=== PATIENT | male | born 1940 | race Two or more races ===

== ENCOUNTER 2022-03-15 07:52 | Inpatient (IN) | payer OTHER ==
[~2022-03-15] VITALS: Ht 165.1 cm; Wt 76.0 kg
[2022-03-15] MEDS ORDERED: LACTATED RINGER'S 2,100 ML IV ONE (08:15)
[2022-03-15] MEDS ORDERED: AZITHROMYCIN 500MG/ 250ML 250 ML IV ONE (08:15)
[2022-03-15] MEDS ORDERED: ACETAMINOPHEN 325 MG TAB PO ONE (08:15)
[2022-03-15] MEDS ORDERED: cefTRIAXone 1GM/50ML D5W 50 ML IV ONE (08:15)
[2022-03-15 08:40] LABS: Basophils # (auto) 0.1 10 ^3/uL (0-0.2); Basophils % (auto) 0.3 % (0.0-2.0); Eosinophils # (auto) 0.1 10 ^3/uL (0-0.8); Eosinophils % (auto) 0.3 % (0.0-7.0); Hematocrit 39.2 % (41.0-53.0); Hemoglobin 13.2 g/dL (13.5-17.5); Lymphocytes # (auto) 0.5 10 ^3/uL (0.4-5.4); Lymphocytes % (auto) 2.7 % (10.0-50.0); Mean Corpuscular Hemoglobin 31.3 pg (28.0-32.0); Mean Corpuscular Hgb Conc. 33.7 g/dL (32.0-36.0); Mean Corpuscular Volume 92.8 fL (80.0-100.0); Monocytes # (auto) 1.5 10 ^3/uL (0-1.3); Monocytes % (auto) 8.2 % (0.0-12.0); Neutrophils # (auto) 16.4 10 ^3/uL (1.6-8.6); Neutrophils % (auto) 88.5 % (37.0-80.0); Red Blood Cells 4.22 10^6/uL (4.5-5.90); White Blood Cell 18.5 10^3/uL (4.4-10.8)
[2022-03-15 08:54] LABS: Albumin 3.2 g/dL (3.4-5.0); Calcium 8.6 mg/dL (8.5-10.1); Magnesium 2.2 mg/dL (1.6-2.6); Potassium 4.6 mmol/L (3.5-5.1)
[2022-03-15 08:57] LABS: BUN/Creatinine Ratio 23.4; Total Protein 6.4 g/dL (6.4-8.2)
[2022-03-15] MEDS ORDERED: SODIUM CHLORIDE 0.9% 2,450 ML IV ONE (09:00)
[2022-03-15] MEDS ORDERED: ASPirin 325 MG TAB PO ONE (09:15)
[2022-03-15] MEDS ORDERED: MORPHINE SULFATE INJ 2 MG/ml SYRG IV PRN (11:30)
[2022-03-15] MEDS ORDERED: ALBUMIN 25% 100 ML IV ONE (11:30)
[2022-03-15] MEDS ORDERED: FUROSEMIDE 20 MG/2 ML VIAL IV ONE (11:30)
[2022-03-15] MEDS ORDERED: NTG 0.1MG/HR TOPICAL PATCH TD ONE (11:30)
[2022-03-15] MEDS ORDERED: HEPARIN SODIUM (PORCINE) 5000 UNITS/ML 1ML VIAL SC ONE (11:30)
[2022-03-15] MEDS ORDERED: NITROGLYCERIN 0.4 MG SL TAB SL PRN (11:30)
[2022-03-15 11:55] LABS: Urine Bacteria FEW /hpf (None Seen); Urine Blood 1+ /uL (Negative); Urine Specific Gravity 1.016 (1.001-1.035); Urine WBC 120 /hpf (0 - 3)
[2022-03-15 11:58] LABS: Cholesterol 135 mg/dL (< 200)
[2022-03-15 12:01] LABS: HDL Cholesterol 48 mg/dL (40-59); LDL Cholesterol 76 mg/dL (< 100); Triglycerides 93 mg/dL (< 150)
[2022-03-15] MEDS ORDERED: VANCOMYCIN PER PHARMACY 0 MG IV SCH (12:15)
[2022-03-15 12:46] LABS: INR 1.17 (0.9-1.15); Partial Thromboplastin Time 34.3 sec (24.6-33.4)
[2022-03-15] MEDS: NOREPINEPHRINE 8 MG/250ML KIT 250 ML IV SCH (12:46)
[2022-03-15] MEDS ORDERED: HEPARIN DRIP/D5W 100UNITS/ML 250 ML IV SCH ×2 (14:00→21:45)
[2022-03-15] MEDS: PIPERACILLIN-TAZOB 2.25GM 50 ML IV SCH ×2 (14:06→20:05)
[2022-03-15] MEDS: VANCOMYCIN 1GM/250ML 250 ML IV SCH (16:42)
[2022-03-15] MEDS: MORPHINE SULFATE INJ 2 MG/ml SYRG IV PRN ×2 (17:03→23:14)
[2022-03-15] MEDS: FUROSEMIDE 20 MG/2 ML VIAL IV SCH (18:19)
[2022-03-15] MEDS ORDERED: CLOPIDOGREL 300 MG TAB PO ONE (20:30)
[2022-03-15 20:41] LABS: INR 1.21 (0.9-1.15); Partial Thromboplastin Time 47.7 sec (24.6-33.4)
[2022-03-15] MEDS ORDERED: HYDROcodone-ACET 7.5/325MG TAB PO ONE (21:00)
[2022-03-16] VITALS (44 sets, daily range): BP systolic 39–117; BP diastolic 25–79
[2022-03-16] MEDS ORDERED: fentaNYL CITRATE 100 MCG/2 ML VL IV ONE (00:15)
[2022-03-16] MEDS ORDERED: IOHEXOL 350 MG/ML 100ML IJ ONE (01:07)
[2022-03-16] MEDS: PIPERACILLIN-TAZOB 2.25GM 50 ML IV SCH ×2 (02:37→10:34)
[2022-03-16 03:48] LABS: INR 1.24 (0.9-1.15); Partial Thromboplastin Time 66.4 sec (24.6-33.4)
[2022-03-16 06:02] LABS: Basophils # (auto) 0.1 10 ^3/uL (0-0.2); Basophils % (auto) 0.3 % (0.0-2.0); Eosinophils # (auto) 0 10 ^3/uL (0-0.8); Hematocrit 36.4 % (41.0-53.0); Hemoglobin 12.1 g/dL (13.5-17.5); Lymphocytes # (auto) 0.7 10 ^3/uL (0.4-5.4); Lymphocytes % (auto) 3.3 % (10.0-50.0); Mean Corpuscular Hemoglobin 31.5 pg (28.0-32.0); Mean Corpuscular Hgb Conc. 33.4 g/dL (32.0-36.0); Mean Corpuscular Volume 94.5 fL (80.0-100.0); Monocytes # (auto) 1.7 10 ^3/uL (0-1.3); Monocytes % (auto) 8.5 % (0.0-12.0); Neutrophils % (auto) 87.9 % (37.0-80.0); Red Blood Cells 3.85 10^6/uL (4.5-5.90); Red Cell Distribution Width 14.3 % (11.8-14.3); White Blood Cell 20.5 10^3/uL (4.4-10.8)
[2022-03-16 06:20] LABS: Potassium 4.8 mmol/L (3.5-5.1)
[2022-03-16 06:26] LABS: BUN/Creatinine Ratio 21.8; Calcium 7.5 mg/dL (8.5-10.1); Total Protein 5.7 g/dL (6.4-8.2)
[2022-03-16] MEDS: FUROSEMIDE 20 MG/2 ML VIAL IV SCH ×2 (07:54→18:55)
[2022-03-16] MEDS ORDERED: IODIXANOL 320MG/ML 100ML BTL IV ONE ×5 (10:14→11:37)
[2022-03-16] MEDS ORDERED: LIDOCAINE 2%HCL (LOCAL ANESTH.) INJ 10ml MDV ONE ×2 (10:16→10:46)
[2022-03-16] MEDS ORDERED: fentaNYL CITRATE 100 MCG/2 ML VL ONE (10:28)
[2022-03-16] MEDS ORDERED: ANGIOMAX 250 MG VIAL IV ONE (10:28)
[2022-03-16] MEDS ORDERED: VERAPAMIL 2.5MG/ML INJ 2ML VIAL IV ONE (10:28)
[2022-03-16] MEDS ORDERED: HEPARIN SODIUM (PORCINE) 5000 UNITS/ML 1ML VIAL ONE (10:28)
[2022-03-16] MEDS ORDERED: MIDAZOLAM HCL 2MG/2ML 2ml VIAL (1mg/ml) ONE (10:29)
[2022-03-16] MEDS ORDERED: SODIUM CHL 0.9% 0 ML ONE (10:29)
[2022-03-16] MEDS ORDERED: HEPARIN DRIP/D5W 100UNITS/ML 250 ML IV ONE (10:59)
[2022-03-16] MEDS ORDERED: KETOROLAC TROMETH 30 MG/ML 1ML VIAL ONE (11:25)
[2022-03-16] MEDS ORDERED: KETOROLAC TROMETH 30 MG/ML 1ML VIAL IV ONE (11:30)
[2022-03-16] MEDS ORDERED: CLOPIDOGREL 300 MG TAB ONE ×2 (11:55→11:56)
[2022-03-16] MEDS ORDERED: ASPirin 325 MG TAB ONE (11:55)
[2022-03-16] MEDS ORDERED: DOPamine 1600MCG/ML D5W 0 ML IV ONE (11:59)
[2022-03-16] MEDS ORDERED: FUROSEMIDE 20 MG/2 ML VIAL ONE (11:59)
[2022-03-16] MEDS ORDERED: PHENYLEPHRINE IV 250 ML IV ONE (12:12)
[2022-03-16] MEDS ORDERED: ASPirin 325 MG TAB PO ONE (12:15)
[2022-03-16] MEDS: PHENYLEPHRINE IV 250 ML IV SCH ×2 (12:15→20:43)
[2022-03-16] MEDS ORDERED: CLOPIDOGREL BISULFATE 75 MG TAB PO ONE (12:15)
[2022-03-16] MEDS: ASPirin 81 mg TAB PO SCH (12:30)
[2022-03-16] MEDS ORDERED: DOXYCYCLINE 100MG/250ML 250 ML IV ONE (15:00)
[2022-03-16] MEDS: MEROPENEM 1GM IVPB 100 ML IV SCH (15:30)
[2022-03-16] MEDS ORDERED: SODIUM CHLORIDE 0.9% 1,000 ML IV ONE (15:45)
[2022-03-16] MEDS ORDERED: ACETYLCYSTEINE ORAL for CIN 20%(200MG/ML) 4ML PO ONE (15:45)
[2022-03-16] MEDS: VANCOMYCIN 1GM/250ML 250 ML IV SCH (16:24)
[2022-03-16 18:36] LABS: Urine Bacteria NONE SEEN /hpf (None Seen); Urine Blood 1+ /uL (Negative); Urine WBC 9 /hpf (0 - 3)
[2022-03-16 18:47] LABS: Protein, Urine 34.1 mg/dL (0.0-11.9)
[2022-03-16] MEDS: NOREPINEPHRINE 8 MG/250ML KIT 250 ML IV SCH (20:37)
[2022-03-16] MEDS ORDERED: FUROSEMIDE 40 MG/4 ML VIAL IV ONE (21:15)
[2022-03-16] MEDS: SODIUM CHLORIDE 0.9% 1,000 ML IV SCH (21:51)
[2022-03-16] MEDS: ATORVASTATIN 20 MG TAB PO SCH (21:51)
[2022-03-16] MEDS: ACETYLCYSTEINE ORAL for CIN 20%(200MG/ML) 4ML PO SCH (22:00)
[2022-03-16] MEDS ORDERED: LOSA-69 PO (22:00)
[2022-03-17] VITALS (93 sets, daily range): BP systolic 35–121; BP diastolic 16–74
[2022-03-17] MEDS: PHENYLEPHRINE IV 250 ML IV SCH ×3 (02:09→19:40)
[2022-03-17] MEDS: DOXYCYCLINE 100MG/250ML 250 ML IV SCH ×2 (02:34→15:00)
[2022-03-17 04:10] LABS: Basophils # (auto) 0 10 ^3/uL (0-0.2); Basophils % (auto) 0.1 % (0.0-2.0); Eosinophils # (auto) 0 10 ^3/uL (0-0.8); Eosinophils % (auto) 0.2 % (0.0-7.0); Hematocrit 35.8 % (41.0-53.0); Hemoglobin 11.9 g/dL (13.5-17.5); Lymphocytes # (auto) 0.6 10 ^3/uL (0.4-5.4); Lymphocytes % (auto) 2.9 % (10.0-50.0); Mean Corpuscular Hemoglobin 31.3 pg (28.0-32.0); Mean Corpuscular Hgb Conc. 33.3 g/dL (32.0-36.0); Monocytes # (auto) 1.8 10 ^3/uL (0-1.3); Monocytes % (auto) 9.5 % (0.0-12.0); Neutrophils # (auto) 17.1 10 ^3/uL (1.6-8.6); Neutrophils % (auto) 87.3 % (37.0-80.0); Red Cell Distribution Width 14.2 % (11.8-14.3); White Blood Cell 19.5 10^3/uL (4.4-10.8)
[2022-03-17 04:18] LABS: Albumin 2.4 g/dL (3.4-5.0); Magnesium 2.3 mg/dL (1.6-2.6)
[2022-03-17 04:20] LABS: BUN/Creatinine Ratio 21.3
[2022-03-17 04:23] LABS: Bilirubin, Total 0.8 mg/dL (0.2-1.0); Phosphorus 5.2 mg/dL (2.5-4.90)
[2022-03-17] MEDS: MEROPENEM 1GM IVPB 100 ML IV SCH (04:49)
[2022-03-17] MEDS ORDERED: FUROSEMIDE 40 MG/4 ML VIAL IV ONE (06:15)
[2022-03-17] MEDS: FUROSEMIDE 20 MG/2 ML VIAL IV SCH ×2 (06:15→17:57)
[2022-03-17] MEDS ORDERED: PANTOPRAZOLE 40 MG/10 ML VIAL INJ IV ONE (10:45)
[2022-03-17] MEDS: ASPirin 81 mg TAB PO SCH (10:47)
[2022-03-17] MEDS: CLOPIDOGREL BISULFATE 75 MG TAB PO SCH (10:47)
[2022-03-17] MEDS: NOREPINEPHRINE 8 MG/250ML KIT 250 ML IV SCH (11:30)
[2022-03-17] MEDS: ACETYLCYSTEINE ORAL for CIN 20%(200MG/ML) 4ML PO SCH ×2 (13:01→21:45)
[2022-03-17] MEDS: SODIUM CHLORIDE 0.9% 1,000 ML IV SCH (13:55)
[2022-03-17] MEDS: ERGOCALCIFEROL 50,000 UNIT(1.25MG) CAP PO SCH (14:30)
[2022-03-17] MEDS ORDERED: CEFTRIAXONE SODIUM 2 GM in D5W 5% 50 ML IV ONE (14:45)
[2022-03-17] MEDS: DOBUTamine 1000MCG/ML 250 ML IV SCH (15:43)
[2022-03-17] MEDS: ALPRAZolam 0.5 MG TAB PO PRN (16:47)
[2022-03-17] MEDS ORDERED: FINA5TAB4 PO (17:54)
[2022-03-17] MEDS ORDERED: ATOR20TA PO (17:55)
[2022-03-17] MEDS: ATORVASTATIN 20 MG TAB PO SCH (21:45)
[2022-03-18] VITALS (96 sets, daily range): BP systolic 22–132; BP diastolic 0–72
[2022-03-18] MEDS: PHENYLEPHRINE IV 250 ML IV SCH ×2 (00:09→07:11)
[2022-03-18] MEDS: DOXYCYCLINE 100MG/250ML 250 ML IV SCH ×2 (03:09→14:20)
[2022-03-18 04:08] LABS: Basophils # (auto) 0 10 ^3/uL (0-0.2); Basophils % (auto) 0.1 % (0.0-2.0); Eosinophils # (auto) 0.1 10 ^3/uL (0-0.8); Eosinophils % (auto) 0.6 % (0.0-7.0); Hematocrit 34.1 % (41.0-53.0); Hemoglobin 11.4 g/dL (13.5-17.5); Lymphocytes # (auto) 0.6 10 ^3/uL (0.4-5.4); Lymphocytes % (auto) 3.8 % (10.0-50.0); Mean Corpuscular Hgb Conc. 33.5 g/dL (32.0-36.0); Mean Corpuscular Volume 95.7 fL (80.0-100.0); Monocytes # (auto) 1.4 10 ^3/uL (0-1.3); Monocytes % (auto) 8.7 % (0.0-12.0); Neutrophils # (auto) 13.7 10 ^3/uL (1.6-8.6); Neutrophils % (auto) 86.8 % (37.0-80.0); Red Blood Cells 3.56 10^6/uL (4.5-5.90); Red Cell Distribution Width 14.5 % (11.8-14.3); White Blood Cell 15.8 10^3/uL (4.4-10.8)
[2022-03-18 04:22] LABS: BUN/Creatinine Ratio 23.1; Calcium 7.6 mg/dL (8.5-10.1); Potassium 3.8 mmol/L (3.5-5.1)
[2022-03-18] MEDS: FUROSEMIDE 20 MG/2 ML VIAL IV SCH ×2 (05:48→18:39)
[2022-03-18] MEDS ORDERED: PHENYLEPHRINE INJ 80 MG in SODIUM CHL 0.9% 242 ML IV SCH (08:15)
[2022-03-18] MEDS: cefTRIAXone 1GM/50ML D5W 50 ML IV SCH (09:15)
[2022-03-18] MEDS: PANTOPRAZOLE 40 MG/10 ML VIAL INJ IV SCH (09:15)
[2022-03-18] MEDS: CLOPIDOGREL BISULFATE 75 MG TAB PO SCH (09:15)
[2022-03-18] MEDS: PHENYLEPHRINE INJ 80 MG in SODIUM CHL 0.9% 242 ML IV SCH (09:15)
[2022-03-18] MEDS: ASPirin 81 mg TAB PO SCH (09:16)
[2022-03-18] MEDS: NOREPINEPHRINE 8 MG/250ML KIT 250 ML IV SCH (11:30)
[2022-03-18] MEDS: DOBUTamine 1000MCG/ML 250 ML IV SCH (11:46)
[2022-03-18] MEDS ORDERED: FUROSEMIDE 40 MG/4 ML VIAL IV ONE (12:30)
[2022-03-18] MEDS: SENNA 8.6 MG TAB PO SCH (14:46)
[2022-03-18] MEDS: ATORVASTATIN 20 MG TAB PO SCH (21:55)
[2022-03-19] VITALS (93 sets, daily range): BP systolic 15–126; BP diastolic -1–71
[2022-03-19] MEDS: DOXYCYCLINE 100MG/250ML 250 ML IV SCH ×2 (02:41→15:00)
[2022-03-19 04:35] LABS: Basophils # (auto) 0 10 ^3/uL (0-0.2); Basophils % (auto) 0.2 % (0.0-2.0); Eosinophils # (auto) 0.2 10 ^3/uL (0-0.8); Eosinophils % (auto) 1.1 % (0.0-7.0); Hematocrit 34.9 % (41.0-53.0); Hemoglobin 11.5 g/dL (13.5-17.5); Lymphocytes # (auto) 0.5 10 ^3/uL (0.4-5.4); Lymphocytes % (auto) 3.5 % (10.0-50.0); Mean Corpuscular Hemoglobin 30.7 pg (28.0-32.0); Mean Corpuscular Hgb Conc. 32.8 g/dL (32.0-36.0); Mean Corpuscular Volume 93.6 fL (80.0-100.0); Monocytes # (auto) 1.1 10 ^3/uL (0-1.3); Neutrophils # (auto) 11.7 10 ^3/uL (1.6-8.6); Neutrophils % (auto) 87.2 % (37.0-80.0); Red Blood Cells 3.73 10^6/uL (4.5-5.90); Red Cell Distribution Width 14.3 % (11.8-14.3); White Blood Cell 13.4 10^3/uL (4.4-10.8)
[2022-03-19 05:20] LABS: Potassium 3.8 mmol/L (3.5-5.1)
[2022-03-19] MEDS: FUROSEMIDE 20 MG/2 ML VIAL IV SCH ×2 (05:43→18:32)
[2022-03-19] MEDS: DOBUTamine 1000MCG/ML 250 ML IV SCH (06:55)
[2022-03-19] MEDS: cefTRIAXone 1GM/50ML D5W 50 ML IV SCH (09:00)
[2022-03-19] MEDS: PHENYLEPHRINE INJ 80 MG in SODIUM CHL 0.9% 242 ML IV SCH (09:15)
[2022-03-19] MEDS: SENNA 8.6 MG TAB PO SCH (10:18)
[2022-03-19] MEDS: CLOPIDOGREL BISULFATE 75 MG TAB PO SCH (10:19)
[2022-03-19] MEDS: ASPirin 81 mg TAB PO SCH (10:20)
[2022-03-19] MEDS: PANTOPRAZOLE 40 MG/10 ML VIAL INJ IV SCH (10:20)
[2022-03-19] MEDS ORDERED: POTASSIUM EFFERVESENT TAB 25 MEQ PO ONE (11:00)
[2022-03-19] MEDS ORDERED: FUROSEMIDE 40 MG/4 ML VIAL IV ONE (11:00)
[2022-03-19] MEDS: NOREPINEPHRINE 8 MG/250ML KIT 250 ML IV SCH (11:30)
[2022-03-19] MEDS: Ensure HIGH Protein Chocolate 8oz Bottle PO SCH ×2 (14:33→18:32)
[2022-03-19] MEDS: ATORVASTATIN 20 MG TAB PO SCH (21:43)
[2022-03-20] VITALS (96 sets, daily range): BP systolic 79–147; BP diastolic 32–73
[2022-03-20] MEDS: PHENYLEPHRINE INJ 80 MG in SODIUM CHL 0.9% 242 ML IV SCH (02:05)
[2022-03-20] MEDS: DOXYCYCLINE 100MG/250ML 250 ML IV SCH ×2 (03:47→15:00)
[2022-03-20 04:00] LABS: Basophils # (auto) 0.1 10 ^3/uL (0-0.2); Basophils % (auto) 0.4 % (0.0-2.0); Eosinophils # (auto) 0.7 10 ^3/uL (0-0.8); Eosinophils % (auto) 4.6 % (0.0-7.0); Hematocrit 38.8 % (41.0-53.0); Hemoglobin 12.4 g/dL (13.5-17.5); Lymphocytes # (auto) 0.9 10 ^3/uL (0.4-5.4); Lymphocytes % (auto) 6.2 % (10.0-50.0); Mean Corpuscular Hemoglobin 30.1 pg (28.0-32.0); Mean Corpuscular Hgb Conc. 31.8 g/dL (32.0-36.0); Mean Corpuscular Volume 94.5 fL (80.0-100.0); Monocytes # (auto) 1.3 10 ^3/uL (0-1.3); Monocytes % (auto) 8.9 % (0.0-12.0); Neutrophils # (auto) 11.8 10 ^3/uL (1.6-8.6); Neutrophils % (auto) 79.9 % (37.0-80.0); Nucleated Red Blood Cells % 0.1 %; Red Blood Cells 4.11 10^6/uL (4.5-5.90); Red Cell Distribution Width 14.3 % (11.8-14.3); White Blood Cell 14.8 10^3/uL (4.4-10.8)
[2022-03-20 04:22] LABS: Calcium 8.4 mg/dL (8.5-10.1); Potassium 3.9 mmol/L (3.5-5.1)
[2022-03-20 04:24] LABS: BUN/Creatinine Ratio 39.3
[2022-03-20 04:27] LABS: Bilirubin, Total 0.8 mg/dL (0.2-1.0); Total Protein 5.3 g/dL (6.4-8.2)
[2022-03-20] MEDS: FUROSEMIDE 20 MG/2 ML VIAL IV SCH ×2 (06:08→18:47)
[2022-03-20] MEDS: DOBUTamine 1000MCG/ML 250 ML IV SCH (06:18)
[2022-03-20] MEDS: Ensure HIGH Protein Chocolate 8oz Bottle PO SCH ×3 (08:58→19:55)
[2022-03-20] MEDS: PANTOPRAZOLE 40 MG/10 ML VIAL INJ IV SCH (09:40)
[2022-03-20] MEDS: cefTRIAXone 1GM/50ML D5W 50 ML IV SCH (09:43)
[2022-03-20] MEDS: ASPirin 81 mg TAB PO SCH (09:44)
[2022-03-20] MEDS: SENNA 8.6 MG TAB PO SCH (09:45)
[2022-03-20] MEDS: CLOPIDOGREL BISULFATE 75 MG TAB PO SCH (09:45)
[2022-03-20] MEDS: NOREPINEPHRINE 8 MG/250ML KIT 250 ML IV SCH (11:30)
[2022-03-20] MEDS: ACETAMINOPHEN 500 MG TAB PO PRN ×2 (16:28→22:18)
[2022-03-20] MEDS: ATORVASTATIN 20 MG TAB PO SCH (22:13)
[2022-03-21] VITALS (63 sets, daily range): BP systolic 80–142; BP diastolic 29–72
[2022-03-21] MEDS: ALPRAZolam 0.5 MG TAB PO PRN (02:03)
[2022-03-21] MEDS: DOXYCYCLINE 100MG/250ML 250 ML IV SCH (03:27)
[2022-03-21] MEDS: DOBUTamine 1000MCG/ML 250 ML IV SCH ×2 (03:34→14:35)
[2022-03-21 03:59] LABS: Basophils # (auto) 0 10 ^3/uL (0-0.2); Basophils % (auto) 0.4 % (0.0-2.0); Eosinophils # (auto) 0.6 10 ^3/uL (0-0.8); Eosinophils % (auto) 5.3 % (0.0-7.0); Hematocrit 37.6 % (41.0-53.0); Hemoglobin 12.2 g/dL (13.5-17.5); Lymphocytes # (auto) 0.7 10 ^3/uL (0.4-5.4); Lymphocytes % (auto) 6.2 % (10.0-50.0); Mean Corpuscular Hemoglobin 30.1 pg (28.0-32.0); Mean Corpuscular Hgb Conc. 32.4 g/dL (32.0-36.0); Mean Corpuscular Volume 92.9 fL (80.0-100.0); Monocytes # (auto) 0.9 10 ^3/uL (0-1.3); Monocytes % (auto) 7.7 % (0.0-12.0); Neutrophils # (auto) 9.1 10 ^3/uL (1.6-8.6); Neutrophils % (auto) 80.4 % (37.0-80.0); Red Blood Cells 4.05 10^6/uL (4.5-5.90); Red Cell Distribution Width 14.5 % (11.8-14.3); White Blood Cell 11.3 10^3/uL (4.4-10.8)
[2022-03-21 04:17] LABS: Albumin 2.1 g/dL (3.4-5.0); BUN/Creatinine Ratio 49.7; Calcium 8.5 mg/dL (8.5-10.1); Potassium 3.8 mmol/L (3.5-5.1)
[2022-03-21 04:20] LABS: Bilirubin, Total 0.6 mg/dL (0.2-1.0); INR 1.25 (0.9-1.15); Total Protein 5.4 g/dL (6.4-8.2)
[2022-03-21] MEDS: ACETAMINOPHEN 500 MG TAB PO PRN (04:32)
[2022-03-21] MEDS: FUROSEMIDE 20 MG/2 ML VIAL IV SCH (05:46)
[2022-03-21] MEDS: Ensure HIGH Protein Chocolate 8oz Bottle PO SCH ×3 (08:00→18:13)
[2022-03-21] MEDS: PHENYLEPHRINE INJ 80 MG in SODIUM CHL 0.9% 242 ML IV SCH (09:15)
[2022-03-21] MEDS: CLOPIDOGREL BISULFATE 75 MG TAB PO SCH (11:27)
[2022-03-21] MEDS: SENNA 8.6 MG TAB PO SCH (11:27)
[2022-03-21] MEDS: PANTOPRAZOLE 40 MG/10 ML VIAL INJ IV SCH (11:28)
[2022-03-21] MEDS: HYDROcodone-ACET 5/325MG TAB PO PRN ×2 (11:28→19:30)
[2022-03-21] MEDS: cefTRIAXone 1GM/50ML D5W 50 ML IV SCH (11:28)
[2022-03-21] MEDS: ASPirin 81 mg TAB PO SCH (11:28)
[2022-03-21] MEDS: NOREPINEPHRINE 8 MG/250ML KIT 250 ML IV SCH (11:30)
[2022-03-21] MEDS: ATORVASTATIN 20 MG TAB PO SCH (22:00)
[2022-03-21] MEDS: PHENYLEPHRINE IV 250 ML IV SCH (22:24)
[2022-03-22] VITALS (90 sets, daily range): BP systolic 89–164; BP diastolic 37–72
[2022-03-22 04:17] LABS: Potassium 3.8 mmol/L (3.5-5.1)
[2022-03-22 04:23] LABS: BUN/Creatinine Ratio 48.4
[2022-03-22] MEDS: PHENYLEPHRINE IV 250 ML IV SCH ×3 (06:35→23:15)
[2022-03-22] MEDS: DOBUTamine 1000MCG/ML 250 ML IV SCH (08:53)
[2022-03-22] MEDS: cefTRIAXone 1GM/50ML D5W 50 ML IV SCH (08:53)
[2022-03-22] MEDS: Ensure HIGH Protein Chocolate 8oz Bottle PO SCH ×3 (08:54→18:00)
[2022-03-22] MEDS: ASPirin 81 mg TAB PO SCH (09:37)
[2022-03-22] MEDS: SENNA 8.6 MG TAB PO SCH (09:37)
[2022-03-22] MEDS: PANTOPRAZOLE 40 MG TAB PO SCH (09:38)
[2022-03-22] MEDS: CLOPIDOGREL BISULFATE 75 MG TAB PO SCH (09:38)
[2022-03-22] MEDS: ACETAMINOPHEN 500 MG TAB PO PRN (13:41)
[2022-03-22] MEDS: ATORVASTATIN 20 MG TAB PO SCH (22:12)
[2022-03-23] VITALS (85 sets, daily range): BP systolic 117–166; BP diastolic 41–79
[2022-03-23] MEDS: ACETAMINOPHEN 500 MG TAB PO PRN ×2 (02:35→17:50)
[2022-03-23 04:21] LABS: Calcium 8.5 mg/dL (8.5-10.1); Potassium 4.2 mmol/L (3.5-5.1)
[2022-03-23 04:23] LABS: BUN/Creatinine Ratio 46.9
[2022-03-23] MEDS: DOBUTamine 1000MCG/ML 250 ML IV SCH (05:59)
[2022-03-23] MEDS: PHENYLEPHRINE IV 250 ML IV SCH ×2 (07:35→15:55)
[2022-03-23] MEDS: cefTRIAXone 1GM/50ML D5W 50 ML IV SCH (09:18)
[2022-03-23] MEDS: CLOPIDOGREL BISULFATE 75 MG TAB PO SCH (09:19)
[2022-03-23] MEDS: SENNA 8.6 MG TAB PO SCH (09:19)
[2022-03-23] MEDS: ASPirin 81 mg TAB PO SCH (09:19)
[2022-03-23] MEDS: PANTOPRAZOLE 40 MG TAB PO SCH (09:19)
[2022-03-23] MEDS: Ensure HIGH Protein Chocolate 8oz Bottle PO SCH ×2 (09:20→12:00)
[2022-03-23] MEDS: ATORVASTATIN 20 MG TAB PO SCH (21:48)
[2022-03-24] VITALS (43 sets, daily range): BP systolic 92–161; BP diastolic 23–89
[2022-03-24] MEDS: PHENYLEPHRINE IV 250 ML IV SCH ×3 (00:15→16:55)
[2022-03-24] MEDS: DOBUTamine 1000MCG/ML 250 ML IV SCH (02:32)
[2022-03-24 03:40] LABS: Basophils # (auto) 0 10 ^3/uL (0-0.2); Basophils % (auto) 0.4 % (0.0-2.0); Eosinophils # (auto) 0.5 10 ^3/uL (0-0.8); Eosinophils % (auto) 4.3 % (0.0-7.0); Hematocrit 37.8 % (41.0-53.0); Hemoglobin 12.4 g/dL (13.5-17.5); Lymphocytes # (auto) 0.8 10 ^3/uL (0.4-5.4); Lymphocytes % (auto) 6.6 % (10.0-50.0); Mean Corpuscular Hemoglobin 30.5 pg (28.0-32.0); Mean Corpuscular Hgb Conc. 32.9 g/dL (32.0-36.0); Mean Corpuscular Volume 92.8 fL (80.0-100.0); Monocytes # (auto) 1.1 10 ^3/uL (0-1.3); Monocytes % (auto) 9.5 % (0.0-12.0); Neutrophils # (auto) 9.3 10 ^3/uL (1.6-8.6); Neutrophils % (auto) 79.2 % (37.0-80.0); Nucleated Red Blood Cells % 0.1 %; Red Blood Cells 4.08 10^6/uL (4.5-5.90); Red Cell Distribution Width 14.4 % (11.8-14.3); White Blood Cell 11.8 10^3/uL (4.4-10.8)
[2022-03-24 03:57] LABS: Magnesium 2.6 mg/dL (1.6-2.6)
[2022-03-24] MEDS: PANTOPRAZOLE 40 MG TAB PO SCH (09:33)
[2022-03-24] MEDS: ASPirin 81 mg TAB PO SCH (09:33)
[2022-03-24] MEDS: cefTRIAXone 1GM/50ML D5W 50 ML IV SCH (09:33)
[2022-03-24] MEDS: CLOPIDOGREL BISULFATE 75 MG TAB PO SCH (09:33)
[2022-03-24] MEDS: SENNA 8.6 MG TAB PO SCH (09:33)
[2022-03-24] MEDS: ENOXAPARIN SOD 30 MG/0.3 ML SYRINGE SC SCH (09:34)
[2022-03-24] MEDS: Ensure HIGH Protein Chocolate 8oz Bottle PO SCH ×4 (09:35→18:37)
[2022-03-24] MEDS: ACETYLCYSTEINE 10 %(100MG/ML) SOL 4ML NEB SCH ×2 (10:15→22:16)
[2022-03-24] MEDS ORDERED: SACUBITRIL-VALSARTAN 24mg/26mg TAB PO SCH (10:15)
[2022-03-24] MEDS ORDERED: IPRATROPIUM BROM 0.5 MG/2.5ML INH SOL NEB ONE (10:15)
[2022-03-24] MEDS ORDERED: ALBUTEROL SULF 2.5 MG/0.5ML(0.5%) NEB SOLN NEB ONE (10:15)
[2022-03-24] MEDS ORDERED: ALBUTEROL MEDNEB 2.5 mg/3ml NEB ONE ×2 (10:22→14:36)
[2022-03-24] MEDS ORDERED: CARVEDILOL 3.125 MG TAB PO ONE (12:00)
[2022-03-24] MEDS ORDERED: metOLazone 5 MG TAB PO ONE (12:00)
[2022-03-24] MEDS ORDERED: BUMETANIDE 1 MG TAB PO ONE (12:00)
[2022-03-24] MEDS: IPRATROPIUM BROM 0.5 MG/2.5ML INH SOL NEB SCH ×3 (14:00→22:15)
[2022-03-24] MEDS: ALBUTEROL SULF 2.5 MG/0.5ML(0.5%) NEB SOLN NEB SCH ×3 (14:00→22:15)
[2022-03-24] MEDS: ACETAMINOPHEN 500 MG TAB PO PRN (14:09)
[2022-03-24] MEDS: ALPRAZolam 0.5 MG TAB PO PRN (14:21)
[2022-03-24] MEDS: BUMETANIDE 1 MG TAB PO SCH (18:35)
[2022-03-24] MEDS: ERGOCALCIFEROL 50,000 UNIT(1.25MG) CAP PO SCH (18:35)
[2022-03-24] MEDS: CARVEDILOL 3.125 MG TAB PO SCH (21:46)
[2022-03-24] MEDS: ATORVASTATIN 20 MG TAB PO SCH (21:46)
[2022-03-25] VITALS (23 sets, daily range): BP systolic 97–147; BP diastolic 33–65
[2022-03-25] MEDS: PHENYLEPHRINE IV 250 ML IV SCH ×4 (01:15→21:49)
[2022-03-25] MEDS: ALBUTEROL SULF 2.5 MG/0.5ML(0.5%) NEB SOLN NEB SCH ×6 (02:15→22:56)
[2022-03-25] MEDS: ALPRAZolam 0.5 MG TAB PO PRN (02:26)
[2022-03-25 04:07] LABS: Basophils # (auto) 0.1 10 ^3/uL (0-0.2); Basophils % (auto) 0.4 % (0.0-2.0); Eosinophils # (auto) 0.6 10 ^3/uL (0-0.8); Eosinophils % (auto) 4.9 % (0.0-7.0); Hematocrit 43.8 % (41.0-53.0); Hemoglobin 13.7 g/dL (13.5-17.5); Lymphocytes # (auto) 0.9 10 ^3/uL (0.4-5.4); Lymphocytes % (auto) 8.2 % (10.0-50.0); Mean Corpuscular Hemoglobin 30.5 pg (28.0-32.0); Mean Corpuscular Hgb Conc. 31.1 g/dL (32.0-36.0); Mean Corpuscular Volume 97.8 fL (80.0-100.0); Monocytes # (auto) 1.2 10 ^3/uL (0-1.3); Monocytes % (auto) 10.3 % (0.0-12.0); Neutrophils # (auto) 8.7 10 ^3/uL (1.6-8.6); Neutrophils % (auto) 76.2 % (37.0-80.0); Nucleated Red Blood Cells % 0.1 %; Red Blood Cells 4.48 10^6/uL (4.5-5.90); Red Cell Distribution Width 14.9 % (11.8-14.3); White Blood Cell 11.4 10^3/uL (4.4-10.8)
[2022-03-25 04:25] LABS: BUN/Creatinine Ratio 41.1; Calcium 9.2 mg/dL (8.5-10.1); Magnesium 2.6 mg/dL (1.6-2.6); Phosphorus 4.3 mg/dL (2.5-4.90); Potassium 4.1 mmol/L (3.5-5.1)
[2022-03-25] MEDS: BUMETANIDE 1 MG TAB PO SCH ×2 (06:00→18:21)
[2022-03-25] MEDS ORDERED: ALBUTEROL MEDNEB 2.5 mg/3ml NEB ONE ×5 (06:22→21:43)
[2022-03-25] MEDS: ACETYLCYSTEINE 10 %(100MG/ML) SOL 4ML NEB SCH ×3 (06:23→22:57)
[2022-03-25] MEDS: IPRATROPIUM BROM 0.5 MG/2.5ML INH SOL NEB SCH ×5 (06:23→22:57)
[2022-03-25] MEDS: Ensure HIGH Protein Chocolate 8oz Bottle PO SCH ×3 (08:18→21:55)
[2022-03-25] MEDS: cefTRIAXone 1GM/50ML D5W 50 ML IV SCH (08:19)
[2022-03-25] MEDS: CLOPIDOGREL BISULFATE 75 MG TAB PO SCH (08:20)
[2022-03-25] MEDS: ASPirin 81 mg TAB PO SCH (08:20)
[2022-03-25] MEDS: PANTOPRAZOLE 40 MG TAB PO SCH (08:21)
[2022-03-25] MEDS: SENNA 8.6 MG TAB PO SCH (08:21)
[2022-03-25] MEDS: metOLazone 5 MG TAB PO SCH (08:22)
[2022-03-25] MEDS: ENOXAPARIN SOD 30 MG/0.3 ML SYRINGE SC SCH (08:22)
[2022-03-25] MEDS ORDERED: LOS25T PO (08:53)
[2022-03-25] MEDS ORDERED: ERGO1CAP23 PO (08:53)
[2022-03-25] MEDS ORDERED: CLOP75TA70 PO (08:53)
[2022-03-25] MEDS ORDERED: BUM1T PO (08:53)
[2022-03-25] MEDS ORDERED: ASPI-325 PO (08:53)
[2022-03-25] MEDS ORDERED: ATOR20TA50 PO (08:53)
[2022-03-25] MEDS ORDERED: CAR3125T PO (08:53)
[2022-03-25] MEDS: LOSARTAN POTASSIUM 25 MG TAB PO SCH (10:00)
[2022-03-25] MEDS: CARVEDILOL 3.125 MG TAB PO SCH ×2 (10:00→21:47)
[2022-03-25] MEDS: ATORVASTATIN 20 MG TAB PO SCH (21:54)
[2022-03-26] MEDS: ALBUTEROL SULF 2.5 MG/0.5ML(0.5%) NEB SOLN NEB SCH ×3 (03:00→10:33)
[2022-03-26 04:53] VITALS: BP 99/60
[2022-03-26] MEDS: BUMETANIDE 1 MG TAB PO SCH (05:56)
[2022-03-26] MEDS ORDERED: ALBUTEROL MEDNEB 2.5 mg/3ml NEB ONE ×2 (05:59→14:27)
[2022-03-26] MEDS: ACETYLCYSTEINE 10 %(100MG/ML) SOL 4ML NEB SCH (06:08)
[2022-03-26] MEDS: IPRATROPIUM BROM 0.5 MG/2.5ML INH SOL NEB SCH ×2 (06:09→10:33)
[2022-03-26 08:00] VITALS: BP 115/49
[2022-03-26] MEDS: metOLazone 5 MG TAB PO SCH (10:00)
[2022-03-26] MEDS: LOSARTAN POTASSIUM 25 MG TAB PO SCH (10:00)
[2022-03-26] MEDS: ASPirin 81 mg TAB PO SCH (10:08)
[2022-03-26] MEDS: CARVEDILOL 3.125 MG TAB PO SCH (10:09)
[2022-03-26] MEDS: PANTOPRAZOLE 40 MG TAB PO SCH (10:10)
[2022-03-26] MEDS: CLOPIDOGREL BISULFATE 75 MG TAB PO SCH (10:10)
[2022-03-26] MEDS: SENNA 8.6 MG TAB PO SCH (10:10)
[2022-03-26] MEDS: ENOXAPARIN SOD 30 MG/0.3 ML SYRINGE SC SCH (10:11)
[2022-03-26] MEDS: Ensure HIGH Protein Chocolate 8oz Bottle PO SCH ×2 (10:12→12:00)
[2022-03-26 11:16] VITALS: BP 99/63
[2022-03-26 12:00] VITALS: BP 103/65
[2022-03-26] MEDS ORDERED: ALBU0.084 NEB (12:07)
== END 2022-03-26 12:51 | disposition home or self-care (01) | DRG 853 ==
LOC: ER 07:52 → TELE 11:38 → ICU WEST 03-16 19:43 → TELE-CENTR 03-25 21:11
PROVIDERS: ADMIT Registered Nurse; ATTEND Internal Medicine
PROC: 027135Z Dilation of Coronary Artery, Two Arteries with Two Drug-eluting Intraluminal Devices, Percutaneous Approach (ICD-10-PCS; principal; 2022-03-16)
PROC: 4A023N6 Measurement of Cardiac Sampling and Pressure, Right Heart, Percutaneous Approach (ICD-10-PCS; 2022-03-16)
PROC: B211YZZ Fluoroscopy of Multiple Coronary Arteries using Other Contrast (ICD-10-PCS; 2022-03-16)
DX: A41.9 Sepsis, unspecified organism (principal); I21.A1 Myocardial infarction type 2; I50.23 Acute on chronic systolic (congestive) heart failure; J18.9 Pneumonia, unspecified organism; J96.00 Acute respiratory failure, unspecified whether with hypoxia or hypercapnia; N17.0 Acute kidney failure with tubular necrosis; R65.21 Severe sepsis with septic shock; I13.0 Hypertensive heart and chronic kidney disease with heart failure and stage 1 through stage 4 chronic kidney disease, or unspecified chronic kidney disease; N39.0 Urinary tract infection, site not specified; Z20.822 Contact with and (suspected) exposure to COVID-19; Z66 Do not resuscitate; E78.5 Hyperlipidemia, unspecified; E66.9 Obesity, unspecified; F17.200 Nicotine dependence, unspecified, uncomplicated; G93.89 Other specified disorders of brain; I25.10 Atherosclerotic heart disease of native coronary artery without angina pectoris; I25.82 Chronic total occlusion of coronary artery; N18.31 Chronic kidney disease, stage 3a; R73.03 Prediabetes; I25.5 Ischemic cardiomyopathy
CPT/HCPCS: 36415; 36600; 70450; 71045; 71046; 71250; 71275; 80048; 80053; 80061; 80202; 81001; 82306; 82570; 82805; 83036; 83605; 83690; 83735; 83880; 83935; 84100; 84156; 84300; 84443; 84484; 85025; 85610; 85730; 87040; 87070; 87077; 87081; 87086; 87088; 87186; 87205; 87426; 87804; 92928; 93005; 93306; 93456; 93886; 93970; 94640; 96365; 96367; 97110; 97116; 97163; 97530; 99152; 99153; 99291; C1751; C1874; C1887; C9113; G0378; J0696; J1885; J2001; J2185; J2250; J2543; J3490; J7060; P9047; Q9967

== ENCOUNTER → 2022-04-14 | Outpatient (CLI) | payer OTHER ==
[~2022-04-14] VITALS: Ht 162.6 cm; Wt 67.6 kg
[~2022-04-14] MED LIST: ADENOSINE 57 MG in GIVE UN-DILUTED 0 ML IV ONE; ADENOSINE 90 MG/30 ML INJ IV ONE; ALBU0.084 NEB; ASPI-325 PO; ATOR20TA50 PO; BUM1T PO; CAR3125T PO; CLOP75TA70 PO; ERGO1CAP23 PO; LOS25T PO
[2022-04-14 11:30] LABS: Basophils # (auto) 0.1 10 ^3/uL (0-0.2); Basophils % (auto) 0.5 % (0.0-2.0); Eosinophils # (auto) 0.4 10 ^3/uL (0-0.8); Eosinophils % (auto) 4.3 % (0.0-7.0); Hematocrit 29.4 % (41.0-53.0); Hemoglobin 9.9 g/dL (13.5-17.5); Lymphocytes # (auto) 2.1 10 ^3/uL (0.4-5.4); Lymphocytes % (auto) 21.4 % (10.0-50.0); Mean Corpuscular Hemoglobin 31.4 pg (28.0-32.0); Mean Corpuscular Hgb Conc. 33.7 g/dL (32.0-36.0); Mean Corpuscular Volume 93.2 fL (80.0-100.0); Monocytes # (auto) 1.2 10 ^3/uL (0-1.3); Monocytes % (auto) 12.3 % (0.0-12.0); Neutrophils # (auto) 6.1 10 ^3/uL (1.6-8.6); Neutrophils % (auto) 61.5 % (37.0-80.0); Red Blood Cells 3.16 10^6/uL (4.5-5.90); Red Cell Distribution Width 15.9 % (11.8-14.3)
[2022-04-14 11:46] LABS: Albumin 2.9 g/dL (3.4-5.0); Calcium 8.7 mg/dL (8.5-10.1); Potassium 3.9 mmol/L (3.5-5.1); Urine Blood Negative /uL (Negative); Urine Specific Gravity 1.017 (1.001-1.035)
[2022-04-14 11:50] LABS: BUN/Creatinine Ratio 19.7; Bilirubin, Total 0.7 mg/dL (0.2-1.0); Total Protein 7.1 g/dL (6.4-8.2); Uric Acid 7.6 mg/dL (3.5-7.2)
[2022-04-14 12:00] LABS: Free T4 (Free Thyroxine) 1.19 ng/dL (0.89-1.76); Prostate Specific Antigen 0.52 ng/mL (0.0-4.0)
== END | disposition home or self-care (01) ==
LOC: Rad HDHVI 08:16
PROVIDERS: ATTEND Internal Medicine Cardiovascular Disease
DX: D51.3 Other dietary vitamin B12 deficiency anemia (principal); E55.9 Vitamin D deficiency, unspecified; I50.23 Acute on chronic systolic (congestive) heart failure
CPT/HCPCS: 36415; 78452; 80053; 80061; 81003; 82306; 82607; 83036; 83880; 84153; 84403; 84439; 84443; 84550; 85025; 93005; 96374; 96375; J0153

== ENCOUNTER → 2022-04-15 | Outpatient (CLI) | payer OTHER ==
[~2022-04-15] MED LIST changes: -ADENOSINE 57 MG in GIVE UN-DILUTED 0 ML IV ONE; -ADENOSINE 90 MG/30 ML INJ IV ONE
== END | disposition home or self-care (01) ==
LOC: Rad HDHVI 07:55
PROVIDERS: ATTEND Internal Medicine Cardiovascular Disease
DX: R07.89 Other chest pain (principal)
CPT/HCPCS: 93306

== ENCOUNTER 2022-05-26 09:37 | Day surgery (SDC) | payer OTHER ==
[2022-05-25 10:20] LABS: Basophils # (auto) 0.1 10 ^3/uL (0-0.2); Basophils % (auto) 0.7 % (0.0-2.0); Eosinophils # (auto) 0.3 10 ^3/uL (0-0.8); Eosinophils % (auto) 3.3 % (0.0-7.0); Hematocrit 35.7 % (41.0-53.0); Hemoglobin 12.1 g/dL (13.5-17.5); Lymphocytes # (auto) 2.4 10 ^3/uL (0.4-5.4); Lymphocytes % (auto) 26.7 % (10.0-50.0); Mean Corpuscular Hemoglobin 31.3 pg (28.0-32.0); Mean Corpuscular Hgb Conc. 33.8 g/dL (32.0-36.0); Mean Corpuscular Volume 92.7 fL (80.0-100.0); Monocytes # (auto) 1.1 10 ^3/uL (0-1.3); Monocytes % (auto) 11.6 % (0.0-12.0); Neutrophils # (auto) 5.3 10 ^3/uL (1.6-8.6); Neutrophils % (auto) 57.7 % (37.0-80.0); Red Blood Cells 3.86 10^6/uL (4.5-5.90); Red Cell Distribution Width 15.8 % (11.8-14.3); White Blood Cell 9.1 10^3/uL (4.4-10.8)
[2022-05-25 10:33] LABS: INR 1.04 (0.9-1.15); Partial Thromboplastin Time 25.8 sec (24.6-33.4)
[2022-05-25 11:29] LABS: BUN/Creatinine Ratio 23.5 (10.0-20.0); Calcium 9.3 mg/dL (8.5-10.1)
[2022-05-25 11:36] LABS: Potassium 4.5 mmol/L (3.5-5.1)
[2022-05-26] VITALS (9 sets, daily range): BP systolic 129–147; BP diastolic 65–106
[~2022-05-26] VITALS: Ht 165.1 cm; Wt 68.0 kg
[2022-05-26] MEDS ORDERED: LIDOCAINE 2%HCL (LOCAL ANESTH.) INJ 20ML MDV ONE (14:58)
[2022-05-26] MEDS ORDERED: ANGIOMAX 250 MG VIAL IV ONE (15:03)
[2022-05-26] MEDS ORDERED: fentaNYL CITRATE 100 MCG/2 ML VL ONE (15:03)
[2022-05-26] MEDS ORDERED: IODIXANOL 320MG/ML 100ML BTL IV ONE ×2 (15:04→15:46)
[2022-05-26] MEDS ORDERED: SODIUM CHL 0.9% 50 ML ONE (15:04)
[2022-05-26] MEDS ORDERED: MIDAZOLAM HCL 2MG/2ML 2ml VIAL (1mg/ml) ONE (15:04)
[2022-05-26] MEDS ORDERED: CLOPIDOGREL 300 MG TAB ONE (15:34)
== END 2022-05-26 18:28 | disposition home or self-care (01) ==
LOC: CATH 09:37
PROVIDERS: ATTEND Internal Medicine Cardiovascular Disease
DX: I25.10 Atherosclerotic heart disease of native coronary artery without angina pectoris (principal); I50.23 Acute on chronic systolic (congestive) heart failure; I50.1 Left ventricular failure, unspecified; R79.1 Abnormal coagulation profile; J44.9 Chronic obstructive pulmonary disease, unspecified; I25.5 Ischemic cardiomyopathy; Z72.89 Other problems related to lifestyle; Z79.82 Long term (current) use of aspirin; Z88.6 Allergy status to analgesic agent; Z79.899 Other long term (current) drug therapy; Z20.822 Contact with and (suspected) exposure to COVID-19
CPT/HCPCS: 36415; 80048; 85025; 85610; 85730; 93460; 93571; C1769; C1874; C1887; C1894; C9600; J0583; J1644; J2250; J3010; J7030; Q9967; U0003; 99152; 99153

== ENCOUNTER → 2022-06-06 | Outpatient (CLI) | payer OTHER ==
[2022-06-06 16:19] LABS: Urine Bacteria NONE SEEN /hpf (None Seen); Urine Blood Negative /uL (Negative); Urine Specific Gravity 1.014 (1.001-1.035); Urine WBC <1 /hpf (0 - 3)
== END | disposition home or self-care (01) ==
LOC: LAB 15:50
PROVIDERS: ATTEND Urology
DX: N39.0 Urinary tract infection, site not specified (principal)
CPT/HCPCS: 81001; 87086

== ENCOUNTER → 2022-07-04 | Outpatient (CLI) | payer OTHER | END | disposition home or self-care (01) | LOC: Rad HDHVI 10:50 | PROVIDERS: ATTEND Internal Medicine Cardiovascular Disease | DX: I08.3 Combined rheumatic disorders of mitral, aortic and tricuspid valves (principal); I10 Essential (primary) hypertension | CPT/HCPCS: 93306 ==

== ENCOUNTER 2022-08-07 12:27 | Inpatient (IN) | payer OTHER ==
[~2022-08-07] VITALS: Ht 165.1 cm; Wt 69.8 kg
[2022-08-07 12:56] LABS: Urine WBC None Seen /hpf (0 - 3)
[2022-08-07 13:07] LABS: Basophils # (auto) 0 10 ^3/uL (0-0.2); Basophils % (auto) 0.2 % (0.0-2.0); Eosinophils # (auto) 0.4 10 ^3/uL (0-0.8); Eosinophils % (auto) 3.3 % (0.0-7.0); Hemoglobin 13.4 g/dL (13.5-17.5); Lymphocytes # (auto) 0.6 10 ^3/uL (0.4-5.4); Lymphocytes % (auto) 4.9 % (10.0-50.0); Mean Corpuscular Hemoglobin 29.5 pg (28.0-32.0); Mean Corpuscular Hgb Conc. 32.8 g/dL (32.0-36.0); Mean Corpuscular Volume 90.2 fL (80.0-100.0); Monocytes # (auto) 1.1 10 ^3/uL (0-1.3); Monocytes % (auto) 9.6 % (0.0-12.0); Neutrophils # (auto) 9.7 10 ^3/uL (1.6-8.6); Red Blood Cells 4.54 10^6/uL (4.5-5.90); Red Cell Distribution Width 16.3 % (11.8-14.3); White Blood Cell 11.9 10^3/uL (4.4-10.8)
[2022-08-07 13:12] LABS: Urine Bacteria FEW /hpf (None Seen); Urine Blood Negative /uL (Negative); Urine Specific Gravity 1.016 (1.001-1.035)
[2022-08-07 13:30] LABS: Albumin 3.7 g/dL (3.4-5.0); Calcium 8.6 mg/dL (8.5-10.1); Potassium 4.6 mmol/L (3.5-5.1)
[2022-08-07] MEDS ORDERED: MORPHINE SULFATE 4 MG/ML SYR/VIAL IV ONE (13:30)
[2022-08-07] MEDS ORDERED: ONDANSETRON HCL 4 MG/2 ML VIAL IV ONE ×2 (13:30)
[2022-08-07] MEDS ORDERED: ASPirin 81 mg TAB PO ONE (13:30)
[2022-08-07 13:33] LABS: BUN/Creatinine Ratio 22.2 (10.0-20.0); Bilirubin, Total 0.8 mg/dL (0.2-1.0); Total Protein 7.2 g/dL (6.4-8.2)
[2022-08-07 13:55] LABS: INR 1.08 (0.9-1.15); Partial Thromboplastin Time 25.1 sec (24.6-33.4)
[2022-08-07] MEDS ORDERED: ASPirin 325 MG TAB PO ONE (14:00)
[2022-08-07] MEDS ORDERED: HEPARIN SODIUM (PORCINE) 5000 UNITS/ML 1ML VIAL IV ONE ×2 (14:30)
[2022-08-07] MEDS ORDERED: SODIUM CHLORIDE 0.9% 250 ML IV ONE ×2 (14:30)
[2022-08-07] MEDS ORDERED: NITROGLYCERIN 0.4 MG SL TAB SL ONE (14:45)
[2022-08-07] MEDS ORDERED: NITROGLYCERIN 0.2MG/HR TOPICAL PATCH TD ONE (16:45)
[2022-08-07] MEDS ORDERED: ENOXAPARIN SOD 40 MG/0.4 ML SYRINGE SC SCH (16:45)
[2022-08-07] MEDS ORDERED: NITROGLYCERIN 0.4 MG SL TAB SL PRN (16:45)
[2022-08-07] MEDS ORDERED: HYDROcodone-ACET 5/325MG TAB PO PRN (16:45)
[2022-08-07] MEDS ORDERED: MORPHINE SULFATE INJ 2 MG/ml SYRG IV PRN (16:45)
[2022-08-07] MEDS ORDERED: ONDANSETRON HCL 4 MG/2 ML VIAL IV PRN (16:45)
[2022-08-07] MEDS ORDERED: ERGOCALCIFEROL 50,000 UNIT(1.25MG) CAP PO SCH (17:00)
[2022-08-07] MEDS: BUMETANIDE 1 MG TAB PO SCH (18:10)
[2022-08-07] MEDS: CARVEDILOL 3.125 MG TAB PO SCH (22:00)
[2022-08-07] MEDS: ATORVASTATIN 20 MG TAB PO SCH (22:24)
[2022-08-08 05:50] LABS: Basophils # (auto) 0 10 ^3/uL (0-0.2); Basophils % (auto) 0.1 % (0.0-2.0); Eosinophils # (auto) 0 10 ^3/uL (0-0.8); Eosinophils % (auto) 0.1 % (0.0-7.0); Hemoglobin 11.8 g/dL (13.5-17.5); Lymphocytes # (auto) 0.7 10 ^3/uL (0.4-5.4); Lymphocytes % (auto) 7.6 % (10.0-50.0); Mean Corpuscular Hemoglobin 29.8 pg (28.0-32.0); Mean Corpuscular Hgb Conc. 32.9 g/dL (32.0-36.0); Mean Corpuscular Volume 90.4 fL (80.0-100.0); Monocytes # (auto) 0.9 10 ^3/uL (0-1.3); Monocytes % (auto) 10.3 % (0.0-12.0); Neutrophils # (auto) 7.3 10 ^3/uL (1.6-8.6); Neutrophils % (auto) 81.9 % (37.0-80.0); Nucleated Red Blood Cells % 0.2 %; Red Blood Cells 3.98 10^6/uL (4.5-5.90); Red Cell Distribution Width 16.2 % (11.8-14.3); White Blood Cell 8.9 10^3/uL (4.4-10.8)
[2022-08-08 06:16] LABS: Potassium 4.3 mmol/L (3.5-5.1)
[2022-08-08] MEDS: BUMETANIDE 1 MG TAB PO SCH ×2 (06:20→18:23)
[2022-08-08 06:24] LABS: BUN/Creatinine Ratio 25.4 (10.0-20.0); Bilirubin, Total 0.6 mg/dL (0.2-1.0); Total Protein 6.3 g/dL (6.4-8.2)
[2022-08-08] MEDS: PANTOPRAZOLE 40 MG/10 ML VIAL INJ IV SCH (09:56)
[2022-08-08] MEDS: ASPirin-EC 81 mg tab PO SCH (09:57)
[2022-08-08] MEDS: CARVEDILOL 3.125 MG TAB PO SCH ×2 (09:57→21:43)
[2022-08-08] MEDS: ENOXAPARIN SOD 40 MG/0.4 ML SYRINGE SC SCH (09:58)
[2022-08-08] MEDS ORDERED: NITROGLYCERIN 0.4 MG SL TAB SL ONE (10:00)
[2022-08-08 12:45] VITALS: BP 118/66
[2022-08-08] MEDS: CLOPIDOGREL BISULFATE 75 MG TAB PO SCH (15:58)
[2022-08-08 20:00] VITALS: BP 87/51
[2022-08-08] MEDS: DOBUTamine 1000MCG/ML 250 ML IV SCH (21:17)
[2022-08-08] MEDS: ATORVASTATIN 20 MG TAB PO SCH (21:42)
[2022-08-08 22:00] VITALS: BP 87/51
[2022-08-08] MEDS: VERQUVO 2.5 MG PO SCH (22:00)
[2022-08-09 05:00] VITALS: BP 112/55
[2022-08-09] MEDS: BUMETANIDE 1 MG TAB PO SCH (06:40)
[2022-08-09] MEDS: EMPAGLIFLOZIN 10 MG TAB PO SCH (06:40)
[2022-08-09] MEDS: VERQUVO 2.5 MG PO SCH ×2 (08:27→22:00)
[2022-08-09] MEDS: CARVEDILOL 3.125 MG TAB PO SCH (08:30)
[2022-08-09] MEDS: ASPirin-EC 81 mg tab PO SCH (08:33)
[2022-08-09] MEDS: ENOXAPARIN SOD 40 MG/0.4 ML SYRINGE SC SCH (08:33)
[2022-08-09] MEDS: CLOPIDOGREL BISULFATE 75 MG TAB PO SCH (08:33)
[2022-08-09] MEDS: PANTOPRAZOLE 40 MG/10 ML VIAL INJ IV SCH (08:33)
[2022-08-09 13:00] VITALS: BP 113/42
[2022-08-09 17:00] VITALS: BP 109/65
[2022-08-09] MEDS: DOBUTamine 1000MCG/ML 250 ML IV SCH (17:36)
[2022-08-09 20:00] VITALS: BP 100/71
[2022-08-09 22:00] VITALS: BP 100/71
[2022-08-09] MEDS: ATORVASTATIN 20 MG TAB PO SCH (22:22)
[2022-08-10 05:00] VITALS: BP 97/51
[2022-08-10 06:14] LABS: Basophils # (auto) 0 10 ^3/uL (0-0.2); Basophils % (auto) 0.4 % (0.0-2.0); Eosinophils # (auto) 0.3 10 ^3/uL (0-0.8); Eosinophils % (auto) 3.9 % (0.0-7.0); Hematocrit 37.4 % (41.0-53.0); Hemoglobin 12.4 g/dL (13.5-17.5); Lymphocytes # (auto) 1.8 10 ^3/uL (0.4-5.4); Lymphocytes % (auto) 21.1 % (10.0-50.0); Mean Corpuscular Hemoglobin 30.4 pg (28.0-32.0); Mean Corpuscular Hgb Conc. 33.2 g/dL (32.0-36.0); Mean Corpuscular Volume 91.6 fL (80.0-100.0); Monocytes # (auto) 1.1 10 ^3/uL (0-1.3); Neutrophils # (auto) 5.4 10 ^3/uL (1.6-8.6); Neutrophils % (auto) 61.6 % (37.0-80.0); Nucleated Red Blood Cells % 0.2 %; Red Blood Cells 4.08 10^6/uL (4.5-5.90); White Blood Cell 8.7 10^3/uL (4.4-10.8)
[2022-08-10 06:23] LABS: Calcium 8.6 mg/dL (8.5-10.1); Potassium 3.7 mmol/L (3.5-5.1)
[2022-08-10 06:25] LABS: BUN/Creatinine Ratio 26.8 (10.0-20.0)
[2022-08-10] MEDS: EMPAGLIFLOZIN 10 MG TAB PO SCH (06:59)
[2022-08-10 09:00] VITALS: BP 105/61
[2022-08-10] MEDS: PANTOPRAZOLE 40 MG/10 ML VIAL INJ IV SCH (09:41)
[2022-08-10] MEDS: BUMETANIDE 1 MG TAB PO SCH (09:43)
[2022-08-10] MEDS: ASPirin-EC 81 mg tab PO SCH (09:49)
[2022-08-10] MEDS: CLOPIDOGREL BISULFATE 75 MG TAB PO SCH (09:49)
[2022-08-10] MEDS: ENOXAPARIN SOD 40 MG/0.4 ML SYRINGE SC SCH (09:50)
[2022-08-10] MEDS: VERQUVO 2.5 MG PO SCH ×2 (09:50→21:42)
[2022-08-10 13:02] VITALS: BP 125/64
[2022-08-10] MEDS: DOBUTamine 1000MCG/ML 250 ML IV SCH (16:49)
[2022-08-10 17:00] VITALS: BP 106/65
[2022-08-10 21:41] VITALS: BP 105/60
[2022-08-10] MEDS: ATORVASTATIN 20 MG TAB PO SCH (21:42)
[2022-08-11] VITALS (8 sets, daily range): BP systolic 102–128; BP diastolic 52–68
[2022-08-11 06:46] LABS: Albumin 3.2 g/dL (3.4-5.0); Calcium 8.4 mg/dL (8.5-10.1); Potassium 3.4 mmol/L (3.5-5.1)
[2022-08-11 06:50] LABS: Bilirubin, Total 0.4 mg/dL (0.2-1.0); Total Protein 6.6 g/dL (6.4-8.2)
[2022-08-11 06:52] LABS: INR 0.96 (0.9-1.15); Partial Thromboplastin Time 27.8 sec (24.6-33.4)
[2022-08-11] MEDS: EMPAGLIFLOZIN 10 MG TAB PO SCH (07:08)
[2022-08-11] MEDS: PANTOPRAZOLE 40 MG/10 ML VIAL INJ IV SCH (09:34)
[2022-08-11] MEDS: BUMETANIDE 1 MG TAB PO SCH (09:34)
[2022-08-11] MEDS: ASPirin-EC 81 mg tab PO SCH (10:00)
[2022-08-11] MEDS: CLOPIDOGREL BISULFATE 75 MG TAB PO SCH (10:00)
[2022-08-11] MEDS: VERQUVO 2.5 MG PO SCH ×2 (10:00→22:00)
[2022-08-11] MEDS ORDERED: DOBUTamine 1000MCG/ML 250 ML IV ONE (13:42)
[2022-08-11] MEDS: DOBUTamine 1000MCG/ML 250 ML IV SCH (13:47)
[2022-08-11] MEDS ORDERED: VANCOMYCIN 1GM/250ML 250 ML IV ONE (13:58)
[2022-08-11] MEDS ORDERED: fentaNYL CITRATE 100 MCG/2 ML VL ONE (15:57)
[2022-08-11] MEDS ORDERED: LIDOCAINE 2%HCL (LOCAL ANESTH.) INJ 20ML MDV ONE (15:57)
[2022-08-11] MEDS ORDERED: MIDAZOLAM HCL 2MG/2ML 2ml VIAL (1mg/ml) ONE (15:57)
[2022-08-11] MEDS ORDERED: VANCOMYCIN HCL 1000 MG VL ONE (16:02)
[2022-08-11] MEDS ORDERED: HYDROmorphone HCL 2 MG/ML VL/or syr ONE (16:27)
[2022-08-11] MEDS: ATORVASTATIN 20 MG TAB PO SCH (20:55)
[2022-08-12] MEDS: ACETAMINOPHEN 325 MG TAB PO PRN ×2 (01:12→09:52)
[2022-08-12 05:00] VITALS: BP 103/57
[2022-08-12 06:10] LABS: Calcium 8.4 mg/dL (8.5-10.1); Potassium 3.9 mmol/L (3.5-5.1)
[2022-08-12 06:12] LABS: BUN/Creatinine Ratio 19.8 (10.0-20.0)
[2022-08-12 06:21] LABS: Basophils # (auto) 0 10 ^3/uL (0-0.2); Basophils % (auto) 0.4 % (0.0-2.0); Eosinophils # (auto) 0.3 10 ^3/uL (0-0.8); Eosinophils % (auto) 2.5 % (0.0-7.0); Hematocrit 37.1 % (41.0-53.0); Hemoglobin 12.5 g/dL (13.5-17.5); Lymphocytes # (auto) 1.5 10 ^3/uL (0.4-5.4); Lymphocytes % (auto) 14.1 % (10.0-50.0); Mean Corpuscular Hemoglobin 29.9 pg (28.0-32.0); Mean Corpuscular Hgb Conc. 33.5 g/dL (32.0-36.0); Mean Corpuscular Volume 89.2 fL (80.0-100.0); Monocytes # (auto) 1.6 10 ^3/uL (0-1.3); Monocytes % (auto) 15.2 % (0.0-12.0); Neutrophils # (auto) 7.2 10 ^3/uL (1.6-8.6); Neutrophils % (auto) 67.8 % (37.0-80.0); Nucleated Red Blood Cells % 0.1 %; Red Blood Cells 4.17 10^6/uL (4.5-5.90); Red Cell Distribution Width 15.7 % (11.8-14.3); White Blood Cell 10.6 10^3/uL (4.4-10.8)
[2022-08-12] MEDS: EMPAGLIFLOZIN 10 MG TAB PO SCH (06:23)
[2022-08-12 09:00] VITALS: BP 119/70
[2022-08-12] MEDS: ASPirin-EC 81 mg tab PO SCH (09:49)
[2022-08-12] MEDS: PANTOPRAZOLE 40 MG/10 ML VIAL INJ IV SCH (09:51)
[2022-08-12] MEDS: BUMETANIDE 1 MG TAB PO SCH (09:51)
[2022-08-12] MEDS: VERQUVO 2.5 MG PO SCH (09:55)
[2022-08-12 13:00] VITALS: BP 101/68
[2022-08-12] MEDS ORDERED: LACTULOSE 20Gm/30ML SOLN PO ONE (13:30)
[2022-08-12] MEDS ORDERED: DOXY-346 PO ×2 (13:36)
[2022-08-12] MEDS ORDERED: HYDR-4902 PO ×3 (13:36→19:43)
[2022-08-12] MEDS ORDERED: LACTULOSE 20Gm/30ML SOLN PO PRN (18:30)
[2022-08-12] MEDS ORDERED: DOXY-448 PO (19:43)
== END 2022-08-12 18:17 | disposition home or self-care (01) | DRG 226 ==
LOC: ER 12:27 → TELE 16:43 → TELE-WESTW 08-08 14:50
PROVIDERS: ADMIT Registered Nurse; ATTEND Nurse Practitioner Acute Care
PROC: 0JH609Z Insertion of Cardiac Resynchronization Defibrillator Pulse Generator into Chest Subcutaneous Tissue and Fascia, Open Approach (ICD-10-PCS; principal; 2022-08-11)
PROC: 02HK3KZ Insertion of Defibrillator Lead into Right Ventricle, Percutaneous Approach (ICD-10-PCS; 2022-08-11)
PROC: 02HL3KZ Insertion of Defibrillator Lead into Left Ventricle, Percutaneous Approach (ICD-10-PCS; 2022-08-11)
PROC: 02H63KZ Insertion of Defibrillator Lead into Right Atrium, Percutaneous Approach (ICD-10-PCS; 2022-08-11)
DX: I42.0 Dilated cardiomyopathy (principal); I50.23 Acute on chronic systolic (congestive) heart failure; J96.01 Acute respiratory failure with hypoxia; I13.0 Hypertensive heart and chronic kidney disease with heart failure and stage 1 through stage 4 chronic kidney disease, or unspecified chronic kidney disease; J98.11 Atelectasis; N17.9 Acute kidney failure, unspecified; M54.9 Dorsalgia, unspecified; D72.829 Elevated white blood cell count, unspecified; E78.5 Hyperlipidemia, unspecified; I25.10 Atherosclerotic heart disease of native coronary artery without angina pectoris; I25.5 Ischemic cardiomyopathy; N18.32 Chronic kidney disease, stage 3b; N40.0 Benign prostatic hyperplasia without lower urinary tract symptoms; I25.2 Old myocardial infarction; Z95.5 Presence of coronary angioplasty implant and graft; Z88.6 Allergy status to analgesic agent
CPT/HCPCS: 33225; 33249; 36415; 71045; 78582; 80048; 80053; 81001; 83735; 83880; 84484; 85025; 85379; 85610; 85730; 93005; 96361; 96374; 96375; C9113; G0378; J2250; J2405

== ENCOUNTER 2022-08-29 16:40 | Inpatient (IN) | payer OTHER ==
[~2022-08-29] VITALS: Ht 165.1 cm; Wt 72.4 kg
[~2022-08-29 16:40] MED LIST changes: +DOXY-448 PO; +HYDR-4902 PO
[2022-08-29] MEDS ORDERED: NITROGLYCERIN 2.5 MG CAP PO ONE (17:30)
[2022-08-29 18:30] LABS: Basophils # (auto) 0 10 ^3/uL (0-0.2); Basophils % (auto) 0.6 % (0.0-2.0); Eosinophils # (auto) 0.4 10 ^3/uL (0-0.8); Eosinophils % (auto) 6.5 % (0.0-7.0); Hematocrit 35.7 % (41.0-53.0); Hemoglobin 11.9 g/dL (13.5-17.5); Lymphocytes # (auto) 1.9 10 ^3/uL (0.4-5.4); Lymphocytes % (auto) 28.8 % (10.0-50.0); Mean Corpuscular Hemoglobin 29.7 pg (28.0-32.0); Mean Corpuscular Hgb Conc. 33.2 g/dL (32.0-36.0); Mean Corpuscular Volume 89.5 fL (80.0-100.0); Monocytes # (auto) 0.9 10 ^3/uL (0-1.3); Neutrophils # (auto) 3.4 10 ^3/uL (1.6-8.6); Neutrophils % (auto) 51.1 % (37.0-80.0); Nucleated Red Blood Cells % 0.1 %; Red Blood Cells 3.99 10^6/uL (4.5-5.90); Red Cell Distribution Width 16.9 % (11.8-14.3); White Blood Cell 6.6 10^3/uL (4.4-10.8)
[2022-08-29 18:51] LABS: Albumin 3.4 g/dL (3.4-5.0); Calcium 8.1 mg/dL (8.5-10.1); Potassium 3.9 mmol/L (3.5-5.1)
[2022-08-29 18:56] LABS: BUN/Creatinine Ratio 19.2 (10.0-20.0); Bilirubin, Total 0.4 mg/dL (0.2-1.0); Total Protein 6.6 g/dL (6.4-8.2)
[2022-08-29] MEDS ORDERED: NITROGLYCERIN 0.4 MG SL TAB SL PRN (22:00)
[2022-08-29] MEDS ORDERED: ACETAMINOPHEN 325 MG TAB PO PRN (22:00)
[2022-08-29] MEDS ORDERED: MORPHINE SULFATE INJ 2 MG/ml SYRG IV PRN (22:00)
[2022-08-29] MEDS ORDERED: DOCUSATE SOD 100 MG CAP PO PRN (22:00)
[2022-08-29] MEDS: HYDROcodone-ACET 5/325MG TAB PO PRN (23:12)
[2022-08-29] MEDS: CARVEDILOL 3.125 MG TAB PO SCH (23:12)
[2022-08-29] MEDS: SODIUM CHLOR 0.9% PF (SALINE LOCK) 10ML VIAL/SYR IV SCH (23:12)
[2022-08-29] MEDS: ATORVASTATIN 20 MG TAB PO SCH (23:12)
[2022-08-29] MEDS ORDERED: SODIUM CHLORIDE 0.9% 1,000 ML IV SCH (23:15)
[2022-08-30] MEDS ORDERED: BUMETANIDE 1 MG TAB PO SCH (06:00)
[2022-08-30] MEDS: SODIUM CHLOR 0.9% PF (SALINE LOCK) 10ML VIAL/SYR IV SCH ×3 (06:00→22:18)
[2022-08-30 07:17] LABS: Basophils # (auto) 0.1 10 ^3/uL (0-0.2); Basophils % (auto) 0.8 % (0.0-2.0); Eosinophils # (auto) 0.5 10 ^3/uL (0-0.8); Hematocrit 36.1 % (41.0-53.0); Lymphocytes # (auto) 1.9 10 ^3/uL (0.4-5.4); Lymphocytes % (auto) 30.2 % (10.0-50.0); Mean Corpuscular Hgb Conc. 33.3 g/dL (32.0-36.0); Monocytes # (auto) 0.8 10 ^3/uL (0-1.3); Monocytes % (auto) 13.1 % (0.0-12.0); Neutrophils % (auto) 47.9 % (37.0-80.0); Nucleated Red Blood Cells % 0.1 %; Red Blood Cells 4.01 10^6/uL (4.5-5.90); Red Cell Distribution Width 16.5 % (11.8-14.3); White Blood Cell 6.4 10^3/uL (4.4-10.8)
[2022-08-30 07:21] LABS: Albumin 3.3 g/dL (3.4-5.0); Calcium 8.4 mg/dL (8.5-10.1); Potassium 3.7 mmol/L (3.5-5.1)
[2022-08-30 07:26] LABS: BUN/Creatinine Ratio 20.6 (10.0-20.0); Bilirubin, Total 0.4 mg/dL (0.2-1.0); Total Protein 6.5 g/dL (6.4-8.2)
[2022-08-30] MEDS: ASPirin-EC 81 mg tab PO SCH (10:25)
[2022-08-30] MEDS: CLOPIDOGREL BISULFATE 75 MG TAB PO SCH (10:26)
[2022-08-30] MEDS: LOSARTAN POTASSIUM 25 MG TAB PO SCH (10:26)
[2022-08-30] MEDS: CARVEDILOL 3.125 MG TAB PO SCH ×2 (10:27→22:00)
[2022-08-30] MEDS: HYDROcodone-ACET 5/325MG TAB PO PRN (15:41)
[2022-08-30] MEDS: BUMETANIDE 2.5mg/10ml (0.25 mg/ml) INJ IV SCH (17:36)
[2022-08-30] MEDS: ATORVASTATIN 20 MG TAB PO SCH (22:19)
[2022-08-31] MEDS: SODIUM CHLOR 0.9% PF (SALINE LOCK) 10ML VIAL/SYR IV SCH ×2 (06:11→14:11)
[2022-08-31] MEDS: BUMETANIDE 2.5mg/10ml (0.25 mg/ml) INJ IV SCH (06:26)
[2022-08-31 06:31] LABS: Basophils # (auto) 0.1 10 ^3/uL (0-0.2); Basophils % (auto) 0.8 % (0.0-2.0); Eosinophils # (auto) 0.4 10 ^3/uL (0-0.8); Eosinophils % (auto) 5.8 % (0.0-7.0); Hematocrit 36.7 % (41.0-53.0); Hemoglobin 12.2 g/dL (13.5-17.5); Lymphocytes # (auto) 1.7 10 ^3/uL (0.4-5.4); Lymphocytes % (auto) 26.4 % (10.0-50.0); Mean Corpuscular Hemoglobin 29.9 pg (28.0-32.0); Mean Corpuscular Hgb Conc. 33.3 g/dL (32.0-36.0); Mean Corpuscular Volume 89.8 fL (80.0-100.0); Monocytes # (auto) 0.9 10 ^3/uL (0-1.3); Monocytes % (auto) 13.4 % (0.0-12.0); Neutrophils # (auto) 3.5 10 ^3/uL (1.6-8.6); Neutrophils % (auto) 53.6 % (37.0-80.0); Red Blood Cells 4.09 10^6/uL (4.5-5.90); Red Cell Distribution Width 16.2 % (11.8-14.3); White Blood Cell 6.6 10^3/uL (4.4-10.8)
[2022-08-31 06:45] LABS: Calcium 8.9 mg/dL (8.5-10.1); Magnesium 2.5 mg/dL (1.6-2.6); Potassium 3.7 mmol/L (3.5-5.1)
[2022-08-31 06:48] LABS: BUN/Creatinine Ratio 19.3 (10.0-20.0)
[2022-08-31] MEDS ORDERED: ADENOSINE 61 MG in GIVE UN-DILUTED 0 ML IV ONE (07:45)
[2022-08-31 10:30] VITALS: BP 131/72
[2022-08-31] MEDS: CARVEDILOL 3.125 MG TAB PO SCH (12:21)
[2022-08-31] MEDS: ASPirin-EC 81 mg tab PO SCH (12:23)
[2022-08-31] MEDS: CLOPIDOGREL BISULFATE 75 MG TAB PO SCH (12:23)
[2022-08-31] MEDS: LOSARTAN POTASSIUM 25 MG TAB PO SCH (12:23)
[2022-08-31 13:00] VITALS: BP 131/72
[2022-08-31] MEDS: HYDROcodone-ACET 5/325MG TAB PO PRN (13:15)
[2022-08-31 15:28] VITALS: BP 105/64
[2022-08-31 16:30] VITALS: BP 112/58
== END 2022-08-31 16:39 | disposition home or self-care (01) | DRG 302 ==
LOC: ER 16:40 → EDBD 16:40 → TELE 22:04 → TELE-WESTW 08-31 10:30
PROVIDERS: ADMIT Nurse Practitioner Family; ATTEND Internal Medicine
DX: I25.110 Atherosclerotic heart disease of native coronary artery with unstable angina pectoris (principal); I50.21 Acute systolic (congestive) heart failure; N17.9 Acute kidney failure, unspecified; I13.0 Hypertensive heart and chronic kidney disease with heart failure and stage 1 through stage 4 chronic kidney disease, or unspecified chronic kidney disease; N18.32 Chronic kidney disease, stage 3b; I25.5 Ischemic cardiomyopathy; Z95.5 Presence of coronary angioplasty implant and graft; I25.2 Old myocardial infarction
CPT/HCPCS: 36415; 71045; 78452; 80048; 80053; 83036; 83735; 83880; 84484; 85025; 93005; 93017; G0378; J0153

== ENCOUNTER → 2022-09-05 | Outpatient (CLI) | payer OTHER ==
[~2022-09-05] MED LIST changes: -DOXY-448 PO
== END | disposition home or self-care (01) ==
LOC: LAB 13:30
PROVIDERS: ATTEND Family Medicine
DX: Z12.11 Encounter for screening for malignant neoplasm of colon (principal)
CPT/HCPCS: 82270

== ENCOUNTER → 2022-09-13 | Outpatient (CLI) | payer OTHER ==
[2022-09-13 10:31] LABS: Urine WBC None Seen /hpf (0 - 3)
[2022-09-13 10:52] LABS: Basophils # (auto) 0 10 ^3/uL (0-0.2); Basophils % (auto) 0.2 % (0.0-2.0); Eosinophils # (auto) 0 10 ^3/uL (0-0.8); Hematocrit 37.6 % (41.0-53.0); Hemoglobin 12.5 g/dL (13.5-17.5); Lymphocytes # (auto) 1.4 10 ^3/uL (0.4-5.4); Lymphocytes % (auto) 13.5 % (10.0-50.0); Mean Corpuscular Hemoglobin 29.8 pg (28.0-32.0); Mean Corpuscular Hgb Conc. 33.1 g/dL (32.0-36.0); Mean Corpuscular Volume 89.9 fL (80.0-100.0); Monocytes # (auto) 0.6 10 ^3/uL (0-1.3); Monocytes % (auto) 5.9 % (0.0-12.0); Neutrophils # (auto) 8.6 10 ^3/uL (1.6-8.6); Neutrophils % (auto) 80.4 % (37.0-80.0); Nucleated Red Blood Cells % 0.2 %; Red Blood Cells 4.19 10^6/uL (4.5-5.90); Red Cell Distribution Width 16.1 % (11.8-14.3); White Blood Cell 10.7 10^3/uL (4.4-10.8)
[2022-09-13 10:55] LABS: Urine Bacteria NONE SEEN /hpf (None Seen); Urine Blood Negative /uL (Negative); Urine Mucus FEW (None Seen); Urine Specific Gravity 1.021 (1.001-1.035)
[2022-09-13 12:26] LABS: Potassium 4.3 mmol/L (3.5-5.1)
[2022-09-13 12:39] LABS: Albumin 3.4 g/dL (3.4-5.0); BUN/Creatinine Ratio 19.6 (10.0-20.0); Bilirubin, Total 0.6 mg/dL (0.2-1.0); Calcium 9.1 mg/dL (8.5-10.1); Total Protein 7.3 g/dL (6.4-8.2)
== END | disposition home or self-care (01) ==
LOC: LAB 10:09
PROVIDERS: ATTEND Family Medicine
DX: Z00.01 Encounter for general adult medical examination with abnormal findings (principal); I50.9 Heart failure, unspecified
CPT/HCPCS: 36415; 80053; 80061; 81001; 83036; 83880; 84153; 84443; 85025

== ENCOUNTER → 2022-09-27 | Outpatient (CLI) | payer OTHER | END | disposition home or self-care (01) | LOC: Rad HDHVI 15:49 | PROVIDERS: ATTEND Internal Medicine Cardiovascular Disease | DX: I08.0 Rheumatic disorders of both mitral and aortic valves (principal); R06.02 Shortness of breath | CPT/HCPCS: 93306 ==

== ENCOUNTER 2022-10-27 14:33 | Emergency (ER) | payer OTHER ==
[~2022-10-27] VITALS: Ht 165.1 cm; Wt 72.4 kg
[2022-10-27 14:55] VITALS: BP 134/66; PULSE 62; RESP 16; O2SAT 97
[2022-10-27 15:52] LABS: Urine Bacteria NONE SEEN /hpf (None Seen); Urine Blood Negative /uL (Negative); Urine Clarity Clear (Clear); Urine Color Colorless (Yellow); Urine Protein, UAD Negative (Negative); Urine Specific Gravity 1.009 (1.001-1.035); Urine Urobilinogen Normal (Negative); Urine WBC <1 /hpf (0 - 3); Urine pH 6.5 (5.0-8.0)
[2022-10-27 16:23] LABS: Basophils # (auto) 0 10 ^3/uL (0-0.2); Basophils % (auto) 0.6 % (0.0-2.0); Eosinophils # (auto) 0.3 10 ^3/uL (0-0.8); Eosinophils % (auto) 3.7 % (0.0-7.0); Hematocrit 40.1 % (41.0-53.0); Hemoglobin 13.2 g/dL (13.5-17.5); Lymphocytes % (auto) 25.2 % (10.0-50.0); Mean Corpuscular Hemoglobin 30.7 pg (28.0-32.0); Mean Corpuscular Hgb Conc. 32.9 g/dL (32.0-36.0); Mean Corpuscular Volume 93.1 fL (80.0-100.0); Monocytes # (auto) 0.9 10 ^3/uL (0-1.3); Neutrophils # (auto) 4.7 10 ^3/uL (1.6-8.6); Neutrophils % (auto) 59.5 % (37.0-80.0); Nucleated Red Blood Cells % 0.1 %; Red Blood Cells 4.31 10^6/uL (4.5-5.90)
[2022-10-27 16:45] LABS: Alanine Aminotransferase 16 U/L (7-40); Albumin 4.1 g/dL (3.2-4.8); Alkaline Phosphatase 104 U/L (46-116); Anion Gap 7.9 (5-15); Aspartate Aminotransferase 13 U/L (13-40); BUN/Creatinine Ratio 18.5 (10.0-20.0); Blood Urea Nitrogen 30 mg/dL (9-23); Calcium 9.1 mg/dL (8.7-10.4); Carbon Dioxide 25.1 mmol/L (20-30); Chloride 108 mmol/L (98-107); Glucose 121 mg/dL (74-106); Potassium 4.1 mmol/L (3.5-5.1); Sodium 141 mmol/L (136-145)
[2022-10-27 16:46] LABS: Bilirubin, Total 0.6 mg/dL (0.2-1.0); Total Protein 6.6 g/dL (5.7-8.2)
[2022-10-27] MEDS ORDERED: CYCL-837 PO (17:04)
== END 2022-10-27 21:43 | disposition home or self-care (01) ==
LOC: ER 14:33
DX: M54.59 Other low back pain (principal); M54.16 Radiculopathy, lumbar region; I10 Essential (primary) hypertension; I25.10 Atherosclerotic heart disease of native coronary artery without angina pectoris; Z88.5 Allergy status to narcotic agent; Z79.899 Other long term (current) drug therapy; Z79.82 Long term (current) use of aspirin; Z98.890 Other specified postprocedural states
CPT/HCPCS: 36415; 74176; 80053; 81001; 85025

== ENCOUNTER → 2023-03-03 | Outpatient (CLI) | payer OTHER ==
[~2023-03-03] MED LIST changes: +CYCL-837 PO
[2023-03-03 09:45] LABS: Basophils # (auto) 0.1 10 ^3/uL (0-0.2); Basophils % (auto) 0.9 % (0.0-2.0); Eosinophils # (auto) 0.4 10 ^3/uL (0-0.8); Eosinophils % (auto) 4.6 % (0.0-7.0); Hematocrit 42.4 % (41.0-53.0); Hemoglobin 14.1 g/dL (13.5-17.5); Lymphocytes # (auto) 1.6 10 ^3/uL (0.4-5.4); Lymphocytes % (auto) 20.3 % (10.0-50.0); Mean Corpuscular Hemoglobin 32.5 pg (28.0-32.0); Mean Corpuscular Hgb Conc. 33.2 g/dL (32.0-36.0); Mean Corpuscular Volume 97.8 fL (80.0-100.0); Monocytes # (auto) 0.9 10 ^3/uL (0-1.3); Monocytes % (auto) 12.2 % (0.0-12.0); Neutrophils # (auto) 4.8 10 ^3/uL (1.6-8.6); Red Blood Cells 4.33 10^6/uL (4.5-5.90); Red Cell Distribution Width 13.6 % (11.8-14.3); White Blood Cell 7.7 10^3/uL (4.4-10.8)
[2023-03-03 09:49] LABS: Urine Blood Negative /uL (Negative); Urine Clarity Clear (Clear); Urine Protein, UAD Negative (Negative); Urine Specific Gravity 1.015 (1.001-1.035); Urine Urobilinogen Normal (Negative)
[2023-03-03 09:58] LABS: Urine Color STRAW (Yellow)
[2023-03-03 11:04] LABS: Alanine Aminotransferase 11 U/L (7-40); Albumin 4.2 g/dL (3.2-4.8); Alkaline Phosphatase 98 U/L (46-116); Anion Gap 10 (5-15); BUN/Creatinine Ratio 20.9 (10.0-20.0); Blood Urea Nitrogen 32 mg/dL (9-23); Calcium 9.2 mg/dL (8.5-10.1); Carbon Dioxide 22 mmol/L (20-30); Chloride 109 mmol/L (98-107); Glucose 95 mg/dL (74-106); LDL Cholesterol 57 mg/dL (< 100); Potassium 4.2 mmol/L (3.5-5.1); Sodium 141 mmol/L (136-145); Triglycerides 63 mg/dL (< 150)
[2023-03-03 11:05] LABS: Aspartate Aminotransferase 14 U/L (13-40); Bilirubin, Total 0.7 mg/dL (0.2-1.0); Cholesterol 115 mg/dL (< 200); HDL Cholesterol 49 mg/dL (40-59); Total Protein 6.7 g/dL (5.7-8.2)
[2023-03-03 11:11] LABS: Prostate Specific Antigen 0.06 ng/mL (0.0-4.0)
[2023-03-03 11:15] LABS: Free T4 (Free Thyroxine) 0.94 ng/dL (0.89-1.76)
== END | disposition home or self-care (01) ==
LOC: LAB 09:18
PROVIDERS: ATTEND Internal Medicine Cardiovascular Disease
DX: E11.9 Type 2 diabetes mellitus without complications (principal); I10 Essential (primary) hypertension; D64.9 Anemia, unspecified; E29.1 Testicular hypofunction; E03.9 Hypothyroidism, unspecified
CPT/HCPCS: 36415; 80053; 80061; 81003; 82306; 82607; 83036; 84153; 84403; 84439; 84443; 85025

== ENCOUNTER → 2023-04-12 | Outpatient (CLI) | payer OTHER | END | disposition home or self-care (01) | LOC: Rad HDHVI 15:48 | PROVIDERS: ATTEND Internal Medicine Cardiovascular Disease | DX: I08.0 Rheumatic disorders of both mitral and aortic valves (principal); R07.89 Other chest pain; R06.02 Shortness of breath | CPT/HCPCS: 93306 ==

== ENCOUNTER → 2023-04-17 | Outpatient (CLI) | payer OTHER ==
[~2023-04-17] VITALS: Ht 165.1 cm; Wt 71.7 kg
[~2023-04-17] MED LIST changes: +ADENOSINE 60 MG in GIVE UN-DILUTED 0 ML IV ONE; +ADENOSINE 90 MG/30 ML INJ IV ONE
== END | disposition home or self-care (01) ==
LOC: Rad HDHVI 07:57
PROVIDERS: ATTEND Internal Medicine Cardiovascular Disease
DX: I11.0 Hypertensive heart disease with heart failure (principal); I50.43 Acute on chronic combined systolic (congestive) and diastolic (congestive) heart failure; I42.0 Dilated cardiomyopathy; I34.0 Nonrheumatic mitral (valve) insufficiency; R00.2 Palpitations; R07.89 Other chest pain; I25.2 Old myocardial infarction; I25.10 Atherosclerotic heart disease of native coronary artery without angina pectoris; E78.00 Pure hypercholesterolemia, unspecified; R06.02 Shortness of breath; Z95.0 Presence of cardiac pacemaker; Z82.49 Family history of ischemic heart disease and other diseases of the circulatory system
CPT/HCPCS: 78452; 93005; 96374; 96375; A9500; J0153

== ENCOUNTER 2023-05-08 21:02 | Emergency (ER) | payer OTHER ==
[~2023-05-08] VITALS: Ht 165.1 cm; Wt 71.8 kg
[~2023-05-08 21:02] MED LIST changes: -ADENOSINE 60 MG in GIVE UN-DILUTED 0 ML IV ONE; -ADENOSINE 90 MG/30 ML INJ IV ONE
[2023-05-08 23:16] LABS: Urine Bacteria NONE SEEN /hpf (None Seen); Urine Blood 3+ /uL (Negative); Urine Clarity HAZY (Clear); Urine Mucus FEW (None Seen); Urine Protein, UAD 2+ (Negative); Urine Specific Gravity 1.021 (1.001-1.035); Urine Urobilinogen Normal (Negative); Urine WBC 88 /hpf (0 - 3); Urine WBC Clumps PRESENT /hpf (None Seen)
[2023-05-08 23:17] LABS: Urine Color Red (Yellow)
[2023-05-08] MEDS ORDERED: CEPH500C PO (23:27)
[2023-05-09 00:07] VITALS: BP 137/73; PULSE 67; RESP 18; TEMP 98.2; O2SAT 95
[2023-05-10] MEDS ORDERED: TRAM50TA2 PO (01:58)
[2023-05-10] MEDS ORDERED: FINA5TAB4 PO (01:58)
[2023-05-10] MEDS ORDERED: LOSA50TA46 PO (02:01)
== END 2023-05-09 00:09 | disposition home or self-care (01) ==
LOC: ER 21:02
DX: N40.1 Benign prostatic hyperplasia with lower urinary tract symptoms (principal); N39.0 Urinary tract infection, site not specified; R31.9 Hematuria, unspecified; I10 Essential (primary) hypertension; I25.2 Old myocardial infarction; I25.10 Atherosclerotic heart disease of native coronary artery without angina pectoris; Z98.890 Other specified postprocedural states; Z88.5 Allergy status to narcotic agent; Z79.899 Other long term (current) drug therapy
CPT/HCPCS: 81001

== ENCOUNTER 2023-05-09 10:22 | Inpatient (IN) | payer OTHER ==
[~2023-05-09] VITALS: Ht 162.6 cm; Wt 71.7 kg
[~2023-05-09 10:22] MED LIST changes: +CEPH500C PO
[2023-05-09] MEDS: SODIUM CHLORIDE 0.9% 1,000 ML IV ONE (11:35)
[2023-05-09 11:38] LABS: Basophils # (auto) 0.1 10 ^3/uL (0-0.2); Basophils % (auto) 0.8 % (0.0-2.0); Eosinophils # (auto) 0.4 10 ^3/uL (0-0.8); Eosinophils % (auto) 4.2 % (0.0-7.0); Hematocrit 41.5 % (41.0-53.0); Lymphocytes % (auto) 20.4 % (10.0-50.0); Mean Corpuscular Hemoglobin 32.7 pg (28.0-32.0); Mean Corpuscular Hgb Conc. 33.7 g/dL (32.0-36.0); Mean Corpuscular Volume 97.2 fL (80.0-100.0); Monocytes # (auto) 1.1 10 ^3/uL (0-1.3); Monocytes % (auto) 11.9 % (0.0-12.0); Neutrophils % (auto) 62.7 % (37.0-80.0); Red Blood Cells 4.27 10^6/uL (4.5-5.90); Red Cell Distribution Width 13.2 % (11.8-14.3); White Blood Cell 9.6 10^3/uL (4.4-10.8)
[2023-05-09 11:56] LABS: Alanine Aminotransferase 15 U/L (7-40); Albumin 4.2 g/dL (3.2-4.8); Alkaline Phosphatase 112 U/L (46-116); Anion Gap 5 (5-15); Aspartate Aminotransferase 17 U/L (13-40); BUN/Creatinine Ratio 18.4 (10.0-20.0); Blood Urea Nitrogen 23 mg/dL (9-23); Calcium 9.3 mg/dL (8.7-10.4); Carbon Dioxide 25 mmol/L (20-30); Chloride 113 mmol/L (98-107); Glucose 105 mg/dL (74-106); Lipase 58 U/L (12-53); Magnesium 2.3 mg/dL (1.6-2.6); Potassium 4.3 mmol/L (3.5-5.1); Sodium 143 mmol/L (136-145); Total Protein 6.8 g/dL (5.7-8.2)
[2023-05-09 12:05] LABS: INR 1.11 (0.9-1.15); Partial Thromboplastin Time 30.8 SEC (24.5-34.5); Prothrombin Time 11.6 sec (9.3-11.8)
[2023-05-09] MEDS ORDERED: ONDANSETRON HCL 4 MG/2 ML VIAL IV PRN (15:00)
[2023-05-09] MEDS: HYDROcodone-ACET 5/325MG TAB PO ONE (15:06)
[2023-05-09 16:18] LABS: Urine Bacteria NONE SEEN /hpf (None Seen); Urine Blood 3+ /uL (Negative); Urine Clarity Clear (Clear); Urine Color Yellow (Yellow); Urine Hyaline Cast FEW /lpf (0 - 2); Urine Protein, UAD 1+ (Negative); Urine Specific Gravity 1.019 (1.001-1.035); Urine Urobilinogen Normal (Negative); Urine WBC 12 /hpf (0 - 3); Urine pH 6.5 (5.0-8.0)
[2023-05-09] MEDS: FUROSEMIDE 20 MG/2 ML VIAL IV ONE (16:24)
[2023-05-09] MEDS: fentaNYL CITRATE 100 MCG/2 ML VL IV ONE (16:25)
[2023-05-09] MEDS: BUMETANIDE 1 MG TAB PO SCH (19:01)
[2023-05-09 21:17] VITALS: PULSE 68; RESP 16; O2SAT 98
[2023-05-09] MEDS: ATORVASTATIN 20 MG TAB PO SCH (21:40)
[2023-05-09] MEDS: CARVEDILOL 3.125 MG TAB PO SCH (21:40)
[2023-05-10] VITALS (8 sets, daily range): BP systolic 90–150; BP diastolic 42–69; PULSE 59–67; RESP 15–18; TEMP 97.7–98.6; O2SAT 94–100
[2023-05-10] MEDS: ACETAMINOPHEN 325 MG TAB PO PRN (01:08)
[2023-05-10] MEDS ORDERED: FINA5TAB4 PO (01:58)
[2023-05-10] MEDS ORDERED: TRAM50TA2 PO (01:58)
[2023-05-10] MEDS ORDERED: LOSA50TA46 PO (02:01)
[2023-05-10 06:18] LABS: Basophils # (auto) 0.1 10 ^3/uL (0-0.2); Basophils % (auto) 0.8 % (0.0-2.0); Eosinophils # (auto) 0.4 10 ^3/uL (0-0.8); Eosinophils % (auto) 4.2 % (0.0-7.0); Hematocrit 39.1 % (41.0-53.0); Hemoglobin 13.4 g/dL (13.5-17.5); Lymphocytes # (auto) 1.8 10 ^3/uL (0.4-5.4); Lymphocytes % (auto) 17.8 % (10.0-50.0); Mean Corpuscular Hemoglobin 32.9 pg (28.0-32.0); Mean Corpuscular Hgb Conc. 34.2 g/dL (32.0-36.0); Mean Corpuscular Volume 96.3 fL (80.0-100.0); Monocytes # (auto) 1.3 10 ^3/uL (0-1.3); Monocytes % (auto) 13.1 % (0.0-12.0); Neutrophils # (auto) 6.4 10 ^3/uL (1.6-8.6); Neutrophils % (auto) 64.1 % (37.0-80.0); Red Blood Cells 4.06 10^6/uL (4.5-5.90); Red Cell Distribution Width 13.3 % (11.8-14.3)
[2023-05-10 06:31] LABS: Alanine Aminotransferase 10 U/L (7-40); Albumin 3.9 g/dL (3.2-4.8); Alkaline Phosphatase 96 U/L (46-116); Anion Gap 7 (5-15); Aspartate Aminotransferase 15 U/L (13-40); BUN/Creatinine Ratio 16.2 (10.0-20.0); Blood Urea Nitrogen 23 mg/dL (9-23); Calcium 9.1 mg/dL (8.5-10.1); Carbon Dioxide 24 mmol/L (20-30); Chloride 109 mmol/L (98-107); Glucose 100 mg/dL (74-106); Potassium 3.8 mmol/L (3.5-5.1); Sodium 140 mmol/L (136-145)
[2023-05-10 06:32] LABS: Bilirubin, Total 0.9 mg/dL (0.2-1.0); Total Protein 6.1 g/dL (5.7-8.2)
[2023-05-10 08:06] LABS: PSA Free <0.02 ng/mL; Prostate Specific Antigen <0.1 ng/mL (0.0-4.0)
[2023-05-10] MEDS: DOCUSATE SOD 100 MG CAP PO PRN (10:26)
[2023-05-10] MEDS: LOSARTAN POTASSIUM 25 MG TAB PO SCH (10:26)
[2023-05-10] MEDS: HYDROcodone-ACET 5/325MG TAB PO PRN (12:19)
[2023-05-10] MEDS: cefTRIAXone 2GM/50ML D5W 50 ML IV ONE (12:44)
[2023-05-10] MEDS: HYDROmorphone HCL 2 MG/ML VL/or syr IV PRN (13:58)
[2023-05-11 05:00] VITALS: BP 95/50; PULSE 66; RESP 16; TEMP 98.5; O2SAT 95
[2023-05-11 06:19] LABS: Basophils # (auto) 0.1 10 ^3/uL (0-0.2); Basophils % (auto) 0.8 % (0.0-2.0); Eosinophils # (auto) 0.5 10 ^3/uL (0-0.8); Eosinophils % (auto) 5.8 % (0.0-7.0); Hematocrit 38.9 % (41.0-53.0); Hemoglobin 13.3 g/dL (13.5-17.5); Lymphocytes % (auto) 11.6 % (10.0-50.0); Mean Corpuscular Hgb Conc. 34.2 g/dL (32.0-36.0); Mean Corpuscular Volume 96.4 fL (80.0-100.0); Monocytes # (auto) 1.1 10 ^3/uL (0-1.3); Monocytes % (auto) 12.9 % (0.0-12.0); Neutrophils # (auto) 5.9 10 ^3/uL (1.6-8.6); Neutrophils % (auto) 68.9 % (37.0-80.0); Red Blood Cells 4.03 10^6/uL (4.5-5.90); Red Cell Distribution Width 13.4 % (11.8-14.3); White Blood Cell 8.6 10^3/uL (4.4-10.8)
[2023-05-11 06:25] LABS: Chloride 107 mmol/L (98-107); Potassium 3.9 mmol/L (3.5-5.1); Sodium 139 mmol/L (136-145)
[2023-05-11 06:26] LABS: Anion Gap 6 (5-15); Calcium 9.1 mg/dL (8.5-10.1); Carbon Dioxide 26 mmol/L (20-30)
[2023-05-11 06:31] LABS: BUN/Creatinine Ratio 18.5 (10.0-20.0); Blood Urea Nitrogen 27 mg/dL (9-23); Glucose 104 mg/dL (74-106)
[2023-05-11 08:00] VITALS: PULSE 74; PULSE 82; RESP 18; O2SAT 99
[2023-05-11] MEDS: SODIUM CHLORIDE 0.9% 250 ML IV ONE (08:43)
[2023-05-11 09:00] VITALS: BP 116/52; PULSE 78; RESP 18; TEMP 98.1; O2SAT 99
[2023-05-11 13:00] VITALS: BP 106/61; PULSE 68; RESP 18; TEMP 98.3; O2SAT 98
[2023-05-11] MEDS: IOHEXOL 300 MG/ML 100ML BOTTLE IJ ONE (14:45)
[2023-05-11 17:00] VITALS: BP 123/63; PULSE 69; RESP 18; TEMP 98.2; O2SAT 97
[2023-05-11] MEDS: PIPERACILLIN-TAZOB 3.375GM 100 ML IV ONE (18:58)
[2023-05-11 22:00] VITALS: BP 119/64; PULSE 71; RESP 20; TEMP 98.1; O2SAT 96
[2023-05-12] VITALS (7 sets, daily range): BP systolic 105–139; BP diastolic 54–78; PULSE 60–98; RESP 17–21; TEMP 97.9–98.4; O2SAT 96–100
[2023-05-12] MEDS: PIPERACILLIN-TAZOB 3.375GM 100 ML IV SCH (04:02)
[2023-05-12 07:16] LABS: Basophils # (auto) 0.1 10 ^3/uL (0-0.2); Basophils % (auto) 0.6 % (0.0-2.0); Eosinophils # (auto) 0.6 10 ^3/uL (0-0.8); Eosinophils % (auto) 7.5 % (0.0-7.0); Hematocrit 38.2 % (41.0-53.0); Lymphocytes # (auto) 1.2 10 ^3/uL (0.4-5.4); Lymphocytes % (auto) 14.3 % (10.0-50.0); Mean Corpuscular Hemoglobin 32.7 pg (28.0-32.0); Mean Corpuscular Volume 96.1 fL (80.0-100.0); Monocytes # (auto) 1.1 10 ^3/uL (0-1.3); Monocytes % (auto) 12.8 % (0.0-12.0); Neutrophils # (auto) 5.4 10 ^3/uL (1.6-8.6); Neutrophils % (auto) 64.8 % (37.0-80.0); Red Blood Cells 3.97 10^6/uL (4.5-5.90); Red Cell Distribution Width 13.1 % (11.8-14.3); White Blood Cell 8.3 10^3/uL (4.4-10.8)
[2023-05-12 07:25] LABS: Anion Gap 7 (5-15); Carbon Dioxide 25 mmol/L (20-30); Chloride 108 mmol/L (98-107); Potassium 3.9 mmol/L (3.5-5.1); Sodium 140 mmol/L (136-145)
[2023-05-12 07:27] LABS: Calcium 8.8 mg/dL (8.5-10.1)
[2023-05-12 07:31] LABS: BUN/Creatinine Ratio 17.4 (10.0-20.0); Blood Urea Nitrogen 27 mg/dL (9-23); Glucose 108 mg/dL (74-106)
[2023-05-12] MEDS: POLYETHYLENE GLYCOL 17 GM PWDR PO PRN (12:56)
[2023-05-13] VITALS (7 sets, daily range): BP systolic 104–136; BP diastolic 54–66; PULSE 61–77; RESP 17–21; TEMP 97.8–98.2; O2SAT 97–100
[2023-05-13] MEDS: FLEET ENEMA(ADULT) 135 ML PR ONE (15:00)
[2023-05-14 05:00] VITALS: BP 118/58; PULSE 67; RESP 20; TEMP 97.9; O2SAT 96
[2023-05-14 09:00] VITALS: BP 112/62; PULSE 66; RESP 18; TEMP 97.3; O2SAT 98
[2023-05-14 13:00] VITALS: BP 126/68; PULSE 69; RESP 18; TEMP 97.3; O2SAT 98
[2023-05-14 17:00] VITALS: BP 128/61; PULSE 56; RESP 18; TEMP 97.8; O2SAT 99
[2023-05-14 20:00] VITALS: PULSE 64; RESP 16; O2SAT 97
[2023-05-14 22:00] VITALS: BP 111/59; PULSE 64; RESP 16; TEMP 98.2; O2SAT 97
[2023-05-15] VITALS (7 sets, daily range): BP systolic 109–146; BP diastolic 55–67; PULSE 57–74; RESP 11–18; TEMP 97.4–98.5; O2SAT 95–100
[2023-05-15 06:16] LABS: INR 1.04 (0.9-1.15); Partial Thromboplastin Time 31.6 SEC (24.5-34.5); Prothrombin Time 10.9 sec (9.3-11.8)
[2023-05-15 09:02] LABS: Basophils # (auto) 0.1 10 ^3/uL (0-0.2); Basophils % (auto) 0.8 % (0.0-2.0); Eosinophils # (auto) 0.6 10 ^3/uL (0-0.8); Eosinophils % (auto) 7.2 % (0.0-7.0); Hematocrit 40.3 % (41.0-53.0); Hemoglobin 13.3 g/dL (13.5-17.5); Lymphocytes # (auto) 1.9 10 ^3/uL (0.4-5.4); Mean Corpuscular Hemoglobin 32.4 pg (28.0-32.0); Mean Corpuscular Hgb Conc. 33.1 g/dL (32.0-36.0); Mean Corpuscular Volume 97.9 fL (80.0-100.0); Monocytes # (auto) 1.1 10 ^3/uL (0-1.3); Monocytes % (auto) 12.7 % (0.0-12.0); Neutrophils # (auto) 4.9 10 ^3/uL (1.6-8.6); Neutrophils % (auto) 57.3 % (37.0-80.0); Red Blood Cells 4.11 10^6/uL (4.5-5.90); Red Cell Distribution Width 13.2 % (11.8-14.3); White Blood Cell 8.6 10^3/uL (4.4-10.8)
[2023-05-15 09:19] LABS: Chloride 109 mmol/L (98-107); Sodium 140 mmol/L (136-145)
[2023-05-15 09:20] LABS: Anion Gap 7 (5-15); Calcium 8.9 mg/dL (8.5-10.1); Carbon Dioxide 24 mmol/L (20-30)
[2023-05-15 09:25] LABS: BUN/Creatinine Ratio 10.8 (10.0-20.0); Blood Urea Nitrogen 18 mg/dL (9-23); Glucose 86 mg/dL (74-106)
[2023-05-15] MEDS ORDERED: fentaNYL CITRATE 100 MCG/2 ML VL ONE (10:02)
[2023-05-15] MEDS: CIPROFLOXACIN 400MG/200ML 200 ML IV ONE (10:08)
[2023-05-15] MEDS ORDERED: MIDAZOLAM HCL 2MG/2ML 2ml VIAL (1mg/ml) ONE (10:42)
[2023-05-15] MEDS ORDERED: PROPOFOL 10 MG/ML 20 ML IV ONE (10:44)
[2023-05-15] MEDS ORDERED: ONDANSETRON HCL 4 MG/2 ML VIAL IV PRN (12:00)
[2023-05-16 04:55] VITALS: BP 136/66; PULSE 67; RESP 17; TEMP 98.6; O2SAT 99
[2023-05-16 07:24] LABS: Basophils # (auto) 0.1 10 ^3/uL (0-0.2); Basophils % (auto) 0.8 % (0.0-2.0); Eosinophils # (auto) 0.4 10 ^3/uL (0-0.8); Eosinophils % (auto) 3.4 % (0.0-7.0); Hematocrit 37.3 % (41.0-53.0); Hemoglobin 12.6 g/dL (13.5-17.5); Lymphocytes # (auto) 1.7 10 ^3/uL (0.4-5.4); Lymphocytes % (auto) 16.9 % (10.0-50.0); Mean Corpuscular Hemoglobin 32.8 pg (28.0-32.0); Mean Corpuscular Hgb Conc. 33.9 g/dL (32.0-36.0); Mean Corpuscular Volume 96.6 fL (80.0-100.0); Monocytes # (auto) 1.4 10 ^3/uL (0-1.3); Monocytes % (auto) 13.9 % (0.0-12.0); Neutrophils # (auto) 6.6 10 ^3/uL (1.6-8.6); Red Blood Cells 3.86 10^6/uL (4.5-5.90); Red Cell Distribution Width 12.9 % (11.8-14.3); White Blood Cell 10.2 10^3/uL (4.4-10.8)
[2023-05-16 07:35] LABS: Chloride 110 mmol/L (98-107); Potassium 4.1 mmol/L (3.5-5.1); Sodium 140 mmol/L (136-145)
[2023-05-16 07:36] LABS: Anion Gap 5 (5-15); Calcium 8.6 mg/dL (8.5-10.1); Carbon Dioxide 25 mmol/L (20-30)
[2023-05-16 07:41] LABS: BUN/Creatinine Ratio 11.2 (10.0-20.0); Blood Urea Nitrogen 16 mg/dL (9-23); Glucose 96 mg/dL (74-106)
[2023-05-16 09:00] VITALS: BP 132/69; PULSE 74; RESP 22; TEMP 97.9; O2SAT 96
[2023-05-16 13:00] VITALS: BP 112/53; PULSE 66; RESP 17; TEMP 97.8; O2SAT 99
[2023-05-16 17:00] VITALS: BP 141/60; PULSE 70; RESP 16; TEMP 98.4; O2SAT 98
[2023-05-16 20:00] VITALS: PULSE 79; RESP 16; O2SAT 98
[2023-05-16 22:00] VITALS: BP 135/70; PULSE 79; RESP 16; TEMP 98.2; O2SAT 98
[2023-05-17 05:00] VITALS: BP 112/54; PULSE 60; RESP 16; TEMP 98.2; O2SAT 95
[2023-05-17 09:00] VITALS: BP 115/70; PULSE 60; RESP 16; TEMP 97.7; O2SAT 96
[2023-05-17] MEDS: OXYCODONE W/ ACETAMINOPHEN 5/325MG TABLET PO PRN (12:25)
[2023-05-17 13:00] VITALS: BP 125/73; PULSE 86; RESP 20; TEMP 98.6; O2SAT 97
[2023-05-17 17:00] VITALS: BP 112/61; PULSE 72; RESP 18; TEMP 97.9; O2SAT 97
[2023-05-17 20:00] VITALS: PULSE 73; RESP 18; O2SAT 100
[2023-05-17 22:00] VITALS: BP 138/65; PULSE 73; RESP 18; TEMP 98.3; O2SAT 100
[2023-05-18] VITALS (7 sets, daily range): BP systolic 105–128; BP diastolic 54–65; PULSE 20–69; RESP 14–18; TEMP 97.7–98; O2SAT 95–100
[2023-05-18 05:34] LABS: Basophils # (auto) 0.1 10 ^3/uL (0-0.2); Basophils % (auto) 0.6 % (0.0-2.0); Eosinophils # (auto) 0.5 10 ^3/uL (0-0.8); Eosinophils % (auto) 4.2 % (0.0-7.0); Hemoglobin 11.9 g/dL (13.5-17.5); Lymphocytes # (auto) 2.1 10 ^3/uL (0.4-5.4); Lymphocytes % (auto) 16.5 % (10.0-50.0); Mean Corpuscular Hemoglobin 32.2 pg (28.0-32.0); Mean Corpuscular Hgb Conc. 33.8 g/dL (32.0-36.0); Mean Corpuscular Volume 95.3 fL (80.0-100.0); Monocytes # (auto) 1.6 10 ^3/uL (0-1.3); Monocytes % (auto) 12.6 % (0.0-12.0); Neutrophils # (auto) 8.3 10 ^3/uL (1.6-8.6); Neutrophils % (auto) 66.1 % (37.0-80.0); Red Blood Cells 3.68 10^6/uL (4.5-5.90); Red Cell Distribution Width 13.1 % (11.8-14.3); White Blood Cell 12.5 10^3/uL (4.4-10.8)
[2023-05-18 05:48] LABS: Albumin 3.4 g/dL (3.2-4.8); Alkaline Phosphatase 74 U/L (46-116); Anion Gap 7 (5-15); Aspartate Aminotransferase 15 U/L (13-40); BUN/Creatinine Ratio 11.6 (10.0-20.0); Blood Urea Nitrogen 17 mg/dL (9-23); Calcium 8.3 mg/dL (8.5-10.1); Carbon Dioxide 23 mmol/L (20-30); Chloride 111 mmol/L (98-107); Glucose 94 mg/dL (74-106); Potassium 4.2 mmol/L (3.5-5.1); Sodium 141 mmol/L (136-145)
[2023-05-18 05:49] LABS: Bilirubin, Total 0.6 mg/dL (0.2-1.0); Total Protein 5.6 g/dL (5.7-8.2)
[2023-05-18 05:56] LABS: Alanine Aminotransferase < 9 U/L (7-40)
[2023-05-19 01:00] VITALS: BP 114/57; PULSE 75; RESP 18; TEMP 98; O2SAT 98
[2023-05-19 05:00] VITALS: BP 117/57; PULSE 60; RESP 18; TEMP 98; O2SAT 97
[2023-05-19 06:36] LABS: Basophils # (auto) 0.1 10 ^3/uL (0-0.2); Eosinophils # (auto) 0.5 10 ^3/uL (0-0.8); Eosinophils % (auto) 5.6 % (0.0-7.0); Hematocrit 33.4 % (41.0-53.0); Hemoglobin 11.3 g/dL (13.5-17.5); Lymphocytes # (auto) 1.5 10 ^3/uL (0.4-5.4); Lymphocytes % (auto) 15.5 % (10.0-50.0); Mean Corpuscular Hemoglobin 32.3 pg (28.0-32.0); Mean Corpuscular Hgb Conc. 33.8 g/dL (32.0-36.0); Mean Corpuscular Volume 95.5 fL (80.0-100.0); Monocytes % (auto) 10.8 % (0.0-12.0); Neutrophils # (auto) 6.3 10 ^3/uL (1.6-8.6); Neutrophils % (auto) 67.1 % (37.0-80.0); Red Cell Distribution Width 13.3 % (11.8-14.3); White Blood Cell 9.3 10^3/uL (4.4-10.8)
[2023-05-19 07:01] LABS: Albumin 3.3 g/dL (3.2-4.8); Alkaline Phosphatase 70 U/L (46-116); Anion Gap 6 (5-15); Aspartate Aminotransferase 15 U/L (13-40); BUN/Creatinine Ratio 11.3 (10.0-20.0); Bilirubin, Total 0.4 mg/dL (0.2-1.0); Blood Urea Nitrogen 17 mg/dL (9-23); Calcium 8.3 mg/dL (8.5-10.1); Carbon Dioxide 23 mmol/L (20-30); Chloride 110 mmol/L (98-107); Glucose 133 mg/dL (74-106); Potassium 3.8 mmol/L (3.5-5.1); Sodium 139 mmol/L (136-145); Total Protein 5.2 g/dL (5.7-8.2)
[2023-05-19 07:21] LABS: Alanine Aminotransferase < 9 U/L (7-40)
[2023-05-19 10:06] VITALS: BP 103/57; PULSE 56; RESP 12; TEMP 98.1; O2SAT 93
[2023-05-19] MEDS ORDERED: AUG875T PO (11:11)
[2023-05-19] MEDS ORDERED: PERCOT PO (11:31)
[2023-05-19 12:23] VITALS: BP 95/50; PULSE 60; TEMP 36.7
[2023-05-19 14:59] VITALS: BP 112/58; PULSE 60; RESP 18; TEMP 98.3; O2SAT 98
== END 2023-05-19 14:00 | disposition home or self-care (01) | DRG 713 ==
LOC: ER 10:22 → OVERFLOW 14:55 → EAST 23:46
PROVIDERS: ADMIT Nurse Practitioner Family; ATTEND Internal Medicine
PROC: 0VT08ZZ Resection of Prostate, Via Natural or Artificial Opening Endoscopic (ICD-10-PCS; principal; 2023-05-15 10:30)
DX: N41.2 Abscess of prostate (principal); I50.43 Acute on chronic combined systolic (congestive) and diastolic (congestive) heart failure; N40.1 Benign prostatic hyperplasia with lower urinary tract symptoms; N32.0 Bladder-neck obstruction; K40.20 Bilateral inguinal hernia, without obstruction or gangrene, not specified as recurrent; I11.0 Hypertensive heart disease with heart failure; I25.10 Atherosclerotic heart disease of native coronary artery without angina pectoris; Z88.5 Allergy status to narcotic agent; Z79.899 Other long term (current) drug therapy; Z82.49 Family history of ischemic heart disease and other diseases of the circulatory system; Z90.79 Acquired absence of other genital organ(s)
CPT/HCPCS: 36415; 51702; 71045; 72170; 74176; 74177; 76775; 76856; 80048; 80053; 81001; 83605; 83690; 83735; 83880; 84154; 84484; 85025; 85610; 85730; 86850; 86900; 86901; 87081; 87086; 93005; G0378; J2250; J2405; J2543; J2704

== ENCOUNTER 2024-02-05 16:21 | Inpatient (IN) | payer OTHER ==
[~2024-02-05] VITALS: Ht 162.6 cm; Wt 67.1 kg
[~2024-02-05 16:21] MED LIST changes: +ATOR20TA PO; +DICL2SOL EX
--- NOTE | 2024-02-05 17:00 | ECG ---
[facility] Test Date: 2024-02-05 Test Time: 16:50:52 Pat Name: EDER HALL Department: ER Room: 0274T Gender: M Garment Turner: DENNISE : 1940 Requested By: RANJANA QUARLES Order Number: [id number] Reading MD: Ricardo Pineda Measurements Intervals [place] Rate: 68 P: 49 [place]: 202 QRS: 115 QRSD: 138 T: -31 QT: 414 QTc: 441 Interpretive Statements Sinus rhythm Consider left ventricular hypertrophy Repol abnrm suggests ischemia, diffuse leads Electronically Signed On 02-07-2024 16:15:49 PST by Ricardo Pineda Please click the below link to view image of tracing.
--- NOTE | 2024-02-05 17:51 | ED.PDOC ---
SOB-HPI HPI Comments 83 yo m with CHF who is on lasix, but takes it occasionally only when legs are swollen, presents to the ED with increasing SOB, orthopnea, PND and reduced exercise capacity. Saw his pcp today and he sent him to the ED for evaluation. 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 Denies f/chill. Coughing with whitish sputum. Chief Complaint: Shortness of Breath Time Seen by MD: 16:25 Primary Care Provider: YANIRA Reviewed notes: Nurses Notes, Medications, Allergies Information Source: Patient, Relative Mode of Arrival: Ambulatory Severity: Moderate Timing: Days Context: At Rest History of: CHF Past Medical History PAST MEDICAL HISTORY: CAD, HTN, MA Surgical History: PTCA Family History Family History: Reviewed,noncontributory to illness Social History Smoker: Non-Smoker Alcohol: Rarely Drugs: Denies Drug Use Lives In: Home All Other Systems: Reviewed and Negative Physical Exam General Appearance: No Apparent Distress, Normal HEENT: Normal ENT Inspection, Pharynx Normal, TMs Normal Neck: Full Range of Motion, Non-Tender, Normal, Normal Inspection Respiratory: Crackles, No Accessory Muscle Use, Respiratory Distress Cardiovascular: No Edema, No JVD, No Murmur, No Gallop, Normal Peripheral Pulses, Regular Rate/Rhythm Breast Exam: Deferred Gastrointestinal: No Organomegaly, Non Tender, No Pulsatile Mass, Normal Bowel Sounds, Soft Genitalia: Deferred Pelvic: Other Rectal: None Extremities: Other (wearing compression dressing, mild pitting edema vidal. 1+) Neurologic: Alert, roadside mechanic II-XII nml as Tested, No Motor Deficits, Normal Affect, Normal Mood, No Sensory Deficits, Other (using FWW) Cerebellar Function: Normal Reflexes: NOT DONE Skin: Dry, Normal Color, Warm Lymphatic: NOT DONE Was a procedure done? Was a procedure done?: No Differential Dx Differential Diagnosis: Anxiety, Asthma, Bronchitis, CHF, COPD, Pneumonia, Pulmonary Embolism, Respiratory Distress X-Ray, Labs, Meds, VS Vital Signs Date Time Temp Pulse Resp B/P (MAP) Pulse Ox O2 Delivery O2 Flow Rate FiO2 02/05/24 16:51 98.0 71 20 133/88 (103) 96 02/05/24 16:50 68 Time of 1ST Reevaluation: 17:50 Reevaluation 1ST: Unchanged Patient Education/Counseling: Diagnosis Family Education/Counseling: Diagnosis, Treatment Comments Seen and evaluated. Workup initiated. Or a six given. Requested the patient be placed in bed. At the end of my shift, I discussed the case with and care was turned over to the oncoming physician at 6:00 p.m.. Change of Shift?: Yes Departure 1 Departure Time of Disposition: 18:00 Impression: Primary Impression: CHF (congestive heart failure), NYHA class III Disposition: 30 STILL A PATIENT Admit to: Tele Condition: Guarded Critical Care Note Critical Care Time?: Yes (35 min-critical care time only) Critical care comment: pt is in acute CHF exacerbation with AVILA at rest. Acute CHF is a life threatening condition and I took steps to mitigate the risk. This time does not include time spent by any other physicians or any separately billable procedures Stability Stability form required: No Heart Score Heart Score: Heart Score Response (Comments) Value History N/A 0 EKG N/A 0 Age N/A 0 Risk Factors N/A 0 Troponin N/A 0 Total 0 RANJANA QUARLES MD Feb 05, 2024 17:50
[2024-02-05] MEDS: IPRATROPIUM BROM 0.5 MG/2.5ML INH SOL HHN ONE (17:54)
--- NOTE | 2024-02-05 18:35 | DVH ---
EXAM: XR Chest, 1 View CLINICAL INDICATION: sob TECHNIQUE: Frontal view of the chest. COMPARISON: XY CHEST XRAY 1 VIEW on DOS: 05/15/23, XY CHEST PORTABLE on DOS: 05/10/23, XY CHEST XRAY 1 VIEW on DOS: 08/29/22 FINDINGS: LUNGS AND PLEURAL SPACES: Pulmonary congestion and edema. Pneumonia cannot be excluded. No pneumoth orax. HEART: Left cardiac. No cardiomegaly. MEDIASTINUM: Unremarkable. Normal mediastinal contour. BONES/JOINTS: Unremarkable. No acute fracture. OTHER FINDINGS: . . IMPRESSION: Pulmonary congestion and edema. Pneumonia cannot be excluded. HS:Y
[2024-02-05 18:52] VITALS: PULSE 68; RESP 22; O2SAT 94
[2024-02-05 19:13] LABS: Hematocrit 40.2 % (41.0-53.0); Hemoglobin 13.6 g/dL (13.5-17.5); Mean Corpuscular Hgb Conc. 33.8 g/dL (32.0-36.0); Mean Corpuscular Volume 91.4 fL (80.0-100.0); Platelet Count (auto) 262 10^3/uL (140-450); Red Cell Distribution Width 14.9 % (11.8-14.3); White Blood Cell 15.2 10^3/uL (4.4-10.8)
[2024-02-05 19:15] LABS: Basophils % (manual) 0 (0.0-2.0); Blast Cells 0; Metamyelocytes % 0; Myelocytes % 0; Promyelocytes % 0; Reactive Lymphocytes 0
[2024-02-05 19:48] LABS: Anisocytosis Slight; Band Neutrophils % (manual) 2; Eosinophils % (manual) 1 (0-7); Large Platelets FEW; Lymphocytes % (manual) 5 (10.0-50.0); Monocytes % (manual) 15 (0-12); Platelet Estimate Adequate
[2024-02-05 20:00] VITALS: PULSE 67; RESP 15; O2SAT 96
[2024-02-05] MEDS ORDERED: HEPARIN SODIUM (PORCINE) 5000 UNITS/ML 1ML VIAL IV ONE (20:00)
--- NOTE | 2024-02-05 20:07 | ED.PDOC ---
Differential Dx Considerations may include: Differential diagnoses considered include acute ischemic coronary syndrome, aortic dissection, cardiac tamponade, mediastinitis, pulmonary embolus, pneumothorax, tension pneumothorax, esophageal rupture, coronary artery vasospasm, myocarditis, pericarditis, pneumonia, pulmonary edema, esophageal tear, pancreatitis, aortic stenosis, dilated cardiomyopathy, hypertrophic cardiomyopathy, mitral valve prolapse, malignancy, pleuritis, pneumomediastinum, primary pulmonary hypertension, cholecystitis, esophageal spasm, esophagus, gastritis, GERD, peptic ulcer disease, costochondritis, fibromyalgia, rib fracture, herpes zoster, radicular syndromes, thoracic outlet syndrome, somatization. X-Ray, Labs, Meds, VS Vital Signs Date Time Temp Pulse Resp B/P (MAP) Pulse Ox O2 Delivery O2 Flow Rate FiO2 02/05/24 18:52 68 22 94 Room Air* 0 21 02/05/24 18:50 98.4 68 22 124/57 (79) 94 98.4 02/05/24 17:54 18 95 Room Air* 0 21 02/05/24 16:51 98.0 71 20 133/88 (103) 96 02/05/24 16:50 68 Lab Test 02/05/24 18:46 Range/Units White Blood Count 15.2 H 4.4-10.8 10^3/uL Red Blood Count 4.40 L 4.5-5.90 10^6/uL Hemoglobin 13.6 13.5-17.5 g/dL Hematocrit 40.2 L 41.0-53.0 % Mean Corpuscular Volume 91.4 80.0-100.0 fL Mean Corpuscular Hemoglobin 31.0 28.0-32.0 pg Mean Corpuscular Hemoglobin Concent 33.8 32.0-36.0 g/dL Red Cell Distribution Width 14.9 H 11.8-14.3 % Platelet Count 262 140-450 10^3/uL Mean Platelet Volume 8.6 6.9-10.8 fL Neutrophils (%) (Auto) 37.0-80.0 % Lymphocytes (%) (Auto) 10.0-50.0 % Monocytes (%) (Auto) 0.0-12.0 % Basophils (%) (Auto) 0.0-2.0 % Neutrophils # (Auto) 1.6-8.6 10 ^3/uL Lymphocytes # (Auto) 0.4-5.4 10 ^3/uL Monocytes # (Auto) 0-1.3 10 ^3/uL Differential Total Cells Counted 100.0 100 Neutrophils % (Manual) 77 37.0-80.0 Band Neutrophils % (Manual) 2 Lymphocytes % (Manual) 5 L 10.0-50.0 Monocytes % (Manual) 15 H 0-12 Eosinophils % (Manual) 1 0-7 Basophils % (Manual) 0 0.0-2.0 Metamyelocytes % (manual) 0 Myelocytes % (Manual) 0 Promyelocytes % (Manual) 0 Blast Cells % (Manual) 0 Reactive Lymphocytes 0 Platelet Estimate Adequate Large Platelets Few Anisocytosis (manual) Slight Sodium Level Pending Potassium Level Pending Chloride Level Pending Carbon Dioxide Level Pending Anion Gap Pending Blood Urea Nitrogen Pending Creatinine Pending Glomerular Filtration Rate Calc Pending BUN/Creatinine Ratio Pending Serum Glucose Pending Calcium Level Pending Total Bilirubin Pending Aspartate Amino Transferase (AST) Pending Alanine Aminotransferase (ALT) Pending Alkaline Phosphatase Pending Troponin I High Sensitivity 3791 *H </=54 ng/L B-Type Natriuretic Peptide 857.66 0-100 pg/mL Total Protein Pending Albumin Pending Current Medications Medications (Trade) Dose Ordered Sig/David Route Start Time Stop Time Status Last Admin Ipratropium [place] (Atrovent Medneb) 1 mg ONCE ONCE HHN 02/05/24 17:30 02/05/24 17:31 DC 02/05/24 17:54 Time of 1ST Reevaluation: 18:00 Reevaluation 1ST: Unchanged Patient Education/Counseling: Diagnosis, Treatment, Prognosis Family Education/Counseling: Diagnosis, Treatment, Prognosis Departure 1 Departure Time of Disposition: 18:00 Impression: Primary Impression: CHF (congestive heart failure), NYHA class III Additional Impression: NSTEMI (non-ST elevated myocardial infarction) Disposition: ADMITTED INPATIENT Admit to: Tele Condition: Guarded Critical Care Note Critical Care Time?: No Stability Stability form required: No Misceleneous Note Note Note Sign-out received from What he had. 83-year-old male with history of CHF presents with shortness of breath, upper back pain symptoms similar to previous ACS presentation. Labs and imaging pending. Labs reviewed, troponin significantly elevated. Repeat EKG shows no ST elevations or ischemic changes. Heparin drip initiated. Patient admitted for further treatment, evaluation and monitoring. LONI GOMEZ MD Feb 05, 2024 20:07
[2024-02-05] MEDS: ASPirin 81 mg TAB PO ONE (20:34)
[2024-02-05 20:35] LABS: INR 1.14 (0.9-1.15); Partial Thromboplastin Time 29.9 SEC (24.5-34.5)
[2024-02-05] MEDS: HEPARIN SODIUM (PORCINE) 5000 UNITS/ML 1ML VIAL IV ONE (20:38)
[2024-02-05] MEDS: HEPARIN DRIP/D5W 100UNITS/ML 250 ML IV SCH (20:42)
[2024-02-05 21:07] LABS: Urine Bacteria None Seen /hpf (None Seen)
[2024-02-05 21:24] LABS: Urine Blood Negative /uL (Negative); Urine Clarity Clear (Clear); Urine Color Yellow (Yellow); Urine Mucus FEW (None Seen); Urine Protein, UAD TRACE (Negative); Urine Urobilinogen 3 mg/dL (Negative); Urine WBC 5 /hpf (0 - 3)
[2024-02-05 21:26] LABS: Alanine Aminotransferase 15 U/L (7-40); Albumin 3.6 g/dL (3.2-4.8); Alkaline Phosphatase 74 U/L (46-116); Anion Gap 11 (5-15); Aspartate Aminotransferase 34 U/L (13-40); BUN/Creatinine Ratio 23.4 (10.0-20.0); Bilirubin, Total 0.5 mg/dL (0.2-1.0); Blood Urea Nitrogen 33 mg/dL (9-23); Calcium 8.8 mg/dL (8.7-10.4); Carbon Dioxide 18 mmol/L (20-31); Chloride 110 mmol/L (98-107); Glucose 105 mg/dL (74-106); Potassium 5.3 mmol/L (3.5-5.1); Sodium 139 mmol/L (136-145); Total Protein 6.7 g/dL (5.7-8.2)
[2024-02-05] MEDS ORDERED: MORPHINE SULFATE INJ 2 MG/ml SYRG IV PRN (21:30)
[2024-02-05] MEDS ORDERED: NITROGLYCERIN 0.4 MG SL TAB SL PRN (21:30)
[2024-02-05] MEDS: ACETAMINOPHEN 500 MG TAB PO ONE (21:32)
[2024-02-05] MEDS: ATORVASTATIN 20 MG TAB PO ONE (23:05)
[2024-02-05] MEDS: CALCIUM GLUC 1,000mg/50ml-NS 50 ML IV ONE (23:17)
[2024-02-05] MEDS: DEXTROSE (50%) 50ML SYRG IV ONE (23:17)
[2024-02-05] MEDS: InsuLIN REG 1unit/0.01ml Soln (100units/ml) IV ONE (23:18)
[2024-02-05] MEDS: FUROSEMIDE 20 MG/2 ML VIAL IV ONE (23:22)
[2024-02-05] MEDS: SODIUM ZIRCONIUM CYCL 10 GM PAK PO ONE (23:23)
[2024-02-05] MEDS: LIDOCAINE 5% TOPICAL PATCH TOP ONE (23:23)
--- NOTE | 2024-02-05 23:30 | DVHHPRES ---
History of Present Illness Resident Creating Document: LILLY GALVAN RESIDENT History of Present Illness Mr. Breen, a 81-year-old , limited Mauritian-speaking patient with a history of hypertension, hyperlipidemia, rheumatoid arthritis, chronic low back pain, benign prostate hypertrophy (s/p TURP), bilateral inguinal hernia, coronary artery disease (PTCA angioplasty of the circumflex, stent placement x3 in the left anterior descending artery), COPD, chronic kidney disease (stage IIIB), myocardial infarction, ischemic cardiomyopathy, and chronic systolic heart failure (EF <20%) with residual ischemia of the inferior territory on Biotronik AICD, presents with chest pain. The patient reports intermittent and exertional chest pain, currently experiencing left-sided chest pain radiating to the left shoulder and scapular posterior area, with local tenderness that increases with movement, described as a dull, pressure-like pain without radiation. Additional complaints include PND, orthopnea, increased fatigue, intermittent palpitations, electric-like sensations from the AICD, Chills and increased sputum production. The patient, who has been compliant with medications including Plavix and aspirin, was interviewed at the bedside with presence of daughter Jenna. Patient is admitted in the telemetry for further evaluation and treatment. Cardiovascular: CAD, CHF, HTN, hyperipidemia Pulmonary: COPD Heme/Onc: Anemia NOS Musculoskeletal: Chronic low back pain, Osteoarthritis Rheumatologic: Rheumatoid arthritis Renal/: Chronic renal insuff, Acute renal failure Past Surgical History: TURP Past Surgical History (PTCA angioplasty of the circumflex, stent placement x3 in the left anterior descending artery), AICD, TURP Family History: CAD, Hyperlipidemia, Hypertension Family History Mostly in the father's side. Smoke: Quit (Prior smoking history for 20 pack-year almost.) ALCOHOL: none (Previous history of heavy alcohol use in youth but presumably not on alcohol.) Drugs: None (Denies lifetime history of any drug abuse.) Lives: with Family Domestic Violence: Neg Review of Systems Constitutional: Yes: Chills, Malaise Eyes: No: Pain, Vision change, Conjunctivae inflammation, Eyelid inflammation, Other, Redness ENT: No: Ear pain, Ear discharge, Nose pain, Nose discharge, Nose congestion, Mouth pain, Mouth swelling, Throat pain, Throat swelling, Other Respiratory: Cough, Dry, SOB with excertion Cardiovascular: Chest Pain, Palpitations, Orthopnea, Paroxysmal Noc. Dyspnea, Other (AICD side healthy.) Gastrointestinal: No: Nausea, Vomiting, Abdominal Pain, Diarrhea, Constipation, Melena, Hematochezia, Other Genitourinary: No Dysuria, No Frequency, No Incontinence, No Hematuria, No Retention, No Other Musculoskeletal: No: other, neck pain, shoulder pain, arm pain, back pain, hand pain, leg pain, foot pain Skin: No: Rash, Lesions, Jaundice, Bruising, Other Neurological: No: Weakness, Numbness, Incoordination, Change in speech, Confusion, Seizures, Other Allergies: Coded Allergies: Morphine (Verified Adverse Reaction, Intermediate, 08/29/22) AGITATION,RESTLESSNESS,SEVERE PAIN Medications Current Medications Medications Dose Ordered Sig/David Route Start Time Stop Time Status Last Admin Dose Admin Heparin Sodium/ Dextrose 250 ml @ 8 mls/hr Q24H IV 02/05/24 20:30 02/05/24 20:42 8 MLS/HR Nitroglycerin 0.4 mg Q5MINP PRN SL 02/05/24 21:30 Morphine Sulfate 2 mg Q30M PRN IV 02/05/24 21:30 Ceftriaxone Sodium 50 ml @ 100 mls/hr Q24H IV 02/05/24 23:00 Exam Vital Signs Vital Signs Date Time Temp Pulse Resp B/P (MAP) Pulse Ox O2 Delivery O2 Flow Rate FiO2 02/05/24 23:22 113/61 02/05/24 21:48 68 02/05/24 21:32 99.1 02/05/24 20:00 20 94 02/05/24 18:52 Room Air* 0 21 General Appearance: Alert, Oriented X3, Cooperative, mild distress HEENT: Atraumatic, PERRLA, EOMI, Mucous membr. moist/pink Respiratory: Clear to auscultation Cardiovascular: Regular rate, Normal S1, Normal S2, No murmurs, Gallops Abdominal: Normal bowel sounds, Soft, No tenderness, No hepatospenomegaly, No masses Extremities: No clubbing, No cyanosis, No edema, Normal pulses, No tenderness/swelling Skin: No rashes, No breakdown, No significant lesion Neuro: Normal gait, Normal speech, Strength at 5/5 X4 ext, Normal tone, Sensation intact, Cranial nerves 3-12 NL, Reflexes 2+ Psych/Mental Status: Mental status NL, Mood NL Labs/Xrays Labs Test 02/05/24 21:44 02/05/24 20:30 02/05/24 20:17 02/05/24 18:46 Range/Units Magnesium Level 2.3 1.6-2.6 mg/dL Troponin I High Sensitivity 4209 *H </=54 ng/L Thyroid Stimulating Hormone (TSH) 1.60 0.55-4.78 uIU/mL Urine Color Yellow Yellow Urine Clarity Clear Clear Urine pH 6.0 5.0-9.0 Urine Specific [place] 1.020 1.001-1.035 Urine Protein Trace H Negative Urine Ketones Negative Negative Urine Blood Negative Negative /uL Urine Nitrite Negative Negative Urine Bilirubin Negative Negative Urine Urobilinogen 3 H Negative mg/dL Urine Leukocyte Esterase Negative Negative /uL Urine RBC <1 0 - 3 /hpf Urine WBC 5 0 - 3 /hpf Urine Squamous Epithelial Cells None seen <5 /hpf Urine Bacteria None seen None Seen /hpf Urine Mucus Few None Seen Urine Glucose Normal Normal mg/dL Sodium Level 139 136-145 mmol/L Potassium Level 5.3 H 3.5-5.1 mmol/L Chloride Level 110 H 98-107 mmol/L Carbon Dioxide Level 18 L 20-31 mmol/L Anion Gap 11 5-15 Blood Urea Nitrogen 33 H 9-23 mg/dL Creatinine 1.41 H 0.700-1.30 mg/dL Glomerular Filtration Rate Calc 49 >90 mL/min BUN/Creatinine Ratio 23.4 H 10.0-20.0 Serum Glucose 105 74-106 mg/dL Calcium Level 8.8 8.7-10.4 mg/dL Total Bilirubin 0.5 0.2-1.0 mg/dL Aspartate Amino Transferase (AST) 34 13-40 U/L Alanine Aminotransferase (ALT) 15 7-40 U/L Alkaline Phosphatase 74 46-116 U/L Total Protein 6.7 5.7-8.2 g/dL Albumin 3.6 3.2-4.8 g/dL White Blood Count 15.2 H 4.4-10.8 10^3/uL Red Blood Count 4.40 L 4.5-5.90 10^6/uL Hemoglobin 13.6 13.5-17.5 g/dL Hematocrit 40.2 L 41.0-53.0 % Mean Corpuscular Volume 91.4 80.0-100.0 fL Mean Corpuscular Hemoglobin 31.0 28.0-32.0 pg Mean Corpuscular Hemoglobin Concent 33.8 32.0-36.0 g/dL Red Cell Distribution Width 14.9 H 11.8-14.3 % Platelet Count 262 140-450 10^3/uL Mean Platelet Volume 8.6 6.9-10.8 fL Neutrophils (%) (Auto) 37.0-80.0 % Lymphocytes (%) (Auto) 10.0-50.0 % Monocytes (%) (Auto) 0.0-12.0 % Basophils (%) (Auto) 0.0-2.0 % Neutrophils # (Auto) 1.6-8.6 10 ^3/uL Lymphocytes # (Auto) 0.4-5.4 10 ^3/uL Monocytes # (Auto) 0-1.3 10 ^3/uL Differential Total Cells Counted 100.0 100 Neutrophils % (Manual) 77 37.0-80.0 Band Neutrophils % (Manual) 2 Lymphocytes % (Manual) 5 L 10.0-50.0 Monocytes % (Manual) 15 H 0-12 Eosinophils % (Manual) 1 0-7 Basophils % (Manual) 0 0.0-2.0 Metamyelocytes % (manual) 0 Myelocytes % (Manual) 0 Promyelocytes % (Manual) 0 Blast Cells % (Manual) 0 Reactive Lymphocytes 0 Platelet Estimate Adequate Large Platelets Few Anisocytosis (manual) Slight Prothrombin Time 12.0 H 9.3-11.8 sec Prothrombin Time INR 1.14 0.9-1.15 Activated Partial Thromboplast Time 29.9 24.5-34.5 SEC B-Type Natriuretic Peptide 857.66 0-100 pg/mL [place] [id number] Ph: [phone] DIAGNOSTIC IMAGING Diagnostic Imaging Report : [id number] Signed PATIENT: EDER BREEN ACCT: [id number] UNIT: [id number] : 1940 LOC: ER ROOM / BED: / AGE / SEX: 83 / M ADM STATUS: REG ER SERVICE [id number] ORDERING PHYSICIAN: RANJANA QUARLES MD PROCEDURE(s): CXRP - CHEST PORTABLE REASON: sob ORDER NUMBER(s): [id number], ACCESSION NUMBER(s): [id number] EXAM: XR Chest, 1 View CLINICAL INDICATION: sob TECHNIQUE: Frontal view of the chest. COMPARISON: XY CHEST XRAY 1 VIEW on DOS: 05/15/23, XY CHEST PORTABLE on DOS: 05/10/23, XY CHEST XRAY 1 VIEW on DOS: 08/29/22 FINDINGS: LUNGS AND PLEURAL SPACES: Pulmonary congestion and edema. Pneumonia cannot be excluded. No pneumothorax. HEART: Left cardiac. No cardiomegaly. MEDIASTINUM: Unremarkable. Normal mediastinal contour. BONES/JOINTS: Unremarkable. No acute fracture. OTHER FINDINGS: . . IMPRESSION: Pulmonary congestion and edema. Pneumonia cannot be excluded. HS:Y ATED BY: LAZARA URIAS MD DICTATED DATE/TIME: 02/05/241832 SIGNED BY: LAZARA URIAS MD SIGNED DATE/TIME: 02/05/241832 CC: Assessment/Plan Assessment/Plan Assessment: 83-year-old gentleman with previous history of complicated CAD, recurrent chest pain, residual disease on AICD came with another episode of chest pain with shoulder pain likely along with community-acquired pneumonia Needing further evaluation and AICD check with the primary biomedical equipment specialist. Patient is admitted in hospital at telemetry floor. Plan: #1 chest pain likely due to NSTEMI with high RUSSELL score 6+: elevated troponin 4000, known coronary artery disease with multiple stents PTCA and residual CAD. Patient was on dual antiplatelets. Continue aspirin, atorvastatin, IV heparin drip. Likely patient will need intervention/ coronary catheterization, NPO car diology consulted with Dr. Richter, primary biomedical equipment specialist. #2 likely community-acquired pneumonia with Gram-positive/g negatives: Sputum culture, blood culture pending, continue IV ceftriaxone and azithromycin for now. Rule out COVID and influenza. #3 Mild normocytic anemia: Hemoglobin around 13 -12, around baseline, no known bleeding. Transfusion threshold 8 as patient had CAD/CHF. Daily CBC. On daily PPI. #4 Essential hypertension: target blood pressure 140/ 90 or below we will try to control blood pressure probably close to 120/80. At home losartan 50 mg daily. Blood pressure on the normal side, we will hold the antihypertensives for now. #5 no known history of pulmonary hypertension: Previous Right heart catheterization showed capillary wedge pressure of 12. LVEDP of 12 as well. #6 prediabetic with HbA1c of 5.8: Continue diet control and lifestyle modification. #7 Left ventricular hypertrophy: known previous uncontrolled hypertension likely cause. Reviewed EKG. #8 AICD, Probable lead displacement: complains of intermittent shock-like episodes,patient has Biotronik AICD device, device check ordered, keep the patient on telemetry, as per family primary biomedical equipment specialist Dr. Richter is aware of the complication and waiting for insurance approval for further intervention. Sw consult for insurance support. #9 reported Known allergy to morphine: which makes him Groggy, might not be a real allergic reaction but we will avoid as per patient request. #10 History of rheumatoid arthritis: patient is not on any medication as needed pain medication specially for lower back. #11 Known dyslipidemia: on atorvastatin 20 mg. Increase to high-dose Statin for now, lipid panel pending. #12 Chronic low back pain: Likely due to history of RA / osteoarthritis, age- related. At home on tramadol 50 mg p.o. b.i.d. and Percocet 5/325 t.i.d. p.r.n.. , cyclobenzaprine 5 mg t.i.d. p.r.n.. follows Dr. Leong with diclofenac sodium local alf, Gabapentin 100 mg cap t.i.d.. #13 History of BPH status post TURP: Previous TURP By Dr. Painting, Patient denies any Urinary symptoms /UA unremarkable. #14 Known history of ischemic cardiomyopathy: Keep the patient on telemetry, keep magnesium above 2, potassium above 4. #15 ? acute on chronic congestive heart failure: Mildly elevated BNP in 800s, with known heart failure, recent food indiscretion and discontinuation of home bumetanide for past few days mild fluid retention with pulmonary edema we will give IV Lasix 20 mg b.i.d. for gentle diuresis, 2 g salt restriction, 1500 cc per 24 hour of fluid restriction. #16 Known heart failure with reduced ejection fraction, EF 20%: Continue GDM T as tolerated, IV Lasix 20 given, at home takes Bumex. At home Coreg 3.125 q.12 hour. With bumetanide 1 mg p.o. b.i.d.. digoxin 125 mcg daily. #17 Coronary artery disease: Previous history of SC, PTCA angioplasty of the circumflex, stent placement x3 of left anterior descending artery. #18 COPD: Likely due to previous smoking history, As needed albuterol and ipratropium. #19 chronic kidney disease likely stage IIIB. #20 RUTHANN due to VMN: Could be due to multifactorial, prerenal/ although cardiorenal could be a major factor. Close input output check and daily renal function check. #21 Residual ischemia of in inferior territory: could also be contributors to the recurrent chest pain, as needed nitroglycerin might consider Imdur at discharge. We will look for Cardiology input. #22 acute hypoxic respiratory failure: Wean as tolerated, On 2 L of nasal cannula oxygen, we will try to keep the SpO2 between 88-92. Given previous kno wn COPD. PUD prophylaxis: protonix 40mg Daily. DVT prophylaxis: patient on heparin drip. Barriers to discharge: Medical diagnosis and management in progress. Patient lives with family with adequate support. Independent+person support for ADL. PT and SW consult as needed. PCP: Dr. Richter Brine Well Operator: Dr. Richter Case discussed with Dr. Pineda. Code Status: Full Code. Previously at a previous hospitalization the patient was DNR/DNI. Discussion needed total 29 minutes bedside reveals full code. Patient on AICD. The patient was interviewed with the presence of a motor vehicle parts interpreter. Plan discussed with: Patient, Daughter, Other (Primary team, RN.) My Orders Orders - LILLY GALVAN RESIDENT Procedure Category Date Status Time Nitroglycerin PHA 02/05/24 In Process Sublingual (Ntrostat 21:30 Morphine Sulfate PHA 02/05/24 In Process Injection 21:30 Oxygen By Nasal RT 02/05/24 Transmitted Cannula 21:30 Stat Ekg For Chest JALYN 02/05/24 In Process Pain 21:30 Notify Md Of Changes JALYN 02/05/24 In Process From Base 21:30 Emergency Dysrhythmia JALYN 02/05/24 In Process Protocol 21:30 Rhythm Strips Once JALYN 02/05/24 In Process Every Shift 21:30 Aspirin Tablet PHA 02/06/24 In Process 10:00 Transfer Orders XFER 02/05/24 Transmitted 21:45 Azithromycin 500mg/ PHA 02/05/24 In Process 250ml (Zithromax 50 23:30 Ceftriaxone 1gm/50ml PHA 02/05/24 In Process D5w (Rocephin) 23:00 Admit ADMIT 02/05/24 Transmitted 21:51 Complete Blood Count LAB 02/06/24 Verified 04:00 Comprehensive LAB 02/06/24 Verified Metabolic Panel 04:00 Echo 2d Mode Cardiac US 02/05/24 Logged DOP 21:58 * Cardiology Consult CONS 02/05/24 Transmitted 22:00 Blood Culture TG 02/05/24 Logged 23:04 Date of Service: Feb 05, 2024 Billing Provider: REINALDO PINEDA MD Common Visit Codes: 61047-[id number] INP/OBS CARE (HIGH) Secondary Visit Codes: [id number] CARE PLAN 30 MINUTES LILLY GALVAN RESIDENT Feb 05, 2024 23:30 REINALDO PINEDA MD Feb 06, 2024 21:34
[2024-02-06] VITALS (10 sets, daily range): BP systolic 94–115; BP diastolic 42–64; PULSE 54–78; RESP 16–20; TEMP 97.2–98.2; O2SAT 92–100
[2024-02-06] MEDS: cefTRIAXone 1GM/50ML D5W 50 ML IV SCH (00:06)
[2024-02-06] MEDS: AZITHROMYCIN 500MG/ 250ML 250 ML IV ONE (01:04)
[2024-02-06 03:05] LABS: Basophils # (auto) 0 10 ^3/uL (0-0.2); Basophils % (auto) 0.1 % (0.0-2.0); Eosinophils # (auto) 0 10 ^3/uL (0-0.8); Eosinophils % (auto) 0.2 % (0.0-7.0); Hematocrit 35.6 % (41.0-53.0); Lymphocytes # (auto) 1.2 10 ^3/uL (0.4-5.4); Lymphocytes % (auto) 7.8 % (10.0-50.0); Mean Corpuscular Hemoglobin 30.4 pg (28.0-32.0); Mean Corpuscular Hgb Conc. 33.5 g/dL (32.0-36.0); Mean Corpuscular Volume 90.6 fL (80.0-100.0); Monocytes # (auto) 2.1 10 ^3/uL (0-1.3); Monocytes % (auto) 14.1 % (0.0-12.0); Neutrophils # (auto) 11.5 10 ^3/uL (1.6-8.6); Neutrophils % (auto) 77.8 % (37.0-80.0); Platelet Count (auto) 233 10^3/uL (140-450); Red Blood Cells 3.93 10^6/uL (4.5-5.90); Red Cell Distribution Width 15.2 % (11.8-14.3); White Blood Cell 14.8 10^3/uL (4.4-10.8)
[2024-02-06 03:14] LABS: Alanine Aminotransferase 14 U/L (7-40); Albumin 3.3 g/dL (3.2-4.8); Alkaline Phosphatase 77 U/L (46-116); Anion Gap 11 (5-15); Aspartate Aminotransferase 28 U/L (13-40); BUN/Creatinine Ratio 23.2 (10.0-20.0); Bilirubin, Total 0.5 mg/dL (0.2-1.0); Blood Urea Nitrogen 36 mg/dL (9-23); Calcium 8.7 mg/dL (8.7-10.4); Carbon Dioxide 19 mmol/L (20-31); Chloride 108 mmol/L (98-107); Glucose 117 mg/dL (74-106); Potassium 4.4 mmol/L (3.5-5.1); Sodium 138 mmol/L (136-145); Total Protein 6.3 g/dL (5.7-8.2)
[2024-02-06] MEDS: FUROSEMIDE 20 MG/2 ML VIAL IV SCH (07:05)
[2024-02-06 09:04] LABS: INR 1.22 (0.9-1.15); Partial Thromboplastin Time 29.7 SEC (24.5-34.5); Prothrombin Time 12.7 sec (9.3-11.8)
[2024-02-06] MEDS: CARVEDILOL 3.125 MG TAB PO SCH (10:00)
[2024-02-06] MEDS: ASPirin 81 mg TAB PO ONE (10:27)
[2024-02-06] MEDS: traMADol HCL 50 MG TAB PO PRN (11:30)
--- NOTE | 2024-02-06 13:12 | DVHPN2 ---
Progress Note - Dictate Date Seen: Feb 06, 2024 Medical Necessity Reason Pt with a Central, PICC or Fol: No Subjective PT WITH ISCHEMIC CM EF <30% AICD S/P LHC S/P PTCA STENT RCA S/P PTCA STENT CX NOW WITH CP ELEVATED TROPONIN vital signs Vital Sign Date Time Temp Pulse Resp B/P (MAP) Pulse Ox O2 Delivery O2 Flow Rate FiO2 02/06/24 12:00 95 20 112/59 (76) 95 02/06/24 08:30 97.9 97.9 02/06/24 08:30 Nasal Cannula* 3 32 Total Intake and Output 02/05/24 02/05/24 02/06/24 15:00 23:00 07:00 Intake Total 16 ml 422 ml Balance 16 ml 422 ml medications Current Medications Medications Dose Ordered Sig/David Route Start Time Stop Time Status Last Admin Dose Admin Heparin Sodium/ Dextrose 250 ml @ 8 mls/hr Q24H IV 02/05/24 20:30 02/05/24 20:42 8 MLS/HR Nitroglycerin 0.4 mg Q5MINP PRN SL 02/05/24 21:30 Ceftriaxone Sodium 50 ml @ 100 mls/hr Q24H IV 02/05/24 23:00 02/06/24 00:06 100 MLS/HR Carvedilol 3.125 mg Q12HR PO 02/06/24 10:00 Furosemide 20 mg BIDD IV 02/06/24 06:00 02/06/24 07:05 20 MG Tramadol HCl 50 mg Q8HPRN PRN PO 02/06/24 11:15 02/06/24 11:30 50 MG laboratory and microbiology Laboratory Tests 02/06/24 02:47 Test 02/06/24 02:47 Range/Units Serum Glucose 117 H 74-106 mg/dL Problem List ISCHEMIC CM EF <30% AICD S/P LHC S/P PTCA STENT RCA S/P PTCA STENT CX NOW WITH CP ELEVATED TROPONIN RENAL INSUFF ANEMIA LEUKOCYTOSIS Assessment/Plan [facility] PROT[facility]OL [facility] Plan discussed with: Patient Critical Care Time(min): 35 YANIRA CHRISTIANSEN MD Feb 06, 2024 13:12
[2024-02-06] MEDS: HEPARIN IN NS 1000Units/500mL 1,500 ML ONE (14:25)
[2024-02-06] MEDS: IODIXANOL 320MG/ML 100ML BTL IV ONE (14:25)
--- NOTE | 2024-02-06 14:44 | DVHSR ---
APPROVED REPORT EXAM: Two-dimensional and M-mode echocardiogram with Doppler and color Doppler. Blood Pressure: 113/46 mmHg INDICATION NSTEMI RISK FACTORS Height: 5'5, Weight: 139 DIMENSIONS LVDd5.8 (3.8-5.7cm)LA (2D)3.3 (1.9-4.0cm)Aortic Root2.3 (2.0-3.7cm) LVDs5.2 (2.5-4.0cm)LA (MM) (1.9-4.0cm)Aortic Cusp Exc0.9 (1.5-2.0cm) EF (%) 18.0 (55-70%)Rt. Atrium2.6 (1.9-4.0cm)Asc. Aorta cm IVSd1.0 (0.7-1.1cm)RV (D) (1.8-2.4cm) PWd0.7 (0.7-1.1cm) Mitral Valve MitralMitral Stenosis E wave0.50m/sMV Mean GR.3mmHg A wave1.26m/sMV Peak GR.97mmHg E/A ratio0.42D MVAcm2 DECEL [id number] 1/2 Timems Aortic Valve Aortic ValveAortic Stenosis V10.94m/Sandrine Mean GR.21mmHg V22.87m/Sandrine Peak GR.33mmHg LVOT Diameter1.9 (1.8-2.4cm)Doppler AVA0.93cm2 AI P 1/2 Xgma853.30ms Other Information Quality : LimitedRhythm : Technically limited study due to Pt coughing and moving Conclusion EF <20% MOD MR MOD AI MILD MAC SEVERE LVE
--- NOTE | 2024-02-06 14:53 | ECG ---
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
[2024-02-06] MEDS: ANGIOMAX 250 MG VIAL IV ONE (14:55)
[2024-02-06] MEDS: LIDOCAINE 2%HCL (LOCAL ANESTH.) INJ 20ML MDV ONE (14:56)
[2024-02-06] MEDS: fentaNYL CITRATE 100 MCG/2 ML VL ONE (14:56)
[2024-02-06] MEDS: MIDAZOLAM HCL 2MG/2ML 2ml VIAL (1mg/ml) ONE (14:56)
[2024-02-06] MEDS: SODIUM CHL 0.9% 50 ML ONE (14:56)
[2024-02-06] MEDS: CLOPIDOGREL BISULFATE 75 MG TAB ONE (15:32)
--- NOTE | 2024-02-06 16:04 | DVHPN2 ---
Subjective Seen and examined at bedside in the ED. Patient is on Heparin Drip. For LHC. Changes from previous H/P or p: No Changes Eyes: No Pain, No Vision change, No Conjunctivae inflammation, No Eyelid inflammation, No Other, No Redness ENT: No Ear pain, No Ear discharge, No Nose pain, No Nose discharge, No Nose congestion, No Mouth pain, No Mouth swelling, No Throat pain, No Throat swelling, No Other Cardiovascular: No Chest Pain, No Palpitations, No Orthopnea, No Paroxysmal Noc. Dyspnea, No Edema, No Lt Headedness, No Other Respiratory: Cough, Dry, SOB with excertion Gastrointestinal: No Nausea, No Vomiting, No Abdominal Pain, No Diarrhea, No Constipation, No Melena, No Hematochezia, No Other Genitourinary: No Dysuria, No Frequency, No Incontinence, No Hematuria, No Retention, No Other Musculoskeletal: No other, No neck pain, No shoulder pain, No arm pain, No back pain, No hand pain, No leg pain, No foot pain Skin: No Rash, No Lesions, No Jaundice, No Bruising, No Other Objective Vitals Vital Signs Date Time Temp Pulse Resp B/P (MAP) Pulse Ox O2 Delivery O2 Flow Rate FiO2 02/06/24 12:00 95 20 112/59 (76) 95 02/06/24 08:30 97.9 97.9 02/06/24 08:30 Nasal Cannula* 3 32 Intake/Output Intake and Output 02/06/24 07:00 Intake Total 438 ml Balance 438 ml Intake IV Total 438 ml Exam Gen: in bed NAD Cvs: N S1/S2, RRR Resp: Creps Abd: Soft, NT, BS+ 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 4 Medications Current Medications Medications Dose Ordered Sig/David Route Start Time Stop Time Status Last Admin Dose Admin Heparin Sodium/ Dextrose 250 ml @ 8 mls/hr Q24H IV 02/05/24 20:30 02/05/24 20:42 8 MLS/HR Nitroglycerin 0.4 mg Q5MINP PRN SL 02/05/24 21:30 Ceftriaxone Sodium 50 ml @ 100 mls/hr Q24H IV 02/05/24 23:00 02/06/24 00:06 100 MLS/HR Carvedilol 3.125 mg Q12HR PO 02/06/24 10:00 Furosemide 20 mg BIDD IV 02/06/24 06:00 02/06/24 07:05 20 MG Tramadol HCl 50 mg Q8HPRN PRN PO 02/06/24 11:15 02/06/24 11:30 50 MG Laboratory Results Laboratory Tests 02/06/24 02:47 Chemistry Test 02/05/24 20:17 02/05/24 21:44 02/06/24 02:47 Albumin 3.6 g/dL (3.2-4.8) 3.3 g/dL (3.2-4.8) Calcium Level 8.8 mg/dL (8.7-10.4) 8.7 mg/dL (8.7-10.4) Total Protein 6.7 g/dL (5.7-8.2) 6.3 g/dL (5.7-8.2) Magnesium Level 2.3 mg/dL (1.6-2.6) Coagulation Test 02/05/24 18:46 02/06/24 02:47 02/06/24 08:41 Prothrombin Time 12.0 sec (9.3-11.8) H 12.7 sec (9.3-11.8) H Prothrombin Time INR 1.14 (0.9-1.15) 1.22 (0.9-1.15) H Activated Partial Thromboplast Time 29.9 SEC (24.5-34.5) 57.9 SEC (24.5-34.5) H 29.7 SEC (24.5-34.5) Cardiac Markers Test 02/05/24 18:46 B-Type Natriuretic Peptide 857.66 pg/mL (0-100) LFT Test 02/05/24 20:17 02/06/24 02:47 Alanine Aminotransferase (ALT) 15 U/L (7-40) 14 U/L (7-40) Alkaline Phosphatase 74 U/L (46-116) 77 U/L (46-116) Aspartate Amino Transferase (AST) 34 U/L (13-40) 28 U/L (13-40) Total Bilirubin 0.5 mg/dL (0.2-1.0) 0.5 mg/dL (0.2-1.0) HgA1c, TSH Test 02/05/24 21:44 Thyroid Stimulating Hormone (TSH) 1.60 uIU/mL (0.55-4.78) Urinalysis Test 02/05/24 20:30 Urine Color Yellow (Yellow) Urine Clarity Clear (Clear) Urine pH 6.0 (5.0-9.0) Urine Specific [place] 1.020 (1.001-1.035) Urine Protein Trace (Negative) H Urine Ketones Negative (Negative) Urine Blood Negative /uL (Negative) Urine Nitrite Negative (Negative) Urine Bilirubin Negative (Negative) Urine Urobilinogen 3 mg/dL (Negative) H Urine Leukocyte Esterase Negative /uL (Negative) Urine RBC <1 /hpf (0 - 3) Urine WBC 5 /hpf (0 - 3) Urine Squamous Epithelial Cells None seen /hpf (<5) Urine Bacteria None seen /hpf (None Seen) Urine Mucus Few (None Seen) Urine Glucose Normal mg/dL (Normal) Assessment/Plan Assessment/Plan # NSTEMI - For LHC - Cont Heparin Drip # Acute Systolic CHF - Lasix - Monitor for fluid overload # Possible Gram Neg PNA - Abx # Goals of care FULL CODE critical care time 45 mins Plan discussed with: Patient My Orders Orders - REINALDO RUSSELL MD Procedure Category Date Status Time Tramadol Hcl (Ultram) PHA 02/06/24 In Process 11:15 Azithromycin Tablet PHA 02/07/24 Transmitted (Zithromax Tablet) 10:00 Complete Blood Count LAB 02/07/24 Verified 04:00 Basic Metabolic Panel LAB 02/07/24 Verified 04:00 B-Type Natriuretic LAB 02/07/24 Verified Peptide 04:00 Date of Service: Feb 06, 2024 Billing Provider: REINALDO RUSSELL MD Common Visit Codes: [id number] CARE 30-74 MIN REINALDO RUSSELL MD Feb 06, 2024 16:04
--- NOTE | 2024-02-06 16:06 | DVHOP ---
DATE OF SURGERY: 02/06/2024 INDICATIONS: The patient with history of ischemic cardiomyopathy, previous history of angioplasty with stent placement, left anterior descending artery angioplasty with stent placement of the RCA, now appears with subendocardial NH. The patient is now to undergo coronary angiography to define coronary anatomy. The patient also has renal insufficiency, creatinine of 1.45. PROCEDURES PERFORMED: * Selective left and right coronary angiography. * Ventriculogram. * Right iliac angiography. * Conscious sedation. * Attempted angioplasty of the chronically occluded obtuse marginal 1. DESCRIPTION OF PROCEDURE: The patient was prepped and draped in a sterile condition. Xylocaine 1% was used to anesthetize the right groin. Using Cook needle, right femoral artery was engaged with Seldinger technique, a 6-Uzbek sheath into the right femoral artery. Using a 6-Uzbek JL4 catheter and 6-Uzbek JR4 catheter, selective left and right coronary angiographies were performed. Then, the 6-Uzbek diagnostic system was exchanged for a 6-Uzbek interventional system. Using 6-Uzbek XB3.5 guide catheter, the left main was cannulated. Then, using a ChoICE PT extra support wire, we tried to cannulate the chronically occluded obtuse marginal 1. Then, we tried with a ProVia 3 total occlusion wire. Both wires, however, were not able to track into the lumen of the occluded circumflex because the actual origin of the lumen was difficult to ascertain because of chronicity of the occlusion. He does have left to left collaterals. 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 Multiple attempts were performed at this time since the patient more than likely had an NH secondary to inadequate collateral circulation. We had concluded. It was difficult to open up the totally occluded obtuse marginal 1 since we could not find the origin of the occluded OM. The procedure was terminated. Left ventricular ejection fraction was less than 20% with an LVEDP of 21 mmHg. RESULTS: * Left main calcified. No flow restrictive lesion. Left anterior descending artery previous site of angioplasty was patent with no residual stenosis. Moderate diffuse disease throughout. * First diagonal of the LAD is a 2.5-mm vessel with 2 tandem lesions of about 80% that will require intervention at a later date. * Circumflex nondominant vessel, moderate to severe diffuse disease, but no discrete lesion. 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 Unable to find the origin of the obtuse marginal 1 therefore the intervention was terminated. * Right coronary artery, previous site of angioplasty was patent; however, posterior descending artery had moderate diffuse disease that will require intervention at a later date. EF was around less than 20% with an LVEDP of 22 mmHg. Aggressive afterload reduction should be initiated. The patient is status post AICD implantation. At this time, conservative medical management so that he will have adequate collateral circulation to the obtuse marginal 1. Does not require any further intervention, but the patient will require possible revascularization of the first diagonal and the mid to proximal PDA at a later date. Because of renal insufficiency, we were limited by contrast load. We will continue to follow the patient. Rober Bergman MD SA/KASH TID: [id number] RECEIPT: [id number]
[2024-02-07] VITALS (10 sets, daily range): BP systolic 99–123; BP diastolic 41–60; PULSE 51–87; RESP 16–18; TEMP 98.1–98.6; O2SAT 93–96
[2024-02-07 06:57] LABS: Basophils # (auto) 0 10 ^3/uL (0-0.2); Eosinophils # (auto) 0 10 ^3/uL (0-0.8); Eosinophils % (auto) 0.1 % (0.0-7.0); Hematocrit 41.2 % (41.0-53.0); Hemoglobin 13.8 g/dL (13.5-17.5); Lymphocytes # (auto) 1.1 10 ^3/uL (0.4-5.4); Lymphocytes % (auto) 5.6 % (10.0-50.0); Mean Corpuscular Hemoglobin 30.7 pg (28.0-32.0); Mean Corpuscular Hgb Conc. 33.4 g/dL (32.0-36.0); Mean Corpuscular Volume 91.9 fL (80.0-100.0); Monocytes # (auto) 2.3 10 ^3/uL (0-1.3); Monocytes % (auto) 11.9 % (0.0-12.0); Neutrophils # (auto) 16.1 10 ^3/uL (1.6-8.6); Neutrophils % (auto) 82.4 % (37.0-80.0); Platelet Count (auto) 259 10^3/uL (140-450); Red Blood Cells 4.48 10^6/uL (4.5-5.90); Red Cell Distribution Width 15.1 % (11.8-14.3); White Blood Cell 19.5 10^3/uL (4.4-10.8)
[2024-02-07 06:58] LABS: Anion Gap 11 (5-15); Carbon Dioxide 22 mmol/L (20-31); Chloride 103 mmol/L (98-107); Potassium 4.3 mmol/L (3.5-5.1)
[2024-02-07 07:04] LABS: BUN/Creatinine Ratio 17.1 (10.0-20.0)
[2024-02-07 07:08] LABS: Blood Urea Nitrogen 33 mg/dL (9-23); Glucose 115 mg/dL (74-106); Sodium 136 mmol/L (136-145)
[2024-02-07] MEDS: AZITHROMYCIN 250 MG TAB PO SCH (09:31)
--- NOTE | 2024-02-07 10:51 | ECG ---
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
--- NOTE | 2024-02-07 13:36 | DVHPN2 ---
Progress Note - Dictate Date Seen: Feb 07, 2024 Medical Necessity Reason Pt with a Central, PICC or Fol: No Subjective PT WITH ISCHEMIC CM EF <30% AICD S/P C S/P PTCA STENT RCA S/P PTCA STENT CX NOW WITH CP ELEVATED TROPONIN vital signs Vital Sign Date Time Temp Pulse Resp B/P (MAP) Pulse Ox O2 Delivery O2 Flow Rate FiO2 02/07/24 13:01 98.2 64 18 115/52 (73) 93 98.2 02/07/24 08:00 Nasal Cannula* 2 28 Total Intake and Output 02/06/24 02/06/24 02/07/24 15:00 23:00 07:00 Intake Total 40 ml 450 ml Balance 40 ml 450 ml medications Current Medications Medications Dose Ordered Sig/David Route Start Time Stop Time Status Last Admin Dose Admin Nitroglycerin 0.4 mg Q5MINP PRN SL 02/05/24 21:30 Ceftriaxone Sodium 50 ml @ 100 mls/hr Q24H IV 02/05/24 23:00 02/06/24 22:53 100 MLS/HR Carvedilol 3.125 mg Q12HR PO 02/06/24 10:00 Furosemide 20 mg BIDD IV 02/06/24 06:00 02/07/24 05:38 20 MG Tramadol HCl 50 mg Q8HPRN PRN PO 02/06/24 11:15 02/06/24 11:30 50 MG Azithromycin 250 mg DAILY PO 02/07/24 10:00 02/07/24 09:31 250 MG Albuterol 2.5 mg Q6HPRN PRN NEB 02/07/24 11:30 Ipratropium [place] 0.5 mg Q6HPRN PRN NEB 02/07/24 11:30 laboratory and microbiology Laboratory Tests 02/07/24 05:32 Test 02/07/24 05:32 Range/Units Serum Glucose 115 H 74-106 mg/dL Problem List ISCHEMIC CM EF <30% AICD S/P C S/P PTCA STENT RCA S/P PTCA STENT CX NOW WITH CP ELEVATED TROPONIN RENAL INSUFF ANEMIA LEUKOCYTOSIS Assessment/Plan [facility]OTOCOL [facility] S/P\ * Left main calcified. No flow restrictive lesion. Left anterior descending artery previous site of angioplasty was patent with no residual stenosis. Moderate diffuse disease throughout. * First diagonal of the LAD is a 2.5-mm vessel with 2 tandem lesions of about 80% that will require intervention at a later date. * Circumflex nondominant vessel, moderate to severe diffuse disease, but no discrete lesion. 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 Unable to find the origin of the obtuse marginal 1 therefore the intervention was terminated. * Right coronary artery, previous site of angioplasty was patent; however, posterior descending artery had moderate diffuse disease that will require intervention at a later date. EF was around less than 20% with an LVEDP of 22 mmHg. Aggressive afterload reduction should be initiated. The patient is status post AICD implantation. At this time, conservative medical management so that he will have adequate collateral circulation to the obtuse marginal 1. Does not require any further intervention, but the patient will require possible revascularization of the first diagonal and the mid to proximal PDA at a later date. Because of renal insufficiency, we were limited by contrast load. We will continue to follow the patient. NO CATHETER BASE OR SURGICAL INTERVENTION REQUIRED Plan discussed with: Patient YANIRA CHRISTIANSEN MD Feb 07, 2024 13:36
--- NOTE | 2024-02-07 14:31 | ECG ---
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
--- NOTE | 2024-02-07 16:24 | DVHPN2 ---
Subjective Seen and examined at bedside. s/p LHC. Having a cough with sputum. Changes from previous H/P or p: No Changes Eyes: No Pain, No Vision change, No Conjunctivae inflammation, No Eyelid inflammation, No Other, No Redness ENT: No Ear pain, No Ear discharge, No Nose pain, No Nose discharge, No Nose congestion, No Mouth pain, No Mouth swelling, No Throat pain, No Throat swelling, No Other Cardiovascular: No Chest Pain, No Palpitations, No Orthopnea, No Paroxysmal Noc. Dyspnea, No Edema, No Lt Headedness, No Other Respiratory: No Cough, No Dry, No Shortness of breath, No SOB with excertion, No Wheezing, No Hemoptysis, No Pleuritic Pain, No Sputum, No Other Gastrointestinal: No Nausea, No Vomiting, No Abdominal Pain, No Diarrhea, No Constipation, No Melena, No Hematochezia, No Other Genitourinary: No Dysuria, No Frequency, No Incontinence, No Hematuria, No Retention, No Other Musculoskeletal: No other, No neck pain, No shoulder pain, No arm pain, No back pain, No hand pain, No leg pain, No foot pain Skin: No Rash, No Lesions, No Jaundice, No Bruising, No Other Objective Vitals Vital Signs Date Time Temp Pulse Resp B/P (MAP) Pulse Ox O2 Delivery O2 Flow Rate FiO2 02/07/24 16:06 98.2 71 18 115/52 95 2.0 98.2 02/07/24 08:00 Nasal Cannula* 28 Intake/Output Intake and Output 02/07/24 07:00 Intake Total 490 ml Balance 490 ml Intake Oral 400 ml IV Total 90 ml # Voids 1 Exam Gen: in bed NAD Cvs: N S1/S2, RRR Resp: Creps Abd: Soft, NT, BS+ 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 Medications Current Medications Medications Dose Ordered Sig/David Route Start Time Stop Time Status Last Admin Dose Admin Nitroglycerin 0.4 mg Q5MINP PRN SL 02/05/24 21:30 Ceftriaxone Sodium 50 ml @ 100 mls/hr Q24H IV 02/05/24 23:00 02/06/24 22:53 100 MLS/HR Carvedilol 3.125 mg Q12HR PO 02/06/24 10:00 Furosemide 20 mg BIDD IV 02/06/24 06:00 02/07/24 05:38 20 MG Tramadol HCl 50 mg Q8HPRN PRN PO 02/06/24 11:15 02/06/24 11:30 50 MG Azithromycin 250 mg DAILY PO 02/07/24 10:00 02/07/24 09:31 250 MG Albuterol 2.5 mg Q6HPRN PRN NEB 02/07/24 11:30 Ipratropium [place] 0.5 mg Q6HPRN PRN NEB 02/07/24 11:30 Clopidogrel Bisulfate 75 mg DAILY PO 02/08/24 10:00 Laboratory Results Laboratory Tests 02/07/24 05:32 Chemistry Test 02/07/24 05:32 Calcium Level 9.0 mg/dL (8.7-10.4) Cardiac Markers Test 02/07/24 05:32 B-Type Natriuretic Peptide 906.43 pg/mL (0-100) Urinalysis Test 02/05/24 20:30 Urine Color Yellow (Yellow) Urine Clarity Clear (Clear) Urine pH 6.0 (5.0-9.0) Urine Specific [place] 1.020 (1.001-1.035) Urine Protein Trace (Negative) H Urine Ketones Negative (Negative) Urine Blood Negative /uL (Negative) Urine Nitrite Negative (Negative) Urine Bilirubin Negative (Negative) Urine Urobilinogen 3 mg/dL (Negative) H Urine Leukocyte Esterase Negative /uL (Negative) Urine RBC <1 /hpf (0 - 3) Urine WBC 5 /hpf (0 - 3) Urine Squamous Epithelial Cells None seen /hpf (<5) Urine Bacteria None seen /hpf (None Seen) Urine Mucus Few (None Seen) Urine Glucose Normal mg/dL (Normal) Microbiology Microbiology Date/Time Source Procedure Growth Status 02/05/24 23:34 Blood Blood Culture - Preliminary NO GROWTH AFTER 24 HOURS OF INCUBATION. Resulted Assessment/Plan Assessment/Plan # NSTEMI - s/p LHC # Acute Systolic CHF - Lasix - Monitor for fluid overload # Possible Gram Neg PNA - Abx # Goals of care FULL CODE Plan discussed with: Patient, Daughter My Orders Orders - REINALDO RUSSELL MD Procedure Category Date Status Time Albuterol Medneb PHA 02/07/24 In Process (Ventolin Medneb) 11:30 Ipratropium Medneb PHA 02/07/24 In Process (Atrovent Medneb) 11:30 Respiratory Culture TG 02/07/24 In Process W/ Gs 11:17 Sputum Induction RT 02/07/24 Logged 11:17 Date of Service: Feb 07, 2024 Billing Provider: REINALDO RUSSELL MD Common Visit Codes: [id number] INP/OBS CARE(HIGH) REINALDO RUSSELL MD Feb 07, 2024 16:24
--- NOTE | 2024-02-07 19:06 | DVH ---
EXAM: XR Chest, 2 Views CLINICAL INDICATION: pna TECHNIQUE: Frontal and lateral views of the chest. COMPARISON: XY CHEST TWO VIEWS ROUTINE on DOS: 05/25/22, CXR2 on DOS: 03/15/22 FINDINGS: LUNGS AND PLEURAL SPACES: See below. HEART: Cardiomegaly with pulmonary congestion and edema. Pneumonia cannot be excluded. MEDIASTINUM: Unremarkable. Normal mediastinal contour. BONES/JOINTS: Unremarkable. No acute fracture. TUBES, LINES AND DEVICES: Left-sided cardiac pacemaker. OTHER FINDINGS: . . IMPRESSION: Cardiomegaly with pulmonary congestion and edema. Pneumonia cannot be excluded. HS:Y
[2024-02-08] VITALS (16 sets, daily range): BP systolic 98–120; BP diastolic 35–62; PULSE 36–93; RESP 18–20; TEMP 97.9–98.5; O2SAT 93–97
[2024-02-08] MEDS: CLOPIDOGREL BISULFATE 75 MG TAB PO SCH (09:12)
--- NOTE | 2024-02-08 10:50 | DVHPN2 ---
Progress Note - Dictate Date Seen: Feb 08, 2024 Medical Necessity Reason Pt with a Central, PICC or Fol: No Subjective PT WITH ISCHEMIC CM EF <30% AICD S/P LHC S/P PTCA STENT RCA S/P PTCA STENT CX NOW WITH CP ELEVATED TROPONIN vital signs Vital Sign Date Time Temp Pulse Resp B/P (MAP) Pulse Ox O2 Delivery O2 Flow Rate FiO2 02/08/24 09:30 82 20 95 02/08/24 09:20 Nasal Cannula 2.0 02/08/24 09:20 28 02/08/24 08:41 98.5 109/35 (59) 98.5 Total Intake and Output 02/07/24 02/07/24 02/08/24 15:00 23:00 07:00 Intake Total 575 ml 100 ml Output Total 400 ml 200 ml Balance 175 ml -100 ml medications Current Medications Medications Dose Ordered Sig/David Route Start Time Stop Time Status Last Admin Dose Admin Nitroglycerin 0.4 mg Q5MINP PRN SL 02/05/24 21:30 Ceftriaxone Sodium 50 ml @ 100 mls/hr Q24H IV 02/05/24 23:00 02/07/24 23:17 100 MLS/HR Carvedilol 3.125 mg Q12HR PO 02/06/24 10:00 Furosemide 20 mg BIDD IV 02/06/24 06:00 02/08/24 04:50 20 MG Tramadol HCl 50 mg Q8HPRN PRN PO 02/06/24 11:15 02/07/24 20:35 50 MG Azithromycin 250 mg DAILY PO 02/07/24 10:00 02/08/24 09:13 250 MG Albuterol 2.5 mg Q6HPRN PRN NEB 02/07/24 11:30 Ipratropium [place] 0.5 mg Q6HPRN PRN NEB 02/07/24 11:30 Clopidogrel Bisulfate 75 mg DAILY PO 02/08/24 10:00 02/08/24 09:12 75 MG laboratory and microbiology Laboratory Tests 02/07/24 05:32 Test 02/07/24 05:32 Range/Units Serum Glucose 115 H 74-106 mg/dL Problem List ISCHEMIC CM EF <30% AICD S/P LHC S/P PTCA STENT RCA S/P PTCA STENT CX NOW WITH CP ELEVATED TROPONIN RENAL INSUFF ANEMIA LEUKOCYTOSIS Assessment/Plan [facility] S/P\ * Left main calcified. No flow restrictive lesion. Left anterior descending artery previous site of angioplasty was patent with no residual stenosis. Moderate diffuse disease throughout. * First diagonal of the LAD is a 2.5-mm vessel with 2 tandem lesions of about 80% that will require intervention at a later date. * Circumflex nondominant vessel, moderate to severe diffuse disease, but no discrete lesion. 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 Unable to find the origin of the obtuse marginal 1 therefore the intervention was terminated. * Right coronary artery, previous site of angioplasty was patent; however, posterior descending artery had moderate diffuse disease that will require intervention at a later date. EF was around less than 20% with an LVEDP of 22 mmHg. Aggressive afterload reduction should be initiated. The patient is status post AICD implantation. At this time, conservative medical management so that he will have adequate collateral circulation to the obtuse marginal 1. Does not require any further intervention, but the patient will require possible revascularization of the first diagonal and the mid to proximal PDA at a later date. Because of renal insufficiency, we were limited by contrast load. We will continue to follow the patient. NO CATHETER BASE OR SURGICAL INTERVENTION REQUIRED ELEVATED WBC CX NEGATIVE CHECK BNP Plan discussed with: Patient YANIRA CHRISTIANSEN MD Feb 08, 2024 10:50
[2024-02-08] MEDS: guaiFENesin 200 MG/10 ML UD PO PRN (12:47)
--- NOTE | 2024-02-08 17:16 | DVHPN2 ---
Subjective Seen and examined at bedside. Jump in WBC count. Await sputum sample. Changes from previous H/P or p: No Changes Eyes: No Pain, No Vision change, No Conjunctivae inflammation, No Eyelid inflammation, No Other, No Redness ENT: No Ear pain, No Ear discharge, No Nose pain, No Nose discharge, No Nose congestion, No Mouth pain, No Mouth swelling, No Throat pain, No Throat swelling, No Other Cardiovascular: No Chest Pain, No Palpitations, No Orthopnea, No Paroxysmal Noc. Dyspnea, No Edema, No Lt Headedness, No Other Respiratory: No Cough, No Dry, No Shortness of breath, No SOB with excertion, No Wheezing, No Hemoptysis, No Pleuritic Pain, No Sputum, No Other Gastrointestinal: No Nausea, No Vomiting, No Abdominal Pain, No Diarrhea, No Constipation, No Melena, No Hematochezia, No Other Genitourinary: No Dysuria, No Frequency, No Incontinence, No Hematuria, No Retention, No Other Musculoskeletal: No other, No neck pain, No shoulder pain, No arm pain, No back pain, No hand pain, No leg pain, No foot pain Skin: No Rash, No Lesions, No Jaundice, No Bruising, No Other Objective Vitals Vital Signs Date Time Temp Pulse Resp B/P (MAP) Pulse Ox O2 Delivery O2 Flow Rate FiO2 02/08/24 16:58 59 20 02/08/24 16:50 97 02/08/24 12:37 98.3 98/44 (62) 98.3 02/08/24 10:00 Nasal Cannula 2.0 02/08/24 10:00 28 Intake/Output Intake and Output 02/08/24 07:00 Intake Total 675 ml Output Total 600 ml Balance 75 ml Intake Oral 675 ml Output Urine Total 600 ml Exam Gen: in bed NAD Cvs: N S1/S2, RRR Resp: Creps Abd: Soft, NT, BS+ Glass Scullion: AAO x 4 Medications Current Medications Medications Dose Ordered Sig/David Route Start Time Stop Time Status Last Admin Dose Admin Nitroglycerin 0.4 mg Q5MINP PRN SL 02/05/24 21:30 Ceftriaxone Sodium 50 ml @ 100 mls/hr Q24H IV 02/05/24 23:00 02/07/24 23:17 100 MLS/HR Carvedilol 3.125 mg Q12HR PO 02/06/24 10:00 Furosemide 20 mg BIDD IV 02/06/24 06:00 02/08/24 04:50 20 MG Tramadol HCl 50 mg Q8HPRN PRN PO 02/06/24 11:15 02/08/24 11:41 50 MG Azithromycin 250 mg DAILY PO 02/07/24 10:00 02/08/24 09:13 250 MG Albuterol 2.5 mg Q6HPRN PRN NEB 02/07/24 11:30 Ipratropium [place] 0.5 mg Q6HPRN PRN NEB 02/07/24 11:30 Clopidogrel Bisulfate 75 mg DAILY PO 02/08/24 10:00 02/08/24 09:12 75 MG Guaifenesin 200 mg Q6HP PRN PO 02/08/24 12:15 02/08/24 12:47 200 MG Enteral Nutritional Formula 240 ml TIDWM PO 02/08/24 18:00 Laboratory Results Laboratory Tests 02/07/24 05:32 Cardiac Markers Test 02/08/24 12:47 B-Type Natriuretic Peptide 1004.32 pg/mL (0-100) Urinalysis Test 02/05/24 20:30 Urine Color Yellow (Yellow) Urine Clarity Clear (Clear) Urine pH 6.0 (5.0-9.0) Urine Specific [place] 1.020 (1.001-1.035) Urine Protein Trace (Negative) H Urine Ketones Negative (Negative) Urine Blood Negative /uL (Negative) Urine Nitrite Negative (Negative) Urine Bilirubin Negative (Negative) Urine Urobilinogen 3 mg/dL (Negative) H Urine Leukocyte Esterase Negative /uL (Negative) Urine RBC <1 /hpf (0 - 3) Urine WBC 5 /hpf (0 - 3) Urine Squamous Epithelial Cells None seen /hpf (<5) Urine Bacteria None seen /hpf (None Seen) Urine Mucus Few (None Seen) Urine Glucose Normal mg/dL (Normal) Microbiology Microbiology Date/Time Source Procedure Growth Status 02/07/24 15:20 Sputum Gram Stain - Final Resulted 02/07/24 15:20 Sputum Respiratory Culture - Preliminary Resulted 02/05/24 23:34 Blood Blood Culture - Preliminary NO GROWTH AFTER 48 HOURS OF INCUBATION. Resulted Assessment/Plan Assessment/Plan # NSTEMI - s/p [facility] # Acute Systolic CHF - Lasix - Monitor for fluid overload # Possible Gram Neg PNA - Abx. Sputum Sample # Goals of care FULL CODE Plan discussed with: Patient My Orders Orders - REINALDO RUSSELL MD Procedure Category Date Status Time Guaifenesin Plain PHA 02/08/24 In Process Liquid (Robitussin [place] 12:15 Nutritional PHA 02/08/24 In Process Supplements (Ensure 18:00 Nutritional NOURISH 02/08/24 Transmitted Supplements 18:00 Date of Service: Feb 08, 2024 Billing Provider: REINALDO RUSSELL MD Common Visit Codes: [id number] INP/OBS CARE(HIGH) REINALDO RUSSELL MD Feb 08, 2024 17:16
[2024-02-08] MEDS: Ensure Enlive Chocolate 8oz Bottle PO SCH (18:16)
[2024-02-08] MEDS: IPRATROPIUM BROM 0.5 MG/2.5ML INH SOL NEB PRN (20:32)
[2024-02-08] MEDS: ALBUTEROL SULF 2.5 MG/0.5ML(0.5%) NEB SOLN NEB PRN (20:32)
[2024-02-09] VITALS (9 sets, daily range): BP systolic 98–134; BP diastolic 54–65; PULSE 42–83; RESP 17–20; TEMP 97.7–98.1; O2SAT 91–99
[2024-02-09 09:50] LABS: Chloride 101 mmol/L (98-107); Potassium 4.4 mmol/L (3.5-5.1); Sodium 137 mmol/L (136-145)
[2024-02-09 09:51] LABS: Anion Gap 11 (5-15); Carbon Dioxide 25 mmol/L (20-31)
[2024-02-09 09:56] LABS: BUN/Creatinine Ratio 25.7 (10.0-20.0)
[2024-02-09 10:10] LABS: Basophils # (auto) 0.1 10 ^3/uL (0-0.2); Basophils % (auto) 0.3 % (0.0-2.0); Eosinophils # (auto) 0.3 10 ^3/uL (0-0.8); Eosinophils % (auto) 1.8 % (0.0-7.0); Hematocrit 36.3 % (41.0-53.0); Hemoglobin 11.9 g/dL (13.5-17.5); Lymphocytes % (auto) 5.6 % (10.0-50.0); Mean Corpuscular Hemoglobin 30.1 pg (28.0-32.0); Mean Corpuscular Hgb Conc. 32.8 g/dL (32.0-36.0); Mean Corpuscular Volume 91.8 fL (80.0-100.0); Monocytes % (auto) 10.6 % (0.0-12.0); Neutrophils # (auto) 15.2 10 ^3/uL (1.6-8.6); Neutrophils % (auto) 81.7 % (37.0-80.0); Nucleated Red Blood Cells % 0.2 %; Platelet Count (auto) 255 10^3/uL (140-450); Red Blood Cells 3.95 10^6/uL (4.5-5.90); White Blood Cell 18.5 10^3/uL (4.4-10.8)
[2024-02-09 10:13] LABS: Blood Urea Nitrogen 49 mg/dL (9-23); Calcium 8.4 mg/dL (8.7-10.4); Glucose 151 mg/dL (74-106)
--- NOTE | 2024-02-09 13:46 | DVHPN2 ---
Progress Note - Dictate Date Seen: Feb 09, 2024 Medical Necessity Reason Pt with a Central, PICC or Fol: No Subjective PT WITH ISCHEMIC CM EF <30% AICD S/P LHC S/P PTCA STENT RCA S/P PTCA STENT CX NOW WITH CP ELEVATED TROPONIN vital signs Vital Sign Date Time Temp Pulse Resp B/P (MAP) Pulse Ox O2 Delivery O2 Flow Rate FiO2 02/09/24 09:36 74 95/43 02/09/24 09:00 98.0 17 95 98.0 02/09/24 08:19 Nasal Cannula 2.0 02/09/24 08:19 28 Total Intake and Output 02/08/24 02/08/24 02/09/24 15:00 23:00 07:00 Intake Total 200 ml 300 ml Output Total 500 ml 200 ml Balance -300 ml 100 ml medications Current Medications Medications Dose Ordered Sig/David Route Start Time Stop Time Status Last Admin Dose Admin Nitroglycerin 0.4 mg Q5MINP PRN SL 02/05/24 21:30 Ceftriaxone Sodium 50 ml @ 100 mls/hr Q24H IV 02/05/24 23:00 02/08/24 22:22 100 MLS/HR Carvedilol 3.125 mg Q12HR PO 02/06/24 10:00 02/08/24 22:26 3.125 MG Furosemide 20 mg BIDD IV 02/06/24 06:00 02/09/24 05:35 20 MG Tramadol HCl 50 mg Q8HPRN PRN PO 02/06/24 11:15 02/08/24 11:41 50 MG Azithromycin 250 mg DAILY PO 02/07/24 10:00 02/09/24 09:31 250 MG Albuterol 2.5 mg Q6HPRN PRN NEB 02/07/24 11:30 02/09/24 08:15 2.5 MG Ipratropium [place] 0.5 mg Q6HPRN PRN NEB 02/07/24 11:30 02/09/24 08:15 0.5 MG Clopidogrel Bisulfate 75 mg DAILY PO 02/08/24 10:00 02/09/24 09:31 75 MG Guaifenesin 200 mg Q6HP PRN PO 02/08/24 12:15 02/09/24 09:29 200 MG Enteral Nutritional Formula 240 ml TIDWM PO 02/08/24 18:00 02/09/24 08:00 240 ML laboratory and microbiology Laboratory Tests 02/09/24 08:58 Test 02/09/24 08:58 Range/Units Serum Glucose 151 H 74-106 mg/dL Problem List ISCHEMIC CM EF <30% AICD S/P [facility] S/P PTCA STENT RCA S/P PTCA STENT CX NOW WITH CP ELEVATED TROPONIN RENAL INSUFF ANEMIA LEUKOCYTOSIS Assessment/Plan ACS PROTOCOL [facility] S/P\ * Left main calcified. No flow restrictive lesion. Left anterior descending artery previous site of angioplasty was patent with no residual stenosis. Moderate diffuse disease throughout. * First diagonal of the LAD is a 2.5-mm vessel with 2 tandem lesions of about 80% that will require intervention at a later date. * Circumflex nondominant vessel, moderate to severe diffuse disease, but no discrete lesion. 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 Unable to find the origin of the obtuse marginal 1 therefore the intervention was terminated. * Right coronary artery, previous site of angioplasty was patent; however, posterior descending artery had moderate diffuse disease that will require intervention at a later date. EF was around less than 20% with an LVEDP of 22 mmHg. Aggressive afterload reduction should be initiated. The patient is status post AICD implantation. At this time, conservative medical management so that he will have adequate collateral circulation to the obtuse marginal 1. Does not require any further intervention, but the patient will require possible revascularization of the first diagonal and the mid to proximal PDA at a later date. Because of renal insufficiency, we were limited by contrast load. We will continue to follow the patient. NO CATHETER BASE OR SURGICAL INTERVENTION REQUIRED ELEVATED WBC CX NEGATIVE CHECK BNP MARKED IMPROVEMENT IN BNP CHANGE LASIX TO ORAL BUMEX Plan discussed with: Patient Critical Care Time(min): 35 YANIRA CHRISTIANSEN MD Feb 09, 2024 13:46
[2024-02-09] MEDS ORDERED: CIP500T PO (17:27)
--- NOTE | 2024-02-09 17:31 | DVHDS2 ---
Discharge Summary Date of Admission Feb 05, 2024 at 21:52 Date of Discharge: Feb 09, 2024 Admitting Diagnosis NSTEMI Labs/Diagnostic Data: Laboratory Results Test 02/09/24 08:58 02/06/24 08:41 02/06/24 02:47 02/06/24 00:50 White Blood Count 18.5 10^3/uL (4.4-10.8) Red Blood Count 3.95 10^6/uL (4.5-5.90) Hemoglobin 11.9 g/dL (13.5-17.5) Hematocrit 36.3 % (41.0-53.0) Mean Corpuscular Volume 91.8 fL (80.0-100.0) Mean Corpuscular Hemoglobin 30.1 pg (28.0-32.0) Mean Corpuscular Hemoglobin Concent 32.8 g/dL (32.0-36.0) Red Cell Distribution Width 15.0 % (11.8-14.3) Platelet Count 255 10^3/uL (140-450) Mean Platelet Volume 8.9 fL (6.9-10.8) Neutrophils (%) (Auto) 81.7 % (37.0-80.0) Lymphocytes (%) (Auto) 5.6 % (10.0-50.0) Monocytes (%) (Auto) 10.6 % (0.0-12.0) Eosinophils (%) (Auto) 1.8 % (0.0-7.0) Basophils (%) (Auto) 0.3 % (0.0-2.0) Neutrophils # (Auto) 15.2 10 ^3/uL (1.6-8.6) Lymphocytes # (Auto) 1.0 10 ^3/uL (0.4-5.4) Monocytes # (Auto) 2.0 10 ^3/uL (0-1.3) Eosinophils # (Auto) 0.3 10 ^3/uL (0-0.8) Basophils # (Auto) 0.1 10 ^3/uL (0-0.2) Nucleated Red Blood Cells 0.2 % Sodium Level 137 mmol/L (136-145) Potassium Level 4.4 mmol/L (3.5-5.1) Chloride Level 101 mmol/L (98-107) Carbon Dioxide Level 25 mmol/L (20-31) Anion Gap 11 (5-15) Blood Urea Nitrogen 49 mg/dL (9-23) Creatinine 1.91 mg/dL (0.700-1.30) Glomerular Filtration Rate Calc 34 mL/min (>90) BUN/Creatinine Ratio 25.7 (10.0-20.0) Serum Glucose 151 mg/dL (74-106) Calcium Level 8.4 mg/dL (8.7-10.4) B-Type Natriuretic Peptide 681.69 pg/mL (0-100) Prothrombin Time 12.7 sec (9.3-11.8) Prothrombin Time INR 1.22 (0.9-1.15) Activated Partial Thromboplast Time 29.7 SEC (24.5-34.5) Total Bilirubin 0.5 mg/dL (0.2-1.0) Aspartate Amino Transferase (AST) 28 U/L (13-40) Alanine Aminotransferase (ALT) 14 U/L (7-40) Alkaline Phosphatase 77 U/L (46-116) Total Protein 6.3 g/dL (5.7-8.2) Albumin 3.3 g/dL (3.2-4.8) POC Glucose 154 mg/dl (70-106) Test 02/05/24 21:44 02/05/24 20:30 02/05/24 18:46 Magnesium Level 2.3 mg/dL (1.6-2.6) Troponin I High Sensitivity 4209 ng/L (</=54) Thyroid Stimulating Hormone (TSH) 1.60 uIU/mL (0.55-4.78) Urine Color Yellow (Yellow) Urine Clarity Clear (Clear) Urine pH 6.0 (5.0-9.0) Urine Specific [place] 1.020 (1.001-1.035) Urine Protein Trace (Negative) Urine Ketones Negative (Negative) Urine Blood Negative /uL (Negative) Urine Nitrite Negative (Negative) Urine Bilirubin Negative (Negative) Urine Urobilinogen 3 mg/dL (Negative) Urine Leukocyte Esterase Negative /uL (Negative) Urine RBC <1 /hpf (0 - 3) Urine WBC 5 /hpf (0 - 3) Urine Squamous Epithelial Cells None seen /hpf (<5) Urine Bacteria None seen /hpf (None Seen) Urine Mucus Few (None Seen) Urine Glucose Normal mg/dL (Normal) Differential Total Cells Counted 100.0 (100) Neutrophils % (Manual) 77 (37.0-80.0) Band Neutrophils % (Manual) 2 Lymphocytes % (Manual) 5 (10.0-50.0) Monocytes % (Manual) 15 (0-12) Eosinophils % (Manual) 1 (0-7) Basophils % (Manual) 0 (0.0-2.0) Metamyelocytes % (manual) 0 Myelocytes % (Manual) 0 Promyelocytes % (Manual) 0 Blast Cells % (Manual) 0 Reactive Lymphocytes 0 Platelet Estimate Adequate Large Platelets Few Anisocytosis (manual) Slight Other Laboratory Tests 02/09/24 08:58 Brief Hx & Hospital Course: Mr. Breen, a 81-year-old , limited Slovenian-speaking patient with a history of hypertension, hyperlipidemia, rheumatoid arthritis, chronic low back pain, benign prostate hypertrophy (s/p TURP), bilateral inguinal hernia, coronary artery disease (PTCA angioplasty of the circumflex, stent placement x3 in the left anterior descending artery), COPD, chronic kidney disease (stage IIIB), myocardial infarction, ischemic cardiomyopathy, and chronic systolic heart failure (EF <20%) with residual ischemia of the inferior territory on Biotronik AICD, presents with chest pain. The patient reports intermittent and exertional chest pain, currently experiencing left-sided chest pain radiating to the left shoulder and scapular posterior area, with local tenderness that increases with movement, described as a dull, pressure-like pain without radiation. Additional complaints include PND, orthopnea, increased fatigue, intermittent palpitations, electric-like sensations from the AICD, Chills and increased sputum production. Patient underwent left heart catheterization see report below. Patient also complaining of cough sputum culture pending we will discharge patient with ciprofloxacin. Patient has home oxygen at home according to the daughter. Follow up primary care doctor Dr. Richter Operations or Procedures APPROVED REPORT EXAM: Two-dimensional and M-mode echocardiogram with Doppler and color Doppler. Blood Pressure: 113/46 mmHg INDICATION NSTEMI RISK FACTORS Height: 5'5, Weight: 139 DIMENSIONS LVDd 5.8 (3.8-5.7cm) LA (2D) 3.3 (1.9-4.0cm) Aortic Root 2.3 (2.0- 3.7cm) LVDs 5.2 (2.5-4.0cm) LA (MM) (1.9-4.0cm) Aortic Cusp Exc 0.9 (1.5- 2.0cm) EF (%) 18.0 (55-70%) Rt. Atrium 2.6 (1.9-4.0cm) Asc. Aorta cm IVSd 1.0 (0.7-1.1cm) RV (D) (1.8-2.4cm) PWd 0.7 (0.7-1.1cm) Mitral Valve Mitral Mitral Stenosis E wave 0.50m/s MV Mean GR. 3mmHg A wave 1.26m/s MV Peak GR. 97mmHg E/A ratio 0.4 2D MVA cm2 DECEL Time 241ms PRESS 1/2 Time ms Aortic Valve Aortic Valve Aortic Stenosis V1 0.94m/s AO Mean GR. 21mmHg V2 2.87m/s AO Peak GR. 33mmHg LVOT Diameter 1.9 (1.8-2.4cm) Doppler JULY 0.93cm2 AI P 1/2 Time 542.30ms Other Information Quality : Limited Rhythm : Technically limited study due to Pt coughing and moving Conclusion EF <20% MOD MR MOD AI MILD MAC SEVERE LVE DATE OF SURGERY: 02/06/2024 INDICATIONS: The patient with history of ischemic cardiomyopathy, previous history of angioplasty with stent placement, left anterior descending artery angioplasty with stent placement of the RCA, now appears with subendocardial [place]. The patient is now to undergo coronary angiography to define coronary anatomy. The patient also has renal insufficiency, creatinine of 1.45. PROCEDURES PERFORMED: * Selective left and right coronary angiography. * Ventriculogram. * Right iliac angiography. * Conscious sedation. * Attempted angioplasty of the chronically occluded obtuse marginal 1. DESCRIPTION OF PROCEDURE: The patient was prepped and draped in a sterile condition. Xylocaine 1% was used to anesthetize the right groin. Using Cook needle, right femoral artery was engaged with Seldinger technique, a 6-Ethiopian sheath into the right femoral artery. Using a 6-Ethiopian JL4 catheter and 6-Ethiopian JR4 catheter, selective left and right coronary angiographies were performed. Then, the 6-Ethiopian diagnostic system was exchanged for a 6-Ethiopian interventional system. Using 6-Ethiopian XB3.5 guide catheter, the left main was cannulated. Then, using a ChoICE PT extra support wire, we tried to cannulate the chronically occluded obtuse marginal 1. Then, we tried with a ProVia 3 total occlusion wire. Both wires, however, were not able to track into the lumen of the occluded circumflex because the actual origin of the lumen was difficult to ascertain because of chronicity of the occlusion. He does have left to left collaterals. 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 Multiple attempts were performed at this time since the patient more than likely had an [place] secondary to inadequate collateral circulation. We had concluded. It was difficult to open up the totally occluded obtuse marginal 1 since we could not find the origin of the occluded OM. The procedure was terminated. Left ventricular ejection fraction was less than 20% with an LVEDP of 21 mmHg. RESULTS: * Left main calcified. No flow restrictive lesion. Left anterior descending artery previous site of angioplasty was patent with no residual stenosis. Moderate diffuse disease throughout. * First diagonal of the LAD is a 2.5-mm vessel with 2 tandem lesions of about 80% that will require intervention at a later date. * Circumflex nondominant vessel, moderate to severe diffuse disease, but no discrete lesion. 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 Unable to find the origin of the obtuse marginal 1 therefore the intervention was terminated. * Right coronary artery, previous site of angioplasty was patent; however, posterior descending artery had moderate diffuse disease that will require intervention at a later date. EF was around less than 20% with an LVEDP of 22 mmHg. Aggressive afterload reduction should be initiated. The patient is status post AICD implantation. At this time, conservative medical management so that he will have adequate collateral circulation to the obtuse marginal 1. Does not require any further intervention, but the patient will require possible revascularization of the first diagonal and the mid to proximal PDA at a later date. Because of renal insufficiency, we were limited by contrast load. We will continue to follow the patient. Condition at Discharge: Poor Final Diagnosis/Problems List # NSTEMI - s/p C # Acute on Chronic Resp Failure # Acute Systolic CHF - Bumex - Monitor for fluid overload # Possible Gram Neg PNA - Abx. Cipro # Goals of care FULL CODE Discharge Disposition: Home Discharge Instruct/Medications Diet: Cardiac 2g Na,low cholest (2 gm sodium, low cholesterol) Activity: Light activity Follow Up/Referral: PCP in 1 week Medications: See Med [facility] Discharge Statement: "Patient was advised to return to the ER or call 911 if any headaches, dizziness, shortness of breath, chest pain, abdominal pain, bleeding, fevers, or worsening of medical condition. Patient was counseled about treatment plan, medications, possible side effects, patientverbalized understanding. All questions were answered to the best of my ability. This discharge took greater then 30 minutes in planning, reviewing documentation, counseling the patient, and discussing with other team members." ASSESSMENT ASSESSMENT Assessment Date of Service: Feb 09, 2024 Billing Provider: REINALDO RUSSELL MD Common Visit Codes: [id number] DISCH DAY >30min REINALDO RUSSELL MD Feb 09, 2024 17:31
[2024-02-09] MEDS: BUMETANIDE 1 MG TAB PO SCH (18:00)
== END 2024-02-09 19:50 | disposition home or self-care (01) | DRG 280 ==
LOC: ER 16:21 → TELE 21:52 → TELE-WESTW 02-06 17:04
PROVIDERS: ATTEND Internal Medicine
PROC: B211YZZ Fluoroscopy of Multiple Coronary Arteries using Other Contrast (ICD-10-PCS; principal; 2024-02-06)
PROC: B215YZZ Fluoroscopy of Left Heart using Other Contrast (ICD-10-PCS; 2024-02-06)
PROC: 4A023N6 Measurement of Cardiac Sampling and Pressure, Right Heart, Percutaneous Approach (ICD-10-PCS; 2024-02-06)
PROC: B41FYZZ Fluoroscopy of Right Lower Extremity Arteries using Other Contrast (ICD-10-PCS; 2024-02-06)
DX: I21.4 Non-ST elevation (NSTEMI) myocardial infarction (principal); I50.23 Acute on chronic systolic (congestive) heart failure; J15.69 Pneumonia due to other Gram-negative bacteria; N17.0 Acute kidney failure with tubular necrosis; J96.20 Acute and chronic respiratory failure, unspecified whether with hypoxia or hypercapnia; I13.0 Hypertensive heart and chronic kidney disease with heart failure and stage 1 through stage 4 chronic kidney disease, or unspecified chronic kidney disease; J44.0 Chronic obstructive pulmonary disease with (acute) lower respiratory infection; I25.10 Atherosclerotic heart disease of native coronary artery without angina pectoris; M54.50 Low back pain, unspecified; G89.29 Other chronic pain; N40.0 Benign prostatic hyperplasia without lower urinary tract symptoms; M06.9 Rheumatoid arthritis, unspecified; D64.9 Anemia, unspecified; E78.5 Hyperlipidemia, unspecified; I25.5 Ischemic cardiomyopathy; N18.32 Chronic kidney disease, stage 3b; Z95.810 Presence of automatic (implantable) cardiac defibrillator; Z88.5 Allergy status to narcotic agent; Z79.899 Other long term (current) drug therapy; I25.2 Old myocardial infarction; Z98.61 Coronary angioplasty status; Z90.79 Acquired absence of other genital organ(s)
CPT/HCPCS: 36415; 71045; 71046; 75710; 80048; 80053; 80061; 81001; 82607; 82728; 82746; 82962; 83036; 83735; 83880; 84443; 84484; 85007; 85025; 85027; 85045; 85610; 85730; 87040; 87070; 87077; 87081; 87186; 87205; 93005; 93306; 93458; 94640; 97163; 99152; G0378; J1815; J2250; Q9967

== ENCOUNTER → 2024-02-05 | Outpatient (CLI) | payer OTHER ==
[~2024-02-05] MED LIST changes: -ASPI-325 PO; +AUG875T PO; -CAR3125T PO; +CARV-214 PO; +DIGO0.12 PO; -ERGO1CAP23 PO; +FINA5TAB4 PO; +GABA-1308 PO; -HYDR-4902 PO; +LIDO1.8P EX; -LOS25T PO; +LOSA-534 PO; +PERCOT PO; +TRAM50TA2 PO
[2024-02-05 08:01] LABS: Basophils # (auto) 0 10 ^3/uL (0-0.2); Eosinophils # (auto) 0 10 ^3/uL (0-0.8); Hematocrit 41.4 % (41.0-53.0); Hemoglobin 13.9 g/dL (13.5-17.5); Lymphocytes # (auto) 0.6 10 ^3/uL (0.4-5.4); Lymphocytes % (auto) 4.6 % (10.0-50.0); Mean Corpuscular Hemoglobin 30.5 pg (28.0-32.0); Mean Corpuscular Hgb Conc. 33.6 g/dL (32.0-36.0); Mean Corpuscular Volume 90.9 fL (80.0-100.0); Monocytes # (auto) 1.3 10 ^3/uL (0-1.3); Neutrophils # (auto) 11.3 10 ^3/uL (1.6-8.6); Neutrophils % (auto) 85.4 % (37.0-80.0); Nucleated Red Blood Cells % 0.1 %; Platelet Count (auto) 259 10^3/uL (140-450); Red Blood Cells 4.55 10^6/uL (4.5-5.90); Red Cell Distribution Width 15.2 % (11.8-14.3); White Blood Cell 13.3 10^3/uL (4.4-10.8)
[2024-02-05 08:11] LABS: Triglycerides 100 mg/dL (< 150)
[2024-02-05 08:12] LABS: Alanine Aminotransferase 15 U/L (7-40); Albumin 3.8 g/dL (3.2-4.8); Alkaline Phosphatase 78 U/L (46-116); Anion Gap 6 (5-15); BUN/Creatinine Ratio 19.4 (10.0-20.0); Bilirubin, Total 0.8 mg/dL (0.2-1.0); Calcium 9.5 mg/dL (8.7-10.4); Carbon Dioxide 25 mmol/L (20-31); Cholesterol 96 mg/dL (< 200); LDL Cholesterol 47 mg/dL (< 100); Sodium 139 mmol/L (136-145)
[2024-02-05 08:13] LABS: Total Protein 7.5 g/dL (5.7-8.2)
[2024-02-05 08:26] LABS: Aspartate Aminotransferase 43 U/L (13-40); Blood Urea Nitrogen 30 mg/dL (9-23); Chloride 108 mmol/L (98-107); Glucose 127 mg/dL (74-106); HDL Cholesterol 30 mg/dL (40-59)
[2024-02-05 08:28] LABS: Potassium 5.8 mmol/L (3.5-5.1)
[2024-02-05 08:53] LABS: Reticulocyte % (auto) 0.7 % (0.5-1.5)
[2024-02-05 11:46] LABS: Ferritin 238.4 ng/mL (22-322); Folate (Folic Acid) 9.89 ng/mL (>5.38)
== END | disposition home or self-care (01) ==
LOC: LAB 07:11
PROVIDERS: ATTEND Family Medicine
DX: E87.8 Other disorders of electrolyte and fluid balance, not elsewhere classified (principal); E75.5 Other lipid storage disorders; D63.1 Anemia in chronic kidney disease
CPT/HCPCS: 36415; 80053; 80061; 82607; 82728; 82746; 83036; 83880; 85025; 85045

== ENCOUNTER → 2024-04-16 | Outpatient (CLI) | payer OTHER ==
[~2024-04-16] MED LIST changes: -ATOR20TA50 PO; -AUG875T PO; -CEPH500C PO; +CIP500T PO; -PERCOT PO; -TRAM50TA2 PO
[2024-04-16 15:21] VITALS: BP 122/80; PULSE 69
[2024-04-16 15:22] VITALS: BP 121/71; PULSE 64
== END | disposition home or self-care (01) ==
LOC: CHF HDHVI 13:00
PROVIDERS: ATTEND Internal Medicine Cardiovascular Disease
DX: I25.118 Atherosclerotic heart disease of native coronary artery with other forms of angina pectoris (principal); I50.23 Acute on chronic systolic (congestive) heart failure; I25.5 Ischemic cardiomyopathy
CPT/HCPCS: G0166

== ENCOUNTER → 2024-04-17 | Outpatient (CLI) | payer OTHER ==
[2024-04-17 10:16] VITALS: BP_SYST 119; BP_SYST 121; BP_DIAS 59; BP_DIAS 70; PULSE 58; PULSE 67
== END | disposition home or self-care (01) ==
LOC: CHF HDHVI 08:54
PROVIDERS: ATTEND Internal Medicine Cardiovascular Disease
DX: I25.118 Atherosclerotic heart disease of native coronary artery with other forms of angina pectoris (principal); I25.5 Ischemic cardiomyopathy; I50.23 Acute on chronic systolic (congestive) heart failure
CPT/HCPCS: G0166

== ENCOUNTER → 2024-04-18 | Outpatient (CLI) | payer OTHER ==
[2024-04-18 13:06] VITALS: BP 120/77; PULSE 76
[2024-04-18 13:07] VITALS: BP 115/70; PULSE 66
== END | disposition home or self-care (01) ==
LOC: CHF HDHVI 08:54
PROVIDERS: ATTEND Internal Medicine Cardiovascular Disease
DX: I25.118 Atherosclerotic heart disease of native coronary artery with other forms of angina pectoris (principal); I25.5 Ischemic cardiomyopathy; I50.23 Acute on chronic systolic (congestive) heart failure; J44.9 Chronic obstructive pulmonary disease, unspecified; E11.9 Type 2 diabetes mellitus without complications; Z98.61 Coronary angioplasty status
CPT/HCPCS: G0166

== ENCOUNTER → 2024-04-19 | Outpatient (CLI) | payer OTHER ==
[2024-04-19 12:42] VITALS: BP_SYST 115; BP_SYST 120; BP_DIAS 67; BP_DIAS 68; PULSE 68; PULSE 73
== END | disposition home or self-care (01) ==
LOC: CHF HDHVI 09:07
PROVIDERS: ATTEND Internal Medicine Cardiovascular Disease
DX: I25.118 Atherosclerotic heart disease of native coronary artery with other forms of angina pectoris (principal); I50.23 Acute on chronic systolic (congestive) heart failure
CPT/HCPCS: G0166

== ENCOUNTER → 2024-04-22 | Outpatient (CLI) | payer OTHER ==
[2024-04-22 11:34] VITALS: BP 120/76; PULSE 85
[2024-04-22 11:35] VITALS: BP 108/80; PULSE 72
== END | disposition home or self-care (01) ==
LOC: CHF HDHVI 08:59
PROVIDERS: ATTEND Internal Medicine Cardiovascular Disease
DX: I25.118 Atherosclerotic heart disease of native coronary artery with other forms of angina pectoris (principal); I50.23 Acute on chronic systolic (congestive) heart failure; I25.5 Ischemic cardiomyopathy; Z98.61 Coronary angioplasty status
CPT/HCPCS: G0166

== ENCOUNTER → 2024-04-23 | Outpatient (CLI) | payer OTHER ==
[2024-04-23 10:56] VITALS: BP 120/79; PULSE 74
[2024-04-23 10:57] VITALS: BP 122/68; PULSE 63
== END | disposition home or self-care (01) ==
LOC: CHF HDHVI 08:53
PROVIDERS: ATTEND Internal Medicine Cardiovascular Disease
DX: I25.118 Atherosclerotic heart disease of native coronary artery with other forms of angina pectoris (principal); I50.33 Acute on chronic diastolic (congestive) heart failure; E11.9 Type 2 diabetes mellitus without complications; Z98.61 Coronary angioplasty status
CPT/HCPCS: G0166

== ENCOUNTER → 2024-04-24 | Outpatient (CLI) | payer OTHER ==
[2024-04-24 10:42] VITALS: BP 122/68; PULSE 72
[2024-04-24 10:45] VITALS: BP 119/70; PULSE 66
== END | disposition home or self-care (01) ==
LOC: CHF HDHVI 09:00
PROVIDERS: ATTEND Internal Medicine Cardiovascular Disease
DX: I25.118 Atherosclerotic heart disease of native coronary artery with other forms of angina pectoris (principal); I50.23 Acute on chronic systolic (congestive) heart failure; I25.5 Ischemic cardiomyopathy; E11.9 Type 2 diabetes mellitus without complications; I63.9 Cerebral infarction, unspecified; J44.9 Chronic obstructive pulmonary disease, unspecified; Z98.61 Coronary angioplasty status
CPT/HCPCS: G0166

== ENCOUNTER → 2024-04-25 | Outpatient (CLI) | payer OTHER ==
[2024-04-25 11:20] VITALS: BP_SYST 118; BP_SYST 121; BP_DIAS 67; BP_DIAS 80; PULSE 65; PULSE 66
== END | disposition home or self-care (01) ==
LOC: CHF HDHVI 08:51
PROVIDERS: ATTEND Internal Medicine Cardiovascular Disease
DX: I25.118 Atherosclerotic heart disease of native coronary artery with other forms of angina pectoris (principal); I25.5 Ischemic cardiomyopathy; I50.23 Acute on chronic systolic (congestive) heart failure
CPT/HCPCS: G0166

== ENCOUNTER → 2024-05-06 | Outpatient (CLI) | payer OTHER ==
[2024-05-06 11:11] VITALS: BP 128/78; PULSE 83
[2024-05-06 11:12] VITALS: BP 119/74; PULSE 75
== END | disposition home or self-care (01) ==
LOC: CHF HDHVI 08:56
PROVIDERS: ATTEND Internal Medicine Cardiovascular Disease
DX: I25.118 Atherosclerotic heart disease of native coronary artery with other forms of angina pectoris (principal); I50.23 Acute on chronic systolic (congestive) heart failure; I25.5 Ischemic cardiomyopathy; Z98.61 Coronary angioplasty status; J44.9 Chronic obstructive pulmonary disease, unspecified; E11.9 Type 2 diabetes mellitus without complications; I63.9 Cerebral infarction, unspecified
CPT/HCPCS: G0166

== ENCOUNTER → 2024-05-07 | Outpatient (CLI) | payer OTHER ==
[2024-05-07 10:47] VITALS: BP_SYST 118; BP_SYST 120; BP_DIAS 68; BP_DIAS 77; PULSE 72; PULSE 78
== END | disposition home or self-care (01) ==
LOC: CHF HDHVI 08:52
PROVIDERS: ATTEND Internal Medicine Cardiovascular Disease
DX: I25.118 Atherosclerotic heart disease of native coronary artery with other forms of angina pectoris (principal); I25.5 Ischemic cardiomyopathy; I50.23 Acute on chronic systolic (congestive) heart failure; Z98.61 Coronary angioplasty status; J44.9 Chronic obstructive pulmonary disease, unspecified; E11.9 Type 2 diabetes mellitus without complications; I63.9 Cerebral infarction, unspecified
CPT/HCPCS: G0166

== ENCOUNTER → 2024-05-08 | Outpatient (CLI) | payer OTHER ==
[2024-05-08 12:50] VITALS: BP_SYST 117; BP_SYST 124; BP_DIAS 78; BP_DIAS 80; PULSE 76; PULSE 78
== END | disposition home or self-care (01) ==
LOC: CHF HDHVI 08:53
PROVIDERS: ATTEND Internal Medicine Cardiovascular Disease
DX: I25.118 Atherosclerotic heart disease of native coronary artery with other forms of angina pectoris (principal); I25.5 Ischemic cardiomyopathy; I50.23 Acute on chronic systolic (congestive) heart failure; Z98.61 Coronary angioplasty status
CPT/HCPCS: G0166

== ENCOUNTER → 2024-05-09 | Outpatient (CLI) | payer OTHER ==
[2024-05-09 12:41] VITALS: BP 115/84; PULSE 75
[2024-05-09 13:05] VITALS: BP 119/76; PULSE 71
== END | disposition home or self-care (01) ==
LOC: CHF HDHVI 08:55
PROVIDERS: ATTEND Internal Medicine Cardiovascular Disease
DX: I25.118 Atherosclerotic heart disease of native coronary artery with other forms of angina pectoris (principal); I25.5 Ischemic cardiomyopathy; I50.23 Acute on chronic systolic (congestive) heart failure; J44.9 Chronic obstructive pulmonary disease, unspecified; E11.9 Type 2 diabetes mellitus without complications; I63.9 Cerebral infarction, unspecified; Z98.61 Coronary angioplasty status
CPT/HCPCS: G0166

== ENCOUNTER → 2024-05-10 | Outpatient (CLI) | payer OTHER ==
[2024-05-10 10:27] VITALS: BP 120/70; PULSE 69
[2024-05-10 10:28] VITALS: BP 121/78; PULSE 73
== END | disposition home or self-care (01) ==
LOC: CHF HDHVI 08:52
PROVIDERS: ATTEND Internal Medicine Cardiovascular Disease
DX: I25.118 Atherosclerotic heart disease of native coronary artery with other forms of angina pectoris (principal); I25.5 Ischemic cardiomyopathy; I50.23 Acute on chronic systolic (congestive) heart failure; J44.9 Chronic obstructive pulmonary disease, unspecified; I63.9 Cerebral infarction, unspecified; E11.9 Type 2 diabetes mellitus without complications; Z98.61 Coronary angioplasty status; Z95.818 Presence of other cardiac implants and grafts
CPT/HCPCS: G0166

== ENCOUNTER → 2024-05-13 | Outpatient (CLI) | payer OTHER ==
[2024-05-13 10:27] VITALS: BP_SYST 120; BP_SYST 123; BP_DIAS 71; BP_DIAS 74; PULSE 73; PULSE 77
== END | disposition home or self-care (01) ==
LOC: CHF HDHVI 08:57
PROVIDERS: ATTEND Internal Medicine Cardiovascular Disease
DX: I25.118 Atherosclerotic heart disease of native coronary artery with other forms of angina pectoris (principal); I50.23 Acute on chronic systolic (congestive) heart failure; I25.5 Ischemic cardiomyopathy; E11.9 Type 2 diabetes mellitus without complications; J44.9 Chronic obstructive pulmonary disease, unspecified; I63.9 Cerebral infarction, unspecified; Z98.61 Coronary angioplasty status
CPT/HCPCS: G0166

== ENCOUNTER → 2024-05-14 | Outpatient (CLI) | payer OTHER ==
[2024-05-14 10:20] VITALS: BP 119/69; PULSE 68
[2024-05-14 10:21] VITALS: BP 120/70; PULSE 69
== END | disposition home or self-care (01) ==
LOC: CHF HDHVI 08:52
PROVIDERS: ATTEND Internal Medicine Cardiovascular Disease
DX: I25.118 Atherosclerotic heart disease of native coronary artery with other forms of angina pectoris (principal); I25.5 Ischemic cardiomyopathy; I50.23 Acute on chronic systolic (congestive) heart failure; Z98.61 Coronary angioplasty status
CPT/HCPCS: G0166

== ENCOUNTER → 2024-05-15 | Outpatient (CLI) | payer OTHER ==
[2024-05-15 12:33] VITALS: BP_SYST 112; BP_SYST 120; BP_DIAS 64; BP_DIAS 70; PULSE 65; PULSE 67
== END | disposition home or self-care (01) ==
LOC: CHF HDHVI 08:50
PROVIDERS: ATTEND Internal Medicine Cardiovascular Disease
DX: I25.118 Atherosclerotic heart disease of native coronary artery with other forms of angina pectoris (principal); I25.5 Ischemic cardiomyopathy; I50.23 Acute on chronic systolic (congestive) heart failure; Z98.61 Coronary angioplasty status
CPT/HCPCS: G0166

== ENCOUNTER → 2024-05-16 | Outpatient (CLI) | payer OTHER ==
[2024-05-16 10:58] VITALS: BP_SYST 115; BP_SYST 119; BP_DIAS 68; BP_DIAS 70; PULSE 65; PULSE 76
== END | disposition home or self-care (01) ==
LOC: CHF HDHVI 08:53
PROVIDERS: ATTEND Internal Medicine Cardiovascular Disease
DX: I25.118 Atherosclerotic heart disease of native coronary artery with other forms of angina pectoris (principal); I25.5 Ischemic cardiomyopathy; I50.23 Acute on chronic systolic (congestive) heart failure
CPT/HCPCS: G0166

== ENCOUNTER → 2024-05-17 | Outpatient (CLI) | payer OTHER ==
[2024-05-17 13:25] VITALS: BP_SYST 116; BP_SYST 117; BP_DIAS 70; BP_DIAS 82; PULSE 69; PULSE 71
== END | disposition home or self-care (01) ==
LOC: CHF HDHVI 09:42
PROVIDERS: ATTEND Internal Medicine Cardiovascular Disease
DX: I25.118 Atherosclerotic heart disease of native coronary artery with other forms of angina pectoris (principal); I50.23 Acute on chronic systolic (congestive) heart failure; I25.5 Ischemic cardiomyopathy; J44.9 Chronic obstructive pulmonary disease, unspecified; E11.9 Type 2 diabetes mellitus without complications; I63.9 Cerebral infarction, unspecified; Z98.61 Coronary angioplasty status
CPT/HCPCS: G0166

== ENCOUNTER → 2024-05-20 | Outpatient (CLI) | payer OTHER ==
[2024-05-20 11:52] VITALS: BP 115/64; PULSE 70
[2024-05-20 11:53] VITALS: BP 118/74; PULSE 62
== END | disposition home or self-care (01) ==
LOC: CHF HDHVI 08:57
PROVIDERS: ATTEND Internal Medicine Cardiovascular Disease
DX: I25.118 Atherosclerotic heart disease of native coronary artery with other forms of angina pectoris (principal); I50.23 Acute on chronic systolic (congestive) heart failure; J44.9 Chronic obstructive pulmonary disease, unspecified; E11.9 Type 2 diabetes mellitus without complications; Z98.61 Coronary angioplasty status
CPT/HCPCS: G0166

== ENCOUNTER → 2024-05-27 | Outpatient (CLI) | payer OTHER ==
[2024-05-27 14:17] VITALS: BP 105/70; PULSE 70
[2024-05-27 14:18] VITALS: BP 120/73; PULSE 69
== END | disposition home or self-care (01) ==
LOC: CHF HDHVI 08:58
PROVIDERS: ATTEND Internal Medicine Cardiovascular Disease
DX: I25.118 Atherosclerotic heart disease of native coronary artery with other forms of angina pectoris (principal); I50.23 Acute on chronic systolic (congestive) heart failure; I25.5 Ischemic cardiomyopathy; E11.9 Type 2 diabetes mellitus without complications; J44.9 Chronic obstructive pulmonary disease, unspecified; I63.9 Cerebral infarction, unspecified; Z98.61 Coronary angioplasty status
CPT/HCPCS: G0166

== ENCOUNTER → 2024-05-28 | Outpatient (CLI) | payer OTHER ==
[2024-05-28 13:38] VITALS: BP 127/75; PULSE 73
[2024-05-28 13:40] VITALS: BP 119/70; PULSE 65
== END | disposition home or self-care (01) ==
LOC: CHF HDHVI 08:53
PROVIDERS: ATTEND Internal Medicine Cardiovascular Disease
DX: I25.118 Atherosclerotic heart disease of native coronary artery with other forms of angina pectoris (principal); I50.23 Acute on chronic systolic (congestive) heart failure; I25.5 Ischemic cardiomyopathy; E11.9 Type 2 diabetes mellitus without complications; J44.9 Chronic obstructive pulmonary disease, unspecified; I63.9 Cerebral infarction, unspecified; Z98.61 Coronary angioplasty status
CPT/HCPCS: G0166

== ENCOUNTER 2024-06-06 19:59 | Inpatient (IN) | payer OTHER ==
[~2024-06-06] VITALS: Ht 167.6 cm; Wt 62.0 kg
--- NOTE | 2024-06-06 20:23 | ED.PDOC ---
SOB-HPI HPI Comments 83 y/o M, with PMHX of HTN, UT, CAD, CHF, and UT presents to the ED for CC of shortness of breath. Patient states, he has been experiencing shortness of breath with associated cough and bilateral leg swelling x4 days. Patient denies fever, chills, nasal congestion, sore throat, or chest pain. No others symptoms or modifying factors present at this time. Chief Complaint: Shortness of Breath Time Seen by MD: 20:15 Primary Care Provider: YANIRA Reviewed notes: Nurses Notes, Medications, Allergies Information Source: Patient Mode of Arrival: Ambulatory Severity: Moderate Timing: Days Duration: Since onset Context: At Rest PE Risk Factors: None History of: CHF Prehospital treatment: None Modifying Factors: Nothing Associated Signs and Symptoms: Cough, Leg Swelling Past Medical History PAST MEDICAL HISTORY: CAD, CHF, DM, HTN, UT Surgical History: PTCA Family History Family History: Reviewed,noncontributory to illness Social History Smoker: Non-Smoker Alcohol: Rarely Drugs: Denies Drug Use Lives In: Home Constitutional: denies: chills, diaphoresis, fatigue, fever, malaise, sweats, weakness, others EENTM: denies: blurred vision, double vision, ear bleeding, ear discharge, ear drainage, ear pain, ear ringing, eye pain, eye redness, hearing loss, mouth pain, mouth swelling, nasal discharge, nose bleeding, nose congestion, nose pain, photophobia, tearing, throat pain, throat swelling, voice changes, others Respiratory: reports: cough, shortness of breath; denies: hemoptysis, orthopnea, SOB at rest, SOB with excertion, stridor, wheezing, others Cardiovascular: denies: chest pain, dizzy spells, diaphoresis, Dyspnea on exertion, edema, irregular heart beat, left arm pain, lightheadedness, palpitations, PND, syncope, others Gastrointestinal: denies: abdomen distended, abdominal pain, blood streaked bowels, constipated, diarrhea, dysphagia, difficulty swallowing, hematemesis, melena, nausea, poor appetite, poor fluid intake, rectal bleeding, rectal pain, vomiting, others Genitourinary: denies: burning, dysuria, flank pain, frequency, hematuria, incontinence, penile discharge, penile sore, pain, testicle pain, testicle swelling, urgency, others Neurological: denies: dizziness, fainting, headache, left sided numbness, left sided weakness, numbness, paresthesia, pre-existing deficit, right sided numb ness, right sided weakness, seizure, speech problems, tingling, tremors, weakness, others Musculoskeletal: reports: others (bilateral foot swelling); denies: back pain, gout, joint pain, joint swelling, muscle pain, muscle stiffness, neck pain Integumetry: denies: bruises, change in color, change in hair/nails, dryness, laceration, lesions, lumps, rash, wounds, others Allergic/Immunocompromised: denies: Difficulty Healing, Frequent Infections, Hives, Itching, others Hematologic/Lymphatic: denies: anemia, blood clots, easy bleeding, easy bruising, swollen glands, others Endocrine: denies: excessive hunger, excessive sweating, excessive thirst, excessive urination, flushing, intolerance to cold, intolerance to heat, unexplained weight gain, unexplained weight loss, others Psychiatric: denies: anxiety, bipolar disorder, depression, hopeless, panic disorder, schizophrenia, sleepless, suicidal, others All Other Systems: Reviewed and Negative Physical Exam General Appearance: No Apparent Distress, Normal HEENT: Normal ENT Inspection, Pharynx Normal, TMs Normal Neck: Full Range of Motion, Non-Tender, Normal, Normal Inspection Respiratory: Chest Non-Tender, No Accessory Muscle Use, No Respiratory Distress, Other (tepenic breath sounds) Cardiovascular: No Edema, No JVD, No Murmur, No Gallop, Normal Peripheral Pulses, Regular Rate/Rhythm Breast Exam: Deferred Gastrointestinal: No Organomegaly, Non Tender, No Pulsatile Mass, Normal Bowel Sounds, Soft Genitalia: Deferred Pelvic: Deferred Rectal: Deferred Extremities: No calf tenderness, Normal capillary refill, Normal inspection, Normal range of motion, Non-tender, Pedal edema (bilateral) Musculoskeletal : Apperance: Normal Neurologic: Alert, 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 Was a procedure done?: No Differential Dx Differential Diagnosis: Bronchitis, CHF, Pneumonia, Sinusitis, Pharyngitis, URI X-Ray, Labs, Meds, VS Vital Signs Date Time Temp Pulse Resp B/P (MAP) Pulse Ox O2 Delivery O2 Flow Rate FiO2 06/06/24 20:49 99 Nasal Cannula* 2 28 06/06/24 20:46 101 20 96 Nasal Cannula* 2 28 06/06/24 20:46 98.2 101 20 131/76 (94) 96 98.2 06/06/24 20:10 98.2 101 20 131/76 (94) 94 98.2 06/06/24 20:10 20 94 Room Air* 0 21 Lab Test 06/06/24 21:16 06/06/24 20:36 Range/Units Troponin I High Sensitivity 31 32 </=54 ng/L White Blood Count 8.5 4.4-10.8 10^3/uL Red Blood Count 3.64 L 4.5-5.90 10^6/uL Hemoglobin 10.8 L 13.5-17.5 g/dL Hematocrit 32.7 L 41.0-53.0 % Mean Corpuscular Volume 89.8 80.0-100.0 fL Mean Corpuscular Hemoglobin 29.6 28.0-32.0 pg Mean Corpuscular Hemoglobin Concent 32.9 32.0-36.0 g/dL Red Cell Distribution Width 14.9 H 11.8-14.3 % Platelet Count 255 140-450 10^3/uL Mean Platelet Volume 7.8 6.9-10.8 fL Neutrophils (%) (Auto) 71.1 37.0-80.0 % Lymphocytes (%) (Auto) 13.2 10.0-50.0 % Monocytes (%) (Auto) 13.8 H 0.0-12.0 % Eosinophils (%) (Auto) 1.2 0.0-7.0 % Basophils (%) (Auto) 0.7 0.0-2.0 % Neutrophils # (Auto) 6.1 1.6-8.6 10 ^3/uL Lymphocytes # (Auto) 1.1 0.4-5.4 10 ^3/uL Monocytes # (Auto) 1.2 0-1.3 10 ^3/uL Eosinophils # (Auto) 0.1 0-0.8 10 ^3/uL Basophils # (Auto) 0.1 0-0.2 10 ^3/uL Nucleated Red Blood Cells 0.0 % Sodium Level 138 136-145 mmol/L Potassium Level 4.3 3.5-5.1 mmol/L Chloride Level 106 98-107 mmol/L Carbon Dioxide Level 22 20-31 mmol/L Anion Gap 10 5-15 Blood Urea Nitrogen 29 H 9-23 mg/dL Creatinine 1.49 H 0.700-1.30 mg/dL Glomerular Filtration Rate Calc 46 >90 mL/min BUN/Creatinine Ratio 19.5 10.0-20.0 Serum Glucose 135 H 74-106 mg/dL Calcium Level 9.6 8.7-10.4 mg/dL Total Bilirubin 1.1 H 0.2-1.0 mg/dL Aspartate Amino Transferase (AST) 14 13-40 U/L Alanine Aminotransferase (ALT) < 9 7-40 U/L Alkaline Phosphatase 79 46-116 U/L B-Type Natriuretic Peptide 2398.04 0-100 pg/mL Total Protein 7.9 5.7-8.2 g/dL Albumin 4.3 3.2-4.8 g/dL [place] [id number] Ph: [phone] DIAGNOSTIC IMAGING Diagnostic Imaging Report : [id number] Signed PATIENT: EDER HALL ACCT: [id number] UNIT: [id number] : 1940 LOC: ER ROOM / BED: / AGE / SEX: 83 / M ADM STATUS: REG ER SERVICE 15 ORDERING PHYSICIAN: EMELY WHEELER PROCEDURE(s): CXRP - CHEST PORTABLE REASON: cob ORDER NUMBER(s): [id number], ACCESSION NUMBER(s): [id number] CHEST RADIOGRAPH Indication: cob Technique: Single frontal view of the chest was obtained Comparison: XY CHEST PORTABLE on DOS: 02/05/24, XY CHEST XRAY 1 VIEW on DOS: 05/15/23, XY CHEST PORTABLE on DOS: 05/10/23 FINDINGS: There is cardiomegaly bipolar pacemaker fluid in right minor fissure increased interstitial markings and possible left lower lobe infiltrate. Follow-up PA and lateral or CT examination of the chest is suggested. IMPRESSION: 1. Cardiomegaly interstitial prominence with possible infiltrate left lower lobe follow-up CT examination is suggested or PA and lateral ATED BY: DANIEL MONTERO MD DICTATED DATE/TIME: 06/06/242104 SIGNED BY: DANIEL MONTERO MD SIGNED DATE/TIME: 06/06/242104 CC: X-Ray, Labs, Meds, VS Comment Patient will be admitted for possible left lower lobe pneumonia, and CHF exacerbation Patient will be started on Rocephin 1 g and Lasix 20 mg Time of 1ST Reevaluation: 20:45 Reevaluation 1ST: Unchanged Patient Education/Counseling: Diagnosis, Treatment Family Education/Counseling: No Family Present Departure 1 Departure Time of Disposition: 22:32 Impression: Primary Impression: CHF (congestive heart failure), NYHA class III Qualified Codes: I50.21 - Acute systolic (congestive) heart failure Additional Impression: Left lower lobe pneumonia Qualified Codes: J18.9 - Pneumonia, unspecified organism Disposition: ADMITTED INPATIENT Condition: Fair Discharged With: Self Critical Care Note Critical Care Time?: No Stability Stability form required: No Heart Score Heart Score: Heart Score Response (Comments) Value History N/A 0 EKG N/A 0 Age N/A 0 Risk Factors N/A 0 Troponin N/A 0 Total 0 I personally scribed for EMELY WHEELER PENCIL MAKER ([email or web address]) on 06/06/24 at 20:23. Electronically submitted by Lety Casey [email or web address]). I personally scribed for EMELY WHEELER PENCIL MAKER ([email or web address]) on 06/06/24 at 21:26. Electronically submitted by Lety Casey ([email or web address]). EMELY WHEELER PENCIL MAKER Jun 06, 2024 20:23
[2024-06-06 20:46] VITALS: PULSE 101; RESP 20; O2SAT 96
[2024-06-06 20:54] LABS: Basophils # (auto) 0.1 10 ^3/uL (0-0.2); Basophils % (auto) 0.7 % (0.0-2.0); Eosinophils # (auto) 0.1 10 ^3/uL (0-0.8); Eosinophils % (auto) 1.2 % (0.0-7.0); Hematocrit 32.7 % (41.0-53.0); Hemoglobin 10.8 g/dL (13.5-17.5); Lymphocytes # (auto) 1.1 10 ^3/uL (0.4-5.4); Lymphocytes % (auto) 13.2 % (10.0-50.0); Mean Corpuscular Hemoglobin 29.6 pg (28.0-32.0); Mean Corpuscular Hgb Conc. 32.9 g/dL (32.0-36.0); Mean Corpuscular Volume 89.8 fL (80.0-100.0); Monocytes # (auto) 1.2 10 ^3/uL (0-1.3); Monocytes % (auto) 13.8 % (0.0-12.0); Neutrophils # (auto) 6.1 10 ^3/uL (1.6-8.6); Neutrophils % (auto) 71.1 % (37.0-80.0); Platelet Count (auto) 255 10^3/uL (140-450); Red Blood Cells 3.64 10^6/uL (4.5-5.90); Red Cell Distribution Width 14.9 % (11.8-14.3); White Blood Cell 8.5 10^3/uL (4.4-10.8)
[2024-06-06 21:07] LABS: Albumin 4.3 g/dL (3.2-4.8); Alkaline Phosphatase 79 U/L (46-116); Anion Gap 10 (5-15); Aspartate Aminotransferase 14 U/L (13-40); BUN/Creatinine Ratio 19.5 (10.0-20.0); Calcium 9.6 mg/dL (8.7-10.4); Carbon Dioxide 22 mmol/L (20-31); Chloride 106 mmol/L (98-107); Potassium 4.3 mmol/L (3.5-5.1); Sodium 138 mmol/L (136-145); Total Protein 7.9 g/dL (5.7-8.2)
--- NOTE | 2024-06-06 21:07 | DVH ---
CHEST RADIOGRAPH Indication: cob Technique: Single frontal view of the chest was obtained Comparison: XY CHEST PORTABLE on DOS: 02/05/24, XY CHEST XRAY 1 VIEW on DOS: 05/15/23, XY CHEST PORTABL E on DOS: 05/10/23 FINDINGS: There is cardiomegaly bipolar pacemaker fluid in right minor fissure increased interstitial markings and possible left lower lobe infiltrate. Follow-up PA and lateral or CT examination of the chest is s uggested. IMPRESSION: 1. Cardiomegaly interstitial prominence with possible infiltrate left lower lobe follow-up CT examina tion is suggested or PA and lateral
[2024-06-06 21:08] LABS: Bilirubin, Total 1.1 mg/dL (0.2-1.0)
[2024-06-06 21:11] LABS: Alanine Aminotransferase < 9 U/L (7-40); Blood Urea Nitrogen 29 mg/dL (9-23); Glucose 135 mg/dL (74-106)
[2024-06-06 23:35] LABS: Urine Bacteria None Seen /hpf (None Seen)
[2024-06-06] MEDS: cefTRIAXone 1GM/50ML D5W 50 ML IV ONE (23:35)
[2024-06-06] MEDS: FUROSEMIDE 20 MG/2 ML VIAL IV ONE (23:35)
[2024-06-06 23:40] VITALS: PULSE 83; RESP 22; O2SAT 96
[2024-06-06 23:42] LABS: Urine Blood Negative /uL (Negative); Urine Clarity Clear (Clear); Urine Color Light-Yellow (Yellow); Urine Protein, UAD TRACE (Negative); Urine Squamous Epithelial Cell None Seen /hpf (<5); Urine Urobilinogen Normal (Negative); Urine WBC 3 /HPF (0-3); Urine pH 5.5 (5.0-9.0)
[2024-06-06] MEDS: traMADol HCL 50 MG TAB PO ONE (23:44)
[2024-06-07] VITALS (7 sets, daily range): BP systolic 105–116; BP diastolic 62–72; PULSE 70–103; RESP 13–20; TEMP 97.8–98.4; O2SAT 94–99
[2024-06-07] MEDS: HYDROmorphone HCL 2 MG/ML VL/or syr IV ONE (00:43)
[2024-06-07] MEDS ORDERED: ALBUTEROL SULF 2.5 MG/0.5ML(0.5%) NEB SOLN NEB PRN (07:30)
[2024-06-07] MEDS ORDERED: ACETAMINOPHEN 325 MG TAB PO PRN (07:30)
[2024-06-07] MEDS ORDERED: IPRATROPIUM BROM 0.5 MG/2.5ML INH SOL NEB PRN (07:30)
[2024-06-07] MEDS ORDERED: ONDANSETRON HCL 4 MG/2 ML VIAL IV PRN (07:30)
--- NOTE | 2024-06-07 07:36 | DVHHP2 ---
History of Present Illness Reason for Visit: SOB History of Present Illness Reginald Breen is an 83-year-old male with past medical history of CAD, OR, PTCA x3 at [facility], hypertension, hyperlipidemia, COPD ex-smoker, ischemic cardiomyopathy, chronic kidney disease, CHF, rheumatoid arthritis, hard of hearing with no hearing aids, osteoarthritis, chronic back pain, BPH, history of falls with no fractures, Biotronik AICD, TURP, and bilateral inguinal hernia who presents to the ED with shortness of breath, cough, confusion, weakness, dizziness, bilateral lower extremity swelling, and back pain x1 day. Per daughter Jenna at the bedside she states that this has been happening since 8:00 p.m. last night. She also reports that the patient does not use home oxygen but she still has an oxygen tank from over a year ago. Upon examination patient is currently on 2 L nasal cannula. Patient denies any chest pain, fever chills, lightheadedness, dizziness, abd ominal pain, nausea, vomiting, diarrhea, recent sick contacts, recent travels, or recent ingestion of spoiled food. Cardiovascular: CAD, CHF, HTN, OR, hyperipidemia Pulmonary: COPD Renal/: Chronic renal insuff Past Medical History Ischemic cardiomyopathy Hard of hearing Osteoarthritis Rheumatoid arthritis BPH Chronic back pain History of falls Biotronik AICD Bilateral inguinal hernia Past Surgical History: Other (PTCA x3), TURP Family History: Other (Dad of OR and mom with RA) Smoke: Quit ALCOHOL: heavy (In his younger years per daughter Jenna) Drugs: None Lives: with Family Domestic Violence: Neg Review of Systems Constitutional: Yes: Weakness, Other (Dizziness) Respiratory: Cough, Shortness of breath Neurological: Confusion Allergies: Coded Allergies: Morphine (Verified Adverse Reaction, Intermediate, 08/29/22) AGITATION,RESTLESSNESS,SEVERE PAIN Exam Vital Signs Vital Signs Date Time Temp Pulse Resp B/P (MAP) Pulse Ox O2 Delivery O2 Flow Rate FiO2 06/07/24 07:00 98.6 72 22 107/59 (75) 96 98.6 06/06/24 23:41 Nasal Cannula* 2 28 General Appearance: Alert, Oriented X3, Cooperative, No acute distress HEENT: Atraumatic, PERRLA, EOMI, Mucous membr. moist/pink Respiratory: Normal air movement Cardiovascular: Regular rate, Normal S1, Normal S2, No murmurs Abdominal: Soft, No tenderness, No hepatospenomegaly Extremities: No clubbing, No edema, Normal pulses Skin: No significant lesion Neuro: Normal tone, Sensation intact Psych/Mental Status: Mental status NL, Mood NL Labs/Xrays Labs Test 06/06/24 23:34 06/06/24 21:16 06/06/24 20:36 Range/Units Urine Color Light-yellow Yellow Urine Clarity Clear Clear Urine pH 5.5 5.0-9.0 Urine Specific Byron 1.020 1.001-1.035 Urine Protein Trace H Negative Urine Ketones Negative Negative Urine Blood Negative Negative /uL Urine Nitrite Negative Negative Urine Bilirubin Negative Negative Urine Urobilinogen Normal Negative mg/dL Urine Leukocyte Esterase Negative Negative /uL Urine RBC 3 0 - 3 /hpf Urine Microscopic WBC 3 0-3 /HPF Urine Squamous Epithelial Cells None seen <5 /hpf Urine Bacteria None seen None Seen /hpf Urine Glucose Normal Normal mg/dL Troponin I High Sensitivity 31 </=54 ng/L White Blood Count 8.5 4.4-10.8 10^3/uL Red Blood Count 3.64 L 4.5-5.90 10^6/uL Hemoglobin 10.8 L 13.5-17.5 g/dL Hematocrit 32.7 L 41.0-53.0 % Mean Corpuscular Volume 89.8 80.0-100.0 fL Mean Corpuscular Hemoglobin 29.6 28.0-32.0 pg Mean Corpuscular Hemoglobin Concent 32.9 32.0-36.0 g/dL Red Cell Distribution Width 14.9 H 11.8-14.3 % Platelet Count 255 140-450 10^3/uL Mean Platelet Volume 7.8 6.9-10.8 fL Neutrophils (%) (Auto) 71.1 37.0-80.0 % Lymphocytes (%) (Auto) 13.2 10.0-50.0 % Monocytes (%) (Auto) 13.8 H 0.0-12.0 % Eosinophils (%) (Auto) 1.2 0.0-7.0 % Basophils (%) (Auto) 0.7 0.0-2.0 % Neutrophils # (Auto) 6.1 1.6-8.6 10 ^3/uL Lymphocytes # (Auto) 1.1 0.4-5.4 10 ^3/uL Monocytes # (Auto) 1.2 0-1.3 10 ^3/uL Eosinophils # (Auto) 0.1 0-0.8 10 ^3/uL Basophils # (Auto) 0.1 0-0.2 10 ^3/uL Nucleated Red Blood Cells 0.0 % Sodium Level 138 136-145 mmol/L Potassium Level 4.3 3.5-5.1 mmol/L Chloride Level 106 98-107 mmol/L Carbon Dioxide Level 22 20-31 mmol/L Anion Gap 10 5-15 Blood Urea Nitrogen 29 H 9-23 mg/dL Creatinine 1.49 H 0.700-1.30 mg/dL Glomerular Filtration Rate Calc 46 >90 mL/min BUN/Creatinine Ratio 19.5 10.0-20.0 Serum Glucose 135 H 74-106 mg/dL Calcium Level 9.6 8.7-10.4 mg/dL Total Bilirubin 1.1 H 0.2-1.0 mg/dL Aspartate Amino Transferase (AST) 14 13-40 U/L Alanine Aminotransferase (ALT) < 9 7-40 U/L Alkaline Phosphatase 79 46-116 U/L B-Type Natriuretic Peptide 2398.04 0-100 pg/mL Total Protein 7.9 5.7-8.2 g/dL Albumin 4.3 3.2-4.8 g/dL Procedure: CT CHEST WITHOUT CONTRAST Clinical History: pleural eff Comparison: Chest radiograph performed on 06/06/2024 TECHNIQUE: Multidetector CT of the chest was performed from the lung apices to the upper abdomen without the use of intravenous contract. Axial, coronal and sagittal multiplanar reformats were performed. RADIATION DOSE: CTDI volume is 7.11 mGy. Dose-length product is 257.27 mGy*cm The dose indicators for CT are the volume Computed Tomography (CT) Dose Index (CTDIvol) and the Dose Length Product (DLP), and are measured in units of mGy and mGy-cm, respectively. These indicators are not patient dose, but values generated from the CT scanner acquisition factors. The report includes radiation exposure data for exposures received during this examination. Radiation optimization: All CT scans at this facility use at least one of these dose optimization techniques: automated exposure control mA and/or kV adjustment per patient size (includes targeted exams where dose is matched to clinical indication) or iterative reconstruction. FINDINGS: Lower neck: Normal thyroid Lungs: Hazy bilateral ground-glass opacities and interlobular septal thickening. Central airways: Patent. Pleura: No pneumothorax. Small bilateral pleural effusions, left slightly greater than right. Heart/Vascular Structures: The heart is enlarged. AICD noted with lead in the right ventricle. There are coronary artery calcifications. There is no pericardial effusions. The thoracic aorta is normal in caliber. Lymph Nodes: Enlarged mediastinal lymph nodes. For reference, a right paratracheal lymph node measures 1.4 cm in short axis. Musculoskeletal: No acute or suspicious bone lesions. Soft tissues: Normal. Upper abdomen: Unremarkable. IMPRESSION: 1. Pulmonary edema. 2. Bilateral pleural effusions. 3. Cardiomegaly. CHEST RADIOGRAPH Indication: sob Technique: Single frontal view of the chest was obtained Comparison: XY CHEST PORTABLE on DOS: 02/05/24, XY CHEST XRAY 1 VIEW on DOS: 05/15/23, XY CHEST PORTABLE on DOS: 05/10/23 FINDINGS: There is cardiomegaly bipolar pacemaker fluid in right minor fissure increased interstitial markings and possible left lower lobe infiltrate. Follow-up PA and lateral or CT examination of the chest is suggested. IMPRESSION: 1. Cardiomegaly interstitial prominence with possible infiltrate left lower lobe follow-up CT examination is suggested or PA and lateral Assessment/Plan Assessment/Plan Assessment Dyspnea Acute hypoxic respiratory failure Intractable back pain Acute encephalopathy Weakness Volume overload Pulmonary edema Bilateral pleural effusions Cardiomegaly Hard of hearing Biotronik AICD History of CAD History of OR History of PTCA x3 at [facility] History of hypertension History of hyperlipidemia History of COPD History of CKD History of ischemic cardiomyopathy History of CHF History of rheumatoid arthritis History of osteoarthritis History of chronic low back pain History of BPH History of falls no fractures History of bilateral inguinal hernia History of TURP Plan Admit to tele Antiemetics Pain management IV antibiotics-ceftriaxone Diuretics Troponin negative x2 UA BNP Echo ordered Influenza test COVID test CT chest Duo nebs Bilateral ultrasound venous Strict I&Os Daily weights Home medications reconciled DVT prophylaxis-patient on Plavix PUD prophylaxis-not indicated no history of GERD or GI bleed Discussed plan of care with patient and nurse Plan discussed with: Patient My Orders Orders - [facility] Procedure Category Date Status Time Chest Without Contrast CT 06/07/24 Taken 06:45 Furosemide Injection PHA 06/07/24 Transmitted (Lasix Injection) 07:30 Admit ADMIT 06/07/24 Transmitted 07:29 Allergies JALYN 06/07/24 Transmitted 07:29 Code Status CODE 06/07/24 Transmitted 07:29 Hydrocodone-Acet PHA 06/07/24 Transmitted 5/325mg Tab ([place] 07:30 Ondansetron Hcl PHA 06/07/24 Transmitted (Zofran) 07:30 Complete Blood Count LAB 06/08/24 Verified 04:00 Comprehensive LAB 06/08/24 Verified Metabolic Panel 04:00 Cardiac DIET 06/07/24 Transmitted Diet-2gna,Lofat,Lochol Breakfast Acetaminophen Tablet PHA 06/07/24 Transmitted (Tylenol Tablet) 07:30 Sequential JALYN 06/07/24 Transmitted Compression Device Albuterol Medneb PHA 06/07/24 Transmitted (Ventolin Medneb) 07:30 Ipratropium Medneb PHA 06/07/24 Transmitted (Atrovent Medneb) 07:30 Date of Service: Jun 07, 2024 Billing Provider: JAMESON COSTELLO Common Visit Codes: [id number] INP/OBS CARE (HIGH) JAMESON COSTELLO Jun 07, 2024 07:36
--- NOTE | 2024-06-07 07:49 | DVH ---
Procedure: CT CHEST WITHOUT CONTRAST Clinical History: pleural eff Comparison: Chest radiograph performed on 06/06/2024 TECHNIQUE: Multidetector CT of the chest was performed from the lung apices to the upper abdomen with out the use of intravenous contract. Axial, coronal and sagittal multiplanar reformats were performed . RADIATION DOSE: CTDI volume is 7.11 mGy. Dose-length product is 257.27 mGy*cm The dose indicators for CT are the volume Computed Tomography (CT) Dose Index (CTDIvol) and the Dose Length Product (DLP), and are measured in units of mGy and mGy-cm, respectively. These indicators are not patient dose, but values generated from the CT scanner acquisition factors. The report includes radiation exposure data for exposures received during this examination. Radiation optimization: All CT scans at this facility use at least one of these dose optimization arleen hniques: automated exposure control mA and/or kV adjustment per patient size (includes targeted exam s where dose is matched to clinical indication) or iterative reconstruction. FINDINGS: Lower neck: Normal thyroid Lungs: Hazy bilateral ground-glass opacities and interlobular septal thickening. Central airways: Patent. Pleura: No pneumothorax. Small bilateral pleural effusions, left slightly greater than right. Heart/Vascular Structures: The heart is enlarged. AICD noted with lead in the right ventricle. Ther e are coronary artery calcifications. There is no pericardial effusions. The thoracic aorta is daniel l in caliber. Lymph Nodes: Enlarged mediastinal lymph nodes. For reference, a right paratracheal lymph node measure s 1.4 cm in short axis. Musculoskeletal: No acute or suspicious bone lesions. Soft tissues: Normal. Upper abdomen: Unremarkable. IMPRESSION: 1. Pulmonary edema. 2. Bilateral pleural effusions. 3. Cardiomegaly.
[2024-06-07] MEDS: FUROSEMIDE 40 MG/4 ML VIAL IV SCH (09:06)
[2024-06-07] MEDS: HYDROcodone-ACET 5/325MG TAB PO PRN (09:08)
--- NOTE | 2024-06-07 13:14 | ECG ---
[facility] Test Date: 2024-06-06 Test Time: 20:19:14 Pat Name: EDER HALL Department: ER Room: 0222 B Gender: M Blending Operator: PH : 1940 Requested By: EMELY WHEELER Order Number: [id number] Reading MD: Ricardo Pineda Measurements Intervals [address] Rate: 99 P: -14 ME: 146 QRS: 69 QRSD: 150 T: 0 QT: 396 QTc: 509 Interpretive Statements Sinus tachycardia Ventricular premature complex Probable left ventricular hypertrophy Prolonged QT interval Baseline wander in lead(s) V5 Electronically Signed On 06-07-2024 18:50:44 PDT by Ricardo Pineda Please click the below link to view image of tracing.
[2024-06-07] MEDS ORDERED: ASPI-325 PO (15:15)
[2024-06-07] MEDS: cefTRIAXone 1GM/50ML D5W 50 ML IV SCH (17:33)
--- NOTE | 2024-06-07 17:40 | DVH ---
EXAM: US Duplex Bilateral Lower Extremities Veins CLINICAL INDICATION: ro dvt TECHNIQUE: Real-time duplex ultrasound scan of the bilateral lower extremity veins integrating B-mod e two-dimensional vascular structure, Doppler spectral analysis, color flow Doppler imaging and compr ession. COMPARISON: BLDVT on DOS: 03/15/22 FINDINGS: RIGHT DEEP VEINS: Unremarkable. No DVT in the right common femoral, femoral, proximal deep femoral or popliteal veins. The veins demonstrate normal color flow, are normally compressible, with normal phasic flow and/or augmentation response. RIGHT SUPERFICIAL VEINS: Unremarkable. No thrombus in the visualized right great saphenous vein. LEFT DEEP VEINS: Unremarkable. No DVT in the left common femoral, femoral, proximal deep femoral o r popliteal veins. The veins demonstrate normal color flow, are normally compressible, with normal p hasic flow and/or augmentation response. LEFT SUPERFICIAL VEINS: Unremarkable. No thrombus in the visualized left great saphenous vein. SOFT TISSUES: No acute findings. No popliteal cyst. OTHER FINDINGS: . None. IMPRESSION: No DVT.
[2024-06-07] MEDS ORDERED: BUMETANIDE 1 MG TAB PO SCH (18:00)
[2024-06-07] MEDS: CARVEDILOL 3.125 MG TAB PO SCH (21:25)
[2024-06-07] MEDS: ATORVASTATIN 20 MG TAB PO SCH (21:26)
[2024-06-08] VITALS (10 sets, daily range): BP systolic 91–125; BP diastolic 54–68; PULSE 54–75; RESP 17–20; TEMP 98–98.6; O2SAT 94–99
[2024-06-08 06:47] LABS: Basophils # (auto) 0.1 10 ^3/uL (0-0.2); Basophils % (auto) 0.9 % (0.0-2.0); Eosinophils # (auto) 0.5 10 ^3/uL (0-0.8); Eosinophils % (auto) 6.9 % (0.0-7.0); Hematocrit 31.5 % (41.0-53.0); Hemoglobin 10.8 g/dL (13.5-17.5); Lymphocytes # (auto) 1.3 10 ^3/uL (0.4-5.4); Lymphocytes % (auto) 16.8 % (10.0-50.0); Mean Corpuscular Hemoglobin 30.6 pg (28.0-32.0); Mean Corpuscular Hgb Conc. 34.1 g/dL (32.0-36.0); Mean Corpuscular Volume 89.8 fL (80.0-100.0); Monocytes # (auto) 1.3 10 ^3/uL (0-1.3); Monocytes % (auto) 16.5 % (0.0-12.0); Neutrophils # (auto) 4.5 10 ^3/uL (1.6-8.6); Neutrophils % (auto) 58.9 % (37.0-80.0); Nucleated Red Blood Cells % 0.1 %; Platelet Count (auto) 239 10^3/uL (140-450); Red Blood Cells 3.51 10^6/uL (4.5-5.90); Red Cell Distribution Width 14.6 % (11.8-14.3); White Blood Cell 7.6 10^3/uL (4.4-10.8)
[2024-06-08 07:18] LABS: Albumin 3.7 g/dL (3.2-4.8); Alkaline Phosphatase 67 U/L (46-116); Anion Gap 9 (5-15); BUN/Creatinine Ratio 16.8 (10.0-20.0); Carbon Dioxide 27 mmol/L (20-31); Chloride 103 mmol/L (98-107); Sodium 139 mmol/L (136-145); Total Protein 7.1 g/dL (5.7-8.2)
[2024-06-08 07:19] LABS: Bilirubin, Total 0.6 mg/dL (0.2-1.0)
[2024-06-08 07:24] LABS: Alanine Aminotransferase < 9 U/L (7-40); Aspartate Aminotransferase 11 U/L (13-40); Blood Urea Nitrogen 25 mg/dL (9-23); Glucose 106 mg/dL (74-106); Potassium 3.3 mmol/L (3.5-5.1)
[2024-06-08] MEDS: CLOPIDOGREL BISULFATE 75 MG TAB PO SCH (08:46)
[2024-06-08] MEDS: LOSARTAN POTASSIUM 50 MG TAB PO SCH (08:49)
[2024-06-08] MEDS: HYDROmorphone HCL 2 MG/ML VL/or syr IV PRN (08:54)
[2024-06-08] MEDS: LIDOCAINE 1.8% TOP SCH (10:00)
[2024-06-08] MEDS: LIDOCAINE 5% TOPICAL PATCH TOP SCH (14:24)
--- NOTE | 2024-06-08 15:11 | DVHPN2 ---
Subjective Feels better today Reviewed: Care Plan, H&P, Labs, Medications, Previous Orders, Radiology, Other (Previous record) Changes from previous H/P or p: No Changes Objective Vitals Vital Signs Date Time Temp Pulse Resp B/P (MAP) Pulse Ox O2 Delivery O2 Flow Rate FiO2 06/08/24 12:50 98.5 56 20 91/54 (66) 98 98.5 06/08/24 08:15 Nasal Cannula* 2 28 Intake/Output Intake and Output 06/08/24 07:00 Intake Total 650 ml Output Total 650 ml Balance 0 ml Intake Oral 600 ml IV Total 50 ml Output Urine Total 650 ml General Appearance: Alert, Oriented X3, Cooperative, No acute distress HEENT: Atraumatic Lungs: Other (Few crackles bilateral lungs) Cardiovascular: Regular rate (Border bradycardia) Abdomen: Normal bowel sounds, Soft, No tenderness Musculoskeletal: Other (Right 1st two MTP tenderness) Medications Current Medications Medications Dose Ordered Sig/David Route Start Time Stop Time Status Last Admin Dose Admin Furosemide 40 mg BIDD IV 06/07/24 07:30 06/08/24 05:06 40 MG Acetaminophen/ Hydrocodone Bitart 1 tab Q4HP PRN PO 06/07/24 07:30 06/07/24 09:08 1 TAB Ondansetron HCl 4 mg Q4HP PRN IV 06/07/24 07:30 Acetaminophen 650 mg Q6HP PRN PO 06/07/24 07:30 Albuterol 2.5 mg Q4HPRN PRN NEB 06/07/24 07:30 Ipratropium [place] 0.5 mg Q4HPRN PRN NEB 06/07/24 07:30 Hydromorphone HCl 0.5 mg Q6HPRN PRN IV 06/07/24 08:45 06/08/24 08:54 0.5 MG Ceftriaxone Sodium 50 ml @ 100 mls/hr DAILY@09 IV 06/07/24 15:22 06/08/24 08:46 100 MLS/HR Atorvastatin Calcium 20 mg HS PO 06/07/24 22:00 06/07/24 21:26 20 MG Bumetanide 1 mg BIDD PO 06/07/24 18:00 Hold Carvedilol 3.125 mg Q12HR PO 06/07/24 22:00 06/08/24 08:47 3.125 MG Clopidogrel Bisulfate 75 mg DAILY PO 06/08/24 10:00 06/08/24 08:46 75 MG Lidocaine 1 patch DAILY TOP 06/08/24 14:00 06/08/24 14:24 1 PATCH Laboratory Results Laboratory Tests 06/08/24 06:20 Chemistry Test 06/08/24 06:20 Albumin 3.7 g/dL (3.2-4.8) Calcium Level 9.0 mg/dL (8.7-10.4) Total Protein 7.1 g/dL (5.7-8.2) LFT Test 06/08/24 06:20 Alanine Aminotransferase (ALT) < 9 U/L (7-40) Alkaline Phosphatase 67 U/L (46-116) Aspartate Amino Transferase (AST) 11 U/L (13-40) L Total Bilirubin 0.6 mg/dL (0.2-1.0) Urinalysis Test 06/06/24 23:34 Urine Color Light-yellow (Yellow) Urine Clarity Clear (Clear) Urine pH 5.5 (5.0-9.0) Urine Specific [place] 1.020 (1.001-1.035) Urine Protein Trace (Negative) H Urine Ketones Negative (Negative) Urine Blood Negative /uL (Negative) Urine Nitrite Negative (Negative) Urine Bilirubin Negative (Negative) Urine Urobilinogen Normal mg/dL (Negative) Urine Leukocyte Esterase Negative /uL (Negative) Urine RBC 3 /hpf (0 - 3) Urine Microscopic WBC 3 /HPF (0-3) Urine Squamous Epithelial Cells None seen /hpf (<5) Urine Bacteria None seen /hpf (None Seen) Urine Glucose Normal mg/dL (Normal) Assessment/Plan Assessment/Plan Acute on chronic respiratory failure Pulmonary edema Bilateral pleural effusion Coronary artery disease DC and history of PTCA COPD Ischemic cardiomyopathy Status post AICD Hypertension Dyslipidemia Chronic kidney disease 2. 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 Uric acid. Colchicine. Further plan per orders Plan discussed with: Patient, Daughter My Orders Orders - HOMER BURT MD Procedure Category Date Status Time Lidocaine 5% Topical PHA 06/08/24 In Process Patch (Lidoderm 5% 14:00 Date of Service: Jun 08, 2024 Billing Provider: HOMER BURT MD Common Visit Codes: [id number] INP/OBS CARE(HIGH) HOMER BURT MD Jun 08, 2024 15:11
[2024-06-08 15:53] LABS: CRP High Sensitivity 9.49 mg/dL (<1.0)
[2024-06-08 16:12] LABS: Uric Acid 10.9 mg/dL (3.7-9.2)
[2024-06-08 17:24] LABS: Erythrocyte Sedimentation Rate 65 mm/hr (0-20)
[2024-06-08] MEDS: COLCHICINE 0.6 MG CAP PO ONE (17:48)
[2024-06-08] MEDS: GABAPENTIN 100 MG CAP PO SCH (21:44)
[2024-06-08] MEDS: COLCHICINE 0.6 MG CAP PO SCH (21:44)
[2024-06-09] VITALS (8 sets, daily range): BP systolic 105–140; BP diastolic 60–73; PULSE 60–71; RESP 17–18; TEMP 97.5–98.3; O2SAT 92–98
[2024-06-09] MEDS: ASPirin-EC 81 mg tab PO SCH (09:13)
[2024-06-09] MEDS: DIGOXIN 0.125 MG TAB PO SCH (09:13)
[2024-06-09] MEDS: FINASTERIDE 5 MG TAB PO SCH (09:15)
--- NOTE | 2024-06-09 14:38 | DVHPN2 ---
Subjective Feels better today BUT STILL SOME PAIN Reviewed: Care Plan, H&P, Labs, Medications, Previous Orders, Radiology, Other (Previous record) Changes from previous H/P or p: No Changes Objective Vitals Vital Signs Date Time Temp Pulse Resp B/P (MAP) Pulse Ox O2 Delivery O2 Flow Rate FiO2 06/09/24 14:07 76 19 124/89 06/09/24 12:42 98.3 96 98.3 06/09/24 08:20 Nasal Cannula* 2 28 Intake/Output Intake and Output 06/09/24 07:00 Intake Total 150 ml Output Total 250 ml Balance -100 ml Intake Oral 100 ml IV Total 50 ml Output Urine Total 250 ml General Appearance: Alert, Oriented X3, Cooperative, No acute distress HEENT: Atraumatic Lungs: Other (Few crackles bilateral lungs) Cardiovascular: Regular rate (Border bradycardia) Abdomen: Normal bowel sounds, Soft, No tenderness Musculoskeletal: Other (Right 1st two MTP tenderness) Medications Current Medications Medications Dose Ordered Sig/David Route Start Time Stop Time Status Last Admin Dose Admin Furosemide 40 mg BIDD IV 06/07/24 07:30 06/08/24 05:06 40 MG Acetaminophen/ Hydrocodone Bitart 1 tab Q4HP PRN PO 06/07/24 07:30 06/08/24 21:46 1 TAB Ondansetron HCl 4 mg Q4HP PRN IV 06/07/24 07:30 Acetaminophen 650 mg Q6HP PRN PO 06/07/24 07:30 Albuterol 2.5 mg Q4HPRN PRN NEB 06/07/24 07:30 Cancel Ipratropium [place] 0.5 mg Q4HPRN PRN NEB 06/07/24 07:30 Cancel Hydromorphone HCl 0.5 mg Q6HPRN PRN IV 06/07/24 08:45 06/09/24 14:07 0.5 MG Ceftriaxone Sodium 50 ml @ 100 mls/hr DAILY@09 IV 06/07/24 15:22 06/09/24 09:16 100 MLS/HR Atorvastatin Calcium 20 mg HS PO 06/07/24 22:00 06/08/24 21:44 20 MG Bumetanide 1 mg BIDD PO 06/07/24 18:00 Hold Carvedilol 3.125 mg Q12HR PO 06/07/24 22:00 06/09/24 09:14 3.125 MG Clopidogrel Bisulfate 75 mg DAILY PO 06/08/24 10:00 06/09/24 09:13 75 MG Lidocaine 1 patch DAILY TOP 06/08/24 14:00 06/09/24 09:15 1 PATCH Aspirin 81 mg DAILY PO 06/09/24 10:00 06/09/24 09:13 81 MG Digoxin 0.125 mg DAILY PO 06/09/24 10:00 06/09/24 09:13 0.125 MG Finasteride 5 mg DAILY PO 06/09/24 10:00 06/09/24 09:15 5 MG Gabapentin 100 mg TID PO 06/08/24 22:00 06/09/24 14:03 100 MG Colchicine 0.6 mg Q12HR PO 06/08/24 22:00 06/09/24 09:15 0.6 MG Laboratory Results Laboratory Tests 06/08/24 06:20 Urinalysis Test 06/06/24 23:34 Urine Color Light-yellow (Yellow) Urine Clarity Clear (Clear) Urine pH 5.5 (5.0-9.0) Urine Specific [place] 1.020 (1.001-1.035) Urine Protein Trace (Negative) H Urine Ketones Negative (Negative) Urine Blood Negative /uL (Negative) Urine Nitrite Negative (Negative) Urine Bilirubin Negative (Negative) Urine Urobilinogen Normal mg/dL (Negative) Urine Leukocyte Esterase Negative /uL (Negative) Urine RBC 3 /hpf (0 - 3) Urine Microscopic WBC 3 /HPF (0-3) Urine Squamous Epithelial Cells None seen /hpf (<5) Urine Bacteria None seen /hpf (None Seen) Urine Glucose Normal mg/dL (Normal) Assessment/Plan Assessment/Plan Acute on chronic respiratory failure Pulmonary edema Bilateral pleural effusion Coronary artery disease DC and history of PTCA COPD Ischemic cardiomyopathy Status post AICD Hypertension Dyslipidemia Chronic kidney disease 2. 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 PAIN MEDICATION. PREDNISONE 10 MG X 1 TO HELP WITH THE GOUTY ARTHRITIS. FURTHER PLAN PER ORDERS Plan discussed with: Patient My Orders Orders - HOMER BURT MD Procedure Category Date Status Time Aspirin Enteric PHA 06/09/24 In Process Coated Tablet 10:00 Digoxin Tablet PHA 06/09/24 In Process (Lanoxin Tablet) 10:00 Finasteride Tablet PHA 06/09/24 In Process (Proscar Tablet) 10:00 Gabapentin Capsule PHA 06/08/24 In Process (Neurontin Capsule) 22:00 Colchicine (Colcrys) PHA 06/08/24 In Process 22:00 * Cardiology Consult CONS 06/09/24 Transmitted 13:34 Date of Service: Jun 09, 2024 Billing Provider: HOMER BURT MD Common Visit Codes: [id number] INP/OBS CARE(MOD) HOMER BURT MD Jun 09, 2024 14:38
[2024-06-09] MEDS: predniSONE 5 MG TAB PO ONE (15:28)
--- NOTE | 2024-06-09 16:30 | DVH ---
XY CHEST TWO VIEWS ROUTINE CLINICAL HISTORY: FU COMPARISON: XY CHEST TWO VIEWS ROUTINE on DOS: 02/07/24, XY CHEST TWO VIEWS ROUTINE on DOS: 05/25/22, C XR2 on DOS: 03/15/22 TECHNIQUE: Frontal and lateral view of the chest was obtained FINDINGS: Lines and Tubes: Dual-chamber AICD pacemaker in place with pulse generator over the left chest Lungs: Bilateral perihilar and lower lobe airspace disease may represent congestive failure or pneumo jt Pleura: No effusion. No pneumothorax. Cardiomediastinal contours: Unremarkable Bones: No acute osseous abnormality. IMPRESSION: 1. Pacemaker unchanged from 06/06/2024. 2. Slightly improving infiltrates when compared to 06/06/2024.
[2024-06-09] MEDS: POTASSIUM EFFERVESENT TAB 25 MEQ PO ONE (17:03)
[2024-06-09] MEDS: DOCUSATE SOD 100 MG CAP PO SCH (21:47)
[2024-06-09 22:30] LABS: COVID19 ANTIGEN SOFIA FIA NEGATIVE (NEGATIVE); Rapid Influenza A Negative (Negative); Rapid Influenza B Negative (Negative)
[2024-06-10] VITALS (7 sets, daily range): BP systolic 97–122; BP diastolic 55–60; PULSE 62–68; RESP 16–18; TEMP 36.4; O2SAT 93–96
[2024-06-10] MEDS ORDERED: LIDO5DIS21 TOP (12:18)
== END 2024-06-10 16:59 | disposition home or self-care (01) | DRG 189 ==
LOC: ER 19:59 → OVERFLOW 06-07 07:29 → CENTRAL 06-07 12:10 → TELE-CENTR 06-07 19:26
PROVIDERS: ADMIT Hospitalist; ATTEND Hospitalist
DX: J96.21 Acute and chronic respiratory failure with hypoxia (principal); I13.0 Hypertensive heart and chronic kidney disease with heart failure and stage 1 through stage 4 chronic kidney disease, or unspecified chronic kidney disease; G93.40 Encephalopathy, unspecified; J44.0 Chronic obstructive pulmonary disease with (acute) lower respiratory infection; I25.10 Atherosclerotic heart disease of native coronary artery without angina pectoris; N40.0 Benign prostatic hyperplasia without lower urinary tract symptoms; M10.9 Gout, unspecified; E78.5 Hyperlipidemia, unspecified; I25.5 Ischemic cardiomyopathy; I50.9 Heart failure, unspecified; N18.9 Chronic kidney disease, unspecified; Z20.822 Contact with and (suspected) exposure to COVID-19; E11.22 Type 2 diabetes mellitus with diabetic chronic kidney disease; M06.9 Rheumatoid arthritis, unspecified; M54.50 Low back pain, unspecified; G89.29 Other chronic pain; Z87.891 Personal history of nicotine dependence; Z98.61 Coronary angioplasty status; Z82.49 Family history of ischemic heart disease and other diseases of the circulatory system; Z82.61 Family history of arthritis; Z88.5 Allergy status to narcotic agent; Z88.8 Allergy status to other drugs, medicaments and biological substances; Z79.899 Other long term (current) drug therapy; I25.2 Old myocardial infarction; Z90.79 Acquired absence of other genital organ(s); Z91.81 History of falling; Z95.810 Presence of automatic (implantable) cardiac defibrillator
CPT/HCPCS: 36415; 71045; 71046; 71250; 80053; 80162; 81001; 83880; 84484; 84550; 85025; 85652; 86141; 87426; 87804; 93005; 93306; 93970; 96365; 96375; 97163; G0378

== ENCOUNTER 2024-07-16 16:47 | Inpatient (IN) | payer OTHER ==
[~2024-07-16] VITALS: Ht 157.5 cm; Wt 70.3 kg
[~2024-07-16 16:47] MED LIST changes: +ASPI-325 PO; +LIDO5DIS21 TOP
--- NOTE | 2024-07-16 16:55 | ECG ---
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
--- NOTE | 2024-07-16 17:26 | ED.PDOC ---
HPI Comments 83 y/o M with PMHx of TX, HTN, HLD, CKF, CAD, and CHF presents to the ED for CC of chest pain. Patient states, that he has been experiencing substernal chest pain that radiates from his midback onset, x3days. Patient relays, associated symptoms or shortness of breath and bilateral leg swelling. Patient reports, that [facility] for fluid in his lungs, which was drained while admitted. Patient endorses, taking Plavix today (07/16/24). Patient comments, symptoms to be similar to previous TX; complains of current 10/10 chest pain. Patient denies palpitations, nausea, vomiting, diarrhea, or fever. No other symptoms or modifying factors present at this time. Chief Complaint: Chest Pain Time Seen by MD: 17:15 Primary Care Provider: Dr. Aiken Reviewed Notes: Nurses Notes, Medications, Allergies Allergies: Coded Allergies: Morphine (Verified Adverse Reaction, Intermediate, 08/29/22) AGITATION,RESTLESSNESS,SEVERE PAIN Home Meds Active Scripts Lidocaine (LIDODERM 5% TOPICAL PATCH) 1 Patch Ph, 1 PATCH TOP DAILY for 7 Days, #14 PATCH Prov:RAPHAEL ISAACS MD 06/10/24 Ciprofloxacin Hydrochloride (Ciprofloxacin HCl) 500 Mg Tab, 500 MG PO BID for 10 Days, #20 TAB Prov:REINALDO RUSSELL MD 02/09/24 Cyclobenzaprine Hcl (Cyclobenzaprine Hcl) 5 Mg Tab, 1 TAB PO TID PRN, #30 TAB Prov:EMELY WHEELER 10/27/22 Albuterol Sulfate (Albuterol Sulfate) 0.083 % Neb, 1 VIAL NEB Q4HPRN, #50 VIAL Prov:NATE GUTIERREZ MD 03/26/22 Carvedilol (COREG) 3.125 Mg Tab, 3.125 MG PO Q12HR for 30 Days, #60 TAB Prov:REINALDO RUSSELL MD 03/25/22 Bumetanide (Bumex Tablet) 1 Mg Tab, 1 MG PO BIDD for 30 Days, #60 TAB Prov:REINALDO RUSSELL MD 03/25/22 Reported Medications Aspirin (Aspirin Low Dose) 81 Mg Tab, 1 TAB PO DAILY 06/07/24 Diclofenac Sodium (Topical) (Diclofenac Sodium) 2 % Lorenza, 2 % EX UD for 30 Days, #112 02/08/24 Atorvastatin Calcium (Lipitor) 20 Mg Tab, 1 TAB PO DAILY for 90 Days, #90 02/08/24 Gabapentin (Gabapentin) 100 Mg Cap, 1 CAP PO TID for 30 Days, #90 02/06/24 Clopidogrel Bisulfate (CLOPIDOGREL) 75 Mg Tab, 1 TAB PO DAILY for 90 Days, #90 02/06/24 Digoxin (Digoxin) 125 Mcg Tab, 1 TAB PO DAILY for 90 Days, #90 02/06/24 Lidocaine (Ztlido) 1.8 % Pad, 1 PATCH EX DAILY for 30 Days, #30 02/06/24 Losartan Potassium (Losartan Potassium) 50 Mg Tab, 50 MG PO DAILY for 30 Days, MG 05/10/23 Finasteride (Finasteride) 5 Mg Tab, 5 MG PO DAILY, TAB 05/10/23 Information Source: Patient, Relative (Child) Mode of Arrival: EMS Severity: Moderate Timing: Days Duration: Since onset Prehospital treatment: None Location: Substernal Radiation: Back Onset: At Rest Cardiac Risk Factors: Hyperlipidemia, HTN, Diabetes PE Risk Factors: None History of: TX Modifying Factors: Nothing Associated Signs and Symptoms: SOB, Other (leg swelling) Past Medical History PAST MEDICAL HISTORY: CAD, CHF, CKF, DM, High Lipids, HTN, TX Surgical History: PTCA Surgical History (Other): cataracts Family History Family History: Reviewed,noncontributory to illness Social History Smoker: Non-Smoker Alcohol: Rarely Drugs: Denies Drug Use Lives In: Home Constitutional: denies: chills, diaphoresis, fatigue, fever, malaise, sweats, weakness, others EENTM: denies: blurred vision, double vision, ear bleeding, ear discharge, ear drainage, ear pain, ear ringing, eye pain, eye redness, hearing loss, mouth pain, mouth swelling, nasal discharge, nose bleeding, nose congestion, nose pain, photophobia, tearing, throat pain, throat swelling, voice changes, others Respiratory: reports: shortness of breath; denies: cough, hemoptysis, orthopnea, SOB at rest, SOB with excertion, stridor, wheezing, others Cardiovascular: reports: chest pain; denies: dizzy spells, diaphoresis, Dyspnea on exertion, edema, irregular heart beat, left arm pain, lightheadedness, palpitations, PND, syncope, others Gastrointestinal: denies: abdomen distended, abdominal pain, blood streaked bowels, constipated, diarrhea, dysphagia, difficulty swallowing, hematemesis, melena, nausea, poor appetite, poor fluid intake, rectal bleeding, rectal pain, vomiting, others Genitourinary: denies: burning, dysuria, flank pain, frequency, hematuria, incontinence, penile discharge, penile sore, pain, testicle pain, testicle swelling, urgency, others Neurological: denies: dizziness, fainting, headache, left sided numbness, left sided weakness, numbness, paresthesia, pre-existing deficit, right sided numbness, right sided weakness, seizure, speech problems, tingling, tremors, weakness, others Musculoskeletal: reports: others (bilateral leg swelling); denies: back pain, g out, joint pain, joint swelling, muscle pain, muscle stiffness, neck pain Integumetry: denies: bruises, change in color, change in hair/nails, dryness, laceration, lesions, lumps, rash, wounds, others Allergic/Immunocompromised: denies: Difficulty Healing, Frequent Infections, Hives, Itching, others Hematologic/Lymphatic: denies: anemia, blood clots, easy bleeding, easy bruising, swollen glands, others Endocrine: denies: excessive hunger, excessive sweating, excessive thirst, excessive urination, flushing, intolerance to cold, intolerance to heat, unexplained weight gain, unexplained weight loss, others Psychiatric: denies: anxiety, bipolar disorder, depression, hopeless, panic disorder, schizophrenia, sleepless, suicidal, others All Other Systems: Reviewed and Negative Physical Exam General Appearance: Moderate Distress HEENT: Normal ENT Inspection, Pharynx Normal, TMs Normal Neck: Full Range of Motion, Non-Tender, Normal, Normal Inspection Respiratory: Chest Non-Tender, Lungs Clear, No Accessory Muscle Use, No Respiratory Distress, Normal Breath Sounds Cardiovascular: No Edema, No JVD, No Murmur, No Gallop, Normal Peripheral Pulses, Regular Rate/Rhythm Breast Exam: Deferred Gastrointestinal: No Organomegaly, Non Tender, No Pulsatile Mass, Normal Bowel Sounds, Soft Genitalia: Deferred Pelvic: Deferred Rectal: Deferred Extremities: No calf tenderness, Normal capillary refill, Normal inspection, Normal range of motion, Non-tender, No pedal edema Musculoskeletal : Apperance: Normal Neurologic: Alert, 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 Was a procedure done?: No CP Differential Dx Differential Diagnosis: TX Differential Diagnosis: HTN Essential, HTN Accelerated Differential Diagnosis: Chest Wall Pain, Costochondritis X-Ray, Labs, Meds, VS Vital Signs Date Time Temp Pulse Resp B/P (MAP) Pulse Ox O2 Delivery O2 Flow Rate FiO2 07/16/24 17:46 75 07/16/24 17:26 74 07/16/24 17:15 97.6 73 19 100/55 (70) 96 97.6 07/16/24 16:53 74 Lab Test 07/16/24 17:52 07/16/24 17:02 Range/Units Troponin I High Sensitivity 22 21 </=54 ng/L White Blood Count 7.7 4.4-10.8 10^3/uL Red Blood Count 3.40 L 4.5-5.90 10^6/uL Hemoglobin 10.1 L 13.5-17.5 g/dL Hematocrit 30.6 L 41.0-53.0 % Mean Corpuscular Volume 89.9 80.0-100.0 fL Mean Corpuscular Hemoglobin 29.8 28.0-32.0 pg Mean Corpuscular Hemoglobin Concent 33.1 32.0-36.0 g/dL Red Cell Distribution Width 18.0 H 11.8-14.3 % Platelet Count 166 140-450 10^3/uL Mean Platelet Volume 8.2 6.9-10.8 fL Neutrophils (%) (Auto) 68.1 37.0-80.0 % Lymphocytes (%) (Auto) 15.0 10.0-50.0 % Monocytes (%) (Auto) 13.5 H 0.0-12.0 % Eosinophils (%) (Auto) 2.9 0.0-7.0 % Basophils (%) (Auto) 0.5 0.0-2.0 % Neutrophils # (Auto) 5.2 1.6-8.6 10 ^3/uL Lymphocytes # (Auto) 1.2 0.4-5.4 10 ^3/uL Monocytes # (Auto) 1.0 0-1.3 10 ^3/uL Eosinophils # (Auto) 0.2 0-0.8 10 ^3/uL Basophils # (Auto) 0 0-0.2 10 ^3/uL Nucleated Red Blood Cells 0.1 % Sodium Level 143 136-145 mmol/L Potassium Level 3.5 3.5-5.1 mmol/L Chloride Level 108 H 98-107 mmol/L Carbon Dioxide Level 23 20-31 mmol/L Anion Gap 12 5-15 Blood Urea Nitrogen 46 H 9-23 mg/dL Creatinine 1.83 H 0.700-1.30 mg/dL Glomerular Filtration Rate Calc 36 >90 mL/min BUN/Creatinine Ratio 25.1 H 10.0-20.0 Serum Glucose 147 H 74-106 mg/dL Calcium Level 8.4 L 8.7-10.4 mg/dL B-Type Natriuretic Peptide 2599.46 0-100 pg/mL CXR: IMPRESSION: 1. Findings may represent congestive failure or bibasilar pneumonia.. [place] 2599 The BUN is 46 and the creatinine is 1.83 The troponin level x2 is negative The rest of the CBC and the rest of the chemistry panel are within normal limits Patient was given Lasix 40 mg IV push The patient is being admitted at this time with a acute on chronic diastolic heart failure. Images Reviewed?: Images reviewed and evaluated by me Time of 1ST Reevaluation: 17:45 Reevaluation 1ST: Unchanged Patient Education/Counseling: Diagnosis, Treatment, Prognosis Family Education/Counseling: Diagnosis, Treatment, Prognosis Departure 1 Departure Time of Disposition: 19:55 Impression: Primary Impression: Acute coronary syndrome Additional Impression: Acute on chronic diastolic heart failure Disposition: 09 ADMITTED INPATIENT Admit to: Tele Condition: Fair Critical Care Note Critical Care Time?: Yes (45 min-critical care time only) Stability Stability form required: Yes Unstable for transfer: Telemetry monitoring (Telemetry monitoring required), ED Physician Assesment (Clinical assesment) Heart Score Heart Score: Heart Score Response (Comments) Value History Moderate Suspicious 1 EKG Repolarization Disturb 1 Age >65 2 Risk Factors >3 or Hx ASHD 2 Troponin Normal limit 0 Total 6 I personally scribed for NIKKIE FUNES MD ([email or web address]) on 07/16/24 at 17:26. Electronically submitted by Lety Casey ([email or web address]). I personally scribed for NIKKIE FUNES MD ([email or web address]) on 07/16/24 at 18:30. Electronically submitted by Lety Casey ([email or web address]). NIKKIE FUNES MD July 16, 2024 17:26
[2024-07-16 17:30] LABS: Basophils # (auto) 0 10 ^3/uL (0-0.2); Basophils % (auto) 0.5 % (0.0-2.0); Eosinophils # (auto) 0.2 10 ^3/uL (0-0.8); Eosinophils % (auto) 2.9 % (0.0-7.0); Hematocrit 30.6 % (41.0-53.0); Hemoglobin 10.1 g/dL (13.5-17.5); Lymphocytes # (auto) 1.2 10 ^3/uL (0.4-5.4); Mean Corpuscular Hemoglobin 29.8 pg (28.0-32.0); Mean Corpuscular Hgb Conc. 33.1 g/dL (32.0-36.0); Mean Corpuscular Volume 89.9 fL (80.0-100.0); Monocytes % (auto) 13.5 % (0.0-12.0); Neutrophils # (auto) 5.2 10 ^3/uL (1.6-8.6); Neutrophils % (auto) 68.1 % (37.0-80.0); Nucleated Red Blood Cells % 0.1 %; Platelet Count (auto) 166 10^3/uL (140-450); White Blood Cell 7.7 10^3/uL (4.4-10.8)
--- NOTE | 2024-07-16 17:52 | ECG ---
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
--- NOTE | 2024-07-16 17:54 | DVH ---
CHEST RADIOGRAPH Indication: cp Technique: Single frontal view of the chest was obtained Comparison: XY CHEST PORTABLE on DOS: 06/06/24, XY CHEST PORTABLE on DOS: 02/05/24, XY CHEST XRAY 1 VIEW on DOS: 05/15/23 FINDINGS: Lines and Tubes: Dual-chamber pacemaker with pulse generator over the left chest. Lungs: Bilateral perihilar and lower lobe airspace disease. Findings may represent pneumonia or conge stive failure Pleura: No effusion. No pneumothorax. Cardiomediastinal contours: Upper limits of normal Bones: No acute osseous abnormality. IMPRESSION: 1. Findings may represent congestive failure or bibasilar pneumonia..
[2024-07-16 18:23] LABS: Sodium 143 mmol/L (136-145)
[2024-07-16 18:24] LABS: Anion Gap 12 (5-15); Carbon Dioxide 23 mmol/L (20-31)
[2024-07-16 18:29] LABS: BUN/Creatinine Ratio 25.1 (10.0-20.0)
[2024-07-16 18:38] LABS: Blood Urea Nitrogen 46 mg/dL (9-23); Calcium 8.4 mg/dL (8.7-10.4); Chloride 108 mmol/L (98-107); Glucose 147 mg/dL (74-106); Potassium 3.5 mmol/L (3.5-5.1)
[2024-07-16] MEDS ORDERED: ACETAMINOPHEN 325 MG TAB PO PRN (19:45)
[2024-07-16] MEDS ORDERED: DEXTROSE (50%) 50ML SYRG IV PRN (19:45)
[2024-07-16] MEDS ORDERED: ONDANSETRON HCL 4 MG/2 ML VIAL IV PRN (19:45)
[2024-07-16 20:39] LABS: Urine Bacteria None Seen /hpf (None Seen)
[2024-07-16 20:48] LABS: Urine Blood Negative /uL (Negative); Urine Clarity Clear (Clear); Urine Color Colorless (Yellow); Urine Protein, UAD Negative (Negative); Urine Squamous Epithelial Cell FEW /hpf (<5); Urine Urobilinogen Normal (Negative); Urine WBC 1 /HPF (0-3)
[2024-07-16] MEDS: CARVEDILOL 3.125 MG TAB PO SCH (22:00)
[2024-07-16] MEDS: InsuLIN REG 1unit/0.01ml Soln (100units/ml) SC SCH (22:00)
[2024-07-16] MEDS: GABAPENTIN 100 MG CAP PO SCH (22:00)
[2024-07-16] MEDS: ATORVASTATIN 20 MG TAB PO SCH (23:02)
[2024-07-16] MEDS: ACCU-CHEK COMFORT CURVE STRIP VI SCH (23:06)
[2024-07-17] VITALS (9 sets, daily range): BP systolic 96–111; BP diastolic 51–64; PULSE 60–77; RESP 17–19; TEMP 97.3–98; O2SAT 94–100
[2024-07-17] MEDS: HYDROcodone-ACET 5/325MG TAB PO PRN (00:26)
--- NOTE | 2024-07-17 05:14 | DVHHP2 ---
History of Present Illness Reason for Visit: Shortness of breaths History of Present Illness 83-year-old male presents for evaluation of shortness for breath. Patient reports a one day history of worsening shortness for breath with associated chest pressure. States having a nonproductive cough. Denies nausea, vomiting or fever. No other acute complaints. Past Medical History Diabetes mellitus, dyslipidemia, hypertension, mi, chronic kidney disease, CHF, CAD Past Surgical History PTCA Family History Noncontributory Smoke: No ALCOHOL: none Drugs: None Lives: with Family Review of Systems Review of Systems Review of systems are currently negative otherwise addressed in HPI. Allergies: Coded Allergies: Morphine (Verified Adverse Reaction, Intermediate, 08/29/22) AGITATION,RESTLESSNESS,SEVERE PAIN Medications Current Medications Medications Dose Ordered Sig/David Route Start Time Stop Time Status Last Admin Dose Admin Furosemide 20 mg BIDD IV 07/17/24 06:00 Losartan Potassium 50 mg DAILY PO 07/17/24 10:00 Gabapentin 100 mg TID PO 07/16/24 22:00 Digoxin 0.125 mg DAILY PO 07/17/24 10:00 Clopidogrel Bisulfate 75 mg DAILY PO 07/17/24 10:00 Carvedilol 3.125 mg Q12HR PO 07/16/24 22:00 Atorvastatin Calcium 20 mg HS PO 07/16/24 22:00 07/16/24 23:02 20 MG Aspirin 81 mg DAILY PO 07/17/24 10:00 Diagnostic Test (Pha) 1 strip ACHS 07/16/24 22:00 07/16/24 23:06 1 STRIP Insulin Human Regular ACHS SC 07/16/24 22:00 Dextrose 50 ml UD PRN IV 07/16/24 19:45 Ondansetron HCl 4 mg Q4HP PRN IV 07/16/24 19:45 Acetaminophen 650 mg Q6HP PRN PO 07/16/24 19:45 Acetaminophen/ Hydrocodone Bitart 1 tab Q8HPRN PRN PO 07/17/24 00:15 07/17/24 00:26 1 TAB Exam Vital Signs Vital Signs Date Time Temp Pulse Resp B/P (MAP) Pulse Ox O2 Delivery O2 Flow Rate FiO2 07/17/24 01:16 97.3 68 18 96/56 (69) 96 97.3 07/17/24 00:00 Room Air* 0 21 Exam Gen: 83-year-old male in mild distress Skin: Warm, dry, normal color and texture, no rash. HEENT: Normocephalic atraumatic, mucous membranes moist and pink. Neck: Cervical and supraclavicular nodes normal without enlargement, trachea is midline, thyroid gland is normal without masses. Pulmonary: Diminished breath sounds bilaterally Cardiac: Regular rate and rhythm. No murmur Abdomen: Soft, nontender, nondistended, bowel sounds present all 4 quadrants, no guarding, no rigidity, no organomegaly. Extremities: No cyanosis, clubbing, no edema Neuro: Cranial nerves II through XII grossly intact, normal affect and speech, no focal motor deficits. Labs/Xrays ORDERING PHYSICIAN: JAMESON COSTELLO PROCEDURE(s): ECIDC - ECHO 2D MODE CARDIAC DOP REASON: chf exac ORDER NUMBER(s): [id number], ACCESSION NUMBER(s): [id number] APPROVED REPORT EXAM: Two-dimensional and M-mode echocardiogram with Doppler and color Doppler. Blood Pressure: 107/59 mmHg INDICATION CHF Exac RISK FACTORS Height: 5' 2", Weight: 135 DIMENSIONS LVDd 6.1 (3.8-5.7cm) LA (2D) 4.2 (1.9-4.0cm) Aortic Root 3.7 (2.0- 3.7cm) LVDs 5.4 (2.5-4.0cm) LA (MM) (1.9-4.0cm) Aortic Cusp Exc 0.9 (1.5- 2.0cm) EF (%) 25.0 (55-70%) Rt. Atrium 4.5 (1.9-4.0cm) Asc. Aorta cm IVSd 1.0 (0.7-1.1cm) RV (D) (1.8-2.4cm) PWd 1.1 (0.7-1.1cm) Mitral Valve Mitral Mitral Stenosis E wave 1.50m/s MV Mean GR. mmHg A wave 1.20m/s MV Peak GR. mmHg E/A ratio 1.3 2D MVA cm2 Aortic Valve Aortic Valve Aortic Stenosis V1 0.70m/s AO Mean GR. 22mmHg V2 3.00m/s AO Peak GR. 37mmHg LVOT Diameter 2.3 (1.8-2.4cm) Doppler JULY 0.97cm2 AI P 1/2 Time 422.92ms Conclusion SEVERE AV STENOSIS EF <25% LAE PAULINE SIGNED BY: YANIRA CHRISTIANSEN MD ORDERING PHYSICIAN: NIKKIE FUNES MD PROCEDURE(s): CXRP - CHEST PORTABLE REASON: cp ORDER NUMBER(s): [id number], ACCESSION NUMBER(s): [id number] CHEST RADIOGRAPH Indication: cp Technique: Single frontal view of the chest was obtained Comparison: XY CHEST PORTABLE on DOS: 06/06/24, XY CHEST PORTABLE on DOS: 02/05/24, XY CHEST XRAY 1 VIEW on DOS: 05/15/23 FINDINGS: Lines and Tubes: Dual-chamber pacemaker with pulse generator over the left chest. Lungs: Bilateral perihilar and lower lobe airspace disease. Findings may represent pneumonia or congestive failure Pleura: No effusion. No pneumothorax. Cardiomediastinal contours: Upper limits of normal Bones: No acute osseous abnormality. IMPRESSION: 1. Findings may represent congestive failure or bibasilar pneumonia.. Labs Test 07/16/24 23:07 07/16/24 20:39 07/16/24 20:02 07/16/24 17:02 Range/Units POC Glucose 122 H 70-106 mg/dl Urine Color Colorless Yellow Urine Clarity Clear Clear Urine pH 5.0 5.0-9.0 Urine Specific [place] 1.010 1.001-1.035 Urine Protein Negative Negative Urine Ketones Negative Negative Urine Blood Negative Negative /uL Urine Nitrite Negative Negative Urine Bilirubin Negative Negative Urine Urobilinogen Normal Negative mg/dL Urine Leukocyte Esterase Negative Negative /uL Urine RBC 1 0 - 3 /hpf Urine Microscopic WBC 1 0-3 /HPF Urine Squamous Epithelial Cells Few <5 /hpf Urine Bacteria None seen None Seen /hpf Urine Glucose Normal Normal mg/dL Troponin I High Sensitivity 21 </=54 ng/L White Blood Count 7.7 4.4-10.8 10^3/uL Red Blood Count 3.40 L 4.5-5.90 10^6/uL Hemoglobin 10.1 L 13.5-17.5 g/dL Hematocrit 30.6 L 41.0-53.0 % Mean Corpuscular Volume 89.9 80.0-100.0 fL Mean Corpuscular Hemoglobin 29.8 28.0-32.0 pg Mean Corpuscular Hemoglobin Concent 33.1 32.0-36.0 g/dL Red Cell Distribution Width 18.0 H 11.8-14.3 % Platelet Count 166 140-450 10^3/uL Mean Platelet Volume 8.2 6.9-10.8 fL Neutrophils (%) (Auto) 68.1 37.0-80.0 % Lymphocytes (%) (Auto) 15.0 10.0-50.0 % Monocytes (%) (Auto) 13.5 H 0.0-12.0 % Eosinophils (%) (Auto) 2.9 0.0-7.0 % Basophils (%) (Auto) 0.5 0.0-2.0 % Neutrophils # (Auto) 5.2 1.6-8.6 10 ^3/uL Lymphocytes # (Auto) 1.2 0.4-5.4 10 ^3/uL Monocytes # (Auto) 1.0 0-1.3 10 ^3/uL Eosinophils # (Auto) 0.2 0-0.8 10 ^3/uL Basophils # (Auto) 0 0-0.2 10 ^3/uL Nucleated Red Blood Cells 0.1 % Sodium Level 143 136-145 mmol/L Potassium Level 3.5 3.5-5.1 mmol/L Chloride Level 108 H 98-107 mmol/L Carbon Dioxide Level 23 20-31 mmol/L Anion Gap 12 5-15 Blood Urea Nitrogen 46 H 9-23 mg/dL Creatinine 1.83 H 0.700-1.30 mg/dL Glomerular Filtration Rate Calc 36 >90 mL/min BUN/Creatinine Ratio 25.1 H 10.0-20.0 Serum Glucose 147 H 74-106 mg/dL Calcium Level 8.4 L 8.7-10.4 mg/dL B-Type Natriuretic Peptide 2599.46 0-100 pg/mL Assessment/Plan Assessment/Plan Assessment Acute on chronic congestive heart failure Chronic kidney disease Diabetes mellitus Hypertension Plan Admit the patient to Med surge to the hospitalist SALTY Khan Resume home medications Continue treatment per orders. Plan discussed with: Patient My Orders Orders - JOSEY KAPLAN Procedure Category Date Status Time Furosemide Injection PHA 07/17/24 In Process (Lasix Injection) 06:00 Losartan Tablet PHA 07/17/24 In Process (Cozaar Tablet) 10:00 Gabapentin Capsule PHA 07/16/24 In Process (Neurontin Capsule) 22:00 Digoxin Tablet PHA 07/17/24 In Process (Lanoxin Tablet) 10:00 Clopidogrel Bisulfate PHA 07/17/24 In Process (Plavix) 10:00 Carvedilol Tablet PHA 07/16/24 In Process (Coreg Tablet) 22:00 Atorvastatin (Lipitor) PHA 07/16/24 In Process 22:00 Aspirin Tablet PHA 07/17/24 In Process 10:00 Basic Metabolic Panel LAB 07/17/24 Logged 04:00 Glucose Blood PHA 07/16/24 In Process (Accu-Chek Comfort 22:00 Insulin R (Human) PHA 07/16/24 In Process (Insulin R) 22:00 Dextrose 50% Syringe PHA 07/16/24 In Process 19:45 Admit ADMIT 07/16/24 Transmitted 19:42 Ondansetron Hcl PHA 07/16/24 In Process (Zofran) 19:45 Cardiac DIET 07/17/24 Transmitted Diet-2gna,Lofat,Lochol Breakfast Condition: Stable JALYN 07/16/24 In Process 19:42 Acetaminophen Tablet PHA 07/16/24 In Process (Tylenol Tablet) 19:45 Bedrest With Bathroom JALYN 07/16/24 In Process Privileg 19:42 Pharmacy JALYN 07/16/24 In Process Clarification: 20:32 Digoxin (Lanoxin) LAB 07/18/24 Verified 04:00 Hydrocodone-Acet PHA 07/17/24 In Process /325mg Tab ([place] 00:15 * Dietary Consult CONS 07/17/24 Transmitted 00:26 Date of Service: July 16, 2024 Billing Provider: JOSEY KAPLAN Common Visit Codes: [id number] INP/OBS CARE (HIGH) JOSEY KAPLAN July 17, 2024 05:14
[2024-07-17] MEDS ORDERED: ALBUTEROL SULF 2.5 MG/0.5ML(0.5%) NEB SOLN NEB PRN (05:15)
[2024-07-17] MEDS: FUROSEMIDE 20 MG/2 ML VIAL IV SCH (05:53)
[2024-07-17 07:40] LABS: Potassium 3.7 mmol/L (3.5-5.1)
[2024-07-17 07:41] LABS: Anion Gap 9 (5-15); Calcium 9.4 mg/dL (8.7-10.4); Carbon Dioxide 28 mmol/L (20-31)
[2024-07-17 07:46] LABS: Glucose 95 mg/dL (74-106)
[2024-07-17 07:50] LABS: Blood Urea Nitrogen 41 mg/dL (9-23); Chloride 109 mmol/L (98-107); Sodium 146 mmol/L (136-145)
[2024-07-17] MEDS: LOSARTAN POTASSIUM 50 MG TAB PO SCH (10:00)
[2024-07-17] MEDS: DIGOXIN 0.125 MG TAB PO SCH (10:00)
[2024-07-17] MEDS: ASPirin 81 mg TAB PO SCH (10:32)
[2024-07-17] MEDS: CLOPIDOGREL BISULFATE 75 MG TAB PO SCH (10:34)
[2024-07-17] MEDS: FUROSEMIDE 40 MG/4 ML VIAL IV ONE ×2 (13:30→15:41)
--- NOTE | 2024-07-17 13:34 | DVHDS2 ---
Discharge Summary Date of Admission July 16, 2024 at 19:42 Date of Discharge: July 17, 2024 Admitting Diagnosis Pulm Edema Labs/Diagnostic Data: Laboratory Results Test 07/17/24 11:42 07/17/24 06:26 07/16/24 20:39 07/16/24 20:02 POC Glucose 105 mg/dl (70-106) Sodium Level 146 mmol/L (136-145) Potassium Level 3.7 mmol/L (3.5-5.1) Chloride Level 109 mmol/L (98-107) Carbon Dioxide Level 28 mmol/L (20-31) Anion Gap 9 (5-15) Blood Urea Nitrogen 41 mg/dL (9-23) Creatinine 1.71 mg/dL (0.700-1.30) Glomerular Filtration Rate Calc 39 mL/min (>90) BUN/Creatinine Ratio 24.0 (10.0-20.0) Serum Glucose 95 mg/dL (74-106) Calcium Level 9.4 mg/dL (8.7-10.4) Urine Color Colorless (Yellow) Urine Clarity Clear (Clear) Urine pH 5.0 (5.0-9.0) Urine Specific [place] 1.010 (1.001-1.035) Urine Protein Negative (Negative) Urine Ketones Negative (Negative) Urine Blood Negative /uL (Negative) Urine Nitrite Negative (Negative) Urine Bilirubin Negative (Negative) Urine Urobilinogen Normal mg/dL (Negative) Urine Leukocyte Esterase Negative /uL (Negative) Urine RBC 1 /hpf (0 - 3) Urine Microscopic WBC 1 /HPF (0-3) Urine Squamous Epithelial Cells Few /hpf (<5) Urine Bacteria None seen /hpf (None Seen) Urine Glucose Normal mg/dL (Normal) Troponin I High Sensitivity 21 ng/L (</=54) Test 07/16/24 17:02 White Blood Count 7.7 10^3/uL (4.4-10.8) Red Blood Count 3.40 10^6/uL (4.5-5.90) Hemoglobin 10.1 g/dL (13.5-17.5) Hematocrit 30.6 % (41.0-53.0) Mean Corpuscular Volume 89.9 fL (80.0-100.0) Mean Corpuscular Hemoglobin 29.8 pg (28.0-32.0) Mean Corpuscular Hemoglobin Concent 33.1 g/dL (32.0-36.0) Red Cell Distribution Width 18.0 % (11.8-14.3) Platelet Count 166 10^3/uL (140-450) Mean Platelet Volume 8.2 fL (6.9-10.8) Neutrophils (%) (Auto) 68.1 % (37.0-80.0) Lymphocytes (%) (Auto) 15.0 % (10.0-50.0) Monocytes (%) (Auto) 13.5 % (0.0-12.0) Eosinophils (%) (Auto) 2.9 % (0.0-7.0) Basophils (%) (Auto) 0.5 % (0.0-2.0) Neutrophils # (Auto) 5.2 10 ^3/uL (1.6-8.6) Lymphocytes # (Auto) 1.2 10 ^3/uL (0.4-5.4) Monocytes # (Auto) 1.0 10 ^3/uL (0-1.3) Eosinophils # (Auto) 0.2 10 ^3/uL (0-0.8) Basophils # (Auto) 0 10 ^3/uL (0-0.2) Nucleated Red Blood Cells 0.1 % B-Type Natriuretic Peptide 2599.46 pg/mL (0-100) Other Laboratory Tests 07/17/24 06:26 07/16/24 17:02 Brief Hx & Hospital Course: Patient was admitted for Acute Systolic CHF due to AV stenosis. Lasix IV was given, patient is feeling better. Patient will be discharged home to be seen in Cardio Clinic. Condition at Discharge: Poor Final Diagnosis/Problems List Acute on chronic systolic congestive heart failure . EF <25% Chronic kidney disease Diabetes mellitus Hypertension Pulm Edema Discharge Disposition: Home Discharge Instruct/Medications Diet: Cardiac 2g Na,low cholest Activity: Light activity Follow Up/Referral: PCP in 1 week Medications: see [facility] Discharge Statement: "Patient was advised to return to the ER or call 911 if any headaches, dizziness, shortness of breath, chest pain, abdominal pain, bleeding, fevers, or worsening of medical condition. Patient was counseled about treatment plan, medications, possible side effects, patient�verbalized understanding. All questions were answered to the best of my ability. This discharge took greater then 30 minutes in planning, reviewing documentation, counseling the patient, and discussing with other team members." ASSESSMENT ASSESSMENT Assessment Date of Service: July 17, 2024 Billing Provider: REINLADO RUSSELL MD Common Visit Codes: [id number]/[id number] DISCH DAY >30min REINALDO RUSSELL MD July 17, 2024 13:34
== END 2024-07-17 15:50 | disposition home or self-care (01) | DRG 291 ==
LOC: ER 16:47 → OVERFLOW 19:42 → WEST WING 22:17
PROVIDERS: ADMIT Internal Medicine; ATTEND Internal Medicine
DX: I13.0 Hypertensive heart and chronic kidney disease with heart failure and stage 1 through stage 4 chronic kidney disease, or unspecified chronic kidney disease (principal); I50.23 Acute on chronic systolic (congestive) heart failure; I24.9 Acute ischemic heart disease, unspecified; N18.9 Chronic kidney disease, unspecified; I25.10 Atherosclerotic heart disease of native coronary artery without angina pectoris; E78.5 Hyperlipidemia, unspecified; E11.22 Type 2 diabetes mellitus with diabetic chronic kidney disease; Z88.5 Allergy status to narcotic agent; Z79.899 Other long term (current) drug therapy; Z79.2 Long term (current) use of antibiotics; Z79.82 Long term (current) use of aspirin
CPT/HCPCS: 36415; 71045; 80048; 81001; 82962; 83880; 84484; 85025; 93005; 99291; G0378

== ENCOUNTER → 2024-07-25 | Outpatient (CLI) | payer OTHER ==
[2024-07-25 08:18] LABS: Urine Bacteria None Seen /hpf (None Seen)
[2024-07-25 08:33] LABS: Basophils # (auto) 0 10 ^3/uL (0-0.2); Basophils % (auto) 0.7 % (0.0-2.0); Eosinophils # (auto) 0.3 10 ^3/uL (0-0.8); Eosinophils % (auto) 5.2 % (0.0-7.0); Hematocrit 28.3 % (41.0-53.0); Hemoglobin 9.3 g/dL (13.5-17.5); Lymphocytes # (auto) 1.3 10 ^3/uL (0.4-5.4); Lymphocytes % (auto) 20.6 % (10.0-50.0); Mean Corpuscular Hemoglobin 29.4 pg (28.0-32.0); Mean Corpuscular Hgb Conc. 32.9 g/dL (32.0-36.0); Mean Corpuscular Volume 89.4 fL (80.0-100.0); Monocytes # (auto) 0.7 10 ^3/uL (0-1.3); Monocytes % (auto) 10.4 % (0.0-12.0); Neutrophils % (auto) 63.1 % (37.0-80.0); Nucleated Red Blood Cells % 0.1 %; Platelet Count (auto) 266 10^3/uL (140-450); Red Blood Cells 3.17 10^6/uL (4.5-5.90); Red Cell Distribution Width 16.8 % (11.8-14.3); White Blood Cell 6.4 10^3/uL (4.4-10.8)
[2024-07-25 08:50] LABS: Reticulocyte % (auto) 1.56 % (0.5-1.5)
[2024-07-25 08:56] LABS: Urine Blood Negative /uL (Negative); Urine Clarity Clear (Clear); Urine Color Light-Yellow (Yellow); Urine Protein, UAD Negative (Negative); Urine Specific Gravity 1.018 (1.001-1.035); Urine Squamous Epithelial Cell None Seen /hpf (<5); Urine Urobilinogen Normal (Negative); Urine WBC 1 /HPF (0-3); Urine pH 6.5 (5.0-9.0)
[2024-07-25 09:20] LABS: Alanine Aminotransferase 10 U/L (7-40); Alkaline Phosphatase 71 U/L (46-116); Anion Gap 11 (5-15); BUN/Creatinine Ratio 28.2 (10.0-20.0); Calcium 9.5 mg/dL (8.7-10.4); Carbon Dioxide 29 mmol/L (20-31); Chloride 106 mmol/L (98-107); Glucose 104 mg/dL (74-106); Potassium 3.6 mmol/L (3.5-5.1); Triglycerides 79 mg/dL (< 150)
[2024-07-25 09:21] LABS: Albumin 3.9 g/dL (3.2-4.8); Aspartate Aminotransferase 15 U/L (13-40); Blood Urea Nitrogen 50 mg/dL (9-23); Cholesterol 89 mg/dL (< 200); LDL Cholesterol 45 mg/dL (< 100); Sodium 146 mmol/L (136-145); Total Protein 7.1 g/dL (5.7-8.2)
[2024-07-25 09:22] LABS: Bilirubin, Total 0.6 mg/dL (0.2-1.0); HDL Cholesterol 30 mg/dL (40-59)
[2024-07-25 10:51] LABS: % Iron Saturation 13.5 % (20-55); Prostate Specific Antigen 0.35 ng/mL (0.0-4.0)
[2024-07-25 10:54] LABS: Uric Acid 13.2 mg/dL (3.7-9.2)
[2024-07-25 10:55] LABS: Ferritin 67.8 ng/mL (22-322)
[2024-07-25 11:01] LABS: Folate (Folic Acid) 16.35 ng/mL (>5.38)
== END | disposition home or self-care (01) ==
LOC: LAB 07:54
PROVIDERS: ATTEND Family Medicine
DX: I13.0 Hypertensive heart and chronic kidney disease with heart failure and stage 1 through stage 4 chronic kidney disease, or unspecified chronic kidney disease (principal); N18.9 Chronic kidney disease, unspecified; I50.9 Heart failure, unspecified; I25.10 Atherosclerotic heart disease of native coronary artery without angina pectoris; M15.0 Primary generalized (osteo)arthritis; Z12.5 Encounter for screening for malignant neoplasm of prostate; Z00.01 Encounter for general adult medical examination with abnormal findings; Z12.11 Encounter for screening for malignant neoplasm of colon; Z95.9 Presence of cardiac and vascular implant and graft, unspecified; Z79.899 Other long term (current) drug therapy
CPT/HCPCS: 36415; 80053; 80061; 81001; 82306; 82607; 82728; 82746; 83540; 83550; 84153; 84207; 84443; 84550; 85025; 85045; 87086

== ENCOUNTER 2024-09-10 22:14 | Inpatient (IN) | payer OTHER ==
[~2024-09-10] VITALS: Ht 157.5 cm; Wt 60.9 kg
--- NOTE | 2024-09-10 22:49 | ECG ---
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
--- NOTE | 2024-09-10 23:04 | DVH ---
CHEST RADIOGRAPH Indication: Upper back pain Technique: Single frontal view of the chest was obtained COMPARISON: XY CHEST PORTABLE on DOS: 07/16/24, XY CHEST PORTABLE on DOS: 06/06/24, XY CHEST PORTABLE on DOS: 02/05/24, XY CHEST XRAY 1 VIEW on DOS: 05/15/23, XY CHEST PORTABLE on DOS: 05/10/23 FINDINGS: Lines and Tubes: None. Left anterior chest wall dual lead cardiac pacing device redemonstrated. Lungs: Grossly stable appearing bilateral perihilar and lower lung zone multifocal pulmonary airspace disease. No evidence of focal consolidation. Pleura: No effusion. No pneumothorax. Cardiomediastinal contours: Unremarkable Bones: Unremarkable IMPRESSION: 1. Stable appearing bilateral perihilar and lower lung zone multifocal pulmonary airspace disease.
[2024-09-10 23:20] LABS: Hematocrit 28.4 % (41.0-53.0); Hemoglobin 9.2 g/dL (13.5-17.5); Mean Corpuscular Hemoglobin 29.3 pg (28.0-32.0); Mean Corpuscular Volume 90.1 fL (80.0-100.0); Nucleated Red Blood Cells % 0.0 %
--- NOTE | 2024-09-10 23:20 | ED.PDOC ---
History of Present Illness HPI Comments 83-year-old male who presents with daughter for 1 week history of shortness of breath, upper back pain, and dizziness and 4 day history of bilateral or leg swelling. Significant history for CAD, systolic CHF with EF< 25%, CKD, DM, HLD, HTN, DC, PTCA, AICD, and Plavix, aspirin, and Bumex use. Daughter states on bringing the patient to the ER, due to history of having back pain prior to patient having his DC 2 years ago. Breathing is improved when patient leans forward. No endorsement of chest pain, cough, congestion, fever, chills, or further associated symptoms Chief Complaint: Shortness of Breath Time Seen by MD: 22:15 Primary Care Provider: srinivas Reviewed Notes: Nurses Notes, Medications, Allergies Allergies: Coded Allergies: Morphine (Verified Adverse Reaction, Intermediate, 08/29/22) AGITATION,RESTLESSNESS,SEVERE PAIN Home Meds Active Scripts Lidocaine (LIDODERM 5% TOPICAL PATCH) 1 Patch Ph, 1 PATCH TOP DAILY for 7 Days, #14 PATCH Prov:RAPHAEL ISAACS MD 06/10/24 Cyclobenzaprine Hcl (Cyclobenzaprine Hcl) 5 Mg Tab, 1 TAB PO TID PRN, #30 TAB Prov:EMELY WHEELER 10/27/22 Albuterol Sulfate (Albuterol Sulfate) 0.083 % Neb, 1 VIAL NEB Q4HPRN, #50 VIAL Prov:NATE GUTIERREZ MD 03/26/22 Carvedilol (COREG) 3.125 Mg Tab, 3.125 MG PO Q12HR for 30 Days, #60 TAB Prov:REINALDO RUSSELL MD 03/25/22 Bumetanide (Bumex Tablet) 1 Mg Tab, 1 MG PO BIDD for 30 Days, #60 TAB Prov:REINALDO RUSSELL MD 03/25/22 Reported Medications Clopidogrel Bisulfate (Plavix) 75 Mg Tab, 1 TAB PO DAILY, #90 TAB 1 Refill 09/11/24 Trazodone Hcl (Trazodone Hcl) 100 Mg Tab, 1 TAB PO QPM, #30 TAB 1 Refill 09/11/24 Ferrous Sulfate (FERROUS SULFATE) 325 Mg Tb, 1 TAB PO DAILY, #30 TAB 3 Refills 09/11/24 Aspirin (Aspirin Low Dose) 81 Mg Tab, 1 TAB PO DAILY 06/07/24 Diclofenac Sodium (Topical) (Diclofenac Sodium) 2 % Lorenza, 2 % EX UD for 30 Days, #112 02/08/24 Atorvastatin Calcium (Lipitor) 20 Mg Tab, 1 TAB PO DAILY for 90 Days, #90 02/08/24 Gabapentin (Gabapentin) 100 Mg Cap, 1 CAP PO TID for 30 Days, #90 02/06/24 Clopidogrel Bisulfate (CLOPIDOGREL) 75 Mg Tab, 1 TAB PO DAILY for 90 Days, #90 02/06/24 Digoxin (Digoxin) 125 Mcg Tab, 1 TAB PO DAILY for 90 Days, #90 02/06/24 Lidocaine (Ztlido) 1.8 % Pad, 1 PATCH EX DAILY for 30 Days, #30 02/06/24 Losartan Potassium (Losartan Potassium) 50 Mg Tab, 50 MG PO DAILY for 30 Days, MG 05/10/23 Finasteride (Finasteride) 5 Mg Tab, 5 MG PO DAILY, TAB 05/10/23 Information Source: Patient Mode of Arrival: Wheelchair Severity: Moderate Timing: Days Duration: Since onset Prehospital treatment: None Review of Systems: REVIEW OF SYSTEMS: No fever, no chills, or fatigue HEENT: No sore throat, no earache, no congestion, no neck pain. Cardiac: No chest pain. No palpitations. Lungs: Shortness of breath, no cough. GI: No nausea, no vomiting, no diarrhea, no constipation, no abdominal pain : No dysuria, frequency, or urgency. No hematuria. Musculoskeletal: Back pain. Bilateral lower leg swelling. No joint pain. Neuro: Dizziness. No headache, no weakness Vital Signs Vital Signs Date Time Temp Pulse Resp B/P (MAP) Pulse Ox O2 Delivery O2 Flow Rate FiO2 09/11/24 01:15 100/70 09/10/24 23:20 82 09/10/24 22:31 98.1 19 99 98.1 Physical Exam General: Awake, alert and oriented. No acute distress. Skin: Skin in warm, dry and intact. Appropriate color for ethnicity. HEENT: The head is normocephalic and atraumatic. Conjunctivae are clear without exudates or hemorrhage. Sclera is non-icteric. EOM are intact. No signs of nystagmus. Eyelids are normal in appearance without swelling or lesions. Oral mucosa is pink and moist Neck: The neck is supple with normal range of motion. No JVD. Cardiac: Heart murmur present. Heart rate and rhythm are normal. No gallops or rubs are auscultated. Respiratory: Diminished breath sounds. No signs of respiratory distress. Lung sounds are clear in all lobes bilaterally without rales, rhonchi, or wheezes. Abdominal: Abdomen is soft, non-tender without distention, guarding or rigidity. Bowel sounds are present and normoactive in all four quadrants. Extremities: Bilateral pedal edema. Upper extremities without edema. Upper and lower extremities are atraumatic in appearance without deformity. Neurological: The patient is awake, alert and oriented to person, place, and time with normal speech. Speech is clear. There is no facial asymmetry. Psychiatric: Appropriate mood and affect. Good judgement and insight. Past Medical History PAST MEDICAL HISTORY: CAD, CHF (Systolic; EF less than 25%), CKF, DM, High Lipids, HTN, DC Past Medical History (Other): Plavix, aspirin, and Bumex use Surgical History: PTCA Surgical History (Other): AICD Family History Family History: Reviewed,noncontributory to illness Social History Smoker: Non-Smoker Alcohol: Rarely Drugs: Denies Drug Use Lives In: Home Was a procedure done? Was a procedure done?: No EKG EKG : Pulse Rate (adult): 82 [place]: Normal Cardiac Rhythm: NSR Block: RBBB Hypertrophy: None ST: Normal Comments QTC of 520 No STEMI Differential Dx Considerations may include: Differential diagnoses considered includebut arenot limited to acute Bronchitis, Asthma, COPD, Pneumothorax, PE, CHF, Pulmonary HTN, Anemia, CO Poisoning, Methemoglobinemia, Hyperventilation, Metabolic Acidosis, Pulmonary Edema, Pneumonia, ACS, Pericardial Tamponade, Anxiety, other X-Ray, Labs, Meds, VS Vital Signs Date Time Temp Pulse Resp B/P (MAP) Pulse Ox O2 Delivery O2 Flow Rate FiO2 09/11/24 01:15 100/70 09/10/24 23:20 82 09/10/24 22:31 98.1 82 19 106/66 (79) 99 98.1 09/10/24 22:22 82 Lab Test 09/11/24 01:15 09/10/24 23:22 09/10/24 21:33 Range/Units Troponin I High Sensitivity 32 30 30 </=54 ng/L White Blood Count 8.4 4.4-10.8 10^3/uL Red Blood Count 3.15 L 4.5-5.90 10^6/uL Hemoglobin 9.2 L 13.5-17.5 g/dL Hematocrit 28.4 L 41.0-53.0 % Mean Corpuscular Volume 90.1 80.0-100.0 fL Mean Corpuscular Hemoglobin 29.3 28.0-32.0 pg Mean Corpuscular Hemoglobin Concent 32.6 32.0-36.0 g/dL Red Cell Distribution Width 17.7 H 11.8-14.3 % Platelet Count 279 140-450 10^3/uL Mean Platelet Volume 7.4 6.9-10.8 fL Neutrophils (%) (Auto) 69.7 37.0-80.0 % Lymphocytes (%) (Auto) 12.8 10.0-50.0 % Monocytes (%) (Auto) 14.7 H 0.0-12.0 % Eosinophils (%) (Auto) 2.1 0.0-7.0 % Basophils (%) (Auto) 0.7 0.0-2.0 % Neutrophils # (Auto) 5.9 1.6-8.6 10 ^3/uL Lymphocytes # (Auto) 1.1 0.4-5.4 10 ^3/uL Monocytes # (Auto) 1.2 0-1.3 10 ^3/uL Eosinophils # (Auto) 0.2 0-0.8 10 ^3/uL Basophils # (Auto) 0.1 0-0.2 10 ^3/uL Nucleated Red Blood Cells 0.0 % Sodium Level 141 136-145 mmol/L Potassium Level 3.3 L 3.5-5.1 mmol/L Chloride Level 105 98-107 mmol/L Carbon Dioxide Level 25 20-31 mmol/L Anion Gap 11 5-15 Blood Urea Nitrogen 32 H 9-23 mg/dL Creatinine 2.01 H 0.700-1.30 mg/dL Glomerular Filtration Rate Calc 32 >90 mL/min BUN/Creatinine Ratio 15.9 10.0-20.0 Serum Glucose 93 74-106 mg/dL Calcium Level 8.7 8.7-10.4 mg/dL B-Type Natriuretic Peptide 2323.16 0-100 pg/mL [facility] [address] [facility] [address] Ph: [phone] DIAGNOSTIC IMAGING Diagnostic Imaging Report : [id number] Signed PATIENT: EDER HALL ACCT: [id number] UNIT: [id number] : 1940 LOC: ER ROOM / BED: / AGE / SEX: 83 / M ADM STATUS: REG ER SERVICE 36 ORDERING PHYSICIAN: LONI GOMEZ MD PROCEDURE(s): CXRP - CHEST PORTABLE REASON: Upper back pain ORDER NUMBER(s): [id number], ACCESSION NUMBER(s): [id number] CHEST RADIOGRAPH Indication: Upper back pain Technique: Single frontal view of the chest was obtained COMPARISON: XY CHEST PORTABLE on DOS: 07/16/24, XY CHEST PORTABLE on DOS: 06/06/24, XY CHEST PORTABLE on DOS: 02/05/24, XY CHEST XRAY 1 VIEW on DOS: 05/15/23, XY CHEST PORTABLE on DOS: 05/10/23 FINDINGS: Lines and Tubes: None. Left anterior chest wall dual lead cardiac pacing device redemonstrated. Lungs: Grossly stable appearing bilateral perihilar and lower lung zone multifocal pulmonary airspace disease. No evidence of focal consolidation. Pleura: No effusion. No pneumothorax. Cardiomediastinal contours: Unremarkable Bones: Unremarkable IMPRESSION: 1. Stable appearing bilateral perihilar and lower lung zone multifocal pulmonary airspace disease. ATED BY: YOBANI MURRY MD DICTATED DATE/TIME: 09/10/242301 SIGNED BY: YOBANI MURRY MD SIGNED DATE/TIME: 09/10/242301 CC: Time of 1ST Reevaluation: 22:45 Reevaluation 1ST: Unchanged Patient Education/Counseling: Treatment, Need For Follow Up Family Education/Counseling: Treatment, Need For Follow Up SEPSIS Sepsis Screen Date sepsis recognized/suspect: Sep 10, 2024 Time Sepsis recognized/suspect: 2217 Recent Procedure: No On Antibiotic Therapy: No Respiratory Rate >20: No Heart Rate >90: No Temp<36 C (96.8 F) or >38.3 C: No SBP <90 or MAP <65 mmHG: No New Acute Mental Status Change: No Is the patient on CPAP, BIPAP,: No Physician Orders Electrocardigram (09/10/24 23:21) Electrocardigram (09/11/24 01:21) Chest Portable (09/10/24 22:37) Heplock Iv (09/10/24 22:37) Titrate Oxygen (09/11/24 01:04) Oxygen (09/11/24 ) Continous Pulse Oximetry (09/11/24 01:04) Saline Lock (09/11/24 01:04) Soda Room Operator (09/11/24 ) Vital Signs Date Time Temp Pulse Resp B/P (MAP) Pulse Ox O2 Delivery O2 Flow Rate FiO2 09/11/24 01:15 100/70 09/10/24 23:20 82 09/10/24 22:31 98.1 82 19 106/66 (79) 99 98.1 09/10/24 22:22 82 Laboratory Tests Test 09/10/24 21:33 White Blood Count 8.4 10^3/uL (4.4-10.8) Departure 1 Departure Time of Disposition: 01:03 Impression: Primary Impression: RUTHANN (acute kidney injury) Additional Impression: Pulmonary edema Disposition: ADMITTED INPATIENT Condition: Stable Comments Patient admitted to hospitalist service for further treatment, evaluation and monitoring. Extensive evaluation was performed in attempt to identify or rule out: (See differential diagnosis section) The following tests were ordered, and results were reviewed by me and discussed with patient: (See diagnostic results section) The following test were independently interpreted by me: EKG I reviewed and agreed with the following test results read by other providers: Chest x-ray I reviewed the following notes from the pt's past medical encounters: June 07, 2024 and July 16, 2024 encounters for acute on chronic CHF. Additional information was gathered from interviewing the following independent historians: Daughter at bedside Decision regarding hospitalization or escalation of hospital level of care: Risk and benefits of admission for further treatment of patient's condition was considered. Due to patient's current clinical condition, high risk of decline and poor outcome if discharged and need for further inpatient management and monitoring, patient will be admitted to the hospital. Critical Care Note Critical Care Time?: No Stability Stability form required: No Heart Score Heart Score: Heart Score Response (Comments) Value History Moderate Suspicious 1 EKG Normal 0 Age >65 2 Risk Factors >3 or Hx ASHD 2 Troponin Normal limit 0 Total 5 I personally scribed for LONI GOMEZ MD ([email or web address]) on 09/10/24 at 23:20. Electronically submitted by Billy Hager ([email or web address]). I personally scribed for LONI GOMEZ MD ([email or web address]) on 09/10/24 at 23:25. Electronically submitted by Billy Hager ([email or web address]). LONI GOMEZ MD Sep 10, 2024 23:20
[2024-09-11] VITALS (13 sets, daily range): BP systolic 90–131; BP diastolic 54–76; PULSE 67–88; RESP 16–19; TEMP 97.3–98.1; O2SAT 92–99
[2024-09-11 00:11] LABS: Chloride 105 mmol/L (98-107); Sodium 141 mmol/L (136-145)
[2024-09-11 00:12] LABS: Anion Gap 11 (5-15); Calcium 8.7 mg/dL (8.7-10.4); Carbon Dioxide 25 mmol/L (20-31)
[2024-09-11 00:16] LABS: Potassium 3.3 mmol/L (3.5-5.1)
[2024-09-11 00:17] LABS: BUN/Creatinine Ratio 15.9 (10.0-20.0); Glucose 93 mg/dL (74-106)
[2024-09-11 00:31] LABS: Blood Urea Nitrogen 32 mg/dL (9-23)
[2024-09-11] MEDS: FUROSEMIDE 40 MG/4 ML VIAL IV ONE (01:15)
[2024-09-11] MEDS ORDERED: ONDANSETRON HCL 4 MG/2 ML VIAL IV PRN (01:30)
[2024-09-11] MEDS: ACETAMINOPHEN 500 MG TAB or CAP PO ONE ×2 (02:21→05:45)
[2024-09-11] MEDS ORDERED: TRAZ-228 PO (04:16)
[2024-09-11] MEDS ORDERED: FER325T PO (04:16)
[2024-09-11] MEDS ORDERED: CLOP75TA28 PO (04:18)
--- NOTE | 2024-09-11 04:47 | DVHHP2 ---
History of Present Illness Reason for Visit: Shortness for breath History of Present Illness 83-year-old male presents for evaluation of shortness for breath. Patient endorses a one-week history of worsening shortness for breath with chest tightness and bilateral lower extremity swelling. Reports orthopnea as well. Reports becoming severely short of breath with mild exertion. No fever or chills. Past Medical History chronic kidney disease, congestive heart failure, CAD, diabetes mellitus, hypertension, mi Past Surgical History AICD, PTCA Family History Noncontributory Smoke: No ALCOHOL: heavy Drugs: None Lives: with Family Review of Systems Review of Systems Review of systems are currently negative otherwise addressed in HPI. Allergies: Coded Allergies: Morphine (Verified Adverse Reaction, Intermediate, 08/29/22) AGITATION,RESTLESSNESS,SEVERE PAIN Medications Current Medications Medications Dose Ordered Sig/David Route Start Time Stop Time Status Last Admin Dose Admin Albuterol 2.5 mg Q6HPRN PRN NEB 09/11/24 01:30 Aspirin 81 mg DAILY PO 09/11/24 10:00 Atorvastatin Calcium 20 mg HS PO 09/11/24 22:00 Carvedilol 3.125 mg Q12HR PO 09/11/24 10:00 Clopidogrel Bisulfate 75 mg DAILY PO 09/11/24 10:00 Digoxin 0.125 mg DAILY PO 09/11/24 10:00 Gabapentin 100 mg TID PO 09/11/24 06:00 Furosemide 20 mg BIDD IV 09/11/24 06:00 Ondansetron HCl 4 mg Q4HP PRN IV 09/11/24 01:30 Acetaminophen 650 mg Q6HP PRN PO 09/11/24 01:30 Tramadol HCl 50 mg Q8HP PRN PO 09/11/24 04:00 Exam Vital Signs Vital Signs Date Time Temp Pulse Resp B/P (MAP) Pulse Ox O2 Delivery O2 Flow Rate FiO2 09/11/24 02:25 80 16 100/70 99 21 09/11/24 02:11 98.0 98.0 09/11/24 02:11 Room Air* 0 Exam Gen: 83-year-old male in mild distress Skin: Warm, dry, normal color and texture, no rash. HEENT: Normocephalic atraumatic, mucous membranes moist and pink. Neck: Cervical and supraclavicular nodes normal without enlargement, trachea is midline, thyroid gland is normal without masses. Pulmonary: Clear to auscultation and percussion bilaterally. Cardiac: Regular rate and rhythm. No murmur Abdomen: Soft, nontender, nondistended, bowel sounds present all 4 quadrants, no guarding, no rigidity, no organomegaly. Extremities: No cyanosis, clubbing, plus two bilateral pedal edema Neuro: Cranial nerves II through XII grossly intact, normal affect and speech, no focal motor deficits. Labs/Xrays ORDERING PHYSICIAN: JAMESON COSTELLO PROCEDURE(s): ECIDC - ECHO 2D MODE CARDIAC DOP REASON: chf exac ORDER NUMBER(s): [id number], ACCESSION NUMBER(s): [id number] APPROVED REPORT EXAM: Two-dimensional and M-mode echocardiogram with Doppler and color Doppler. Blood Pressure: 107/59 mmHg INDICATION CHF Exac RISK FACTORS Height: 5' 2", Weight: 135 DIMENSIONS LVDd 6.1 (3.8-5.7cm) LA (2D) 4.2 (1.9-4.0cm) Aortic Root 3.7 (2.0- 3.7cm) LVDs 5.4 (2.5-4.0cm) LA (MM) (1.9-4.0cm) Aortic Cusp Exc 0.9 (1.5- 2.0cm) EF (%) 25.0 (55-70%) Rt. Atrium 4.5 (1.9-4.0cm) Asc. Aorta cm IVSd 1.0 (0.7-1.1cm) RV (D) (1.8-2.4cm) PWd 1.1 (0.7-1.1cm) Mitral Valve Mitral Mitral Stenosis E wave 1.50m/s MV Mean GR. mmHg A wave 1.20m/s MV Peak GR. mmHg E/A ratio 1.3 2D MVA cm2 Aortic Valve Aortic Valve Aortic Stenosis V1 0.70m/s AO Mean GR. 22mmHg V2 3.00m/s AO Peak GR. 37mmHg LVOT Diameter 2.3 (1.8-2.4cm) Doppler JULY 0.97cm2 AI P 1/2 Time 422.92ms Conclusion SEVERE AV STENOSIS EF <25% LAE PAULINE SIGNED BY: YANIRA CHRISTIANSEN MD SIGNED DATE/TIME: 06/21/24 0009 CC: ORDERING PHYSICIAN: LONI GOMEZ MD PROCEDURE(s): CXRP - CHEST PORTABLE REASON: Upper back pain ORDER NUMBER(s): [id number], ACCESSION NUMBER(s): [id number] CHEST RADIOGRAPH Indication: Upper back pain Technique: Single frontal view of the chest was obtained COMPARISON: XY CHEST PORTABLE on DOS: 07/16/24, XY CHEST PORTABLE on DOS: 06/06/24, XY CHEST PORTABLE on DOS: 02/05/24, XY CHEST XRAY 1 VIEW on DOS: 05/15/23, XY CHEST PORTABLE on DOS: 05/10/23 FINDINGS: Lines and Tubes: None. Left anterior chest wall dual lead cardiac pacing device redemonstrated. Lungs: Grossly stable appearing bilateral perihilar and lower lung zone multifocal pulmonary airspace disease. No evidence of focal consolidation. Pleura: No effusion. No pneumothorax. Cardiomediastinal contours: Unremarkable Bones: Unremarkable IMPRESSION: 1. Stable appearing bilateral perihilar and lower lung zone multifocal pulmonary airspace disease. Labs Test 09/11/24 01:15 09/10/24 21:33 Range/Units Troponin I High Sensitivity 32 </=54 ng/L White Blood Count 8.4 4.4-10.8 10^3/uL Red Blood Count 3.15 L 4.5-5.90 10^6/uL Hemoglobin 9.2 L 13.5-17.5 g/dL Hematocrit 28.4 L 41.0-53.0 % Mean Corpuscular Volume 90.1 80.0-100.0 fL Mean Corpuscular Hemoglobin 29.3 28.0-32.0 pg Mean Corpuscular Hemoglobin Concent 32.6 32.0-36.0 g/dL Red Cell Distribution Width 17.7 H 11.8-14.3 % Platelet Count 279 140-450 10^3/uL Mean Platelet Volume 7.4 6.9-10.8 fL Neutrophils (%) (Auto) 69.7 37.0-80.0 % Lymphocytes (%) (Auto) 12.8 10.0-50.0 % Monocytes (%) (Auto) 14.7 H 0.0-12.0 % Eosinophils (%) (Auto) 2.1 0.0-7.0 % Basophils (%) (Auto) 0.7 0.0-2.0 % Neutrophils # (Auto) 5.9 1.6-8.6 10 ^3/uL Lymphocytes # (Auto) 1.1 0.4-5.4 10 ^3/uL Monocytes # (Auto) 1.2 0-1.3 10 ^3/uL Eosinophils # (Auto) 0.2 0-0.8 10 ^3/uL Basophils # (Auto) 0.1 0-0.2 10 ^3/uL Nucleated Red Blood Cells 0.0 % Sodium Level 141 136-145 mmol/L Potassium Level 3.3 L 3.5-5.1 mmol/L Chloride Level 105 98-107 mmol/L Carbon Dioxide Level 25 20-31 mmol/L Anion Gap 11 5-15 Blood Urea Nitrogen 32 H 9-23 mg/dL Creatinine 2.01 H 0.700-1.30 mg/dL Glomerular Filtration Rate Calc 32 >90 mL/min BUN/Creatinine Ratio 15.9 10.0-20.0 Serum Glucose 93 74-106 mg/dL Calcium Level 8.7 8.7-10.4 mg/dL B-Type Natriuretic Peptide 2323.16 0-100 pg/mL Assessment/Plan Assessment/Plan Assessment Acute on chronic systolic heart failure Acute on chronic kidney disease Diabetes mellitus Hypertension Plan [place] [facility] [place] [place] SALTY Khan Resume home medications Continue treatment per orders Plan discussed with: Patient My Orders Orders - JOSEY KAPLAN AGACNP Procedure Category Date Status Time Albuterol Medneb PHA 09/11/24 In Process (Ventolin Medneb) 01:30 Aspirin Tablet PHA 09/11/24 In Process 10:00 Atorvastatin (Lipitor) PHA 09/11/24 In Process 22:00 Carvedilol Tablet PHA 09/11/24 In Process (Coreg Tablet) 10:00 Clopidogrel Bisulfate PHA 09/11/24 In Process (Plavix) 10:00 Digoxin Tablet PHA 09/11/24 In Process (Lanoxin Tablet) 10:00 Gabapentin Capsule PHA 09/11/24 In Process (Neurontin Capsule) 06:00 Furosemide Injection PHA 09/11/24 In Process (Lasix Injection) 06:00 Basic Metabolic Panel LAB 09/12/24 Verified 04:00 Admit ADMIT 09/11/24 Transmitted 01:19 Ondansetron Hcl PHA 09/11/24 In Process (Zofran) 01:30 Cardiac DIET 09/11/24 Transmitted Diet-2gna,Lofat,Lochol Breakfast Condition: Stable JALYN 09/11/24 In Process 01:19 Acetaminophen Tablet PHA 09/11/24 In Process (Tylenol Tablet) 01:30 Bedrest With Bathroom JALYN 09/11/24 In Process Privileg 01:19 Tramadol Hcl (Ultram) PHA 09/11/24 In Process 04:00 Date of Service: Sep 11, 2024 Billing Provider: JOSEY KAPLAN Common Visit Codes: [id number] INP/OBS CARE (HIGH) JOSEY KAPLAN Sep 11, 2024 04:47
[2024-09-11] MEDS: GABAPENTIN 100 MG CAP PO SCH (06:00)
[2024-09-11] MEDS: FUROSEMIDE 20 MG/2 ML VIAL IV SCH (06:00)
[2024-09-11] MEDS: CARVEDILOL 3.125 MG TAB PO SCH (10:00)
[2024-09-11] MEDS: DIGOXIN 0.125 MG TAB PO SCH (10:11)
[2024-09-11] MEDS: CLOPIDOGREL BISULFATE 75 MG TAB PO SCH (10:11)
[2024-09-11] MEDS: ALBUTEROL SULF 2.5 MG/0.5ML(0.5%) NEB SOLN NEB PRN (14:37)
--- NOTE | 2024-09-11 14:50 | DVHPN2 ---
Subjective Patient states that he has improvement with his breathing. Reports constipation. Reviewed: Care Plan, H&P, Labs, Medications Changes from previous H/P or p: No Changes General: Per HPI Objective Vitals Vital Signs Date Time Temp Pulse Resp B/P (MAP) Pulse Ox O2 Delivery O2 Flow Rate FiO2 09/11/24 14:40 81 18 98 09/11/24 14:30 Room Air 0.0 09/11/24 14:30 21 09/11/24 10:00 97/58 09/11/24 09:00 97.4 97.4 Intake/Output Intake and Output 09/11/24 07:00 Intake Total 200 ml Balance 200 ml Intake Oral 200 ml General Appearance: Alert, Oriented X3, Cooperative, mild distress HEENT: Atraumatic, PERRLA Lungs: Clear to auscultation, Normal air movement Cardiovascular: Normal S1, Normal S2 Abdomen: Normal bowel sounds, Soft, No tenderness Musculoskeletal: Normal sensory function, Normal motor function Neuro: Normal gait, Normal speech Skin: Dry, Intact Psych/Mental Status: Mental status NL, Mood NL Medications Current Medications Medications Dose Ordered Sig/David Route Start Time Stop Time Status Last Admin Dose Admin Albuterol 2.5 mg Q6HPRN PRN NEB 09/11/24 01:30 09/11/24 14:37 2.5 MG Aspirin 81 mg DAILY PO 09/11/24 10:00 09/11/24 10:11 81 MG Atorvastatin Calcium 20 mg HS PO 09/11/24 22:00 Carvedilol 3.125 mg Q12HR PO 09/11/24 10:00 Clopidogrel Bisulfate 75 mg DAILY PO 09/11/24 10:00 09/11/24 10:11 75 MG Digoxin 0.125 mg DAILY PO 09/11/24 10:00 09/11/24 10:11 0.125 MG Gabapentin 100 mg TID PO 09/11/24 06:00 09/11/24 14:19 100 MG Furosemide 20 mg BIDD IV 09/11/24 06:00 09/11/24 06:00 20 MG Ondansetron HCl 4 mg Q4HP PRN IV 09/11/24 01:30 Acetaminophen 650 mg Q6HP PRN PO 09/11/24 01:30 Tramadol HCl 50 mg Q8HP PRN PO 09/11/24 04:00 09/11/24 06:38 50 MG Laboratory Results Laboratory Tests 09/10/24 21:33 Chemistry Test 09/10/24 21:33 Calcium Level 8.7 mg/dL (8.7-10.4) Cardiac Markers Test 09/10/24 21:33 B-Type Natriuretic Peptide 2323.16 pg/mL (0-100) Labs and/or images reviewed: Labs reviewed by me, Image(s) reviewed by me Assessment/Plan Assessment/Plan Impression: -acute decompensated systolic heart failure -severe aortic stenosis -acute kidney injury, vasomotor nephropathy -acute hypoxic respiratory failure secondary to pulmonary vascular congestion -diabetes mellitus -history of coronary artery disease with stent placement -AICD placement Plan: -continue IV diuresis -add Jardiance -regular insulin sliding scale -bowel regimen -potassium replacement -repeat labs and chest x-ray in a.m. Total time spent with patient discussing and formulating plan of care: 35 minutes. This medical document was created using an electronic medical record system with [employer] dictation system. Although this document has been carefully reviewed, there may still be some phonetic and typographical errors. These areas are purely typographical due to imperfections of the software programs, and do not reflect any compromise in the patient's medical care. Plan discussed with: Patient, Other (RN) My Orders Orders - PRATIBHA LUIS NP Procedure Category Date Status Time Empagliflozin PHA 09/12/24 Transmitted (Jardiance) 10:00 Potassium Effervesent PHA 09/11/24 Transmitted Tab (Klor-Con/Ef) 14:45 Basic Metabolic Panel LAB 09/12/24 Verified 04:00 Magnesium LAB 09/12/24 Verified 04:00 Chest Portable XY 09/12/24 Verified 04:00 Date of Service: Sep 11, 2024 Billing Provider: PRATIBHA LUIS NP Common Visit Codes: [id number] INP/OBS CARE(HIGH) PRATIBHA LUIS NP Sep 11, 2024 14:50
[2024-09-11] MEDS: POTASSIUM EFFERVESENT TAB 25 MEQ PO ONE (16:11)
[2024-09-11] MEDS: LACTULOSE 20Gm/30ML SOLN PO ONE (16:11)
[2024-09-11] MEDS: DOCUSATE SOD 100 MG CAP PO SCH (22:05)
[2024-09-11] MEDS: ATORVASTATIN 20 MG TAB PO SCH (22:10)
[2024-09-11] MEDS: ACETAMINOPHEN 325 MG TAB PO PRN (22:10)
[2024-09-12] VITALS (7 sets, daily range): BP systolic 91–113; BP diastolic 56–73; PULSE 74–85; RESP 17–19; TEMP 97.5–98; O2SAT 95–97
--- NOTE | 2024-09-12 06:24 | DVH ---
CHEST RADIOGRAPH Indication: chf Technique: Single frontal view of the chest was obtained Comparison: XY CHEST PORTABLE on DOS: 09/10/24 FINDINGS: Lines and Tubes: AICD noted. Lungs: Diffuse bilateral pulmonary opacities. Pleura: No effusion. No pneumothorax. Cardiomediastinal contours: Cardiomegaly. Bones: No acute osseous abnormality. IMPRESSION: 1. Diffuse bilateral pulmonary opacities similar to prior study. 2. Cardiomegaly.
[2024-09-12 06:50] LABS: Chloride 105 mmol/L (98-107); Sodium 142 mmol/L (136-145)
[2024-09-12 06:51] LABS: Anion Gap 10 (5-15); Calcium 8.7 mg/dL (8.7-10.4); Carbon Dioxide 27 mmol/L (20-31)
[2024-09-12 06:56] LABS: BUN/Creatinine Ratio 19.5 (10.0-20.0); Glucose 90 mg/dL (74-106)
[2024-09-12 06:57] LABS: Blood Urea Nitrogen 31 mg/dL (9-23); Magnesium 2.3 mg/dL (1.6-2.6); Potassium 3.4 mmol/L (3.5-5.1)
[2024-09-12] MEDS: EMPAGLIFLOZIN 10 MG TAB PO SCH (10:25)
--- NOTE | 2024-09-12 13:51 | DVHDS2 ---
Discharge Summary Date of Admission Sep 11, 2024 at 01:19 Date of Discharge: Sep 12, 2024 Admitting Diagnosis Acute on chronic systolic heart failure Labs/Diagnostic Data: Laboratory Results Test 09/12/24 05:52 09/11/24 01:15 09/10/24 21:33 Sodium Level 142 mmol/L (136-145) Potassium Level 3.4 mmol/L (3.5-5.1) Chloride Level 105 mmol/L (98-107) Carbon Dioxide Level 27 mmol/L (20-31) Anion Gap 10 (5-15) Blood Urea Nitrogen 31 mg/dL (9-23) Creatinine 1.59 mg/dL (0.700-1.30) Glomerular Filtration Rate Calc 43 mL/min (>90) BUN/Creatinine Ratio 19.5 (10.0-20.0) Serum Glucose 90 mg/dL (74-106) Calcium Level 8.7 mg/dL (8.7-10.4) Magnesium Level 2.3 mg/dL (1.6-2.6) Troponin I High Sensitivity 32 ng/L (</=54) White Blood Count 8.4 10^3/uL (4.4-10.8) Red Blood Count 3.15 10^6/uL (4.5-5.90) Hemoglobin 9.2 g/dL (13.5-17.5) Hematocrit 28.4 % (41.0-53.0) Mean Corpuscular Volume 90.1 fL (80.0-100.0) Mean Corpuscular Hemoglobin 29.3 pg (28.0-32.0) Mean Corpuscular Hemoglobin Concent 32.6 g/dL (32.0-36.0) Red Cell Distribution Width 17.7 % (11.8-14.3) Platelet Count 279 10^3/uL (140-450) Mean Platelet Volume 7.4 fL (6.9-10.8) Neutrophils (%) (Auto) 69.7 % (37.0-80.0) Lymphocytes (%) (Auto) 12.8 % (10.0-50.0) Monocytes (%) (Auto) 14.7 % (0.0-12.0) Eosinophils (%) (Auto) 2.1 % (0.0-7.0) Basophils (%) (Auto) 0.7 % (0.0-2.0) Neutrophils # (Auto) 5.9 10 ^3/uL (1.6-8.6) Lymphocytes # (Auto) 1.1 10 ^3/uL (0.4-5.4) Monocytes # (Auto) 1.2 10 ^3/uL (0-1.3) Eosinophils # (Auto) 0.2 10 ^3/uL (0-0.8) Basophils # (Auto) 0.1 10 ^3/uL (0-0.2) Nucleated Red Blood Cells 0.0 % B-Type Natriuretic Peptide 2323.16 pg/mL (0-100) Other Laboratory Tests 09/12/24 05:52 09/10/24 21:33 Brief Hx & Hospital Course: History of Present Illness 83-year-old male presents for evaluation of shortness for breath. Patient endorses a one-week history of worsening shortness for breath with chest tightness and bilateral lower extremity swelling. Reports orthopnea as well. R eports becoming severely short of breath with mild exertion. No fever or chills. Course of hospitalization: Patient was started on IV diuresis, guideline directed medical therapy, as well as continuation as dual antiplatelet therapy. Troponin level noted to be negative x2. Patient was noted to have elevated BNP at 2323. Today, patient is able to ambulate with minimal dyspnea. Patient is at his baseline NYHA scale of two. Patient was agreeable to be discharged home and follow up with his PCP in 1-2 weeks. Patient states that he has not missed any medications, has adequate medication at this time. Patient also reports that his diet has not changed. At this time he is instructed to monitor any signs of weight gain including shortness of breath and swelling to his lower extremities. Both patient and family are agreeable with discharge plan. All questions answered. Physical examination General: Alert and Oriented x3. No acute distress. Well-nourished. Eyes: EOMI. Anicteric. HENT: Moist mucous membranes. Lungs: Clear to auscultation bilaterally. No accessory muscle use. Cardiovascular: Regular rate and rhythm. No murmur. No JVD. Abdomen: Soft, non-tender and non-distended. No palpable masses. Extremities: No edema. Non-tender. Skin: No rashes or lesions. Warm. Neurologic: No focal neurological deficits. CN II-XII grossly intact, but not individually tested. Psychiatric: Cooperative. Appropriate mood and affect. Total time spent with patient discussing and formulating plan of care: 35 minutes. This medical document was created using an electronic medical record system with [employer] dictation system. Although this document has been carefully reviewed, there may still be some phonetic and typographical errors. These areas are purely typographical due to imperfections of the software programs, and do not reflect any compromise in the patient's medical care. Condition at Discharge: Guarded Final Diagnosis/Problems List Acute on chronic decompensated systolic heart failure Secondary diagnosis: -severe aortic stenosis -acute kidney injury, vasomotor nephropathy -acute hypoxic respiratory failure secondary to pulmonary vascular congestion -diabetes mellitus -history of coronary artery disease with stent placement -AICD placement Discharge Disposition: Home Discharge Instruct/Medications Diet: Cardiac 2g Na,low cholest Activity: No Restrictions, As Tolerated Follow Up/Referral: Follow up with PCP, Dr. New in 1-2 weeks Medications: Continue all home medications Scheduled Albuterol Sulfate (Albuterol Sulfate), 1 VIAL NEB Q4HPRN Aspirin (Aspirin Low Dose), 1 TAB PO DAILY, (Reported) Atorvastatin Calcium (Lipitor), 1 TAB PO DAILY, (Reported) Bumetanide (Bumex Tablet), 1 MG PO BIDD Carvedilol (Coreg), 3.125 MG PO Q12HR Clopidogrel Bisulfate (Clopidogrel), 1 TAB PO DAILY, (Reported) Clopidogrel Bisulfate (Plavix), 1 TAB PO DAILY, (Reported) Diclofenac Sodium (Topical) (Diclofenac Sodium), 2 % EX UD, (Reported) Digoxin (Digoxin), 1 TAB PO DAILY, (Reported) Ferrous Sulfate (Ferrous Sulfate), 1 TAB PO DAILY, (Reported) Finasteride (Finasteride), 5 MG PO DAILY, (Reported) Gabapentin (Gabapentin), 1 CAP PO TID, (Reported) Lidocaine (Ztlido), 1 PATCH EX DAILY, (Reported) Lidocaine (Lidoderm 5% Topical Patch), 1 PATCH TOP DAILY Losartan Potassium (Losartan Potassium), 50 MG PO DAILY, (Reported) Trazodone Hcl (Trazodone Hcl), 1 TAB PO QPM, (Reported) Scheduled PRN Cyclobenzaprine Hcl (Cyclobenzaprine Hcl), 1 TAB PO TID PRN 36 Discharge Statement: "Patient was advised to return to the ER or call 911 if any headaches, dizziness, shortness of breath, chest pain, abdominal pain, bleeding, fevers, or worsening of medical condition. Patient was counseled about treatment plan, medications, possible side effects, patientverbalized understanding. All questions were answered to the best of my ability. This discharge took greater then 30 minutes in planning, reviewing documentation, counseling the patient, and discussing with other team members." ASSESSMENT ASSESSMENT Assessment Acute on chronic decompensated systolic heart failure Date of Service: Sep 12, 2024 Billing Provider: PRATIBHA LUIS NP Common Visit Codes: 89795-YWD/OBS DISCH DAY >30min PRATIBHA LUIS NP Sep 12, 2024 13:51
== END 2024-09-12 16:13 | disposition home or self-care (01) | DRG 291 ==
LOC: ER 22:14 → OVERFLOW 09-11 01:19 → EAST 09-11 02:59
PROVIDERS: ADMIT Nurse Practitioner Acute Care; ATTEND Nurse Practitioner Acute Care
DX: I13.0 Hypertensive heart and chronic kidney disease with heart failure and stage 1 through stage 4 chronic kidney disease, or unspecified chronic kidney disease (principal); I50.23 Acute on chronic systolic (congestive) heart failure; J96.01 Acute respiratory failure with hypoxia; N17.0 Acute kidney failure with tubular necrosis; I35.0 Nonrheumatic aortic (valve) stenosis; N18.9 Chronic kidney disease, unspecified; E11.22 Type 2 diabetes mellitus with diabetic chronic kidney disease; E78.5 Hyperlipidemia, unspecified; K59.00 Constipation, unspecified; I25.10 Atherosclerotic heart disease of native coronary artery without angina pectoris; Z95.810 Presence of automatic (implantable) cardiac defibrillator; I25.2 Old myocardial infarction; Z95.5 Presence of coronary angioplasty implant and graft
CPT/HCPCS: 36415; 71045; 80048; 83735; 83880; 84484; 85025; 93005; 94640; 96374; G0378

== ENCOUNTER 2024-09-18 23:03 | Emergency (ER) | payer OTHER ==
[~2024-09-18] VITALS: Ht 157.5 cm; Wt 58.0 kg
[~2024-09-18 23:03] MED LIST changes: -CIP500T PO; +CLOP75TA28 PO; +FER325T PO; +TRAZ-228 PO
[2024-09-18 23:20] VITALS: TEMP 97.3
--- NOTE | 2024-09-19 00:25 | ED.PDOC ---
SOB-HPI HPI Comments 83 year old presents to the ED with a chief complaint of shortness of breath onset 1 week. Patient;s daughter states he has been experiencing intermittent shortness of breath for the past week, worsens when laying down. Patient was discharged from [facility] on 09/12/24 with prescription for Lasix, was seen by PCP on 09/16/24. Patient is currently taking Bumex 1 mg twice a day. Daughter states patient has slight BLE swelling when he was discharged, for the past day noticed swelling has worsen. PMHx CAD, CHF, AZ, DM ,HTN, DM, HLD. Denies chest pain, headache, dizziness, nausea, vomiting, abdominal pain, nausea, vomiting, diarrhea, cough, congestion, sore throat, dysuria, hematuria, hematemesis. No other symptoms or modifying factors present at this time. Chief Complaint: Shortness of Breath Time Seen by MD: 00:10 Primary Care Provider: srinivas Reviewed notes: Medications, Allergies Information Source: Patient, Relative (Child) Mode of Arrival: EMS Severity: Moderate Timing: Weeks Duration: Intermittent Context: While Asleep PE Risk Factors: None History of: CHF Prehospital treatment: None Modifying Factors: Nothing Associated Signs and Symptoms: Leg Swelling Vital Signs Vital Signs Date Time Temp Pulse Resp B/P (MAP) Pulse Ox O2 Delivery O2 Flow Rate FiO2 09/19/24 02:31 142/82 09/19/24 02:24 73 18 94 09/18/24 23:20 97.3 97.3 Physical Exam PHYSICAL EXAM: General: Awake, alert and oriented. No acute distress. Skin: Skin in warm, dry and intact. Appropriate color for ethnicity. HEENT: The head is normocephalic and atraumatic. Conjunctivae are clear without exudates or hemorrhage. Sclera is non-icteric. EOM are intact. No signs of nystagmus. Eyelids are normal in appearance without swelling or lesions. Oral mucosa is pink and moist Neck: The neck is supple with normal range of motion. No JVD. Cardiac: Heart rate and rhythm are normal. No murmurs, gallops, or rubs are auscultated. Respiratory: No signs of respiratory distress. Patient ambulates without difficulty using walker without signs of dyspnea. Minimal rales on exam. Abdominal: Abdomen is soft, non-tender without distention, guarding or rigidity. Bowel sounds are present and normoactive in all four quadrants. Extremities: Bilateral pedal edema noted. Neurological: The patient is awake, alert and oriented to person, place, and time with normal speech. Speech is clear. There is no facial asymmetry. Review of Systems: REVIEW OF SYSTEMS: General: No fever, no chills, or fatigue HEENT: No sore throat, no earache, no congestion, no neck pain. Cardiac: No chest pain. No palpitations. Lungs: Positive for orthopnea. No cough. No dyspnea on exertion. GI: No nausea, no vomiting, no diarrhea, no constipation, no abdominal pain : No dysuria, frequency, or urgency. No hematuria. Musculoskeletal: Bilateral pedal edema. Skin: No rash, no itching. Neuro: No headache, no dizziness, no weakness Past Medical History PAST MEDICAL HISTORY: CAD, CHF, CKF, DM, High Lipids, HTN, AZ Surgical History: PTCA Family History Family History: Reviewed,noncontributory to illness Social History Smoker: Non-Smoker Alcohol: Rarely Drugs: Denies Drug Use Lives In: Home EKG EKG : Comments Paced rhythm at a rate of 78. No STEMI. Was a procedure done? Was a procedure done?: No Differential Dx Differential Diagnosis: Other (Differential diagnoses considered includebut arenot limited to acute Bronchitis, Asthma, COPD, Pneumothorax, PE, CHF, Pulmonary HTN, Anemia, CO Poisoning, Methemoglobinemia, Hyperventilation, Metabolic Acidosis, Pulmonary Edema, Pneumonia, ACS, Pericardial Tamponade, Anxiety, other) X-Ray, Labs, Meds, VS Vital Signs Date Time Temp Pulse Resp B/P (MAP) Pulse Ox O2 Delivery O2 Flow Rate FiO2 09/19/24 02:31 142/82 09/19/24 02:24 73 18 93/55 (68) 94 09/19/24 00:33 78 09/18/24 23:24 79 09/18/24 23:20 97.3 80 18 97/57 (70) 95 97.3 Lab Test 09/19/24 00:30 Range/Units Troponin I High Sensitivity 23 </=54 ng/L B-Type Natriuretic Peptide 2135.40 0-100 pg/mL Current Medications Medications (Trade) Dose Ordered Sig/David Route Start Time Stop Time Status Last Admin Bumetanide (Bumex Tablet) 1 mg ONCE ONCE PO 09/19/24 00:45 09/19/24 01:25 DC 09/19/24 02:31 Potassium Chloride (Klor-Con Tablet) 40 meq ONCE ONCE PO 09/19/24 00:45 09/19/24 01:25 DC 09/19/24 02:31 Acetaminophen (Tylenol Tablet Or Capsule) 1,000 mg ONCE ONCE PO 09/19/24 02:30 09/19/24 02:31 DC 09/19/24 02:31 [place] [id number] Ph: [phone] DIAGNOSTIC IMAGING Diagnostic Imaging Report : [id number] Signed PATIENT: EDER HALL ACCT: [id number] UNIT: [id number] : 1940 LOC: ER ROOM / BED: / AGE / SEX: 83 / M ADM STATUS: REG ER SERVICE 001 ORDERING PHYSICIAN: LONI GOMEZ MD PROCEDURE(s): CXR1 - CHEST XRAY 1 VIEW REASON: Shortness of breath ORDER NUMBER(s): [id number], ACCESSION NUMBER(s): [id number] CHEST RADIOGRAPH Indication: Shortness of breath Technique: Single frontal view of the chest was obtained COMPARISON: XY CHEST PORTABLE on DOS: 09/12/24, XY CHEST PORTABLE on DOS: 09/10/24, XY CHEST PORTABLE on DOS: 07/16/24, XY CHEST PORTABLE on DOS: 06/06/24, XY CHEST PORTABLE on DOS: 02/05/24 FINDINGS: Lines and Tubes: None. Left anterior chest wall cardiac pacing device. Lungs: Small left pleural effusion. Diffuse bilateral pulmonary airspace disease within the left perihilar mid lung and lower lung zone as well as within the right lung base. No pneumothorax. Cardiomediastinal contours: Unremarkable Bones: Unremarkable IMPRESSION: 1. Diffuse multifocal pulmonary airspace disease within the left perihilar mid lung and lower lung zone and right lung base. 2. Small left pleural effusion. ATED BY: YOBANI NATION MD DICTATED DATE/TIME: 09/19/24 0048 SIGNED BY: YOBANI NATION MD SIGNED DATE/TIME: 09/19/24 0048 CC: Time of 1ST Reevaluation: 00:40 Reevaluation 1ST: Unchanged Patient Education/Counseling: Need For Follow Up Family Education/Counseling: Need For Follow Up SEPSIS Sepsis Screen Date sepsis recognized/suspect: Sep 18, 2024 Time Sepsis recognized/suspect: 2319 Recent Procedure: No On Antibiotic Therapy: No Respiratory Rate >20: No Heart Rate >90: No Temp<36 C (96.8 F) or >38.3 C: No SBP <90 or MAP <65 mmHG: No New Acute Mental Status Change: No Is the patient on CPAP, BIPAP,: Yes Physician Orders Electrocardigram (09/18/24 23:45) Chest Xray 1 View (09/19/24 00:14) Vital Signs Date Time Temp Pulse Resp B/P (MAP) Pulse Ox O2 Delivery O2 Flow Rate FiO2 09/19/24 02:31 142/82 09/19/24 02:24 73 18 93/55 (68) 94 09/19/24 00:33 78 09/18/24 23:24 79 09/18/24 23:20 97.3 80 18 97/57 (70) 95 97.3 Medications Medications Dose Ordered Sig/David Route Start Time Stop Time Status Last Admin Dose Admin Acetaminophen 1,000 mg ONCE ONCE PO 09/19/24 02:30 09/19/24 02:31 DC 09/19/24 02:31 Bumetanide 1 mg ONCE ONCE PO 09/19/24 00:45 09/19/24 01:25 DC 09/19/24 02:31 Potassium Chloride 40 meq ONCE ONCE PO 09/19/24 00:45 09/19/24 01:25 DC 09/19/24 02:31 Departure 1 Departure Time of Disposition: 02:36 Impression: Primary Impression: Shortness of breath Additional Impression: Congestive heart failure Disposition: 01 HOME / SELF CARE / HOMELESS Condition: Stable Additional Instructions: ED DISCHARGE INSTRUCTIONS Instructions: Please read all instructions provided in this packet carefully. Taken extra 0.5 mg (half tablet) of Bumex at night for a total of 1.5 mg at night and 1 mg in the morning for the next 5 days. Follow up with the primary care provider for re-evaluation. Although you have been discharged from the Emergency Department, this does not mean that you have a "clean bill of health". No definitive diagnosis for your symptoms has been made today. It is possible that you are in the process of developing a serious illness. This is why you must return to the ED without fail if any new or worsening symptoms (especially if your symptoms include chest pain, trouble breathing, abdominal pain, fever, headache, confusion, trouble seeing, or trouble walking) It is also very important that you see a primary care provider (PCP) within the next 1-3 days to follow up. If you are unable to get an appointment, return to the ED for re-evaluation. SHORTNESS OF BREATH EDUCATION Shortness of breath has many causes. Sometimes conditions such as anxiety can lead to shortness of breath. Some people get mild shortness of breath when they exercise. Trouble breathing also can be a symptom of a serious problem, such as asthma, lung disease, emphysema, heart problems, and pneumonia. If your shortness of breath continues, you may need tests and treatment. Watch for any changes in your breathing and other symptoms. Follow-up care is a moralez part of your treatment and safety. Be sure to make and go to all appointments, and call your doctor if you are having problems. It's also a good idea to know your test results and keep a list of the medicines you take. How can you care for yourself at home? Do not smoke or allow others to smoke around you. If you need help quitting, talk to your doctor about stop-smoking programs and medicines. These can increase your chances of quitting for good. Get plenty of rest and sleep. Take your medicines exactly as prescribed. Call your doctor if you think you are having a problem with your medicine. Find healthy ways to deal with stress. Exercise daily. Get plenty of sleep. Eat regularly and well. When should you call for help? Call 911 anytime you think you may need emergency care. For example, call if: You have severe shortness of breath. You have symptoms of a heart attack. These may include: Chest pain or pressure, or a strange feeling in the chest. Sweating. Shortness of breath. Nausea or vomiting. Pain, pressure, or a strange feeling in the back, neck, jaw, or upper belly or in one or both shoulders or arms. Lightheadedness or sudden weakness. A fast or irregular heartbeat. After you call 911, the bus system operator may tell you to chew 1 adult-strength or 2 to 4 low-dose aspirin. Wait for an ambulance. Do not try to drive yourself. Call your doctor now or seek immediate medical care if: Your shortness of breath gets worse or you start to wheeze. Wheezing is a high- pitched sound when you breathe. You wake up at night out of breath or have to prop your head up on several pillows to breathe. You are short of breath after only light activity or while at rest. Watch closely for changes in your health, and be sure to contact your doctor if: You do not get better over the next 1 to 2 days. Credits for Shortness of Breath: Care Instructions Current as of: October 04, 2023 Author: [employer] Staff e-Prescriptions Bumetanide (Bumex Tablet) 1 Mg Tab 0.5 MG PO HS for 5 Days, #3 TAB BLK BX WARNING-CAN LEAD TO PROFOUND DIURESIS WITH FLUID- ELECTROLYTE LOSS Prov: LONI GOMEZ MD 09/19/24 Comments MDM: 83-year-old male with a history of CHF. Patient recently admitted to this facility. BNP not worse than usual. Chest x-ray not worsening usual. Patient is not hypoxic or in respiratory distress. Discussed with daughter and patient option for admission for further observation or discharge home with treatment. Patient discharged with short course of increased dose of Bumex for home. PATIENT'S DAUGHTER ELOPED WITH THE PATIENT PRIOR TO RECEIVING DISCHARGE PAPERWORK. Extensive evaluation was performed in attempt to identify or rule out: (See differential diagnosis section) The following tests were ordered, and results were reviewed by me and discussed with patient and daughter: (See diagnostic results section) The following test were independently interpreted by me: EKG I reviewed and agreed with the following test results read by other providers: N/A I reviewed the following notes from the pt's past medical encounters: Yes, most recent admission Additional information was gathered from interviewing the following independent historians: Patient's daughter at bedside Decision regarding hospitalization or escalation of hospital level of care: Risks and benefits of admission for further treatment of patient's condition was considered however due to patient's stable condition patient will be discharged to follow up closely or return to care for worsening of condition or inability to follow up. Critical Care Note Critical Care Time?: No Stability Stability form required: No Heart Score Heart Score: Heart Score Response (Comments) Value History N/A 0 EKG N/A 0 Age N/A 0 Risk Factors N/A 0 Troponin N/A 0 Total 0 I personally scribed for LONI GOMEZ MD ([email or web address]) on 09/19/24 at 00:25. Electronically submitted by Ivone Cedeno ([email or web address]). I personally scribed for LONI GOMEZ MD ([email or web address]) on 09/19/24 at 02:42. Electronically submitted by Ivone Cedeno ([email or web address]). LONI GOMEZ MD Sep 19, 2024 00:25
--- NOTE | 2024-09-19 00:51 | DVH ---
CHEST RADIOGRAPH Indication: Shortness of breath Technique: Single frontal view of the chest was obtained COMPARISON: XY CHEST PORTABLE on DOS: 09/12/24, XY CHEST PORTABLE on DOS: 09/10/24, XY CHEST PORTABLE on DOS: 07/16/24, XY CHEST PORTABLE on DOS: 06/06/24, XY CHEST PORTABLE on DOS: 02/05/24 FINDINGS: Lines and Tubes: None. Left anterior chest wall cardiac pacing device. Lungs: Small left pleural effusion. Diffuse bilateral pulmonary airspace disease within the left per ihilar mid lung and lower lung zone as well as within the right lung base. No pneumothorax. Cardiomediastinal contours: Unremarkable Bones: Unremarkable IMPRESSION: 1. Diffuse multifocal pulmonary airspace disease within the left perihilar mid lung and lower lung zo ne and right lung base. 2. Small left pleural effusion.
--- NOTE | 2024-09-19 01:33 | ECG ---
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
[2024-09-19 02:24] VITALS: BP 93/55; PULSE 73; RESP 18; O2SAT 94
[2024-09-19] MEDS: BUMETANIDE 1 MG TAB PO ONE (02:31)
[2024-09-19] MEDS: ACETAMINOPHEN 500 MG TAB or CAP PO ONE (02:31)
[2024-09-19] MEDS: POTASSIUM CHL 20 Meq TABLET PO ONE (02:31)
[2024-09-19] MEDS ORDERED: BUM1T PO (02:38)
--- NOTE | 2024-09-19 06:37 | ECG ---
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
== END 2024-09-19 02:40 | disposition home or self-care (01) ==
LOC: ER 23:03
DX: I11.0 Hypertensive heart disease with heart failure (principal); I50.9 Heart failure, unspecified; R06.02 Shortness of breath; I25.10 Atherosclerotic heart disease of native coronary artery without angina pectoris; E11.9 Type 2 diabetes mellitus without complications; E78.5 Hyperlipidemia, unspecified; I25.2 Old myocardial infarction; Z79.899 Other long term (current) drug therapy
CPT/HCPCS: 36415; 71045; 83880; 84484; 93005

== ENCOUNTER 2024-10-02 10:54 | Inpatient (IN) | payer OTHER ==
[~2024-10-02] VITALS: Ht 157.5 cm; Wt 58.0 kg
[2024-10-02] VITALS (27 sets, daily range): BP systolic 84–117; BP diastolic 49–70; PULSE 68–95; RESP 14–31; TEMP 97.6–98.2; O2SAT 85–99
--- NOTE | 2024-10-02 11:17 | ED.PDOC ---
History of Present Illness HPI Comments An 84 year-old male, BIB son, presents to the ED via wheelchair with a chief complaint of lower back pain with associated left upper back pain, SOB, and bilateral leg swelling. Patient reports back pain has been constant as of years ago, but came to the ED upon worsening symptoms with additional bilateral leg swelling and SOB which started today. Patient has a PMHX of HTN, Hyperlipidemia, Heart Attack, Kidney Disease, and Arthritis. Per son, patient is retaining water as observed by the swelling to bilateral legs. Patient has no further complaints at this time and otherwise denies further associated symptoms of N/V, chest pain, dizziness, general weakness, migraine, numbness, or tingling. 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 Prov:LONI GOMEZ MD 09/19/24 Lidocaine (LIDODERM 5% TOPICAL PATCH) 1 Patch Ph, 1 PATCH TOP DAILY for 7 Days, #14 PATCH Prov:RAPHAEL ISAACS MD 06/10/24 Cyclobenzaprine Hcl (Cyclobenzaprine Hcl) 5 Mg Tab, 1 TAB PO TID PRN, #30 TAB Prov:EMELY WHEELER 10/27/22 Albuterol Sulfate (Albuterol Sulfate) 0.083 % Neb, 1 VIAL NEB Q4HPRN, #50 VIAL Prov:NATE GUTIERREZ MD 03/26/22 Carvedilol (COREG) 3.125 Mg Tab, 3.125 MG PO Q12HR for 30 Days, #60 TAB Prov:REINALDO RUSSELL MD 03/25/22 Bumetanide (Bumex Tablet) 1 Mg Tab, 1 MG PO BIDD for 30 Days, #60 TAB Prov:REINALDO RUSSELL MD 03/25/22 Reported Medications Clopidogrel Bisulfate (Plavix) 75 Mg Tab, 1 TAB PO DAILY, #90 TAB 1 Refill 09/11/24 Trazodone Hcl (Trazodone Hcl) 100 Mg Tab, 1 TAB PO QPM, #30 TAB 1 Refill 09/11/24 Ferrous Sulfate (FERROUS SULFATE) 325 Mg Tb, 1 TAB PO DAILY, #30 TAB 3 Refills 09/11/24 Aspirin (Aspirin Low Dose) 81 Mg Tab, 1 TAB PO DAILY 06/07/24 Diclofenac Sodium (Topical) (Diclofenac Sodium) 2 % Lorenza, 2 % EX UD for 30 Days, #112 02/08/24 Atorvastatin Calcium (Lipitor) 20 Mg Tab, 1 TAB PO DAILY for 90 Days, #90 02/08/24 Gabapentin (Gabapentin) 100 Mg Cap, 1 CAP PO TID for 30 Days, #90 02/06/24 Clopidogrel Bisulfate (CLOPIDOGREL) 75 Mg Tab, 1 TAB PO DAILY for 90 Days, #90 02/06/24 Digoxin (Digoxin) 125 Mcg Tab, 1 TAB PO DAILY for 90 Days, #90 02/06/24 Lidocaine (Ztlido) 1.8 % Pad, 1 PATCH EX DAILY for 30 Days, #30 02/06/24 Losartan Potassium (Losartan Potassium) 50 Mg Tab, 50 MG PO DAILY for 30 Days, MG 05/10/23 Finasteride (Finasteride) 5 Mg Tab, 5 MG PO DAILY, TAB 05/10/23 Information Source: Patient, Relative (Child) Mode of Arrival: Wheelchair Severity: Moderate Timing: Hours Duration: Since onset Prehospital treatment: None Associated signs and symptoms Lower back pain with associated left upper back pain. Patient reports coming to the ED upon worsening symptoms, with associated bilateral leg swelling and SOB. Past Medical History PAST MEDICAL HISTORY: CAD, CHF, CKF, DM, High Lipids, HTN, NV Surgical History: PTCA Family History Family History: Reviewed,noncontributory to illness Social History Smoker: Non-Smoker Alcohol: Rarely Drugs: Denies Drug Use Lives In: Home Constitutional: denies: chills, diaphoresis, fatigue, fever, malaise, sweats, weakness, others EENTM: denies: blurred vision, double vision, ear bleeding, ear discharge, ear drainage, ear pain, ear ringing, eye pain, eye redness, hearing loss, mouth pain, mouth swelling, nasal discharge, nose bleeding, nose congestion, nose pain, photophobia, tearing, throat pain, throat swelling, voice changes, others Respiratory: reports: SOB at rest, shortness of breath, SOB with excertion; denies: cough, hemoptysis, orthopnea, stridor, wheezing, others Cardiovascular: denies: chest pain, dizzy spells, diaphoresis, Dyspnea on exertion, edema, irregular heart beat, left arm pain, lightheadedness, palpitations, PND, syncope, others Gastrointestinal: denies: abdomen distended, abdominal pain, blood streaked bowels, constipated, diarrhea, dysphagia, difficulty swallowing, hematemesis, melena, nausea, poor appetite, poor fluid intake, rectal bleeding, rectal pain, vomiting, others Genitourinary: denies: burning, dysuria, flank pain, frequency, hematuria, incontinence, penile discharge, penile sore, pain, testicle pain, testicle swelling, urgency, others Neurological: denies: dizziness, fainting, headache, left sided numbness, left sided weakness, numbness, paresthesia, pre-existing deficit, right sided numbness, right sided weakness, seizure, speech problems, tingling, tremors, weakness, others Musculoskeletal: reports: back pain, muscle pain, others (bilateral leg swelling ); denies: gout, joint pain, joint swelling, muscle stiffness, neck pain Integumetry: denies: bruises, change in color, change in hair/nails, dryness, laceration, lesions, lumps, rash, wounds, others Allergic/Immunocompromised: denies: Difficulty Healing, Frequent Infections, Hives, Itching, others Hematologic/Lymphatic: denies: anemia, blood clots, easy bleeding, easy bruising, swollen glands, others Endocrine: denies: excessive hunger, excessive sweating, excessive thirst, excessive urination, flushing, intolerance to cold, intolerance to heat, unexplained weight gain, unexplained weight loss, others Psychiatric: denies: anxiety, bipolar disorder, depression, hopeless, panic disorder, schizophrenia, sleepless, suicidal, others All Other Systems: Reviewed and Negative Physical Exam General Appearance: Moderate Distress, Thin HEENT: Normal ENT Inspection, Pharynx Normal, TMs Normal Neck: Full Range of Motion, Non-Tender, Normal, Normal Inspection Respiratory: Chest Non-Tender, Lungs Clear, No Accessory Muscle Use, Rales Cardiovascular: No Edema, No JVD, No Murmur, No Gallop, Regular Rate/Rhythm Breast Exam: Deferred Gastrointestinal: No Organomegaly, Non Tender, No Pulsatile Mass, Normal Bowel Sounds, Soft Genitalia: Deferred Pelvic: Deferred Rectal: Deferred Extremities: No calf tenderness, Normal capillary refill, Pedal edema Musculoskeletal : Apperance: Normal Neurologic: Alert, seal mixer II-XII nml as Tested, Motor Weakness, Normal Affect, Normal Mood, No Sensory Deficits Cerebellar Function: Normal Reflexes: Normal Skin: Dry, Normal Color, Warm Lymphatic: No Adenopathy Was a procedure done? Was a procedure done?: No EKG EKG : Pulse Rate (adult): 82 [place]: Normal Cardiac Rhythm: NSR Block: None Hypertrophy: None ST: Normal Differential Dx Considerations may include: Arthritis, Chronic Back Pain X-Ray, Labs, Meds, VS Vital Signs Date Time Temp Pulse Resp B/P (MAP) Pulse Ox O2 Delivery O2 Flow Rate FiO2 10/02/24 12:30 Room Air* 0 21 10/02/24 12:22 93/59 10/02/24 12:15 83/59 10/02/24 11:17 82 10/02/24 11:03 82 10/02/24 10:56 97.4 84 24 96/55 100 97.4 Lab Test 10/02/24 11:35 Range/Units White Blood Count 7.3 4.4-10.8 10^3/uL Red Blood Count 2.85 L 4.5-5.90 10^6/uL Hemoglobin 8.2 L 13.5-17.5 g/dL Hematocrit 25.2 L 41.0-53.0 % Mean Corpuscular Volume 88.5 80.0-100.0 fL Mean Corpuscular Hemoglobin 28.8 28.0-32.0 pg Mean Corpuscular Hemoglobin Concent 32.6 32.0-36.0 g/dL Red Cell Distribution Width 16.7 H 11.8-14.3 % Platelet Count 269 140-450 10^3/uL Mean Platelet Volume 7.9 6.9-10.8 fL Neutrophils (%) (Auto) 72.7 37.0-80.0 % Lymphocytes (%) (Auto) 11.1 10.0-50.0 % Monocytes (%) (Auto) 12.9 H 0.0-12.0 % Eosinophils (%) (Auto) 2.5 0.0-7.0 % Basophils (%) (Auto) 0.8 0.0-2.0 % Neutrophils # (Auto) 5.3 1.6-8.6 10 ^3/uL Lymphocytes # (Auto) 0.8 0.4-5.4 10 ^3/uL Monocytes # (Auto) 0.9 0-1.3 10 ^3/uL Eosinophils # (Auto) 0.2 0-0.8 10 ^3/uL Basophils # (Auto) 0.1 0-0.2 10 ^3/uL Nucleated Red Blood Cells 0.1 % Sodium Level 141 136-145 mmol/L Potassium Level 3.9 3.5-5.1 mmol/L Chloride Level 102 98-107 mmol/L Carbon Dioxide Level 28 20-31 mmol/L Anion Gap 11 5-15 Blood Urea Nitrogen 54 H 9-23 mg/dL Creatinine 2.31 H 0.700-1.30 mg/dL Glomerular Filtration Rate Calc 27 >90 mL/min BUN/Creatinine Ratio 23.4 H 10.0-20.0 Serum Glucose 158 H 74-106 mg/dL Calcium Level 9.1 8.7-10.4 mg/dL Troponin I High Sensitivity 25 </=54 ng/L B-Type Natriuretic Peptide 2500.10 0-100 pg/mL Current Medications Medications (Trade) Dose Ordered Sig/David Route Start Time Stop Time Status Last Admin Furosemide (Lasix Injection) 40 mg ONCE ONCE IV 10/02/24 11:15 10/02/24 11:16 DC 10/02/24 12:22 Dobutamine HCl/ Dextrose 250 ml @ 17.4 mls/hr [id number] ONCE IV 10/02/24 12:15 10/03/24 02:37 10/02/24 12:15 Lorazepam (Ativan Inj) 0.5 mg ONCE ONCE IV 10/02/24 12:30 10/02/24 12:31 DC 10/02/24 12:38 CHEST XRAY IMPRESSION: 1. Pulmonary vascular congestion. The patient was given Lasix 40 mg IV push An IV Hep-Lock was established. The patient is somewhat hypotensive. The patient is being started on a dobutamine drip secondary to the decreased EF function. The BNP is 2500 which is consistent with the acute on chronic diastolic heart failure The patient is also being given Ativan 0.5 mg IV push The patient's CBC shows a hemoglobin of 8.2 and hematocrit of 25.2 The rest of the CBC is within normal limits The chemistry panel shows a BUN of 54 and a creatinine of 2.31 At this time, the patient will be admitted to the hospitalist with a diagnosis of acute on chronic diastolic heart failure Images Reviewed?: Images reviewed and evaluated by me Time of 1ST Reevaluation: 11:48 Reevaluation 1ST: Unchanged Patient Education/Counseling: Diagnosis, Treatment, Prognosis Family Education/Counseling: Diagnosis, Treatment, Prognosis SEPSIS Sepsis Screen Date sepsis recognized/suspect: Oct 02, 2024 Time Sepsis recognized/suspect: 1055 Recent Procedure: No On Antibiotic Therapy: No Respiratory Rate >20: Yes Heart Rate >90: No Temp<36 C (96.8 F) or >38.3 C: No SBP <90 or MAP <65 mmHG: Yes New Acute Mental Status Change: No Is the patient on CPAP, BIPAP,: No Physician Orders Heplock Iv (10/02/24 11:07) Grape Cutter (10/02/24 11:07) Blood Pressure (10/02/24 11:07) Urinalysis (10/02/24 11:07) Electrocardigram (10/02/24 11:07) Troponin-I Hs (10/02/24 12:07) Troponin-I Hs (10/02/24 14:07) Electrocardigram (10/02/24 12:07) Electrocardigram (10/02/24 14:07) Chest Portable (10/02/24 11:07) Dobutamine 1000mcg/Ml (Dobutrex) (10/02/24 12:15) Vital Signs Date Time Temp Pulse Resp B/P (MAP) Pulse Ox O2 Delivery O2 Flow Rate FiO2 10/02/24 12:30 Room Air* 0 21 10/02/24 12:22 93/59 10/02/24 12:15 83/59 10/02/24 11:17 82 10/02/24 11:03 82 10/02/24 10:56 97.4 84 24 96/55 100 97.4 Laboratory Tests Test 10/02/24 11:35 White Blood Count 7.3 10^3/uL (4.4-10.8) Medications Medications Dose Ordered Sig/David Route Start Time Stop Time Status Last Admin Dose Admin Dobutamine HCl/ Dextrose 250 ml @ 17.4 mls/hr [id number] ONCE IV 10/02/24 12:15 10/03/24 02:37 10/02/24 12:15 Furosemide 40 mg ONCE ONCE IV 10/02/24 11:15 10/02/24 11:16 DC 10/02/24 12:22 Lorazepam 0.5 mg ONCE ONCE IV 10/02/24 12:30 10/02/24 12:31 DC 10/02/24 12:38 Departure 1 Departure Time of Disposition: 12:48 Impression: Primary Impression: Acute on chronic diastolic heart failure Disposition: ADMITTED INPATIENT Admit to: ICU Condition: Fair Critical Care Note Critical Care Time?: Yes (45 min-critical care time only) Stability Stability form required: Yes Unstable for transfer: ICU, CCU, PCU, KETAN (Intensive VS monitoring), ED Physician Assesment (Clinical assesment) Heart Score Heart Score: Heart Score Response (Comments) Value History Moderate Suspicious 1 EKG Normal 0 Age >65 2 Risk Factors 1 or 2 risk factors 1 Troponin Normal limit 0 Total 4 I personally scribed for NIKKIE FUNES MD ([email or web address]) on 10/02/24 at 11:17. Electronically submitted by Ani Serna ([email or web address]). I personally scribed for NIKKIE FUNES MD ([email or web address]) on 10/02/24 at 11:20. Electronically submitted by Ani Serna ([email or web address]). I personally scribed for NIKKIE FUNES MD ([email or web address]) on 10/02/24 at 12:17. Electronically submitted by Ani Serna ([email or web address]). NIKKIE FUNES MD Oct 02, 2024 11:17
[2024-10-02 11:56] LABS: Hemoglobin 8.2 g/dL (13.5-17.5); Mean Corpuscular Hemoglobin 28.8 pg (28.0-32.0); Nucleated Red Blood Cells % 0.1 %
[2024-10-02 11:58] LABS: Chloride 102 mmol/L (98-107); Potassium 3.9 mmol/L (3.5-5.1); Sodium 141 mmol/L (136-145)
[2024-10-02 11:59] LABS: Anion Gap 11 (5-15); Calcium 9.1 mg/dL (8.7-10.4); Carbon Dioxide 28 mmol/L (20-31); Hematocrit 25.2 % (41.0-53.0); Mean Corpuscular Volume 88.5 fL (80.0-100.0)
[2024-10-02 12:04] LABS: BUN/Creatinine Ratio 23.4 (10.0-20.0)
[2024-10-02 12:05] LABS: Blood Urea Nitrogen 54 mg/dL (9-23); Glucose 158 mg/dL (74-106)
--- NOTE | 2024-10-02 12:13 | DVH ---
CHEST RADIOGRAPH Indication: sob Technique: Single frontal view of the chest was obtained Comparison: XY CHEST XRAY 1 VIEW on DOS: 09/19/24 FINDINGS: Lines and Tubes: AICD/ pacemaker noted. Lungs: Pulmonary interstitial prominence suggesting pulmonary vascular congestion. Pleura: No effusion. No pneumothorax. Cardiomediastinal contours: Cardiomegaly. Bones: No acute osseous abnormality. IMPRESSION: 1. Pulmonary vascular congestion.
[2024-10-02] MEDS: DOBUTamine 1000MCG/ML 250 ML IV ONE (12:15)
[2024-10-02] MEDS: FUROSEMIDE 40 MG/4 ML VIAL IV ONE (12:22)
[2024-10-02] MEDS: LORazepam 2MG/ML-1ML VIAL IV ONE (12:38)
--- NOTE | 2024-10-02 14:17 | DVH ---
Exam: CT CT AB PEL WO CON-NO ORAL OR IV History: pain Comparison Study: CT CT AB PEL WO CON-NO ORAL OR IV on DOS: 05/25/23, CT CT AB PEL WO CON-NO ORAL OR I V on DOS: 05/09/23, CT CT AB PEL WO CON-NO ORAL OR IV on DOS: 10/27/22 TECHNIQUE: Multidetector CT of the abdomen and pelvis was performed from lung bases to pubic symphysi s. Imaging was performed without IV contrast. Axial, coronal, and sagittal multiplanar reformats were obtained from the axial data set by the technologist. RADIATION DOSE: DLP 37.9 mGy.cm; CTDI vol 6.31 mGy. Findings: Lungs: Solid and ground-glass nodular opacities in both lungs. Small bilateral pleural effusions. Heart: Cardiomegaly. Severe coronary atherosclerosis. Liver: Unremarkable. Gallbladder: Unremarkable. Spleen: Unremarkable Pancreas: Unremarkable Adrenals: Unremarkable Kidneys: Mild right renal atrophy. GI tract: Diverticulosis without evidence of acute diverticulitis. Moderate fecal burden. : Enlarged prostate. Vasculature: Mild aortoiliac atherosclerosis. Lymphadenopathy: Absent Peritoneum: No ascites Musculoskeletal: Moderate to severe multilevel degenerative changes of the thoracolumbar spine. Soft tissues: Small fat containing left inguinal hernia. Otherwise unremarkable Impression: 1. No acute abdominopelvic abnormalities. 2. Diverticulosis without evidence of acute diverticulitis. 3. Moderate fecal burden. 4. Redemonstrated prostatomegaly. 5. Solid and ground-glass nodular opacities in both lungs favored an infectious/inflammatory etiology . 6. Small bilateral pleural effusions.
[2024-10-02] MEDS ORDERED: DOCUSATE SOD 100 MG CAP PO PRN (14:30)
[2024-10-02] MEDS ORDERED: MORPHINE SULFATE INJ 2 MG/ml SYRG IV PRN ×2 (14:30)
[2024-10-02] MEDS ORDERED: ACETAMINOPHEN 325 MG TAB PO PRN (14:30)
[2024-10-02] MEDS ORDERED: ONDANSETRON HCL 4 MG/2 ML VIAL IV PRN (14:30)
[2024-10-02] MEDS ORDERED: NITROGLYCERIN 0.4 MG SL TAB SL PRN (14:30)
[2024-10-02] MEDS ORDERED: SODIUM CHLORIDE 0.9% 500 ML IV ONE (14:45)
--- NOTE | 2024-10-02 14:56 | DVHHP2 ---
History of Present Illness Reason for Visit: Back pain History of Present Illness Reginald Breen is an 84-year-old male with past medical history of hypertension, hyperlipidemia, MS, chronic kidney disease, CHF, and arthritis, who came in for back pain. Patient's daughter is at the bedside and she states her dad complains of back and shoulder pain frequently, but the last 3 days it has worsened significantly and he asked to come to the hospital to be evaluated. On arrival to the ER he was found to be hypotensive with bilateral lower extremity pitting edema. He was placed on Dopamine and given IV Lasix. Cardiovascular: HTN, MS, hyperipidemia, Other (AICD, cardiac stents) Musculoskeletal: Osteoarthritis Renal/: Chronic renal insuff Past Surgical History: Other (AICD, PTCA, TURP) Smoke: No ALCOHOL: none Drugs: None Lives: with Family Domestic Violence: Neg Review of Systems Constitutional: No: Fever, Chills, Sweats, Weakness, Malaise, Other Eyes: No: Pain, Vision change, Conjunctivae inflammation, Eyelid inflammation, Other, Redness ENT: No: Ear pain, Ear discharge, Nose pain, Nose discharge, Nose congestion, Mouth pain, Mouth swelling, Throat pain, Throat swelling, Other Respiratory: No: Cough, Dry, Shortness of breath, SOB with excertion, Wheezing, Hemoptysis, Pleuritic Pain, Sputum, Wheezing, Other Cardiovascular: Edema (bilateral lower extremities); No: Chest Pain, Palpitations, Orthopnea, Paroxysmal Noc. Dyspnea, Lt Headedness, Other Gastrointestinal: No: Nausea, Vomiting, Abdominal Pain, Diarrhea, Constipation, Melena, Hematochezia, Other Genitourinary: No Dysuria, No Frequency, No Incontinence, No Hematuria, No Retention, No Other Musculoskeletal: back pain (lower and shoulder pain); No: other, neck pain, shoulder pain, arm pain, hand pain, leg pain, foot pain Skin: No: Rash, Lesions, Jaundice, Bruising, Other Neurological: No: Weakness, Numbness, Incoordination, Change in speech, Confusion, Seizures, Other Allergies: Coded Allergies: Morphine (Verified Adverse Reaction, Intermediate, 08/29/22) AGITATION,RESTLESSNESS,SEVERE PAIN Medications Current Medications Medications Dose Ordered Sig/David Route Start Time Stop Time Status Last Admin Dose Admin Sodium Chloride 10 ml Q8HR IV 10/02/24 22:00 UNV Acetaminophen/ Hydrocodone Bitart 1 tab Q4HP PRN PO 10/02/24 14:30 UNV Ondansetron HCl 4 mg Q4HP PRN IV 10/02/24 14:30 UNV Docusate Sodium 100 mg BIDPRN PRN PO 10/02/24 14:30 UNV Acetaminophen 650 mg Q6HP PRN PO 10/02/24 14:30 UNV Morphine Sulfate 2 mg Q4HPRN PRN IV 10/02/24 14:30 UNV Nitroglycerin 0.4 mg Q5MINP PRN SL 10/02/24 14:30 UNV Morphine Sulfate 2 mg Q30M PRN IV 10/02/24 14:30 UNV Aspirin 81 mg DAILY PO 10/03/24 10:00 UNV Atorvastatin Calcium 20 mg DAILY PO 10/03/24 10:00 UNV Carvedilol 3.125 mg Q12HR PO 10/02/24 22:00 UNV Clopidogrel Bisulfate 75 mg DAILY PO 10/03/24 10:00 UNV Ferrous Sulfate 325 mg DAILY PO 10/03/24 10:00 UNV Patient Own Medication 1 tab QPM PO 10/02/24 18:00 UNV Exam Vital Signs Vital Signs Date Time Temp Pulse Resp B/P (MAP) Pulse Ox O2 Delivery O2 Flow Rate FiO2 10/02/24 14:00 109/73 10/02/24 12:30 Room Air* 0 21 10/02/24 11:35 97.8 93 18 91 97.8 General Appearance: Alert, Oriented X3, Cooperative, moderate distress HEENT: Atraumatic, PERRLA Respiratory: Clear to auscultation, Normal air movement Cardiovascular: Regular rate, Normal S1, Normal S2, No murmurs Abdominal: Normal bowel sounds, Soft, No tenderness Extremities: No clubbing, No cyanosis, Other (bilateral lower extremities pitting edema and pain) Skin: No rashes, No breakdown, No significant lesion Neuro: Normal speech Psych/Mental Status: Mental status NL, Mood NL Labs/Xrays Labs Test 10/02/24 12:38 10/02/24 11:35 Range/Units Troponin I High Sensitivity 23 </=54 ng/L White Blood Count 7.3 4.4-10.8 10^3/uL Red Blood Count 2.85 L 4.5-5.90 10^6/uL Hemoglobin 8.2 L 13.5-17.5 g/dL Hematocrit 25.2 L 41.0-53.0 % Mean Corpuscular Volume 88.5 80.0-100.0 fL Mean Corpuscular Hemoglobin 28.8 28.0-32.0 pg Mean Corpuscular Hemoglobin Concent 32.6 32.0-36.0 g/dL Red Cell Distribution Width 16.7 H 11.8-14.3 % Platelet Count 269 140-450 10^3/uL Mean Platelet Volume 7.9 6.9-10.8 fL Neutrophils (%) (Auto) 72.7 37.0-80.0 % Lymphocytes (%) (Auto) 11.1 10.0-50.0 % Monocytes (%) (Auto) 12.9 H 0.0-12.0 % Eosinophils (%) (Auto) 2.5 0.0-7.0 % Basophils (%) (Auto) 0.8 0.0-2.0 % Neutrophils # (Auto) 5.3 1.6-8.6 10 ^3/uL Lymphocytes # (Auto) 0.8 0.4-5.4 10 ^3/uL Monocytes # (Auto) 0.9 0-1.3 10 ^3/uL Eosinophils # (Auto) 0.2 0-0.8 10 ^3/uL Basophils # (Auto) 0.1 0-0.2 10 ^3/uL Nucleated Red Blood Cells 0.1 % Sodium Level 141 136-145 mmol/L Potassium Level 3.9 3.5-5.1 mmol/L Chloride Level 102 98-107 mmol/L Carbon Dioxide Level 28 20-31 mmol/L Anion Gap 11 5-15 Blood Urea Nitrogen 54 H 9-23 mg/dL Creatinine 2.31 H 0.700-1.30 mg/dL Glomerular Filtration Rate Calc 27 >90 mL/min BUN/Creatinine Ratio 23.4 H 10.0-20.0 Serum Glucose 158 H 74-106 mg/dL Calcium Level 9.1 8.7-10.4 mg/dL B-Type Natriuretic Peptide 2500.10 0-100 pg/mL CHEST RADIOGRAPH FINDINGS: Lines and Tubes: AICD/ pacemaker noted. Lungs: Pulmonary interstitial prominence suggesting pulmonary vascular congestion. Pleura: No effusion. No pneumothorax. Cardiomediastinal contours: Cardiomegaly. Bones: No acute osseous abnormality. IMPRESSION: 1. Pulmonary vascular congestion. Exam: CT CT AB PEL WO CON-NO ORAL OR IV Findings: Lungs: Solid and ground-glass nodular opacities in both lungs. Small bilateral pleural effusions. Heart: Cardiomegaly. Severe coronary atherosclerosis. Liver: Unremarkable. Gallbladder: Unremarkable. Spleen: Unremarkable Pancreas: Unremarkable Adrenals: Unremarkable Kidneys: Mild right renal atrophy. GI tract: Diverticulosis without evidence of acute diverticulitis. Moderate fecal burden. : Enlarged prostate. Vasculature: Mild aortoiliac atherosclerosis. Lymphadenopathy: Absent Peritoneum: No ascites Musculoskeletal: Moderate to severe multilevel degenerative changes of the thor acolumbar spine. Soft tissues: Small fat containing left inguinal hernia. Otherwise unremarkable Impression: 1. No acute abdominopelvic abnormalities. 2. Diverticulosis without evidence of acute diverticulitis. 3. Moderate fecal burden. 4. Re-demonstrated prostatomegaly. 5. Solid and ground-glass nodular opacities in both lungs favored an infectious/inflammatory etiology. 6. Small bilateral pleural effusions. SEPSIS Sepsis Screen Date sepsis recognized/suspect: Oct 02, 2024 Time Sepsis recognized/suspect: 1055 Recent Procedure: No On Antibiotic Therapy: No Respiratory Rate >20: Yes Heart Rate >90: No Temp<36 C (96.8 F) or >38.3 C: No SBP <90 or MAP <65 mmHG: Yes New Acute Mental Status Change: No Is the patient on CPAP, BIPAP,: No Physician Orders Heplock Iv (10/02/24 11:07) Chief Development Officer (10/02/24 11:07) Blood Pressure (10/02/24 11:07) Urinalysis (10/02/24 11:07) Electrocardigram (10/02/24 11:07) Troponin-I Hs (10/02/24 14:07) Electrocardigram (10/02/24 12:07) Electrocardigram (10/02/24 14:07) Chest Portable (10/02/24 11:07) Dobutamine 1000mcg/Ml (Dobutrex) (10/02/24 12:15) Ct Ab Pel Wo Con-No Oral Or Iv (10/02/24 13:13) Admit (10/02/24 14:25) Code Status (10/02/24 14:25) Sodium Chloride Lock (Saline Lock Ns) (10/02/24 22:00) Hydrocodone-Acet 5/325mg Tab ([place] 5/32 (10/02/24 14:30) Ondansetron Hcl (Zofran) (10/02/24 14:30) Docusate Sodium Capsule (Colace Capsule) (10/02/24 14:30) Complete Blood Count (10/03/24 04:00) Comprehensive Metabolic Panel (10/03/24 04:00) Cardiac Diet-2gna,Lofat,Lochol (10/02/24 Dinner) Condition: Critical (10/02/24 14:25) Acetaminophen Tablet (Tylenol Tablet) (10/02/24 14:30) Morphine Sulfate Injection (10/02/24 14:30) Nitroglycerin Sublingual (Ntrostat Subli (10/02/24 14:30) Morphine Sulfate Injection (10/02/24 14:30) Stat Ekg For Chest Pain (10/02/24:) Notify Md Of Changes From Base (10/02/24 14:) Paralegal Instructor For 24 Hours (10/02/24 14:25) Emergency Dysrhythmia Protocol (10/02/24:) Rhythm Strips Once Every Shift (10/02/24:25) Oxygen By Nasal Cannula (10/02/24:25) Aspirin Enteric Coated Tablet (Ecotrin E (10/03/24 10:00) Atorvastatin (Lipitor) (10/03/24 10:00) Carvedilol Tablet (Coreg Tablet) (10/02/24 22:00) Clopidogrel Bisulfate (Plavix) (10/03/24 10:00) Ferrous Sulfate Tablet (10/03/24 10:00) (Nf) Trazodone Hcl (10/02/24 18:00) Vital Signs Date Time Temp Pulse Resp B/P (MAP) Pulse Ox O2 Delivery O2 Flow Rate FiO2 10/02/24 14:00 109/73 10/02/24 13:00 125/75 10/02/24 12:30 Room Air* 0 21 10/02/24 12:22 93/59 10/02/24 12:15 83/59 10/02/24 11:35 97.8 93 18 85/52 (63) 91 97.8 10/02/24 11:17 82 10/02/24 11:03 82 10/02/24 10:56 97.4 84 24 96/55 100 97.4 Laboratory Tests Test 10/02/24 11:35 White Blood Count 7.3 10^3/uL (4.4-10.8) Medications Medications Dose Ordered Sig/David Route Start Time Stop Time Status Last Admin Dose Admin Dobutamine HCl/ Dextrose 250 ml @ 17.4 mls/hr [id number] ONCE IV 10/02/24 12:15 10/03/24 02:37 10/02/24 12:15 17.4 MLS/HR Furosemide 40 mg ONCE ONCE IV 10/02/24 11:15 10/02/24 11:16 DC 10/02/24 12:22 40 MG Lorazepam 0.5 mg ONCE ONCE IV 10/02/24 12:30 10/02/24 12:31 DC 10/02/24 12:38 0.5 MG Assessment/Plan Assessment/Plan Assessment: Acute on chronic diastolic heart failure, Hypotension, Acute on chronic kidney failure, Anemia, Intractable back pain, Plan: Admit to ICU, Cardiology consult, Continue Dopamine, Gentle IV hydration with 500ml @100ml/hour, Strict I&O, Consider nephrology consult if kidney function worsens, Home medications reconciled, Home Coreg held due to low BP, Plan discussed with: Patient, Daughter My Orders Orders - GREGORIO MARTINS FOOD ADVISER Procedure Category Date Status Time Ct Ab Pel Wo Con-No CT 10/02/24 Resulted Oral Or Iv 13:13 Admit ADMIT 10/02/24 Transmitted 14:25 Code Status CODE 10/02/24 Transmitted 14:25 Sodium Chloride Lock PHA 10/02/24 Logged (Saline Lock Ns) 22:00 Hydrocodone-Acet PHA 10/02/24 Logged 5/325mg Tab ([place] 14:30 Ondansetron Hcl PHA 10/02/24 Logged (Zofran) 14:30 Docusate Sodium PHA 10/02/24 Logged Capsule (Colace 14:30 Complete Blood Count LAB 10/03/24 Verified 04:00 Comprehensive LAB 10/03/24 Verified Metabolic Panel 04:00 Cardiac DIET 10/02/24 Transmitted Diet-2gna,Lofat,Lochol Dinner Condition: Critical JALYN 7/30/25 In Process 14:25 Acetaminophen Tablet PHA 10/02/24 Logged (Tylenol Tablet) 14:30 Morphine Sulfate [facility] 10/02/24 Logged Injection 14:30 Nitroglycerin [facility] 10/02/24 Logged Sublingual (Ntrostat 14:30 Morphine Sulfate [facility] 10/02/24 Logged Injection 14:30 Stat Ekg For Chest [facility] 10/02/24 In Process Pain 14:25 Notify Of Changes [facility] 10/02/24 In Process From Base 14:25 Paralegal Instructor For [facility] 10/02/24 In Process 24 Hours 14:25 Emergency Dysrhythmia [facility] 10/02/24 In Process Protocol 14:25 Rhythm Strips Once [facility] 10/02/24 In Process Every Shift 14:25 Oxygen By Nasal RT 10/02/24 Transmitted Cannula 14:25 Aspirin Enteric [facility] 10/03/24 Logged Coated Tablet 10:00 Atorvastatin (Lipitor) PHA 10/03/24 Logged 10:00 Carvedilol Tablet [facility] 10/02/24 Logged (Coreg Tablet) 22:00 Clopidogrel Bisulfate [facility] 10/03/24 Logged (Plavix) 10:00 Ferrous Sulfate Tablet [facility] 10/03/24 Logged 10:00 (Nf) Trazodone Hcl PHA 10/02/24 Logged 18:00 Date of Service: Oct 02, 2024 Billing Provider: GREGORIO MARTINS Common Visit Codes: [id number] INP/OBS CARE (MOD) GREGORIO MARTINSP Oct 02, 2024 14:56
[2024-10-02 16:00] LABS: Urine Protein, UAD Negative (Negative)
[2024-10-02] MEDS: SODIUM CHLORIDE 0.9% 1,000 ML IV ONE (16:08)
[2024-10-02] MEDS: ATORVASTATIN 20 MG TAB PO SCH (21:55)
[2024-10-02] MEDS: SODIUM CHLOR 0.9% PF (SALINE LOCK) 10ML VIAL/SYR IV SCH (21:55)
[2024-10-02] MEDS: LACTULOSE 20Gm/30ML SOLN PO ONE (21:56)
[2024-10-02] MEDS ORDERED: CARVEDILOL 3.125 MG TAB PO SCH (22:00)
[2024-10-02] MEDS: HYDROcodone-ACET 5/325MG TAB PO PRN (22:59)
--- NOTE | 2024-10-02 23:33 | ECG ---
[facility] Test Date: 2024-10-02 Test Time: 23:17:04 Pat Name: EDER HALL Department: ED Room: [address] [place] [address] Gender: M Casing Builder: ЕКАТЕРИНА : 1940 Requested By: NIKKIE FUNES Order Number: [id number] Reading MD: Ricardo Pineda Measurements Intervals [place] Rate: 93 P: -47 RI: 143 QRS: 87 QRSD: 154 T: -69 QT: 426 QTc: 530 Interpretive Statements Sinus or ectopic atrial rhythm Probable left atrial enlargement IVCD, consider atypical LBBB Electronically Signed On 10-03-2024 11:21:01 PDT by Ricardo Pineda Please click the below link to view image of tracing.
[2024-10-02] MEDS: TEMAZEPAM 15 MG CAP PO ONE (23:45)
[2024-10-03] VITALS (77 sets, daily range): BP systolic 67–121; BP diastolic 37–74; PULSE 72–108; RESP 15–41; TEMP 97.5–98.3; O2SAT 76–99
[2024-10-03 06:26] LABS: Hematocrit 23.3 % (41.0-53.0); Hemoglobin 7.5 g/dL (13.5-17.5); Mean Corpuscular Hemoglobin 28.7 pg (28.0-32.0); Mean Corpuscular Volume 88.6 fL (80.0-100.0); Nucleated Red Blood Cells % 0.0 %
--- NOTE | 2024-10-03 06:31 | ECG ---
[facility] Test Date: 2024-10-02 Test Time: 11:03:51 Pat Name: EDER HALL Department: [facility] ED Patient ID: [id number] Room: [address] [place] [address] Gender: M Manuscripts Archivist: KYLAH : 1940 Requested By: NIKKIE FUNES Order Number: [id number] Reading MD: Ricardo Pineda Measurements Intervals [place] Rate: 82 P: 35 DC: 188 QRS: 135 QRSD: 165 T: -43 QT: 440 QTc: 514 Interpretive Statements Sinus rhythm Nonspecific intraventricular conduction delay Borderline ST depression, diffuse leads Abnormal T, consider ischemia, lateral leads Baseline wander in lead(s) I,III,aVL Electronically Signed On 10-03-2024 11:19:31 PDT by Ricardo Pineda Please click the below link to view image of tracing.
[2024-10-03 06:51] LABS: Alanine Aminotransferase 18 U/L (7-40); Albumin 3.4 g/dL (3.2-4.8); Alkaline Phosphatase 71 U/L (46-116); Anion Gap 10 (5-15); BUN/Creatinine Ratio 19.8 (10.0-20.0); Bilirubin, Total 0.6 mg/dL (0.2-1.0); Blood Urea Nitrogen 36 mg/dL (9-23); Calcium 8.8 mg/dL (8.7-10.4); Carbon Dioxide 27 mmol/L (20-31); Chloride 106 mmol/L (98-107); Glucose 95 mg/dL (74-106); Potassium 3.5 mmol/L (3.5-5.1); Sodium 143 mmol/L (136-145); Total Protein 6.2 g/dL (5.7-8.2)
[2024-10-03] MEDS: CLOPIDOGREL BISULFATE 75 MG TAB PO SCH (08:27)
[2024-10-03] MEDS: ASPirin-EC 81 mg tab PO SCH (08:27)
[2024-10-03] MEDS: FERROUS SULFATE 325mg EC TAB PO SCH (08:27)
[2024-10-03] MEDS ORDERED: DOBUTamine 1000MCG/ML 250 ML IV SCH (09:15)
[2024-10-03] MEDS: SODIUM CHLORIDE 0.9% 500 ML IV ONE (09:15)
[2024-10-03] MEDS: LORazepam 0.5 MG TAB PO ONE (10:29)
--- NOTE | 2024-10-03 11:05 | DVHPN2 ---
Progress Note - Dictate Date Seen: Oct 02, 2024 Medical Necessity Reason Pt with a Central, PICC or Fol: No Subjective PT WITH BACK PAIN NOW WITH ANASARCA SCHEMIC CM EF <30% AICD S/P LHC S/P PTCA STENT RCA S/P PTCA STENT CX RENAL INSUFF ANEMIA SEVERE LHC * Left main calcified. No flow restrictive lesion. Left anterior descending artery previous site of angioplasty was patent with no residual stenosis. Moderate diffuse disease throughout. * First diagonal of the LAD is a 2.5-mm vessel with 2 tandem lesions of about 80% that will require intervention at a later date. * Circumflex nondominant vessel, moderate to severe diffuse disease, but no discrete lesion. 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 Unable to find the origin of the obtuse marginal 1 therefore the intervention was terminated. * Right coronary artery, previous site of angioplasty was patent; however, posterior descending artery had moderate diffuse disease that will require intervention at a later date. EF was around less than 20% with an LVEDP of 22 mmHg. Aggressive afterload reduction should be initiated. The patient is status post AICD implantation. At this time, conservative medical management so that he will have adequate collateral circulation to the obtuse marginal 1. Does not require any further intervention, but the patient will require possible revascularization of the first diagonal and the mid to proximal PDA at a later date. Because of renal insufficiency, we were limited by contrast load. We will continue to follow the patient. vital signs Vital Sign Date Time Temp Pulse Resp B/P (MAP) Pulse Ox O2 Delivery O2 Flow Rate FiO2 10/03/24 10:00 90 20 101/66 (78) 98 10/03/24 09:51 Nasal Cannula* 3 32 10/03/24 08:00 98.3 98.3 Total Intake and Output 10/02/24 10/02/24 10/03/24 15:00 23:00 07:00 Intake Total 52.2 ml 1057.4 ml 846.16 ml Output Total 450 ml 750 ml Balance 52.2 ml 607.4 ml 96.16 ml medications Current Medications Medications Dose Ordered Sig/David Route Start Time Stop Time Status Last Admin Dose Admin Sodium Chloride 10 ml Q8HR IV 10/02/24 22:00 10/03/24 08:27 10 ML Acetaminophen/ Hydrocodone Bitart 1 tab Q4HP PRN PO 10/02/24 14:30 10/02/24 22:59 1 TAB Ondansetron HCl 4 mg Q4HP PRN IV 10/02/24 14:30 Docusate Sodium 100 mg BIDPRN PRN PO 10/02/24 14:30 Acetaminophen 650 mg Q6HP PRN PO 10/02/24 14:30 Nitroglycerin 0.4 mg Q5MINP PRN SL 10/02/24 14:30 Aspirin 81 mg DAILY PO 10/03/24 10:00 10/03/24 08:27 81 MG Atorvastatin Calcium 20 mg HS PO 10/02/24 22:00 10/02/24 21:55 20 MG Clopidogrel Bisulfate 75 mg DAILY PO 10/03/24 10:00 10/03/24 08:27 75 MG Ferrous Sulfate 325 mg DAILY PO 10/03/24 10:00 10/03/24 08:27 325 MG Trazodone HCl 100 mg QPM PO 10/02/24 18:00 10/02/24 17:43 100 MG Dobutamine HCl/ Dextrose 250 ml @ 17.4 mls/hr [id number] IV 10/03/24 09:15 laboratory and microbiology Laboratory Tests 10/03/24 05:06 Test 10/03/24 05:06 Range/Units Serum Glucose 95 74-106 mg/dL Problem List BACK PAIN NOW WITH ANASARCA SCHEMIC CM EF <30% AICD S/P LHC S/P PTCA STENT RCA S/P PTCA STENT CX RENAL INSUFF ANEMIA SEVERE LHC * Left main calcified. No flow restrictive lesion. Left anterior descending artery previous site of angioplasty was patent with no residual stenosis. Moderate diffuse disease throughout. * First diagonal of the LAD is a 2.5-mm vessel with 2 tandem lesions of about 80% that will require intervention at a later date. * Circumflex nondominant vessel, moderate to severe diffuse disease, but no discrete lesion. 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 Unable to find the origin of the obtuse marginal 1 therefore the intervention was terminated. * Right coronary artery, previous site of angioplasty was patent; however, posterior descending artery had moderate diffuse disease that will require intervention at a later date. EF was around less than 20% with an LVEDP of 22 mmHg. Aggressive afterload reduction should be initiated. The patient is status post AICD implantation. At this time, conservative medical management so that he will have adequate collateral circulation to the obtuse marginal 1. Does not require any further intervention, but the patient will require possible revascularization of the first diagonal and the mid to proximal PDA at a later date. Because of renal insufficiency, we were limited by contrast load. We will continue to follow the patient. Assessment/Plan AGREE WITH KEIRA YOUNG CORRECT ANEMIA W/U FOR ANEMIA IRON STUDIES Plan discussed with: Patient YAINRA CHRISTIANSEN MD Oct 03, 2024 11:05
[2024-10-03] MEDS: clonazePAM 0.5 MG TAB PO ONE (12:31)
--- NOTE | 2024-10-03 19:48 | DVHPNRES ---
Progress Note Date Seen: Oct 03, 2024 Resident Creating Document: MIRNA JACKSON RESIDENT Medical Necessity Reason Pt with a Central, PICC or Fol: No Subjective Review of Systems An 84-year-old male patient with past medical history of hypertension, hyperlipidemia, congestive heart failure due to ischemic cardiomyopathy AICD placement, NV, prostatomegaly, questionable diabetes mellitus and CKD presented with complaints of back and shoulder pain for few months and shortness of breath with lower extremity swelling for last 2-[address] 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 He denied chest pain, palpitations, cough, nausea, vomiting, constipation, diarrhea On presenting to the ED, patient was found to be hypotensive, seen by Dr. Richter and started on dobutamine drip. Patient seen and examined at bedside Patient is currently on 3 L/min of oxygen through nasal cannula Patient is anxious Denied any other complaints Objective vital signs Vital Sign Date Time Temp Pulse Resp B/P (MAP) Pulse Ox O2 Delivery O2 Flow Rate FiO2 10/03/24 19:00 83 26 93/60 (71) 97 10/03/24 17:34 Nasal Cannula* 3 32 10/03/24 16:00 97.5 97.5 Total Intake and Output 10/02/24 10/02/24 10/03/24 15:00 23:00 07:00 Intake Total 52.2 ml 1057.4 ml 846.16 ml Output Total 450 ml 750 ml Balance 52.2 ml 607.4 ml 96.16 ml medications Current Medications Medications Dose Ordered Sig/David Route Start Time Stop Time Status Last Admin Dose Admin Sodium Chloride 10 ml Q8HR IV 10/02/24 22:00 10/03/24 08:27 10 ML Acetaminophen/ Hydrocodone Bitart 1 tab Q4HP PRN PO 10/02/24 14:30 10/02/24 22:59 1 TAB Ondansetron HCl 4 mg Q4HP PRN IV 10/02/24 14:30 Docusate Sodium 100 mg BIDPRN PRN PO 10/02/24 14:30 Acetaminophen 650 mg Q6HP PRN PO 10/02/24 14:30 Nitroglycerin 0.4 mg Q5MINP PRN SL 10/02/24 14:30 Aspirin 81 mg DAILY PO 10/03/24 10:00 10/03/24 08:27 81 MG Atorvastatin Calcium 20 mg HS PO 10/02/24 22:00 10/02/24 21:55 20 MG Clopidogrel Bisulfate 75 mg DAILY PO 10/03/24 10:00 10/03/24 08:27 75 MG Ferrous Sulfate 325 mg DAILY PO 10/03/24 10:00 10/03/24 08:27 325 MG Trazodone HCl 100 mg QPM PO 10/02/24 18:00 10/03/24 16:46 100 MG Lorazepam 1 mg Q12HP PRN IV 10/03/24 13:45 Dobutamine HCl/ Dextrose 250 ml @ 17.4 mls/hr [id number] IV 10/03/24 15:45 Examination Examination General Appearance: Alert, Oriented X3, Cooperative, No acute distress on 3 L, mild distress HEENT: EOMI Respiratory: Clear to auscultation, Normal air movement Cardiovascular: Regular rate, Normal S1, Normal S2 Abdominal: Normal bowel sounds Extremities: Lower extremity swelling resolved Skin: No rashes, No breakdown Neuro: Normal speech, tone, anxious mood laboratory and microbiology Laboratory Tests 10/03/24 05:06 Test 10/03/24 05:06 Range/Units Serum Glucose 95 74-106 mg/dL Microbiology Date/Time Source Procedure Growth Status 10/02/24 17:20 Nose MRSA Screen - Final Complete Labs and/or images reviewed: Labs reviewed by me, Image(s) reviewed by me Problem List/Assessment/Plan Problem List/Assessment/Plan Assessment/plan # Acute on chronic heart failure with reduced ejection fraction , ischemic cardiomyopathy # Acute hypoxic respiratory failure due to CHF exacerbation # History of AICD placement # History of NV # Severe aortic stenosis Cardiology on board EKG, tropes, BNP Patient was on dobutamine drip currently off Blood pressure is currently low normal Continue aspirin and Plavix # RUTHANN on CKD likely due to cardiorenal syndrome Currently on dobutamine drip Monitor kidney functions # Hypertension Currently low normal blood pressure Resume home medication once blood pressure normalized # Hyperlipidemia Currently on atorvastatin # Iron deficiency anemia; no symptoms/signs of active bleeding Monitor Currently on iron sulfate, continue # anxiety Continue home medication trazodone Family at bedside updated about the condition of the patient Code status discussed with the patient, and his son for 20 minutes; full code Critical care time excluding procedures of 120 min, Full code Case discussion with Dr. Iqbla Plan discussed with: Patient, Son, Other (Nurse) My Orders My Orders Orders - MIRNA JACKSON RESIDENT Procedure Category Date Status Time Transfer Orders XFER 10/04/24 Transmitted 00:00 Up To Chair JALYN 10/03/24 Transmitted 19:27 Critical Care Time (mins): 120 Addendum Addendum Addendum I was physically present for the moralez portions of the service provided to patient by THE RESIDENT. I have reviewed the documentation, discussed the case with resident and agree with the resident's documentation except as noted. Also the patient's clinical case was discussed with the patient's nurse. This medical document was created using an electronic medical record system with computerized dictation system. Although this document has been carefully reviewed, there might still be some phonetic and typographical errors. These areas are purely typographical due to imperfections of the software programs, and do not reflect any compromise in the patient's medical care. Late signature. Date of Service: Oct 03, 2024 Billing Provider: USHA IQBAL MD Common Visit Codes: 75185-[id number] CARE 30-74 MIN (120 minutes), 95816-KHLGLEOT CARE-EACH +30MIN Secondary Visit Codes: [id number] CARE PLAN 30 MINUTES (20 minutes) MIRNA JACKSON RESIDENT Oct 03, 2024 19:48 USHA IQBAL MD Oct 04, 2024 11:47
[2024-10-03] MEDS: DOBUTamine 1000MCG/ML 250 ML IV SCH (21:20)
[2024-10-04] VITALS (10 sets, daily range): BP systolic 91–106; BP diastolic 56–70; PULSE 76–93; RESP 16–22; TEMP 97.4–98.6; O2SAT 91–98
[2024-10-04] MEDS: MIDODRINE HCL 10 MG TAB PO ONE (01:39)
--- NOTE | 2024-10-04 03:43 | ECG ---
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
[2024-10-04 05:40] LABS: Nucleated Red Blood Cells % 0.1 %
[2024-10-04 05:43] LABS: Hematocrit 24.3 % (41.0-53.0); Hemoglobin 7.9 g/dL (13.5-17.5); Mean Corpuscular Hemoglobin 28.9 pg (28.0-32.0); Mean Corpuscular Volume 89.1 fL (80.0-100.0)
[2024-10-04] MEDS: MIDODRINE HCL 10 MG TAB PO SCH (05:44)
[2024-10-04 05:51] LABS: Chloride 105 mmol/L (98-107); Potassium 3.7 mmol/L (3.5-5.1); Sodium 141 mmol/L (136-145)
[2024-10-04 05:52] LABS: Anion Gap 9 (5-15); Calcium 8.8 mg/dL (8.7-10.4); Carbon Dioxide 27 mmol/L (20-31)
[2024-10-04 05:57] LABS: BUN/Creatinine Ratio 17.7 (10.0-20.0)
[2024-10-04 05:58] LABS: Magnesium 2.6 mg/dL (1.6-2.6)
[2024-10-04 06:09] LABS: Blood Urea Nitrogen 31 mg/dL (9-23); Glucose 121 mg/dL (74-106)
--- NOTE | 2024-10-04 08:40 | DVH ---
INDICATION: sob TECHNIQUE: Single frontal view of the chest was obtained COMPARISON: XY CHEST PORTABLE on DOS: 10/02/24, XY CHEST XRAY 1 VIEW on DOS: 09/19/24, XY CHEST PORTABL E on DOS: 09/12/24, XY CHEST PORTABLE on DOS: 09/10/24, XY CHEST PORTABLE on DOS: 07/16/24, XY CHEST PORT ABLE on DOS: 10/02/24 FINDINGS: Lines and Tubes: AICD/ pacemaker noted. Lungs: Pulmonary interstitial prominence suggesting pulmonary vascular congestion. Pleura: No effusion. No pneumothorax. Cardiomediastinal contours: Cardiomegaly. Bones: No acute osseous abnormality. IMPRESSION: Pulmonary vascular congestion.
[2024-10-04] MEDS: FINASTERIDE 5 MG TAB PO SCH (10:33)
--- NOTE | 2024-10-04 10:43 | DVHPNRES ---
Progress Note Date Seen: Oct 04, 2024 Resident Creating Document: MIRNA JACKSON RESIDENT Medical Necessity Reason Pt with a Central, PICC or Fol: No Subjective Review of Systems An 84-year-old male patient with past medical history of hypertension, hyperlipidemia, congestive heart failure due to ischemic cardiomyopathy AICD placement, TN, prostatomegaly, questionable diabetes mellitus and CKD presented with complaints of back and shoulder pain for few months and shortness of breath with lower extremity swelling for last 2-[address] Richter outpatient as primary care and special services supervisor. He denied chest pain, palpitations, cough, nausea, vomiting, constipation, diarrhea On presenting to the ED, patient was found to be hypotensive, seen by Dr. Richter and started on dobutamine drip. Now off dobutamine drip pain Patient seen and examined at bedside Patient is currently on 3 L/min of oxygen through nasal cannula Patient is mentioning improvement in his symptoms of anxiety. Denied any other complaints Objective vital signs Vital Sign Date Time Temp Pulse Resp B/P (MAP) Pulse Ox O2 Delivery O2 Flow Rate FiO2 10/04/24 10:02 20 Nasal Cannula* 2 28 10/04/24 09:15 79 117/62 (80) 95 10/04/24 08:25 98.4 98.4 Total Intake and Output 10/03/24 10/03/24 10/04/24 15:00 23:00 07:00 Intake Total 17.4 ml 250 ml 200 ml Output Total 500 ml 250 ml Balance 17.4 ml -250 ml -50 ml medications Current Medications Medications Dose Ordered Sig/David Route Start Time Stop Time Status Last Admin Dose Admin Sodium Chloride 10 ml Q8HR IV 10/02/24 22:00 10/04/24 05:48 10 ML Acetaminophen/ Hydrocodone Bitart 1 tab Q4HP PRN PO 10/02/24 14:30 10/03/24 23:33 1 TAB Ondansetron HCl 4 mg Q4HP PRN IV 10/02/24 14:30 Docusate Sodium 100 mg BIDPRN PRN PO 10/02/24 14:30 Acetaminophen 650 mg Q6HP PRN PO 10/02/24 14:30 Nitroglycerin 0.4 mg Q5MINP PRN SL 10/02/24 14:30 Aspirin 81 mg DAILY PO 10/03/24 10:00 10/03/24 08:27 81 MG Atorvastatin Calcium 20 mg HS PO 10/02/24 22:00 10/03/24 22:25 20 MG Clopidogrel Bisulfate 75 mg DAILY PO 10/03/24 10:00 10/03/24 08:27 75 MG Ferrous Sulfate 325 mg DAILY PO 10/03/24 10:00 10/03/24 08:27 325 MG Trazodone HCl 100 mg QPM PO 10/02/24 18:00 10/03/24 16:46 100 MG Lorazepam 1 mg Q12HP PRN IV 10/03/24 13:45 Dobutamine HCl/ Dextrose 250 ml @ 17.4 mls/hr [id number] IV 10/03/24 15:45 10/03/24 21:20 17.4 MLS/HR Bumetanide 1 mg BIDD PO 10/04/24 18:00 Digoxin 0.125 mg DAILY PO 10/04/24 10:00 Finasteride 5 mg DAILY PO 10/04/24 10:00 Examination Examination General Appearance: Alert, Oriented X3, Cooperative, No acute distress on 3 L, mild distress HEENT: EOMI Respiratory: Clear to auscultation, Normal air movement Cardiovascular: Regular rate, Normal S1, Normal S2 Abdominal: Normal bowel sounds Extremities: Lower extremity pitting edema; resolved Skin: No rashes, No breakdown Neuro: Normal speech, tone, anxious mood laboratory and microbiology Laboratory Tests 10/04/24 05:16 Test 10/04/24 05:16 Range/Units Serum Glucose 121 H 74-106 mg/dL Microbiology Date/Time Source Procedure Growth Status 10/02/24 17:20 Nose MRSA Screen - Final Complete Labs and/or images reviewed: Labs reviewed by me, Image(s) reviewed by me Problem List/Assessment/Plan Problem List/Assessment/Plan Assessment/plan # acute on chronic heart failure with reduced ejection fraction , ischemic cardiomyopathy # acute hypoxic respiratory failure due to CHF exacerbation # history of AICD placement # history of TN # severe aortic stenosis Cardiology on board EKG, tropes, BNP Patient was on dobutamine drip currently off Blood pressure is currently low normal Continue aspirin and Plavix started on Bumex # RUTHANN on CKD likely due to cardiorenal syndrome Currently on dobutamine drip Monitor kidney functions # hypertension Currently low normal blood pressure Resume home medication once blood pressure normalized # hyperlipidemia Currently on atorvastatin # normocytic anemia Monitor Currently on iron sulfate, continue # anxiety Continue home medication trazodone Family at bedside updated about the condition of the patient Downgraded to telemetry Case discussion with Dr. Iqbal Plan discussed with: Patient, Other (RN) My Orders My Orders Orders - MIRNA JACKSON RESIDENT Procedure Category Date Status Time Up To Chair JALYN 10/03/24 In Process 19:27 Chest Portable XY 10/04/24 Resulted 04:00 Bumetanide Tablet PHA 10/04/24 In Process (Bumex Tablet) 18:00 Digoxin Tablet PHA 10/04/24 In Process (Lanoxin Tablet) 10:00 Finasteride Tablet PHA 10/04/24 In Process (Proscar Tablet) 10:00 Addendum Addendum Addendum I was physically present for the moralez portions of the service provided to patient by THE RESIDENT. I have reviewed the documentation, discussed the case with resident and agree with the resident's documentation except as noted. Also the patient's clinical case was discussed with the patient's nurse. This medical document was created using an electronic medical record system with computerized dictation system. Although this document has been carefully reviewed, there might still be some phonetic and typographical errors. These areas are purely typographical due to imperfections of the software programs, and do not reflect any compromise in the patient's medical care. Late signature. Date of Service: Oct 04, 2024 Billing Provider: USHA IQBAL MD Common Visit Codes: [id number] INP/OBS CARE(HIGH) MIRNA JACKSON RESIDENT Oct 04, 2024 10:43 USHA IQBAL MD Oct 05, 2024 08:37
[2024-10-04] MEDS: DIGOXIN 0.125 MG TAB PO SCH (10:49)
[2024-10-04] MEDS: LORazepam 2MG/ML-1ML VIAL IV PRN (12:00)
--- NOTE | 2024-10-04 15:13 | DVHPN2 ---
Progress Note - Dictate Date Seen: Oct 03, 2024 Medical Necessity Reason Pt with a Central, PICC or Fol: No Subjective PT WITH BACK PAIN NOW WITH ANASARCA SCHEMIC CM EF <30% AICD S/P LHC S/P PTCA STENT RCA S/P PTCA STENT CX RENAL INSUFF ANEMIA SEVERE LHC * Left main calcified. No flow restrictive lesion. Left anterior descending artery previous site of angioplasty was patent with no residual stenosis. Moderate diffuse disease throughout. * First diagonal of the LAD is a 2.5-mm vessel with 2 tandem lesions of about 80% that will require intervention at a later date. * Circumflex nondominant vessel, moderate to severe diffuse disease, but no discrete lesion. 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 Unable to find the origin of the obtuse marginal 1 therefore the intervention was terminated. * Right coronary artery, previous site of angioplasty was patent; however, posterior descending artery had moderate diffuse disease that will require intervention at a later date. EF was around less than 20% with an LVEDP of 22 mmHg. Aggressive afterload reduction should be initiated. The patient is status post AICD implantation. At this time, conservative medical management so that he will have adequate collateral circulation to the obtuse marginal 1. Does not require any further intervention, but the patient will require possible revascularization of the first diagonal and the mid to proximal PDA at a later date. Because of renal insufficiency, we were limited by contrast load. We will continue to follow the patient. vital signs Vital Sign Date Time Temp Pulse Resp B/P (MAP) Pulse Ox O2 Delivery O2 Flow Rate FiO2 10/04/24 11:09 98.1 87 22 106/70 (82) 97 98.1 10/04/24 10:02 Nasal Cannula* 2 28 Total Intake and Output 10/03/24 10/03/24 10/04/24 15:00 23:00 07:00 Intake Total 17.4 ml 250 ml 200 ml Output Total 500 ml 250 ml Balance 17.4 ml -250 ml -50 ml medications Current Medications Medications Dose Ordered Sig/David Route Start Time Stop Time Status Last Admin Dose Admin Sodium Chloride 10 ml Q8HR IV 10/02/24 22:00 10/04/24 14:00 10 ML Acetaminophen/ Hydrocodone Bitart 1 tab Q4HP PRN PO 10/02/24 14:30 10/03/24 23:33 1 TAB Ondansetron HCl 4 mg Q4HP PRN IV 10/02/24 14:30 Docusate Sodium 100 mg BIDPRN PRN PO 10/02/24 14:30 Acetaminophen 650 mg Q6HP PRN PO 10/02/24 14:30 Nitroglycerin 0.4 mg Q5MINP PRN SL 10/02/24 14:30 Aspirin 81 mg DAILY PO 10/03/24 10:00 10/04/24 10:49 81 MG Atorvastatin Calcium 20 mg HS PO 10/02/24 22:00 10/03/24 22:25 20 MG Clopidogrel Bisulfate 75 mg DAILY PO 10/03/24 10:00 10/04/24 10:49 75 MG Ferrous Sulfate 325 mg DAILY PO 10/03/24 10:00 10/04/24 10:49 325 MG Trazodone HCl 100 mg QPM PO 10/02/24 18:00 10/03/24 16:46 100 MG Lorazepam 1 mg Q12HP PRN IV 10/03/24 13:45 10/04/24 12:00 1 MG Dobutamine HCl/ Dextrose 250 ml @ 17.4 mls/hr [id number] IV 10/03/24 15:45 10/03/24 21:20 17.4 MLS/HR Bumetanide 1 mg BIDD PO 10/04/24 18:00 Digoxin 0.125 mg DAILY PO 10/04/24 10:00 10/04/24 10:49 0.125 MG Finasteride 5 mg DAILY PO 10/04/24 10:00 laboratory and microbiology Laboratory Tests 10/04/24 05:16 Test 10/04/24 05:16 Range/Units Serum Glucose 121 H 74-106 mg/dL Problem List BACK PAIN NOW WITH ANASARCA SCHEMIC CM EF <30% AICD S/P LHC S/P PTCA STENT RCA S/P PTCA STENT CX RENAL INSUFF ANEMIA SEVERE LHC * Left main calcified. No flow restrictive lesion. Left anterior descending artery previous site of angioplasty was patent with no residual stenosis. Moderate diffuse disease throughout. * First diagonal of the LAD is a 2.5-mm vessel with 2 tandem lesions of about 80% that will require intervention at a later date. * Circumflex nondominant vessel, moderate to severe diffuse disease, but no discrete lesion. 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 Unable to find the origin of the obtuse marginal 1 therefore the intervention was terminated. * Right coronary artery, previous site of angioplasty was patent; however, posterior descending artery had moderate diffuse disease that will require intervention at a later date. EF was around less than 20% with an LVEDP of 22 mmHg. Aggressive afterload reduction should be initiated. The patient is status post AICD implantation. At this time, conservative medical management so that he will have adequate collateral circulation to the obtuse marginal 1. Does not require any further intervention, but the patient will require possible revascularization of the first diagonal and the mid to proximal PDA at a later date. Because of renal insufficiency, we were limited by contrast load. We will continue to follow the patient. Assessment/Plan AGREE WITH KEIRA YOUNG CORRECT ANEMIA W/U FOR ANEMIA IRON STUDIES Plan discussed with: Patient, YANIRA Becker MD Oct 04, 2024 15:13
--- NOTE | 2024-10-04 15:15 | DVHPN2 ---
Progress Note - Dictate Date Seen: Oct 04, 2024 Medical Necessity Reason Pt with a Central, PICC or Fol: No Subjective PT WITH BACK PAIN NOW WITH ANASARCA SCHEMIC CM EF <30% AICD S/P LHC S/P PTCA STENT RCA S/P PTCA STENT CX RENAL INSUFF ANEMIA SEVERE LHC * Left main calcified. No flow restrictive lesion. Left anterior descending artery previous site of angioplasty was patent with no residual stenosis. Moderate diffuse disease throughout. * First diagonal of the LAD is a 2.5-mm vessel with 2 tandem lesions of about 80% that will require intervention at a later date. * Circumflex nondominant vessel, moderate to severe diffuse disease, but no discrete lesion. 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 Unable to find the origin of the obtuse marginal 1 therefore the intervention was terminated. * Right coronary artery, previous site of angioplasty was patent; however, posterior descending artery had moderate diffuse disease that will require intervention at a later date. EF was around less than 20% with an LVEDP of 22 mmHg. Aggressive afterload reduction should be initiated. The patient is status post AICD implantation. At this time, conservative medical management so that he will have adequate collateral circulation to the obtuse marginal 1. Does not require any further intervention, but the patient will require possible revascularization of the first diagonal and the mid to proximal PDA at a later date. Because of renal insufficiency, we were limited by contrast load. We will continue to follow the patient. vital signs Vital Sign Date Time Temp Pulse Resp B/P (MAP) Pulse Ox O2 Delivery O2 Flow Rate FiO2 10/04/24 11:09 98.1 87 22 106/70 (82) 97 98.1 10/04/24 10:02 Nasal Cannula* 2 28 Total Intake and Output 10/03/24 10/03/24 10/04/24 15:00 23:00 07:00 Intake Total 17.4 ml 250 ml 200 ml Output Total 500 ml 250 ml Balance 17.4 ml -250 ml -50 ml medications Current Medications Medications Dose Ordered Sig/David Route Start Time Stop Time Status Last Admin Dose Admin Sodium Chloride 10 ml Q8HR IV 10/02/24 22:00 10/04/24 14:00 10 ML Acetaminophen/ Hydrocodone Bitart 1 tab Q4HP PRN PO 10/02/24 14:30 10/03/24 23:33 1 TAB Ondansetron HCl 4 mg Q4HP PRN IV 10/02/24 14:30 Docusate Sodium 100 mg BIDPRN PRN PO 10/02/24 14:30 Acetaminophen 650 mg Q6HP PRN PO 10/02/24 14:30 Nitroglycerin 0.4 mg Q5MINP PRN SL 10/02/24 14:30 Aspirin 81 mg DAILY PO 10/03/24 10:00 10/04/24 10:49 81 MG Atorvastatin Calcium 20 mg HS PO 10/02/24 22:00 10/03/24 22:25 20 MG Clopidogrel Bisulfate 75 mg DAILY PO 10/03/24 10:00 10/04/24 10:49 75 MG Ferrous Sulfate 325 mg DAILY PO 10/03/24 10:00 10/04/24 10:49 325 MG Trazodone HCl 100 mg QPM PO 10/02/24 18:00 10/03/24 16:46 100 MG Lorazepam 1 mg Q12HP PRN IV 10/03/24 13:45 10/04/24 12:00 1 MG Dobutamine HCl/ Dextrose 250 ml @ 17.4 mls/hr [id number] IV 10/03/24 15:45 10/03/24 21:20 17.4 MLS/HR Bumetanide 1 mg BIDD PO 10/04/24 18:00 Digoxin 0.125 mg DAILY PO 10/04/24 10:00 10/04/24 10:49 0.125 MG Finasteride 5 mg DAILY PO 10/04/24 10:00 laboratory and microbiology Laboratory Tests 10/04/24 05:16 Test 10/04/24 05:16 Range/Units Serum Glucose 121 H 74-106 mg/dL Problem List BACK PAIN NOW WITH ANASARCA SCHEMIC CM EF <30% AICD S/P LHC S/P PTCA STENT RCA S/P PTCA STENT CX RENAL INSUFF ANEMIA SEVERE LHC * Left main calcified. No flow restrictive lesion. Left anterior descending artery previous site of angioplasty was patent with no residual stenosis. Moderate diffuse disease throughout. * First diagonal of the LAD is a 2.5-mm vessel with 2 tandem lesions of about 80% that will require intervention at a later date. * Circumflex nondominant vessel, moderate to severe diffuse disease, but no discrete lesion. 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 Unable to find the origin of the obtuse marginal 1 therefore the intervention was terminated. * Right coronary artery, previous site of angioplasty was patent; however, posterior descending artery had moderate diffuse disease that will require intervention at a later date. EF was around less than 20% with an LVEDP of 22 mmHg. Aggressive afterload reduction should be initiated. The patient is status post AICD implantation. At this time, conservative medical management so that he will have adequate collateral circulation to the obtuse marginal 1. Does not require any further intervention, but the patient will require possible revascularization of the first diagonal and the mid to proximal PDA at a later date. Because of renal insufficiency, we were limited by contrast load. We will continue to follow the patient. Assessment/Plan AGREE WITH LASTERI YOUNG CORRECT ANEMIA W/U FOR ANEMIA IRON STUDIES DC DRIP ANEMIA WORK UP EPOGEN NOT DISPENSED BY PHARMACY SO WILL TRANSFUSE 1 UNIT Plan discussed with: Patient YANIRA CHRISTIANSEN MD Oct 04, 2024 15:15
[2024-10-04 16:55] LABS: Ferritin 56.1 ng/mL (22-322)
[2024-10-04 17:32] LABS: Iron 16.0 ug/dL (65-175); Total Iron Binding Capacity 250.0 ug/dL (250-425)
[2024-10-04] MEDS: BUMETANIDE 1 MG TAB PO SCH (17:54)
[2024-10-04] MEDS: MELATONIN 5 MG TAB PO ONE (22:44)
[2024-10-05 01:00] VITALS: BP 96/63; PULSE 78; RESP 17; TEMP 98; O2SAT 93
[2024-10-05 05:00] VITALS: BP 112/63; PULSE 77; RESP 16; TEMP 97.6; O2SAT 90
--- NOTE | 2024-10-05 07:24 | DVHPN2 ---
Subjective Indonesian-speaking; family helped with translation; did not share any complaints; wants to go home Reviewed: Care Plan, H&P, Labs, Medications, Previous Orders, Radiology, Other (Consultation) Changes from previous H/P or p: Changes Objective Vitals Vital Signs Date Time Temp Pulse Resp B/P (MAP) Pulse Ox O2 Delivery O2 Flow Rate FiO2 10/05/24 06:29 112/63 10/05/24 05:00 97.6 77 16 90 97.6 10/04/24 20:00 Nasal Cannula* 2 28 Intake/Output Intake and Output 10/05/24 07:00 Intake Total 850 ml Output Total 300 ml Balance 550 ml Intake Oral 250 ml Blood Product 300 ml Other 300 ml Output Urine Total 300 ml # Voids 3 # Bowel Movements 1 General Appearance: Alert, Oriented X3, Cooperative, No acute distress HEENT: Atraumatic Lungs: Other (Decreased air entry bilaterally with diffuse scattered crackles) Chest/Breasts: Other (AICD in place) Cardiovascular: Regular rate, Normal S1, Normal S2 Abdomen: Normal bowel sounds, Soft, No tenderness Extremities: Other (Trace pitting edema) Neuro: Normal speech, Cranial nerves 3-12 NL Psych/Mental Status: Mental status NL, Mood NL Medications Current Medications Medications Dose Ordered Sig/David Route Start Time Stop Time Status Last Admin Dose Admin Sodium Chloride 10 ml Q8HR IV 10/02/24 22:00 10/05/24 06:02 10 ML Acetaminophen/ Hydrocodone Bitart 1 tab Q4HP PRN PO 10/02/24 14:30 10/05/24 04:15 1 TAB Ondansetron HCl 4 mg Q4HP PRN IV 10/02/24 14:30 Docusate Sodium 100 mg BIDPRN PRN PO 10/02/24 14:30 Acetaminophen 650 mg Q6HP PRN PO 10/02/24 14:30 Nitroglycerin 0.4 mg Q5MINP PRN SL 10/02/24 14:30 Aspirin 81 mg DAILY PO 10/03/24 10:00 10/04/24 10:49 81 MG Atorvastatin Calcium 20 mg HS PO 10/02/24 22:00 10/04/24 21:17 20 MG Clopidogrel Bisulfate 75 mg DAILY PO 10/03/24 10:00 10/04/24 10:49 75 MG Ferrous Sulfate 325 mg DAILY PO 10/03/24 10:00 10/04/24 10:49 325 MG Trazodone HCl 100 mg QPM PO 10/02/24 18:00 10/04/24 17:57 100 MG Lorazepam 1 mg Q12HP PRN IV 10/03/24 13:45 10/05/24 00:41 1 MG Bumetanide 1 mg BIDD PO 10/04/24 18:00 10/05/24 06:29 1 MG Digoxin 0.125 mg DAILY PO 10/04/24 10:00 10/04/24 10:49 0.125 MG Finasteride 5 mg DAILY PO 10/04/24 10:00 Laboratory Results Laboratory Tests 10/04/24 05:16 Urinalysis Test 10/02/24 13:00 Urine Color Light-yellow (Yellow) Urine Clarity Clear (Clear) Urine pH 6.5 (5.0-9.0) Urine Specific Williamson 1.009 (1.001-1.035) Urine Protein Negative (Negative) Urine Ketones Negative (Negative) Urine Blood Negative /uL (Negative) Urine Nitrite Negative (Negative) Urine Bilirubin Negative (Negative) Urine Urobilinogen Normal mg/dL (Negative) Urine Leukocyte Esterase Negative /uL (Negative) Urine RBC None seen /hpf (0 - 3) Urine Microscopic WBC 1 /HPF (0-3) Urine Squamous Epithelial Cells None seen /hpf (<5) Urine Bacteria None seen /hpf (None Seen) Urine Glucose Normal mg/dL (Normal) Microbiology Microbiology Date/Time Source Procedure Growth Status 10/02/24 17:20 Nose MRSA Screen - Final Complete Labs and/or images reviewed: Labs reviewed by me, Image(s) reviewed by me Assessment/Plan Assessment/Plan Covering: Acute on chronic heart failure with reduced ejection fraction; ischemic cardiomyopathy; was on dobutamine drip Acute hypoxic respiratory failure due to CHF exacerbation S/P AICD placement Severe aortic stenosis RUTHANN on CKD likely due to cardiorenal syndrome Hypertensive heart disease with heart failure Dyslipidemia Chronic normocytic anemia Anxiety The patient was discharged on home hospice; arranged by the patient's family Late Entry. This medical document was created using an electronic medical record system with computerized dictation system. Although this document has been carefully reviewed, there might still be some phonetic and typographical errors. These areas are purely typographical due to imperfections of the software programs, and do not reflect any compromise in the patient's medical care. Plan discussed with: Patient, Daughter, Other (Nurse) My Orders Orders - USHA IQBAL MD Procedure Category Date Status Time Complete Blood Count LAB 10/06/24 Verified 04:00 Comprehensive LAB 10/06/24 Verified Metabolic Panel 04:00 Chest Xray 1 View XY 10/06/24 Verified 04:00 Date of Service: Oct 05, 2024 Billing Provider: USHA IQBAL MD Common Visit Codes: [id number] INP/OBS CARE(MOD) USHA IQBAL MD Oct 05, 2024 07:24
[2024-10-05 08:00] VITALS: RESP 20
--- NOTE | 2024-10-05 08:26 | DVH ---
CHEST RADIOGRAPH Indication: sob Technique: Single frontal view of the chest was obtained COMPARISON: XY CHEST PORTABLE on DOS: 10/04/24, XY CHEST PORTABLE on DOS: 10/02/24, XY CHEST XRAY 1 VIEW on DOS: 09/19/24, XY CHEST PORTABLE on DOS: 09/12/24, XY CHEST PORTABLE on DOS: 09/10/24 FINDINGS: Lines and Tubes: Left chest AICD Lungs: Congestion Pleura: No effusion. No pneumothorax. Cardiomediastinal contours: Cardiomegaly Bones: Unremarkable IMPRESSION: Increased pulmonary vascular congestion
[2024-10-05 09:00] VITALS: BP 100/62; PULSE 74; RESP 18; TEMP 97.4; O2SAT 97
[2024-10-05 10:59] LABS: Hematocrit 26.7 % (41.0-53.0); Hemoglobin 8.8 g/dL (13.5-17.5); Mean Corpuscular Hemoglobin 28.6 pg (28.0-32.0); Mean Corpuscular Volume 87.3 fL (80.0-100.0); Nucleated Red Blood Cells % 0.0 %
[2024-10-05 11:13] LABS: Chloride 103 mmol/L (98-107); Potassium 3.9 mmol/L (3.5-5.1); Sodium 138 mmol/L (136-145)
[2024-10-05 11:14] LABS: Anion Gap 8 (5-15); Carbon Dioxide 27 mmol/L (20-31)
[2024-10-05 11:19] LABS: BUN/Creatinine Ratio 16.8 (10.0-20.0)
[2024-10-05 11:33] LABS: Blood Urea Nitrogen 30 mg/dL (9-23); Calcium 8.4 mg/dL (8.7-10.4); Glucose 151 mg/dL (74-106); Magnesium 2.7 mg/dL (1.6-2.6)
[2024-10-05 13:00] VITALS: BP 106/72; PULSE 80; RESP 15; TEMP 97.4; O2SAT 100
--- NOTE | 2024-10-05 14:06 | DVHDS2 ---
Discharge Summary Date of Admission Oct 02, 2024 at 14:25 Date of Discharge: Oct 05, 2024 Admitting Diagnosis Shortness of breath Labs/Diagnostic Data: Laboratory Results Test 10/05/24 10:28 10/04/24 16:06 10/03/24 05:06 10/02/24 14:50 White Blood Count 10.4 10^3/uL (4.4-10.8) Red Blood Count 3.06 10^6/uL (4.5-5.90) Hemoglobin 8.8 g/dL (13.5-17.5) Hematocrit 26.7 % (41.0-53.0) Mean Corpuscular Volume 87.3 fL (80.0-100.0) Mean Corpuscular Hemoglobin 28.6 pg (28.0-32.0) Mean Corpuscular Hemoglobin Concent 32.8 g/dL (32.0-36.0) Red Cell Distribution Width 16.8 % (11.8-14.3) Platelet Count 187 10^3/uL (140-450) Mean Platelet Volume 8.0 fL (6.9-10.8) Neutrophils (%) (Auto) 72.8 % (37.0-80.0) Lymphocytes (%) (Auto) 8.8 % (10.0-50.0) Monocytes (%) (Auto) 15.0 % (0.0-12.0) Eosinophils (%) (Auto) 3.0 % (0.0-7.0) Basophils (%) (Auto) 0.4 % (0.0-2.0) Neutrophils # (Auto) 7.6 10 ^3/uL (1.6-8.6) Lymphocytes # (Auto) 0.9 10 ^3/uL (0.4-5.4) Monocytes # (Auto) 1.6 10 ^3/uL (0-1.3) Eosinophils # (Auto) 0.3 10 ^3/uL (0-0.8) Basophils # (Auto) 0 10 ^3/uL (0-0.2) Nucleated Red Blood Cells 0.0 % Sodium Level 138 mmol/L (136-145) Potassium Level 3.9 mmol/L (3.5-5.1) Chloride Level 103 mmol/L (98-107) Carbon Dioxide Level 27 mmol/L (20-31) Anion Gap 8 (5-15) Blood Urea Nitrogen 30 mg/dL (9-23) Creatinine 1.79 mg/dL (0.700-1.30) Glomerular Filtration Rate Calc 37 mL/min (>90) BUN/Creatinine Ratio 16.8 (10.0-20.0) Serum Glucose 151 mg/dL (74-106) Calcium Level 8.4 mg/dL (8.7-10.4) Magnesium Level 2.7 mg/dL (1.6-2.6) Reticulocyte Count (auto) 2.47 % (0.5-1.5) Iron Level 16 ug/dL (65-175) Total Iron Binding Capacity 250 ug/dL (250-425) Percent Iron Saturation 6.4 % (20-55) Ferritin 56.1 ng/mL (22-322) Lactate Dehydrogenase 247 U/L (120-246) Total Bilirubin 0.6 mg/dL (0.2-1.0) Aspartate Amino Transferase (AST) 25 U/L (13-40) Alanine Aminotransferase (ALT) 18 U/L (7-40) Alkaline Phosphatase 71 U/L (46-116) Total Protein 6.2 g/dL (5.7-8.2) Albumin 3.4 g/dL (3.2-4.8) Troponin I High Sensitivity 24 ng/L (</=54) Test 10/02/24 13:00 10/02/24 11:35 Urine Color Light-yellow (Yellow) Urine Clarity Clear (Clear) Urine pH 6.5 (5.0-9.0) Urine Specific Ald[place] 1.009 (1.001-1.035) Urine Protein Negative (Negative) Urine Ketones Negative (Negative) Urine Blood Negative /uL (Negative) Urine Nitrite Negative (Negative) Urine Bilirubin Negative (Negative) Urine Urobilinogen Normal mg/dL (Negative) Urine Leukocyte Esterase Negative /uL (Negative) Urine RBC None seen /hpf (0 - 3) Urine Microscopic WBC 1 /HPF (0-3) Urine Squamous Epithelial Cells None seen /hpf (<5) Urine Bacteria None seen /hpf (None Seen) Urine Glucose Normal mg/dL (Normal) B-Type Natriuretic Peptide 2500.10 pg/mL (0-100) Other Laboratory Tests 10/05/24 10:28 Brief Hx & Hospital Course: Covering: Please kindly refer to EMR for details. Cardiogenic shock; resolved; was on dobutamine drip Acute on chronic heart failure with reduced ejection fraction; ischemic cardiomyopathy Acute hypoxic respiratory failure due to CHF exacerbation S/P AICD placement Severe aortic stenosis RUTHANN on CKD likely due to cardiorenal syndrome Hypertensive heart disease with heart failure Dyslipidemia Chronic normocytic anemia Anxiety The patient was discharged on home hospice; arranged by the patient's family Late Entry. This medical document was created using an electronic medical record system with computerized dictation system. Although this document has been carefully reviewed, there might still be some phonetic and typographical errors. These areas are purely typographical due to imperfections of the software programs, and do not reflect any compromise in the patient's medical care. Consults/Reason for consult Cardiology for acute on chronic systolic heart failure Condition at Discharge: Poor Final Diagnosis/Problems List Cardiogenic shock; resolved Rest of diagnoses as above Discharge Disposition: Hospice - Home (Arranged by the patient's family) Discharge Instruct/Medications Diet: Regular Activity: Bed rest Follow Up/Referral: Home hospice Medications: Home hospice Scheduled Albuterol Sulfate (Albuterol Sulfate), 1 VIAL NEB Q4HPRN Aspirin (Aspirin Low Dose), 1 TAB PO DAILY, (Reported) Atorvastatin Calcium (Lipitor), 1 TAB PO DAILY, (Reported) Bumetanide (Bumex Tablet), 1 MG PO BIDD Clopidogrel Bisulfate (Clopidogrel), 1 TAB PO DAILY, (Reported) Digoxin (Digoxin), 1 TAB PO DAILY, (Reported) Ferrous Sulfate (Ferrous Sulfate), 1 TAB PO DAILY, (Reported) Finasteride (Finasteride), 5 MG PO DAILY, (Reported) Gabapentin (Gabapentin), 1 CAP PO TID, (Reported) Lidocaine (Ztlido), 1 PATCH EX DAILY, (Reported) Losartan Potassium (Losartan Potassium), 50 MG PO DAILY, (Reported) Quetiapine Fumerate (Seroquel), 50 MG PO BID Trazodone Hcl (Trazodone Hcl), 1 TAB PO QPM, (Reported) Discontinued Medications Bumetanide (Bumex Tablet), 0.5 MG PO HS Carvedilol (Coreg), 3.125 MG PO Q12HR Clopidogrel Bisulfate (Plavix), 1 TAB PO DAILY, (Reported) Cyclobenzaprine Hcl (Cyclobenzaprine Hcl), 1 TAB PO TID PRN Diclofenac Sodium (Topical) (Diclofenac Sodium), 2 % EX UD, (Reported) Lidocaine (Lidoderm 5% Topical Patch), 1 PATCH TOP DAILY Discharge Statement: "Patient was advised to return to the ER or call 911 if any headaches, dizziness, shortness of breath, chest pain, abdominal pain, bleeding, fevers, or worsening of medical condition. Patient was counseled about treatment plan, medications, possible side effects, patientverbalized understanding. All questions were answered to the best of my ability. This discharge took greater then 30 minutes in planning, reviewing documentation, counseling the patient, and discussing with other team members." ASSESSMENT ASSESSMENT Assessment Cardiogenic shock; resolved Date of Service: Oct 05, 2024 Billing Provider: USHA IQBAL MD Common Visit Codes: 53279-JJV/OBS DISCH DAY >30min USHA IQBAL MD Oct 05, 2024 14:06
[2024-10-05] MEDS ORDERED: QUET50TA PO (15:44)
[2024-10-05 17:15] VITALS: BP 88/52; PULSE 70; RESP 15; TEMP 98.4; O2SAT 99
== END 2024-10-05 17:50 | disposition hospice, home (50) | DRG 291 ==
LOC: ER 10:54 → OVERFLOW 14:25 → TELE-WESTW 10-04 09:50
PROVIDERS: ADMIT Internal Medicine; ATTEND Internal Medicine
PROC: 30233N1 Transfusion of Nonautologous Red Blood Cells into Peripheral Vein, Percutaneous Approach (ICD-10-PCS; principal; 2024-10-04)
DX: I13.0 Hypertensive heart and chronic kidney disease with heart failure and stage 1 through stage 4 chronic kidney disease, or unspecified chronic kidney disease (principal); I50.43 Acute on chronic combined systolic (congestive) and diastolic (congestive) heart failure; J96.01 Acute respiratory failure with hypoxia; R57.0 Cardiogenic shock; N17.9 Acute kidney failure, unspecified; I95.9 Hypotension, unspecified; N18.9 Chronic kidney disease, unspecified; D50.9 Iron deficiency anemia, unspecified; F41.9 Anxiety disorder, unspecified; I35.0 Nonrheumatic aortic (valve) stenosis; I25.5 Ischemic cardiomyopathy; I25.10 Atherosclerotic heart disease of native coronary artery without angina pectoris; E11.22 Type 2 diabetes mellitus with diabetic chronic kidney disease; E78.5 Hyperlipidemia, unspecified; Z95.5 Presence of coronary angioplasty implant and graft; Z95.810 Presence of automatic (implantable) cardiac defibrillator; M54.9 Dorsalgia, unspecified; I25.2 Old myocardial infarction; Z79.82 Long term (current) use of aspirin; Z79.899 Other long term (current) drug therapy; Z88.5 Allergy status to narcotic agent
CPT/HCPCS: 36415; 71045; 74176; 80048; 80053; 81001; 82607; 82728; 82746; 83540; 83550; 83615; 83735; 83880; 84484; 85025; 85045; 86850; 86900; 86901; 86920; 87081; 93005; 96365; 96375; 99291; G0378